=== PATIENT | female | born 1940 | race Caucasian/White ===

== ENCOUNTER 2020-03-01 08:58 | Outpatient (REF) | payer MEDICARE, OTHER, SELFPAY ==
[2020-03-02 21:46] LABS: Lyme Abs Screen <0.90 index
== END 2020-03-01 08:59 | disposition home or self-care (01) ==
LOC: HO.HMGCLDS 08:58
PROVIDERS: PCP Internal Medicine; Visit Provider Nurse Practitioner Family
DX: T14.8XXA Other injury of unspecified body region, initial encounter (principal)
CPT/HCPCS: 86618

== ENCOUNTER → 2020-03-06 15:58 | Outpatient (BNVA) | payer MEDICARE, OTHER, SELFPAY | PROVIDERS: PCP Internal Medicine; Referring Provider Internal Medicine; Visit Provider Internal Medicine Cardiovascular Disease | DX: I49.3 Ventricular premature depolarization (principal); R00.2 Palpitations | CPT/HCPCS: 99213 ==

== ENCOUNTER → 2021-03-01 13:38 | Outpatient (BNVA) | payer MEDICARE, OTHER, SELFPAY | PROVIDERS: PCP Internal Medicine; Visit Provider Internal Medicine Cardiovascular Disease | DX: I47.1 Supraventricular tachycardia (principal); R00.2 Palpitations; I49.1 Atrial premature depolarization; I44.7 Left bundle-branch block, unspecified; Z87.891 Personal history of nicotine dependence; Z79.899 Other long term (current) drug therapy | CPT/HCPCS: 93005; 99212 ==

== ENCOUNTER → 2021-05-31 12:47 | Outpatient (BNVA) | payer MEDICARE, OTHER, SELFPAY | PROVIDERS: PCP Internal Medicine; Visit Provider Internal Medicine Cardiovascular Disease | DX: I49.3 Ventricular premature depolarization (principal); R00.2 Palpitations | CPT/HCPCS: 99212 ==

== ENCOUNTER → 2022-02-28 15:16 | Outpatient (BNVA) | payer MEDICARE, OTHER, SELFPAY | PROVIDERS: PCP Internal Medicine; Visit Provider Internal Medicine Cardiovascular Disease | DX: I26.99 Other pulmonary embolism without acute cor pulmonale (principal); I44.7 Left bundle-branch block, unspecified; R00.2 Palpitations | CPT/HCPCS: 93005; 99212 ==

== ENCOUNTER 2022-06-26 10:49 | Outpatient (REF) | payer MEDICARE, OTHER, SELFPAY | END 2022-06-26 10:50 | disposition home or self-care (01) | LOC: HO.LAB 10:49 | PROVIDERS: Visit Provider Nurse Practitioner Family | DX: R39.9 Unspecified symptoms and signs involving the genitourinary system (principal) | CPT/HCPCS: 87086 ==

== ENCOUNTER 2022-06-28 12:03 | Outpatient (REF) | payer MEDICARE, OTHER, SELFPAY ==
[2022-06-28 13:13] LABS: Appearance Urine Clear; Color Urine Dark Yellow; Glucose Urine UA Negative (Negative); Leukocyte Esterase Urine Trace (Negative); Nitrite Urine Negative (Negative); UMIC TRIGGER UACC YES; Urine Blood Negative (Negative); Urine Ketones Negative (Negative); Urine Protein Negative (Neg-Trace)
[2022-06-28 13:16] LABS: Bacteria Urine None Seen (None Seen); Hyaline Casts Urine 0-2 /LPF (0-2); RBC Urine 0-2 /HPF (0-2); Squamous Epithelial Cell Urine 0-2 /HPF (0-2); WBC Urine 0-5 /HPF (0-5)
== END 2022-06-28 12:04 | disposition home or self-care (01) ==
LOC: HO.LAB 12:03
PROVIDERS: PCP Internal Medicine; Visit Provider Nurse Practitioner Family
DX: R39.9 Unspecified symptoms and signs involving the genitourinary system (principal)
CPT/HCPCS: 81001; 81003

== ENCOUNTER 2022-07-22 10:46 | Outpatient (REF) | payer MEDICARE, OTHER, SELFPAY ==
[2022-07-22 11:28] LABS: D Dimer High Sensitivity 162 NG/ML
== END 2022-07-22 10:47 | disposition home or self-care (01) ==
LOC: HO.LAB 10:46
PROVIDERS: PCP Internal Medicine; Visit Provider Internal Medicine Cardiovascular Disease
DX: I26.99 Other pulmonary embolism without acute cor pulmonale (principal)
CPT/HCPCS: 36415; 85379

== ENCOUNTER → 2022-07-30 15:20 | Outpatient (BNVA) | payer MEDICARE, OTHER, SELFPAY | PROVIDERS: PCP Internal Medicine; Referring Provider Internal Medicine; Visit Provider Internal Medicine Cardiovascular Disease | DX: I44.7 Left bundle-branch block, unspecified (principal); R06.09 Other forms of dyspnea; I26.99 Other pulmonary embolism without acute cor pulmonale | CPT/HCPCS: 99212 ==

== ENCOUNTER → 2022-08-06 14:47 | Outpatient (REF) | payer MEDICARE, OTHER, SELFPAY ==
--- NOTE | 2022-08-06 14:51 | CA_ITS ---
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 There is mildly increased left ventricular wall thickness. The visually estimated ejection fraction is between 55-60%. - Reduced global longitudinal strain at -16 %/ - Normal right ventricular cavity size and systolic function. Findings Left Ventricle Normal left ventricular size and systolic function. There is mildly increased left ventricular wall thickness. The visually estimated ejection fraction is between 55-60%. There is no evidence of regional wall motion abnormalities. Diastolic function is indeterminate on the basis of available data. Reduced global longitudinal strain at -16 %/ Right Ventricle Normal right ventricular cavity size and systolic function. Atria The left atrium is normal in size. The right atrium is normal in size. Aortic Valve Normal aortic valve structure and function. There is no aortic valve stenosis. There is no aortic valve regurgitation. Mitral Valve The mitral valve appears normal. There is mild mitral valve regurgitation. There is no mitral valve stenosis. Pulmonic Valve The pulmonic valve is likely normal. Tricuspid Valve Normal tricuspid valve structure and function. There is trace tricuspid valve regurgitation. Normal right atrial pressure. There is no evidence of pulmonary hypertension. Great Vessels All visible segments of the aorta are normal in size. The visualized portions of the pulmonary artery and branches are normal. Venous The inferior vena cava is normal in size and collapses greater than 50% with inspiration. Pericardium/Pleural There is no evidence of pericardial effusion. Prior Study Comparison No significant change compared to prior study dated: 10/29/2019. Measurements 2D Linear Measurements IVSd: 1.06 0.6-0.9/0.6-1.0 cm LVIDd: 4.17 3.9-5.3/4.2-5.9 cm LVIDd Index: 2.45 2.4-3.2/2.2-3.1 cm/m2 LVIDs: 3.06 2.0-3.6 cm LVPWd: 0.95 0.7-1.1 cm LA Diam: 3.00 2.7-3.8/3.0-4.0 cm LAIDs Index: 1.76 1.5-2.3 cm/m2 LV Mass: 169.82 67-162/88-224 g LV Mass Index: 99.89 43-95/49-115 g/m2 LVOT Diam: 1.80 3.0+(-)1.3 cm 2D Systolic Function EF 4C: 56.40 >55% EF 2C: 57.60 >55% EF BiP: 57.00 >55% Mitral Valve MV Pk E: 0.61 MV PK A: 0.86 MV Decel Time: 272.00 E/A: 0.70 E'Lateral: 9.14 E'Medial: 5.77 E/E' Med: 10.60 E/E' Lat: 6.70 PHT: 80.00 MVA PHT: 2.75 Decel Lares: 2.26 Aortic Valve AoV Pk Chase: 1.21 AoV Mn Chase: 0.94 AoV VTI: 0.29 AoV Pk Grad: 6.00 Aov Mn Grad: 4.00 WALDO Cont.VTI: 1.84 LVOT LVOT Pk Chase: 0.88 LVOT Mn Chase: 0.61 LVOT VTI: 0.21 LVOT Pk Grad: 3.00 LVOT Mn Grad: 2.00 LVOT Diam: 1.80 LVOT Area: 2.54 Diastolic Function MV Pk E: 0.61 MV Pk A: 0.86 E/A: 0.70 E'Medial: 5.77 E/E' Med: 10.60 E' Laterial: 9.14 E/E' Lat: 6.70 Right Ventricle TAPSE (mm): 24.00 TVS' Chase: 11.40 Tricuspid Valve TR Pk Chase: 2.67 TR Pk Grad: 29.00 RA Press: 3.00 RVSP: 32.00 Great Vessels Aorta Sinus of Valsalva: 3.04 2.0-3.5 cm Ao Asc: 3.20 2.1-3.4 cm Ao Arch: 2.50 Updated in Other Vendor System with Status of Final Jack Acosta MD electronically signed on 08/08/2022 12:20:17 PM with status of Final
== END ==
LOC: HO.CARD 14:47
PROVIDERS: PCP Internal Medicine; Visit Provider Internal Medicine Cardiovascular Disease
DX: R06.09 Other forms of dyspnea (principal)
CPT/HCPCS: 93306; 93356

== ENCOUNTER 2022-08-26 11:11 | Outpatient (REF) | payer MEDICARE, OTHER, SELFPAY ==
[2022-08-26 11:43] LABS: Fibrinogen 612 MG/DL (259-690); INTERNATIONAL NORM RATIO 0.9 (0.9-1.1); Prothrombin Time 10.5 SEC (10.0-13.1)
[2022-08-26 11:45] LABS: Partial Thromboplastin Time 28.7 SEC (26.0-36.4)
[2022-08-28 16:54] LABS: Homocysteine 10.3 umol/L (<10.4)
[2022-08-29 19:09] LABS: Anti-Thrombin III Antigen 105 % normal (80-120)
[2022-08-29 23:19] LABS: Protein C Activity 148 % normal (70-180); Protein S Activity rflx Tot&Fr 112 % normal (60-140)
[2022-08-30 13:33] LABS: PTT (LAC) Screen 28 sec (<=40)
[2022-08-31 02:44] LABS: Factor V Leiden NEGATIVE
[2022-08-31 03:18] LABS: Prothrombin 20210A NEGATIVE
== END 2022-08-26 11:12 | disposition home or self-care (01) ==
LOC: HO.LAB 11:11
PROVIDERS: PCP Internal Medicine; Visit Provider Internal Medicine Medical Oncology
DX: I82.409 Acute embolism and thrombosis of unspecified deep veins of unspecified lower extremity (principal); I26.99 Other pulmonary embolism without acute cor pulmonale; D68.59 Other primary thrombophilia; Z79.01 Long term (current) use of anticoagulants
CPT/HCPCS: 36415; 81240; 81241; 83090; 85301; 85302; 85303; 85305; 85306; 85384; 85597; 85610; 85613; 85730

== ENCOUNTER 2022-11-18 09:31 | Outpatient (AMB) | payer MEDICARE, OTHER, SELFPAY ==
--- NOTE | 2022-11-18 10:06 | MHC.OFFVIS ---
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 Allergies No Known Allergies [No Known Allergies*] Allergy (Verified 09/17/22 08:22) PFSH Medical History (Updated 09/17/22 @ 08:24 by Gerson Fontana MD) Palpitations PVC (premature ventricular contraction) Surgical History H/O section History of meniscectomy of left knee Hx of meniscectomy of right knee Family History Mother Pulmonary fibrosis Father Diabetes HTN (hypertension) Colon cancer Bladder cancer Sister Breast cancer Brother COPD (chronic obstructive pulmonary disease) Son Addisons disease Social History Alcohol intake: current Alcohol intake frequency: holidays/special occasions only Patient Tobacco Use Status: Former Tobacco user Quit Date: Years Smoked: 15 +/- Review of Systems Const Denies chills, Denies fatigue, Denies fever(s), Denies frequent falls, Denies weakness, Denies weight gain and Denies weight loss ENT Denies dizziness Card Denies chest pain, Denies leg edema, Denies lightheadedness, Denies palpitations, Denies dyspnea, Denies dyspnea on exertion, Denies orthopnea and Denies other (loss of consciousness) Resp Denies cough, Denies dyspnea and Denies dyspnea on exertion GI Denies hematochezia and Denies change in stool character Musc Denies abnormal gait, Denies muscle weakness, Denies numbness, Denies radiating pain into limb and Denies tingling Neuro Denies abnormal gait, Denies dizziness, Denies frequent falls, Denies numbness, Denies tingling and Denies weakness Endo Denies fatigue and Denies palpitations Coding Diagnoses
--- NOTE | 2022-11-18 10:11 | MHC.OFFVIS ---
Intake Intake Visit Reasons: 3 month f/u Allergies No Known Allergies [No Known Allergies*] Allergy (Verified 09/17/22 08:22) Medication List - Last Reconciled 11/18/22 by Jack Acosta MD cholecalciferol (vitamin D3) 50 mcg PO DAILY doxycycline hyclate 100 mg PO BID latanoprost 0.005% drps ophthalmic (eye) metoprolol succinate ER 12.5 mg (1/2 x 25 mg) PO DAILY olopatadine 0.1% drps ophthalmic (eye) HPI HPI Comments History of Present Illness Details Here for f/u 07/30/22: She had bilateral PE last year in the setting of COVID-19 infection. She also had air travel to [place]. Echocardiography at that time performed at [facility] showed mild RV dysfunction with EF of 50 55%. She has chronic left bundle-branch block. She has few questions including concern for fatigue and shortness of breath. She was able to walk 2 1/2 miles before but now able to walk 1-1-1/2 miles. She has no chest discomfort. She has been taking Eliquis without any issues. She had D-dimer performed recently which was normal. Her pulmonary embolism appears to be provoked due to COVID-19 and air travel. No dizziness or syncope. She was referred for echocardiography which showed normal biventricular function. She also saw Hematology and was subsequently taken off the Eliquis. 11/18/22: She returns for follow-up. EKG in the office is showing sinus rhythm 72 beats per minute, left bundle-branch block, QTC 462 milliseconds. [facility] Medical History (Updated 09/17/22 @ 08:24 by Gerson Fontana MD) Palpitations PVC (premature ventricular contraction) Surgical History H/O section History of meniscectomy of left knee Hx of meniscectomy of right knee Family History Mother Pulmonary fibrosis Father Diabetes HTN (hypertension) Colon cancer Bladder cancer Sister Breast cancer Brother COPD (chronic obstructive pulmonary disease) Son Addisons disease Social History Alcohol intake: current Alcohol intake frequency: holidays/special occasions only Patient Tobacco Use Status: Former Tobacco user Quit Date: Years Smoked: 15 +/- Physical Exam GENERAL APPEARANCE: in no acute distress, pleasant. NECK: no carotid bruit, no jugular venous distention. SKIN: no suspicious lesions, warm and dry. HEART: no murmurs, regular rate and rhythm. LUNGS: clear to auscultation bilaterally. ABDOMEN: soft, nontender. EXTREMITIES: no edema. PERIPHERAL PULSES: equal. NEUROLOGIC: No gross deficits, AAO X 3 Office Procedures EKG Details: sinus rhythm 72 beats per minute, left bundle-branch block, QTC 462 milliseconds. [id number], Complete Assessment & Plan Assessment & Plan (1) LBBB (left bundle branch block): Code(s): I44.7 - Left bundle-branch block, unspecified Plan Pleasant 82-year-old female who is here for follow-up. On previous visit she was on Eliquis for pulmonary embolism. She subsequently had follow-up with Hematology and has been taken off the Eliquis. She has chronic left bundle-branch block. She had echocardiography which showed normal biventricular function. She is denying any chest discomfort shortness of breath currently. Blood pressure control is good. No dizziness or syncope. She was in [place] and walked 18 miles there without any significant symptoms. Clinically stable right now. Follow-up with us in 6 months. Thank you for allowing me to participate in the care of your patient. Please feel free to contact me if you have any questions. Coding Level of Care Code Est Pt Level 3 (81181) Diagnoses LBBB (left bundle branch block) I44.7 CPT Codes EKG - CPT: 83438-[id number], Complete ([id number])
== END 2022-11-18 10:14 | disposition home or self-care (01) ==
LOC: HO.HCS 10:06
PROVIDERS: PCP Internal Medicine; Visit Provider Internal Medicine Cardiovascular Disease
DX: I44.7 Left bundle-branch block, unspecified (principal)
CPT/HCPCS: 93010; 99213

== ENCOUNTER → 2022-11-18 10:06 | Outpatient (BNVA) | payer MEDICARE, OTHER, SELFPAY | PROVIDERS: PCP Internal Medicine; Visit Provider Internal Medicine Cardiovascular Disease | DX: I44.7 Left bundle-branch block, unspecified (principal); I49.3 Ventricular premature depolarization; R00.2 Palpitations; Z87.891 Personal history of nicotine dependence | CPT/HCPCS: 93005; 99212 ==

== ENCOUNTER 2022-12-31 07:27 | Outpatient (REF) | payer MEDICARE, OTHER, SELFPAY ==
--- NOTE | ~2022-12-31 | US_ITS ---
EXAMINATION: US VENOUS ULTRASOUND WITH DOPPLER LOWER EXTREMITY, BILATERAL CLINICAL INFORMATION: Bilateral leg pain. Elevated D-dimer. COMPARISON: None available. TECHNIQUE: Ultrasound of the deep veins is performed from the hip to the calf with compression sonography and color and pulse Doppler assessment. Spectral analysis with color-flow imaging is performed. FINDINGS: RIGHT: There is normal venous compression and respiratory variation and augmented flow. The visualized common femoral vein, superficial femoral vein, profunda femoral vein, popliteal vein, and the trifurcation region shows no evidence of deep venous thrombosis. There is no significant popliteal fossa cyst. LEFT: There is normal venous compression and respiratory variation and augmented flow. The visualized common femoral vein, superficial femoral vein, profunda femoral vein, popliteal vein, and the trifurcation region shows no evidence of deep venous thrombosis. There is no significant popliteal fossa cyst. If the patient's symptoms persist, followup ultrasound in 5 days 7 days might be of value to exclude proximal propagation from a non-visualized calf vein. US/US venous duplex LE BI IMPRESSION: No DVT demonstrated in the lower extremities.
[2022-12-31 10:44] LABS: D Dimer High Sensitivity 282 NG/ML
== END 2022-12-31 07:28 | disposition home or self-care (01) ==
LOC: HO.LAB 07:27
PROVIDERS: PCP Internal Medicine; Visit Provider Internal Medicine Medical Oncology
DX: R60.0 Localized edema (principal); M79.604 Pain in right leg; M79.605 Pain in left leg
CPT/HCPCS: 36415; 85379; 93970

== ENCOUNTER 2023-01-09 14:28 | Outpatient (AMB) | payer MEDICARE, OTHER, SELFPAY ==
--- NOTE | 2023-01-09 14:30 | A.OFFVIS_ITS ---
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 Pt states about a week and a half ago she had burning in both of her feet after her walk and stated she felt pins and needles in her feet. She stated she tried different shoes and she still has the same symptoms without relief. She states about 3 days ago the burrning started to move up to her ankles and shins. Pt also states that when she wakes up in the morning she states she has no symptoms. Pt denies any pain,numbness, and swelling. 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 She notes that it is bilateral extremities right a little more so than left. She does have occasional swelling and discomfort. She also has tingling more so towards the feet. She does have some mild back discomfort issues. Of note she has had recurrent tick bites of the lower extremities. In addition she has a prior history of left lower extremity DVT with PE which she relates to COVID as well. She now presents to us for vascular evaluation. Of note she can walk distances without any sign ificant difficulty. PFSH Medical History Palpitations PVC (premature ventricular contraction) Surgical History H/O section History of meniscectomy of left knee Hx of meniscectomy of right knee Family History Mother Pulmonary fibrosis Father Diabetes HTN (hypertension) Colon cancer Bladder cancer Sister Breast cancer Brother COPD (chronic obstructive pulmonary disease) Son Addisons disease Social History Alcohol intake: current Alcohol intake frequency: holidays/special occasions only Patient Tobacco Use Status: Former Tobacco user Quit Date: Years Smoked: 15 +/- Review of Systems Const All systems reviewed & are unremarkable except as noted in HPI and below Reports no additional complaints ENT Reports Normal hearing present Card Denies chest pain, Denies chest pain at rest, Denies chest pain with activity and Denies pedal edema Resp Denies cough GI Denies abdominal pain Musc Denies abnormal gait, Denies muscle cramps and Denies radiating pain into limb Skin/Breast Denies skin ulcer and Denies wounds Neuro Reports Normal hearing present and Denies abnormal gait Psych Reports no additional complaints Physical Exam Vital Signs: Last Vital Signs Pulse 91 01/09/23 14:31 BP 132/70 01/09/23 14:31 Pulse Ox 98 01/09/23 14:31 Oxygen Delivery Method Room Air 01/09/23 14:31 BMI result Body Mass Index 26.0 Const General: cooperative, healthy appearing and comfortable Orientation/consciousness: oriented to person, oriented to place and oriented to time HEENT Head: Yes normal to inspection Neck Neck: Yes normal visual inspection Carotids: no bruits Chest Chest palpation & inspection: normal inspection of the chest Resp Effort & Inspection: normal respiratory effort and able to speak in complete sentences Auscultation: clear to auscultation bilaterally, no crackles, no rales, no rhonchi and no wheezes Cardio Rate: regular rate Rhythm: regular rhythm Heart sounds: S1 normal heart sound present and S2 normal heart sound present Bruits: no carotid bruits Peripheral pulses: Peripheral pulses 2+ throughout GI Inspection: Yes normal to inspection Skin Wounds: no wounds Hair: normal Neuro General: oriented to person, oriented to place and oriented to time Cranial nerves: Yes CN's II-XII intact bilaterally and Yes Normal hearing present Cognition (Neuro): normal cognition Motor exam (neuro): 5/5 motor strength present throughout Extrem Other: venous exam: Plus one edema General: No clubbing, No cyanosis and No edema Psych Appearance: grossly normal Mental Status: mental status grossly normal Speech and movement: Normal speech and movement present Assessment & Plan Assessment & Plan (1) Varicose veins of right lower extremity with inflammation: Code(s): I83.11 - Varicose veins of right lower extremity with inflammation Plan: in short patient has lower extremity discomfort. It does not appear to be arterial in nature as she does have palpable pulses. I have taken the liberty of ordering venous insufficiency testing to rule that out. Unsure if that will be the source of her issues. There is concern of her prior tick bites and underlying reflux as evidence by her prior DVT. In addition there may be a neurologic component of this as well. Once again she will follow up with us after venous insufficiency testing. Thank you for allowing us to assist in her care. If there are any questions or concerns please do not hesitate to contact us. Orders: Orders US venous duplex LE BI 1 Week I83.11 - Varicose veins of right lower extremity with inflammation Coding Level of Care Code New Pt Level 4 (28782) Diagnoses Varicose veins of right lower extremity with inflammation I83.11
[2023-01-09 14:31] VITALS: BP 132/70; PULSE 91; O2SAT 98; BMI 26.0
== END 2023-01-09 15:39 | disposition home or self-care (01) ==
PROVIDERS: PCP Internal Medicine; Visit Provider Surgery Vascular Surgery
DX: I83.11 Varicose veins of right lower extremity with inflammation (principal)
CPT/HCPCS: 99204

== ENCOUNTER → 2023-01-09 14:28 | Outpatient (BNVA) | payer MEDICARE, OTHER, SELFPAY | PROVIDERS: PCP Internal Medicine; Visit Provider Surgery Vascular Surgery | DX: I83.11 Varicose veins of right lower extremity with inflammation (principal) | CPT/HCPCS: 99202 ==

== ENCOUNTER 2023-01-29 12:43 | Outpatient (REF) | payer MEDICARE, OTHER, SELFPAY ==
--- NOTE | ~2023-01-29 | US_ITS ---
EXAMINATION: US LOWER EXTREMITY VENOUS (REFLUX EXAM), BILATERAL CLINICAL INDICATION: Chronic venous insufficiency with lower extremity varicose veins with inflammation COMPARISON: 12/31/2022 TECHNIQUE: Color flow triplex imaging and compression Doppler was performed to evaluate both the deep and the superficial systems bilaterally. To evaluate the superficial system, the examination was performed in the upright position. Color-flow Doppler ultrasound and compression ultrasound were utilized. In addition, maneuvers were utilized to demonstrate reflux. FINDINGS: 1. DEEP VENOUS ULTRASOUND OF THE RIGHT LOWER EXTREMITY: Common Femoral Vein: Compressible, normal respiratory variation and augmented flow. Femoral Vein: Compressible, normal color flow and augmentation. Popliteal Vein: Compressible, normal augmentation. Deep Reflux: There is no evidence of reflux in the deep system in either the common femoral vein or the popliteal vein. There is no evidence of a Metzger's cyst. 2. SUPERFICIAL ULTRASOUND WITH DOPPLER OF RIGHT LOWER EXTREMITY: GREAT SAPHENOUS VEIN: Saphenofemoral Junction: 0.7 cm; Reflux: 0 ms Proximal Thigh: 0.4 cm; Reflux: 0 ms Mid Thigh: 0.3 cm; Reflux: 848 ms Above Knee: 0.3 cm; Reflux: 0 ms At Knee: 0.3 cm; Reflux: 616 ms Below Knee: 0.3 cm; Reflux: 500 ms Mid Calf: 0.2 cm; Reflux: 0 ms Ankle: 0.2 cm; Reflux: 0 ms DUPLICATED MEDIAL GREAT SAPHENOUS VEIN: Diameter: None imaged Reflux: NA DUPLICATED LATERAL GREAT SAPHENOUS VEIN: Diameter: None imaged Reflux: NA SMALL SAPHENOUS VEIN: Proximal: 0.1 cm; Reflux: 0 ms Distal: 0.2 cm; Reflux: 0 ms VEIN OF GIACOMINI: Size: 0.2 cm Reflux: None PERFORATORS: Location: Mid calf Size: 0.3 cm Reflux: None VARICOSITIES: Location: Proximal thigh and proximal calf Size: 0.3 cm Reflux: None 3. DEEP VENOUS ULTRASOUND OF THE LEFT LOWER EXTREMITY: Common Femoral Vein: Compressible, normal respiratory variation and augmented flow. Femoral Vein: Compressible, normal color flow and augmentation. Popliteal Vein: Compressible, normal augmentation. Deep Reflux: There is no evidence of reflux in the deep system in either the common femoral vein or the popliteal vein. There is no evidence of a Metzger's cyst. 4. SUPERFICIAL ULTRASOUND WITH DOPPLER OF LEFT LOWER EXTREMITY: GREAT SAPHENOUS VEIN: Saphenofemoral Junction: 0.4 cm; Reflux: 0 ms Proximal Thigh: 0.4 cm; Reflux: 1912 ms Mid Thigh: 0.3 cm; Reflux: 2108 ms Above Knee: 0.3 cm; Reflux: 2268 ms At Knee: 0.3 cm; Reflux: 2020 ms Below Knee: 0.2 cm; Reflux: 0 ms Mid Calf: 0.3 cm; Reflux: 0 ms Ankle: 0.3 cm; Reflux: 0 ms DUPLICATED MEDIAL GREAT SAPHENOUS VEIN: Diameter: None imaged Reflux: NA DUPLICATED LATERAL GREAT SAPHENOUS VEIN: Diameter: None imaged Reflux: NA SMALL SAPHENOUS VEIN: Proximal: 0.2 cm; Reflux: 0 ms Distal: 0.2 cm; Reflux: 0 ms VEIN OF GIACOMINI: Size: NA Reflux: NA PERFORATORS: Location: None significant Size: NA Reflux: NA VARICOSITIES: Location: None Imaged Size: NA Reflux: NA US/US venous duplex LE BI IMPRESSION: Right: Mild to moderate reflux in the right great saphenous vein within the mid to thigh, knee and proximal calf. Varicose veins seen in the thigh and calf without significant reflux Left: Severe reflux within the great saphenous vein at the thigh and knee.
== END 2023-01-29 12:44 | disposition home or self-care (01) ==
LOC: HO.US 12:43
PROVIDERS: PCP Internal Medicine; Visit Provider Surgery Vascular Surgery
DX: I83.11 Varicose veins of right lower extremity with inflammation (principal)
CPT/HCPCS: 93970

== ENCOUNTER 2023-02-04 15:03 | Outpatient (AMB) | payer MEDICARE, OTHER, SELFPAY ==
--- NOTE | 2023-02-04 15:06 | MHC.OFFVIS ---
Intake Vital Signs 02/04/23 15:07 Height 5 ft 3 in Weight 147 lb BMI 26.0 Intake Visit Reasons: Follow Up 01/27 Intake Note: fu for venous us hx of DVT pt states shes doing well and the compression socks have been working Allergies No Known Allergies [No Known Allergies*] Allergy (Verified 02/04/23 15:08) HPI Follow Up 01/27 HPI Details 82-year-old female presents for follow-up regarding venous insufficiency. Of note she most recently he developed COVID and was restarted by her primary care team on Eliquis. Her prior episode of COVID she did develop a left lower extremity DVT at [facility] which she has an ultrasound of. [facility] Medical History Palpitations PVC (premature ventricular contraction) Surgical History H/O section History of meniscectomy of left knee Hx of meniscectomy of right knee Family History Mother Pulmonary fibrosis Father Diabetes HTN (hypertension) Colon cancer Bladder cancer Sister Breast cancer Brother COPD (chronic obstructive pulmonary disease) Son Addisons disease Social History Alcohol intake: current Alcohol intake frequency: holidays/special occasions only Patient Tobacco Use Status: Former Tobacco user Quit Date: Years Smoked: 15 +/- Review of Systems Const All systems reviewed & are unremarkable except as noted in HPI and below Reports no additional complaints ENT Reports Normal hearing present Card Denies chest pain, Denies chest pain at rest, Denies chest pain with activity and Denies pedal edema Resp Denies cough GI Denies abdominal pain Musc Denies abnormal gait, Denies muscle cramps and Denies radiating pain into limb Skin/Breast Denies skin ulcer and Denies wounds Neuro Reports Normal hearing present and Denies abnormal gait Psych Reports no additional complaints Physical Exam Vital Signs: BMI result Body Mass Index 26.0 Const General: cooperative, healthy appearing and comfortable Orientation/consciousness: oriented to person, oriented to place and oriented to time HEENT Head: Yes normal to inspection Neck Neck: Yes normal visual inspection Carotids: no bruits Chest Chest palpation & inspection: normal inspection of the chest Resp Effort & Inspection: normal respiratory effort and able to speak in complete sentences Auscultation: clear to auscultation bilaterally, no crackles, no rales, no rhonchi and no wheezes Cardio Rate: regular rate Rhythm: regular rhythm Heart sounds: S1 normal heart sound present and S2 normal heart sound present Bruits: no carotid bruits Peripheral pulses: Peripheral pulses 2+ throughout GI Inspection: Yes normal to inspection Skin Wounds: no wounds Hair: normal Neuro General: oriented to person, oriented to place and oriented to time Cranial nerves: Yes CN's II-XII intact bilaterally and Yes Normal hearing present Cognition (Neuro): normal cognition Motor exam (neuro): 5/5 motor strength present throughout Extrem Other: venous exam: +1 edema left greater than right General: No clubbing, No cyanosis and Yes edema Psych Appearance: grossly normal Mental Status: mental status grossly normal Speech and movement: Normal speech and movement present Results Reviewed Results Reviewed: Brief summary of venous insufficiency testing is as follows: right great saphenous vein: negative right small saphenous vein: negative right accessory vein: none present left great saphenous vein: Positive left small saphenous vein: negative left accessory vein: none present Please note there is no evidence of any venous aneurysms or significant tortuosity Assessment & Plan Assessment & Plan (1) Varicose veins of left lower extremity with inflammation: Code(s): I83.12 - Varicose veins of left lower extremity with inflammation Plan: This patient has varicose veins with inflammation. They continue to be a source of discomfort for the patient. The patient has tried conservative treatment with compression, leg elevation and exercise program for over 3 months time. They have been compliant with all treatment. This has provided minimal relief for the patient. I do not anticipate this course of treatment will alter the underlying etiology. The patient has been scheduled for lower extremity venous treatment inclusive of --- left great saphenous vein Cyanoacralate ablation. Risks, benefits, and complications of this procedure has been discussed in detail with the patient including but not limited to bleeding, infection, and the development of a DVT. The patient has demonstrated a clear understanding and has consented. We will schedule the patient as soon as possible. Thank you for allowing us to participate in this patient's care. If there are any questions or concerns please do not hesitate to contact us. Coding Level of Care Code Est Pt Level 4 (93188) Diagnoses Varicose veins of left lower extremity with inflammation I83.12
[2023-02-04 15:07] VITALS: BMI 26.0
== END 2023-02-04 15:42 | disposition home or self-care (01) ==
PROVIDERS: PCP Internal Medicine; Visit Provider Surgery Vascular Surgery
DX: I83.12 Varicose veins of left lower extremity with inflammation (principal)
CPT/HCPCS: 99214

== ENCOUNTER → 2023-02-04 15:03 | Outpatient (BNVA) | payer MEDICARE, OTHER, SELFPAY | PROVIDERS: PCP Internal Medicine; Visit Provider Surgery Vascular Surgery | DX: I83.12 Varicose veins of left lower extremity with inflammation (principal) | CPT/HCPCS: 99212 ==

== ENCOUNTER 2023-05-19 08:44 | Outpatient (AMB) | payer MEDICARE, OTHER, SELFPAY ==
[2023-05-19 09:21] VITALS: BP 124/62; PULSE 80; BMI 26.4
--- NOTE | 2023-05-19 09:21 | MHC.OFFVIS ---
Intake Vital Signs 05/19/23 09:21 Height 5 ft 3 in Weight 149 lb 0.52 oz BMI 26.4 BP 124/62 Blood Pressure Location Lt brachial Position Sitting Pulse 80 Pulse Source Pulse Oximeter Intake Visit Reasons: 6 month follow up Allergies No Known Allergies [No Known Allergies*] Allergy (Verified 05/19/23 09:22) Medication List - Last Reconciled 05/19/23 by Jack Acosta MD aspirin (Adult Aspirin Regimen) 81 mg PO DAILY cholecalciferol (vitamin D3) 50 mcg PO DAILY latanoprost 0.005% drps ophthalmic (eye) metoprolol succinate ER 12.5 mg (1/2 x 25 mg) PO DAILY olopatadine 0.1% drps ophthalmic (eye) HPI HPI Comments History of Present Illness Details Here for f/u 07/30/22: She had bilateral PE last year in the setting of COVID-19 infection. She also had air travel to [place]. Echocardiography at that time performed at [facility] showed mild RV dysfunction with EF of 50 55%. She has chronic left bundle-branch block. She has few questions including concern for fatigue and shortness of breath. She was able to walk 2 1/2 miles before but now able to walk 1-1-1/2 miles. She has no chest discomfort. She has been taking Eliquis without any issues. She had D-dimer performed recently which was normal. Her pulmonary embolism appears to be provoked due to COVID-19 and air travel. No dizziness or syncope. She was referred for echocardiography which showed normal biventricular function. She also saw Hematology and was subsequently taken off the Eliquis. 11/18/22: She returns for follow-up. EKG in the office is showing sinus rhythm 72 beats per minute, left bundle-branch block, QTC 462 milliseconds. 05/19/23: She is here for follow-up. She is getting some shortness of breath when she goes upstairs. No chest discomfort. She has been experiencing some dull ache in the legs when she walks and has been diagnosed with venous reflux involving the left leg. She also get burning sensation on her feet. She is seeing vascular surgery for venous ablation. [facility] Medical History Palpitations PVC (premature ventricular contraction) Surgical History History of meniscectomy of left knee Hx of meniscectomy of right knee H/O section Family History Mother Pulmonary fibrosis Father Diabetes HTN (hypertension) Colon cancer Bladder cancer Sister Breast cancer Brother COPD (chronic obstructive pulmonary disease) Son Addisons disease Social History Alcohol intake: current Alcohol intake frequency: holidays/special occasions only Patient Tobacco Use Status: Former Tobacco user Quit Date: Years Smoked: 15 +/- Review of Systems ENT Reports dizziness Card Denies chest pain, Denies chest pain at rest, Denies chest pain with activity, Denies rapid heart rate, Denies pedal edema, Denies edema, Denies leg edema, Denies lightheadedness, Denies palpitations, Denies dyspnea, Denies dyspnea on exertion and Denies orthopnea Resp Denies cough, Denies dyspnea and Denies dyspnea on exertion GI Denies hematochezia and Denies change in stool character Musc Denies abnormal gait, Reports limited range of motion, Reports muscle cramps, Denies muscle weakness, Denies numbness, Denies radiating pain into limb, Denies stiffness and Denies tingling Neuro Denies abnormal gait, Reports dizziness, Denies numbness and Denies tingling Endo Denies palpitations Physical Exam Vital Signs: Last Vital Signs Pulse 80 05/19/23 09:21 BP 124/62 05/19/23 09:21 BMI result Body Mass Index 26.4 GENERAL APPEARANCE: in no acute distress, pleasant. NECK: no carotid bruit, no jugular venous distention. SKIN: no suspicious lesions, warm and dry. HEART: no murmurs, regular rate and rhythm. LUNGS: clear to auscultation bilaterally. ABDOMEN: soft, nontender. EXTREMITIES: no edema. Compression stockings on. PERIPHERAL PULSES: equal. NEUROLOGIC: No gross deficits, AAO X 3 Assessment & Plan Assessment & Plan (1) LBBB (left bundle branch block): Code(s): I44.7 - Left bundle-branch block, unspecified (2) FISCHER (dyspnea on exertion): Code(s): R06.09 - Other forms of dyspnea Plan [age] female here for follow-up. She has chronic left bundle-branch block. She had pulmonary embolism in the setting of COVID-19 infection and since then has some dyspnea. She feels it more when she is going upstairs. Clinically not in heart failure. I think dyspnea is a combination of previous pulmonary embolism and deconditioning. She has chronic left bundle-branch block but LV function is normal. She will continue metoprolol for palpitations. Thank you for allowing me to participate in the care of your patient. Please feel free to contact me if you have any questions. Medications: Refilled metoprolol succinate ER Take 1/2 tablet daily. 12.5 mg (1/2 x 25 mg) PO DAILY 45 tabs 3RF Coding Level of Care Code Est Pt Level 4 (40530) Diagnoses LBBB (left bundle branch block) I44.7 FISCHER (dyspnea on exertion) R06.09
== END 2023-05-19 09:57 | disposition home or self-care (01) ==
PROVIDERS: PCP Internal Medicine; Visit Provider Internal Medicine Cardiovascular Disease
DX: I44.7 Left bundle-branch block, unspecified (principal); R06.09 Other forms of dyspnea
CPT/HCPCS: 99214

== ENCOUNTER → 2023-05-19 08:44 | Outpatient (BNVA) | payer MEDICARE, OTHER, SELFPAY | PROVIDERS: PCP Internal Medicine; Visit Provider Internal Medicine Cardiovascular Disease | DX: I44.7 Left bundle-branch block, unspecified (principal); R06.09 Other forms of dyspnea | CPT/HCPCS: 99212 ==

== ENCOUNTER 2023-10-23 11:29 | Inpatient (IN) | payer MEDICARE, OTHER, SELFPAY ==
--- NOTE | ~2023-10-23 | XR_ITS ---
EXAMINATION: XR CHEST CLINICAL INFORMATION: Shortness of breath. Palpitations. COMPARISON: None available. TECHNIQUE: 2 views of the chest were obtained. FINDINGS: The cardiac silhouette is normal in size. The lungs are clear. There is blunting of the right costophrenic angle, suggestive of a small right pleural effusion. There is no pneumothorax. No acute osseous abnormality. XR/XR chest 2V IMPRESSION: Small right pleural effusion. The lungs are clear.
--- NOTE | ~2023-10-23 | CT_ITS ---
EXAMINATION: CT ANGIOGRAM OF THE CHEST WITH AND WITHOUT CONTRAST (CT PULMONARY ANGIOGRAM FOR PE) CLINICAL INFORMATION: Reason for Exam dyspnea, elevated HR, prior PE COMPARISON: Chest radiograph dated 10/23/2023. TECHNIQUE: Prior to contrast administration, noncontrast localization images were obtained. Subsequently, multidetector volumetric imaging was performed from the thoracic inlet to below the diaphragms following the administration of 80 mL Omnipaque 350 intravenous contrast. No contrast reaction reported Sagittal, coronal, and MIP oblique sagittal reformatted images were obtained on the CT workstation, uploaded to PACS, and reviewed. This CT examination was performed using dose optimization techniques as appropriate, variously including the following: *Automated exposure control *Adjustment of mA and/or kV according to patient size (this includes techniques or standardized protocols for targeted exams where dose is matched to indication/reason for exam; i.e. extremities or head) *Use of iterative reconstruction technique Total exam dose-length product 238 mGy-cm FINDINGS: QUALITY OF STUDY/CONTRAST BOLUS: Satisfactory. PULMONARY ARTERIES: Extensive pulmonary emboli are identified. On the right side there is a large burden of clot within the mid to distal aspect of the main pulmonary artery. Clot extends into the upper, middle, and lower lobe pulmonary arteries. There is extension of clot into the segmental arteries of all lobes. On the left side there is a moderate burden of clot within the distal aspect of the main pulmonary artery. Clot extends into the left lower lobe pulmonary artery. There is extension of clot into the segmental arteries. THORACIC AORTA: No aneurysm. There is mild, scattered calcific atherosclerotic disease. LUNG: The trachea and central airways are patent. There are dependent changes at the left lung base. There are somewhat rounded opacities within the posterior and inferior aspects of the right lower lobe for which infection cannot be excluded. These should be followed to resolution radiologically. There is mild centrilobular emphysema. PLEURA: No pleural effusion or pneumothorax. MEDIASTINUM: Normal heart size. No pericardial effusion. No hilar or mediastinal lymphadenopathy. No evidence of septal bowing or right heart strain. CORONARY ARTERY CALCIFICATION: None visualized on this study. CHEST WALL/AXILLA: No axillary or internal mammary lymphadenopathy. OSSEOUS STRUCTURES: No acute or suspicious osseous abnormality. There are degenerative changes throughout the thoracic spine. UPPER ABDOMEN: The liver and gallbladder are normal in appearance. The spleen is normal in size. The pancreas is normal in appearance. There is no adrenal gland nodule. The left kidney and visualized portion of the right kidney are normal in appearance. No hydronephrosis. The visualized bowel is normal in caliber. No reflux of contrast into the hepatic veins to suggest elevated right heart pressures. CT/CT angio chest PE protocol IMPRESSION: Extensive bilateral pulmonary emboli as described above. There are somewhat rounded opacities within the posterior and inferior aspects of the right lower lobe for which infection cannot be excluded. These should be followed to resolution radiologically. VTE: positive This critical result was discussed with Iqra Sanford at 3:24 PM on 10/23/2023 and it was ascertained that the content and urgency of the report was understood at the time of direct communication.
--- NOTE | ~2023-10-23 | US_ITS ---
EXAMINATION: US VENOUS ULTRASOUND WITH DOPPLER LOWER EXTREMITY, BILATERAL CLINICAL INFORMATION: Pulmonary emboli COMPARISON: DVT study 01/29/2023 TECHNIQUE: Ultrasound of the deep veins is performed from the hip to the calf with compression sonography and color and pulse Doppler assessment. Spectral analysis with color-flow imaging is performed. FINDINGS: RIGHT: There is normal venous compression and respiratory variation and augmented flow. The visualized common femoral vein, superficial femoral vein, profunda femoral vein, popliteal vein, and the trifurcation region shows no evidence of deep venous thrombosis. There is no significant popliteal fossa cyst. LEFT: There is new nonocclusive deep venous thrombosis in the left common femoral vein with extension into the greater saphenous vein where it is occlusive. The visualized superficial femoral vein, profunda femoral vein, popliteal vein, and the trifurcation region shows no evidence of deep venous thrombosis. There is no significant popliteal fossa cyst. US/US venous duplex LE BI IMPRESSION: 1. There is new nonocclusive deep venous thrombosis in the left common femoral vein with extension into the greater saphenous vein where it is occlusive. 2. No DVT demonstrated in the right lower extremity. These critical results were discussed with Dr. Corbett by telephone at 10/23/2023 6:22 PM and it was ascertained that the content and urgency of the report was understood at the time of direct communication.
--- NOTE | 2023-10-23 11:32 | ECG_ITS ---
Test Reason : TACHYCARDIA Blood Pressure : / mmHG Vent. Rate : 095 BPM Atrial Rate : 095 BPM P-R Int : 162 ms QRS Dur : 122 ms QT Int : 384 ms P-R-T Axes : 078 -42 090 degrees QTc Int : 482 ms Normal sinus rhythm Left axis deviation Left bundle branch block Abnormal ECG When compared with ECG of 05-OCT-2019 07:47, Vent. rate has increased BY 41 BPM Left bundle branch block is now Present Referred By: Shelli Clinton Electronically Signed By:ALMAZ FRANCO
[2023-10-23 11:57] VITALS: BP 138/66; PULSE 99; RESP 19; TEMP 36.6; O2SAT 98; BMI 25.5
--- NOTE | 2023-10-23 11:57 | ED.GENADULT ---
HPI - General Adult General Chief complaint: Arrhythmia/Palpitations Stated complaint: rapid heart rate, sob Time Seen by Provider: 10/23/23 12:39 Source: patient and old records reviewed Mode of arrival: ambulatory Limitations: no limitations History of Present Illness ED Provider: LOUIE MACK narrative: 83 yo female with PMH of SVT, PE but no longer on eliquis, palpitations, chronic LBBB, follows with Dr. Madridood is no longer on metoprolol 12.5mg daily for the past 2 days after noting her BP was 90 she now presents with c/o dyspnea, cough for 1+ month, FISCHER but no chest pain. She has not had a fever. She feels her HR goes up to 100-115 with any exertion which is unusual for her. She denies n/v/d and black or bloody stools. complaint: palpitations, dyspnea Onset (ago): day(s) (2) Location: chest Radiation: non-radiation Severity: mild Relieving factors: none Exacerbating factors: other (exertion) Associated symptoms: shortness of breath and other (palpitations with exertion, fatigue) Treatments prior to arrival: none Related Data Home Medications ?Medication ?Instructions ?Recorded ?Confirmed latanoprost 0.005 % eye drops drp ophthalmic (eye) 03/01/20 05/19/23 olopatadine 0.1 % eye drops drp ophthalmic (eye) 03/01/20 05/19/23 cholecalciferol (vitamin D3) 50 50 mcg PO DAILY 05/31/21 05/19/23 mcg (2,000 unit) capsule aspirin 81 mg tablet,delayed 81 mg PO DAILY 01/09/23 05/19/23 release (Adult Aspirin Regimen) Previous Rx's ?Medication ?Instructions ?Recorded metoprolol succinate 25 mg 12.5 mg (1/2 x 25 mg) PO DAILY #45 05/19/23 tablet,extended release 24 hr tabs Allergies Allergy/AdvReac Type Severity Reaction Status Date / Time No Known Allergies Allergy Verified 10/23/23 12:02 [No Known Allergies*] Review of Systems Review of Systems: Constitutional : No Fever, No Chills ENT/Mouth : No sore throat, No Rhinorrhea, No Swallowing Difficulty Eyes: No Eye Pain, No Swelling, No Redness Cardiovascular : No Chest Pain, positive SOB, No Orthopnea, no Edema Respiratory : pos Cough, pos Sputum, No Wheezing, positive dyspnea Gastrointestinal : No Nausea, No Vomiting, No Diarrhea, No abdominal Pain, No Hematochezia, No Melena Genitourinary : No Dysuria, No Urinary Frequency, No Hematuria Musculoskeletal : No joint pain, No Myalgias Skin : No Skin Lesions, No rash Neuro : No Weakness, No Numbness, No Dizziness, No Headache Psych : No Anxiety/Panic, No Depression All other systems reviewed and are negative PMFSH Past Medical History Attestation statement: The following information was validated with the patient. Source: old records reviewed Medical History FISCHER (dyspnea on exertion) Pulmonary embolism LBBB (left bundle branch block) Palpitations PVC (premature ventricular contraction) Surgical History History of meniscectomy of left knee Hx of meniscectomy of right knee H/O section Family History Family History Mother Pulmonary fibrosis Father Diabetes HTN (hypertension) Colon cancer Bladder cancer Sister Breast cancer Brother COPD (chronic obstructive pulmonary disease) Son Addisons disease Social History Social History Alcohol intake: current Alcohol intake frequency: holidays/special occasions only Patient Tobacco Use Status: Former Tobacco user Years Smoked: 15 +/- Advance Directives: No Advance Directives Information Provided: Yes Do you have a plan to hurt others: No Plan Physical Exam ED Vital Signs: Vital Signs - 24 hr 10/23/23 11:57 10/23/23 16:00 Temperature 98 F Pulse Rate 99 78 Respiratory Rate 19 17 Blood Pressure 138/66 159/60 H Pulse Oximetry 98 98 Oxygen Delivery Method Room Air Room Air BMI result Body Mass Index 25.5 Appearance: Alert. Oriented X3. No acute distress. Eyes: Pupils equal, round and reactive to light. ENT: Pharynx normal. Neck: Normal inspection. Neck supple. CVS: Normal heart rate and rhythm. Pulses normal. Respiratory: No respiratory distress. Breath sounds normal. Abdomen: Soft and non-tender. Skin: Skin warm and dry. Normal skin color. Normal skin turgor. Extremities: No lower extremity edema. Neuro: Oriented X 3. No motor deficit. No sensory deficit. Course Course Course Narrative: This is an RME: Additional HPI, ROS, PE not included below will be deferred to primary provider. RME assessment and note performed by: Shelli Clinton PA-C This is a [id number]-female, with a hx of LBBB per cardiology notes, SVT, who presents to the ER with complaints of tachycardia with exertion and dyspnea on exertion, and weakness x 1 week. No chest pain. Reports persistent cough since July due to flu. Hx of PE due to COVID, previously on Eliquis - d/c in Feb. Plan: Labs, EKG, CXR, viral swabs Reevaluation(s) Reevaluation #1: troponin under delta Reevaluation #2: repeat message sent to Dr. Dave - Dr. Cliff tellos med recommendation given low platelets Medications Administered Discontinued Medications Generic Name Dose Route Start Last Admin Trade Name Freq PRN Reason Stop Dose Admin Iohexol 100 ml 10/23/23 14:39 10/23/23 14:39 Iohexol 350 Mg/Ml 100 Ml Infus..Btl IV 10/23/23 14:40 65 ml ONCE ONE Administration Medical Decision Making Medical Decision Making [facility] Narrative: 83 yo female with PMH of SVT, PE but no longer on eliquis, palpitations, chronic LBBB, follows with Dr. Acosta recently just off metoprolol here with c/o palpitations with exertion and feeling short of breath. At this time symptoms could be related to her stopping metoprolol will need troponin x 2, CTA for PE given her history, BNP, H/H. EKG is old LBBB. Differential Diagnosis Differential Diagnoses: The differential diagnosis associated with the presentation includes atypical ACS, VTE, mass Admission/Observation Consideration of admission/observation: Escalation of care including admission/observation considered given her symptoms and tachycardia along with FISCHER with extensive PE will admit for further management dose of lovenox ordered Consult Healthcare Provider Management of the patient was discussed with: Hospitalist (will admit) and Watch Repair Person message sent to Dr. Dave given preference of medication given low platelets Dr. Dave states okay to start on lovenox then will likely transition to eliquis Lab Data [facility] Lab Attestation statement: I reviewed the patient's lab results. 10/23/23 11:55 10/23/23 11:55 Labs: Lab Results 10/23/23 10/23/23 10/23/23 Range/Units 11:55 12:47 14:01 WBC 9.7 (4.8-10.8) X10*3/uL RBC 4.05 L (4.20-5.50) X10*6/uL Hgb 12.9 (12.0-16.0) g/dl Hct 39.1 (37.0-47.0) % MCV 96.5 (80.0-98.0) fL MCH 31.9 (27.0-33.0) pg MCHC 33.0 (31.0-35.0) g/dl RDW 12.9 (11.0-16.0) % Plt Count 60 L (160-400) X10*3/uL MPV 9.5 (9.4-12.3) fL Immature Gran % (Auto) 0.4 (0.0-0.4) % Neut % (Auto) 82.8 H (45-73) % Lymph % (Auto) 10.6 L (20-40) % [place] % (Auto) 5.5 (2-11) % Eos % (Auto) 0.3 (0-4) % Baso % (Auto) 0.4 (0-2) % Lymph # (Auto) 1.0 L (1.2-4.9) X10*3/uL [place] # (Auto) 0.5 (0.1-1.2) X10*3/uL Eos # (Auto) 0.0 (0.0-0.4) X10*3/uL Baso # (Auto) 0.0 (0.0-0.2) X10*3/uL Abs Immat Gran (auto) 0.04 H (0.00-0.03) X10*3/uL Absolute Neuts (auto) 8.1 (2.0-8.3) x10*3/uL Absolute Nucleated RBC 0.000 (0.0-0.012) X10*3/uL Nucleated RBC % (auto) 0.0 (0.0-0.2) /100WBC PT 11.2 (11.1-13.3) SEC INR 0.9 (0.9-1.1) APTT 27.7 (26.0-36.8) SEC Sodium 141 (135-145) mmol/L Potassium 4.2 (3.3-5.1) mmol/L Chloride 106 (96-108) mmol/L Carbon Dioxide 30 H (22-29) mmol/L Anion Gap 9 L (12-20) BUN 14 (9-16) mg/dL Creatinine 0.79 (0.5-1.4) mg/dL Estim Creat Clear Calc 48.8 Estimated GFR > 60 Random Glucose 111 (60-115) mg/dL Calcium 9.9 (8.4-10.2) mg/dL Magnesium 2.3 (1.6-2.6) mg/dL Total Bilirubin 0.5 (0.0-1.0) mg/dL Direct Bilirubin 0.2 (0.0-0.5) mg/dL AST 22 (5-31) U/L ALT 22 (0-31) U/L Alkaline Phosphatase 84 (39-117) U/L Troponin I High Sens 18.2 H 22.3 H (<3.5-17.0) ng/L B-Natriuretic Peptide 31 (<100) pg/mL Total Protein 8.0 (6.5-8.0) g/dL Albumin 3.9 (3.5-5.0) g/dL TSH 0.57 (0.32-4.0) uIU/mL Influenza Type A (PCR) NEGATIVE (Negative) Influenza Type B (PCR) NEGATIVE (Negative) RSV RNA Qual (PCR) NEGATIVE (Negative) SARS-CoV-2 RNA (RT-PCR) NEGATIVE (Negative) Independent Interpretation I performed an independent interpretation of an: EKG, Plain X-Ray (possible small effusion) and CT Scan (+ PE no saddle) Interpretation: Rate: 95 Rhythm: NSR [place] Plane: left Normal P waves. Normal RITA. LBBB ST T wave : no NEGAR, inverted t waves I and aVL qTC: 482 prior studies: unchanged from 2019 and 2022 The study has been interpreted contemporaneously by me. . Radiology Impression Discussion of test interpretation with radiology: I discussed test interpretation with the radiologist and I have reviewed the radiologist's reading. Radiologist Impression: call from radiology 323pm - extensive moderate to bilateral PE no signs of R heart strain Independent Historian Clinical information obtained from an independent historian. History obtained from or confirmed by: Spouse External Record Review External record reviewed: Inpatient record and Office record Critical Care Time Critical Care Time Critical Care Time: Yes Total Critical Care Time: 45 Attestation: review of records, repeat labs, medical consult, initiation of therapy for PE I attest to this time spent taking care of the patient Discharge Plan Discharge Clinical Impression: Thrombocytopenia Pulmonary emboli Qualifiers: Pulmonary embolism type: multiple subsegmental (without acute cor pulmonale) Qualified Code(s): I26.94 - Multiple subsegmental pulmonary emboli without acute cor pulmonale Patient Disposition: Admitted As Inpatient Print Language: Cameroonian
[2023-10-23 12:00] LABS: MANUAL DIFF FLAG NO
[2023-10-23 12:06] LABS: Basophils Percent Auto 0.4 % (0-2); Eosinophils Percent Auto 0.3 % (0-4); Hematocrit 39.1 % (37.0-47.0); Hemoglobin 12.9 g/dl (12.0-16.0); Imm Gran Abs Auto 0.04 X10*3/uL (0.00-0.03); Imm Gran Pct Auto 0.4 % (0.0-0.4); Lymphocytes Percent Auto 10.6 % (20-40); Mean Corpuscular Hemoglobin 31.9 pg (27.0-33.0); Mean Corpuscular Volume 96.5 fL (80.0-98.0); Monocytes Absolute Auto 0.5 X10*3/uL (0.1-1.2); Monocytes Percent Auto 5.5 % (2-11); Neutrophils Absolute Auto 8.1 x10*3/uL (2.0-8.3); Neutrophils Percent Auto 82.8 % (45-73); Red Blood Count 4.05 X10*6/uL (4.20-5.50); Red Cell Distribution Width 12.9 % (11.0-16.0); White Blood Count 9.7 X10*3/uL (4.8-10.8)
[2023-10-23 12:07] LABS: INTERNATIONAL NORM RATIO 0.9 (0.9-1.1); Prothrombin Time 11.2 SEC (11.1-13.3)
[2023-10-23 12:10] LABS: Partial Thromboplastin Time 27.7 SEC (26.0-36.8)
[2023-10-23 12:17] LABS: Alanine Aminotransferase 22 U/L (0-31); Albumin Level 3.9 g/dL (3.5-5.0); Alkaline Phosphatase 84 U/L (39-117); Anion Gap 9 (12-20); Aspartate Amino Transferase 22 U/L (5-31); Bilirubin Direct 0.2 mg/dL (0.0-0.5); Bilirubin Total 0.5 mg/dL (0.0-1.0); Blood Urea Nitrogen 14 mg/dL (9-16); Calcium 9.9 mg/dL (8.4-10.2); Carbon Dioxide 30 mmol/L (22-29); Chloride 106 mmol/L (96-108); Creatinine Clr Calc Pharmacy 48.8; Estimated Glomerular Filt Rate > 60; Glucose Random 111 mg/dL (60-115); Magnesium 2.3 mg/dL (1.6-2.6); Potassium 4.2 mmol/L (3.3-5.1); Sodium 141 mmol/L (135-145)
[2023-10-23 12:21] LABS: Troponin-I High Sensitivity 18.2 ng/L (<3.5-17.0)
[2023-10-23 12:38] LABS: Mean Platelet Volume 9.5 fL (9.4-12.3); Platelet Count 60 X10*3/uL (160-400)
[2023-10-23 13:00] LABS: B Type Natriuretic Peptide 31 pg/mL (<100)
--- OUTSIDE RECORDS SUMMARY | 2023-10-23 13:24 | XMS_ITS | Patient Health Record ---
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 Name Role Phone Will Bower MD Primary Care Provider UnavailNeal Powell Unavailable [phone] ALLERGIES Allergen (clinical drug ingredient) Drug/Non Drug Allergy documented on EMR Reaction Allergy Type Onset Date Status No Known Drug Allergy Unknown Drug Allergy Active RESULTS Component Value Reference Range Notes D Dimer High Sensitivity Reviewed date:01/06/2023 05:16:29 AM Interpretation: Performing Lab:[facility], [address] [place] [id number] Notes/Report: D Dimer High Sensitivity 282 Results of DDimer called to Digna Lindsay on 12/31/22 at 1043 by TATA. D-DIMER HS REFERENCE RANGE Note: Our assay reports D-Dimer Units (D-DU). The cut-off value for venous thromboembolic (VTE) disease is 230 ng/mL. This value has a very high negative predictive value when the patient has a low to moderate clinical probability of VTE. The upper limit of normal is 243 ng/mL. US venous duplex LE BI Reviewed date:01/06/2023 05:16:29 AM Interpretation: Performing Lab: Notes/Report: [address] [address] Ultrasound Report Signed Patient: Enriqueta Noel MR#: [id number] : 1940 Acct:[id number] Age/Sex: 82 / F ADM Date: 12/31/22 Loc: [facility] Attending Dr: Neal Dave MD Ordering Physician: Neal Dave MD Date of Service: 12/31/22 Procedure(s): US venous duplex LE BI Accession Number(s): [id number] cc: Neal Dave MD EXAMINATION: US VENOUS ULTRASOUND WITH DOPPLER LOWER EXTREMITY, BILATERAL CLINICAL INFORMATION: Bilateral leg pain. Elevated D-dimer. COMPARISON: None available. TECHNIQUE: Ultrasound of the deep veins is performed from the hip to the calf with compression sonography and color and pulse Doppler assessment. Spectral analysis with color-flow imaging is performed. FINDINGS: RIGHT: There is normal venous compression and respiratory variation and augmented flow. The visualized common femoral vein, superficial femoral vein, profunda femoral vein, popliteal vein, and the trifurcation region shows no evidence of deep venous thrombosis. There is no significant popliteal fossa cyst. LEFT: There is normal venous compression and respiratory variation and augmented flow. The visualized common femoral vein, superficial femoral vein, profunda femoral vein, popliteal vein, and the trifurcation region shows no evidence of deep venous thrombosis. There is no significant popliteal fossa cyst. If the patient's symptoms persist, followup ultrasound in 5 days 7 days might be of value to exclude proximal propagation from a non-visualized calf vein. US/US venous duplex LE BI IMPRESSION: No DVT demonstrated in the lower extremities. Dictated By: Neal Rizzo Signed By: <Electronically signed by Neal Rizzo in OV> 12/31/22 1644 DD/ 1552 TD/TT: Gas Flow Regulator: REASON FOR REFERRAL Reason Consult and Treat Second Opinion Diagnosis 1 Other specified inju ry of greater saphenous vein at lower leg level, left leg, initial encounter (S85.392A) Referral Organization Neal Dave III, MD Referring Provider First Name Neal Referring Provider Last Name Jolie Referring Provider Speciality Internal M edicine Referred Provider ENEDELIA LOCKHART Referred Provider Specialty Vascular Chayito oren General Notes Gissel Kulkarni 03/24 11:27:15 AM > Faxed referral, progress notes from Dr. Dave and jess Grimaldo and [facility] referral sheet Referral Priority Routine Referral Appointment Date 05/20/2023 MEDICATIONS Medication SIG (Take, Route, Frequency, Duration) Notes Start Date End Date Status Metoprolol Succinate ER 25 MG Oral Active Olopatadine HCl 0.1 % Ophthalmic Active Latanoprost 0.005 % Ophthalmic Active metroNIDAZOLE 0.75 % External Active IMMUNIZATIONS Vaccine Route Administration Date Status Comme nts SHINGRIX Unknown 07/19/2019 Administered RSV Adjuvant Unknown 06/07/2023 Administered PCV20 Unknown 04/01/2023 Administered COVID-19 Comirnaty Pfizer-BioNTech Unknown 08/23/2021 A dministered COVID PFIZER Unknown 01/27/2021 Administered COVID PFIZER Unknown 06/13/2020 Administered COVID Pfizer Bivalent Unknown 01/18/2022 Administered COVID PFIZER Unknown 07/04/2020 Administered COVID-19 Comirnaty Pfizer-BioNTech Unknown 04/22/2023 A dministered SOCIAL HISTORY Tobacco Use: Social History Observation Description Date Details (start date - stop date) Former Smoker NA - NA Sex Assigned At : Social History Observation Description Sex Assigned At Unknown Tobacco Use/Smoking Question Answer Notes Patient is a former smoker How long has it been since you last smoked? > 10 years Additional Findings: Tobacco Non-User Ex-cigaret te smoker Alcohol Screen Question Answer Notes Did you have a drink containing alcohol in the p ast year? No Points 0 Interpretation Negative PROBLEMS Problem Type ICD Code Onset Dates Problem Status W/U Status Risk SNOMED Code Notes Problem Former smoker (Z87.891) Active confirmed 0982533 She has a plan to prevent relapse in times of stress and illness. She was educated about the increased risk of thromboembolism in smokers. Problem Overweight (E66.3) Active confirmed 564860087 Her body mass index is 27. She weighs 154 pounds. We discussed weight reduction through diet restricted in fat calories and sodium. We discussed a risk reduction strategy for both atherosclerosis and further blood clots. Problem Anticoagulated (Z79.01) Active confirmed 622225604 She has had no bleeding on the Eliquis so far. Eliquis was stopped today. She will have an evaluation for thrombophilia, premature decision about continued anticoagulation. Problem Osteopenia (M85.80) Active confirmed Osteopenia (642248692) She was continued on current therapy. We discussed the use of calcium carbonate and vitamin D and exercise. Problem Glaucoma (H40.9) Active confirmed Glauc marguerite (36478768) She was continued on latanoprost. Problem Left bundle branch block (I44.7) Active confirmed 83818086 This was a new finding. In February 2011. 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 Her echocardiogram was essentially normal. Problem Pulmonary embolism (I26.99) Active confirmed Pulmonary embolism (83601803) She has completed 6 months of anticoagulation and has no respiratory symptoms. The thrombophilia evaluation is negative. Her anticoagulation may be discontinued. She will be followed at long intervals. Problem Venous insufficiency (I87.2) Active confirmed 51441234 I agree with t he recommendation to take 50% dose of Eliquis prior to prolonged sitting in an airplane or train. She is going to be seen in the spring just prior to going on her trips. This issue will be reevaluated at that time. Problem Deep vein thrombosis (I82.409) Active confirmed Deep vein thrombosis (392638478) There is no sign of bleeding or of venous thromboembolism at this time. She says that primary care. Resume anticoagulation after the Crohn versus infection. 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 Problem Coronavirus infection (B34.2) Active confirmed 001402602 She tested positive for cold. In February 2022 when hospitalized for pulmonary embolism. She has now recovered without long all symptoms. Problem QT prolongation (R94.31) Active confirmed 767662323 This was a new finding of February 2011. She will avoid drugs that prolong this interval. VITAL SIGNS Heart Rate 67 /min 06/19/2023 Temperature 97.9 degrees Fahrenheit 06/19/2023 Blood pressure diastolic 72 mm Hg 06/19/2023 Height 63 in 06/19/2023 Blood pressure systolic 134 mm Hg 06/19/2023 Weight 147 lbs 06/19/2023 BMI 26.04 kg/m2 06/19/2023 Encounters Encounter Location Date Provider Diagnosis Neal Dave III, MD [address] [place] [address] [place] [address] 03/19/2023 Neal Dave Deep vein thrombosis I82.409 ; Pulmonary embolism I26.99 ; Anticoagulated Z79.01 ; Overweight E66.3 ; Former smoker Z87.891 and Venous insufficiency I87.2 Neal Dave III, MD [address] [place] [address] [place] [address] 06/19/2023 Neal Dave Deep vein thrombosis I82.409 ; Pulmonary embolism I26.99 ; Glaucoma H40.9 ; Osteopenia M85.80 ; Anticoagulated Z79.01 ; Overweight E66.3 ; Former smoker Z87.891 and Venous insufficiency I87.2 Neal Dave III, MD [address] [place] [address] [place] [address] 12/31/2022 Neal Dave Deep vein thrombosis I82.409 ; Pain in right leg M79.604 ; Pain in left leg M79.605 and Elevated d-dimer R79.89 Neal Dave III, MD [address] [place] [address] [place] [address] 03/19/2023 Neal Dave III, MD [address] [place] [address] [place] [address] 12/30/2022 Neal Dave Pulmonary embolism I26.99 and Deep vein thrombosis I82.409 Neal Dave III, MD [address] [place] [address] [place] [address] 01/09/2023 Neal Dave III, MD [address] [place] [address] [place] [address] 01/31/2023 Neal Dave ASSESSMENTS Encounter Date Diagnosis Assessment Notes Treatment Notes Treatment Clinical Notes 03/19/2023 Pulmonary embolism (ICD-10 - I26.99) She has completed 6 months of anticoagulation and has no respiratory symptoms. The thrombophilia evaluation is negative. Her anticoagulation may be discontinued. She will be followed at long intervals. 03/19/2023 Deep vein thrombosis (ICD-10 - I82.409) There is no sign of bleeding or of venous thromboembolism at this time. She says that primary care. Resume anticoagulation after the Crohn versus infection. 06/19/2023 Pulmonary embolism (ICD-10 - I26.99) She has completed 6 months of anticoagulation and has no respiratory symptoms. The thrombophilia evaluation is negative. Her anticoagulation may be discontinued. She will be followed at long intervals. 06/19/2023 Deep vein thrombosis (ICD-10 - I82.409) There is no sign of bleeding or of venous thromboembolism at this time. She says that primary care. Resume anticoagulation after the Crohn versus infection. 03/19/2023 Anticoagulated (ICD-10 - Z79.01) She has had no bleeding on the Eliquis so far. Eliquis was stopped today. She will have an evaluation for thrombophilia, premature decision about continued anticoagulation. 06/19/2023 Glaucoma (ICD-10 - H40.9) She was continued on latanoprost. 12/31/2022 Deep vein thrombosis (ICD-10 - I82.409) 12/30/2022 Pulmonary embolism (ICD-10 - I26.99) 03/19/2023 Overweight (ICD-10 - E66.3) Her body mass index is 27. She weighs 154 pounds. We discussed weight reduction through diet restricted in fat calories and sodium. We discussed a risk reduction strategy for both atherosclerosis and further blood clots. 06/19/2023 Osteopenia (ICD-10 - M85.80) She was continued on current therapy. We discussed the use of calcium carbonate and vitamin D and exercise. 12/31/2022 Pain in right leg (ICD-10 - M79.604) 12/30/2022 Deep vein thrombosis (ICD-10 - I82.409) 03/19/2023 Former smoker (ICD-10 - Z87.891) She has a plan to prevent relapse in times of stress and illness. She was educated about the increased risk of thromboembolism in smokers. 06/19/2023 Anticoagulated (ICD-10 - Z79.01) She has had no bleeding on the Eliquis so far. Eliquis was stopped today. She will have an evaluation for thrombophilia, premature decision about continued anticoagulation. 12/31/2022 Pain in left leg (ICD-10 - M79.605) 03/19/2023 Venous insufficiency (ICD-10 - I87.2) This is a new and recent diagnosis resulting in her being re-anticoagulated. She has been offered ablation and is considering it. 06/19/2023 Overweight (ICD-10 - E66.3) Her body mass index is 27. She weighs 154 pounds. We discussed weight reduction through diet restricted in fat calories and sodium. We discussed a risk reduction strategy for both atherosclerosis and further blood clots. 12/31/2022 Elevated d-dimer (ICD-10 - R79.89) 06/19/2023 Former smoker (ICD-10 - Z87.891) She has a plan to prevent relapse in times of stress and illness. She was educated about the increased risk of thromboembolism in smokers. 06/19/2023 Venous insufficiency (ICD-10 - I87.2) I agree with the recommendation to take 50% dose of Eliquis prior to prolonged sitting in an airplane or train. She is going to be seen in the spring just prior to going on her trips. This issue will be reevaluated at that time. PLAN OF TREATMENT Pending Test Test Name Order Date PROTHROMBIN TIME (PT, INR) 08/19/2022 PARTIAL THROMBOPLASTIN TIME (PTT) 2022 FIBRINOGEN 08/19/2022 ANTITHROMBIN III & AG (REFLEX) 3 HOMOCYSTEINE 08/19/2022 PROTEIN C ACTIVITY REFLEX AG 08/19/2022 PROTEIN S ACTIVITY REFLEX AG 08/19/2022 PT [id number] 08/19/2022 LUPUS ANTICOAGULANT PANEL 08/19/2022 FACTOR V LEIDEN 08/19/2022 US LEG BILATERAL VENOUS DOPPLER 01/01/20 Next Appt Details Provider Name:Neal Dave, 12/18/2023 09:00:00 AM, [address] [place] [address] [address], [place], [address], Insurance Providers Payer Name Payer Address Payer Phone Subscriber Number Group Number Insured Name Patient Relationship to Insured Coverage Start Date Coverage End Date MEDICARE NGS [address] [place] [phone] [id number] ENRIQUETA NOEL Self - patient is the insured [employer] [address] [place] [phone] [id number] ENRIQUETA NOEL Self - patient is the insured MEDICAL (GENERAL) HISTORY Medical History History ICD Code DVT left femoral and popliteal veins Feb Multiple pulmonary emboli February 2022 Chronic anticoagulation Glaucoma H40.9 Osteopenia M85.80 Osteopenia Left bundle branch block, 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
[2023-10-23 13:31] LABS: Influenza A PCR NEGATIVE (Negative); Influenza B PCR NEGATIVE (Negative); Resp Syncy Virus RNA Qual PCR NEGATIVE (Negative); SARS COV2 PCR INHOUSE NEGATIVE (Negative)
[2023-10-23 13:43] LABS: TSH reflex Free T4 0.57 uIU/mL (0.32-4.0)
[2023-10-23 14:33] LABS: Troponin-I High Sensitivity 22.3 ng/L (<3.5-17.0)
[2023-10-23] MEDS: iohexoL 350 MG/ML 100 ML INFUS..BTL IV (14:39)
[2023-10-23 16:00] VITALS: BP 159/60; PULSE 78; RESP 17; O2SAT 98
--- NOTE | 2023-10-23 16:07 | MHC.EDTECH ---
THIS PCT ASSUMED CARE OF PATIENT AT 1500 ,VITALS TAKEN AND PATIENT BELONGING LIST DONE .
[2023-10-23] MEDS: Enoxaparin Sodium 60 MG/0.6 ML SYRINGE SUBCUT (16:45)
--- NOTE | 2023-10-23 17:09 | P.HPHOSP_ITS ---
History of Present Illness Date of Service: 10/23/23 <SERA Ferreira - Last Filed: 10/23/23 18:00> Attending physician on admission: Martin Coronado <SERA Ferreira - Last Filed: 10/23/23 18:00> Chief Complaint: SOB, FISCHER <SERA Ferreira - Last Filed: 10/23/23 18:00> Pt is an 83-year-old female with a PMH significant for hx of DVT with PE, HTN, chronic LBBB, and venous insufficiency who presents to the ED with?SOB, FISCHER, tachycardia, and tachypnea times 4-5 days. Pt states she has been experiencing shortness of breath and dyspnea upon exertion with short walks or going up one flight of stairs. Also noticed has been tachycardic in the 110s and tachypneic into the 30s with little exertion. Reports that this is different from her baseline and she just feels something is not right . No chest pain/pressure or palpitations. Denies pleuritic chest pain. Patient previously had a pulmonary embolism in the setting DVT in 02/2022 that was attributed to having COVID. Patient was put on Eliquis x6 months and has since worn compression stockings. Thrombophilia workup at that time was negative. Patient contracted COVID again in February of 2023 and prophylactically placed on Eliquis x3 months. States had bilateral lower extremity ultrasound approximately 1 month ago that was negative for DVT. Patient also notes current symptoms present differently from her previous PE, which was much more dramatic and sudden onset. Denies fever, chills, nausea, vomiting, abdominal pain. In the ED pt elevated heart rate of 99 and hypertensive up to 159/60. Labs were significant for thrombocytopenia of 60 initial troponin 18.2 with repeat flat at 22.3, otherwise grossly unremarkable. No leukocytosis. Stable H&H. No electrolyte abnormalities. Renal and hepatic function WNL. BNP WNL at 31. Tested negative for flu, RSV, COVID. CXR showed small right pleural effusion otherwise clear lungs. CTA of chest found extensive bilateral pulmonary emboli including a large burden of clot within the mid to distal aspect of main pulmonary artery of right lung. EKG demonstrated normal sinus rhythm with LBBB but no evidence of significant ischemic changes. Pt was treated with therapeutic Lovenox. Pt will be admitted to the hospital for treatment and further evaluation of bilateral pulmonary emboli. <SERA Ferreira - Last Filed: 10/23/23 18:00> Review of Systems 2 Review of Systems: SOB, FISCHER Tachycardia, tachypnea Denies pleuritic chest pain No chest pain/pressure, palpitations Denies fever, chills, nausea, vomiting, abdominal pain <SERA Ferreira - Last Filed: 10/23/23 18:00> [facility] Medical History: Medical History FISCHER (dyspnea on exertion) Pulmonary embolism LBBB (left bundle branch block) Palpitations PVC (premature ventricular contraction) <SERA Ferreira - Last Filed: 10/23/23 18:00> Family History: Family History Mother Pulmonary fibrosis Father Diabetes HTN (hypertension) Colon cancer Bladder cancer Sister Breast cancer Brother COPD (chronic obstructive pulmonary disease) Son Addisons disease <SERA Ferreira - Last Filed: 10/23/23 18:00> Surgical History: Surgical History History of meniscectomy of left knee Hx of meniscectomy of right knee H/O section <SERA Ferreira - Last Filed: 10/23/23 18:00> Social History: Social History Household Members: Spouse Housing: House Do you presently have visiting nurse or other home services: No Alcohol intake: current Alcohol intake frequency: holidays/special occasions only Patient Tobacco Use Status: Former Tobacco user Years Smoked: 15 +/- Smoked in Last 30 Days: No e-Cigarette/Vaping Use: Never Used Patient Interested in Nicotine Replacement: No Second Hand Smoke Exposure: No Use of substances other than those prescribed or required for medical reasons: No Last Used Substance Other:: never Currently Displaying Signs/Symptoms of Drug Intoxication Withdrawal: No Any prior treatment program specific to substance use: No Have you been hit, kicked, punched, or otherwise hurt by someone within the past year? If so, by whom?: No Do you feel safe in your current relationship?: No Is there a partner from a previous relationship who is making you feel unsafe now?: No Are you made to feel afraid or neglected: No Spiritual Healthcare Practices: mass on Sundays Cultural Healthcare Practices: none Advance Directives: No Advance Directives Information Provided: Yes Advance Directives on File: No Do you have a plan to hurt others: No Plan Recently lost weight without trying: Yes Eating poorly because of decreased appetite: No Nutrition Risks: No Nutritional Risk Patient : No Poor oral hygiene: No service: No <SEAR Ferreira - Last Filed: 10/23/23 18:00> Meds Allergies/Adverse reactions: Allergies Allergy/AdvReac Type Severity Reaction Status Date / Time No Known Allergies Allergy Verified 10/23/23 12:02 [No Known Allergies*] <SERA Ferreira - Last Filed: 10/23/23 18:00> Active Medications: Current Medications Acetaminophen (Acetaminophen 325 Mg Tablet) 650 mg PO Q6H PRN PRN Reason: Pain, Mild (Pain Scale 1-3) Benzonatate (Benzonatate 100 Mg Capsule) 100 mg PO TID PRN PRN Reason: Cough Docusate Sodium (Docusate Sodium 100 Mg Capsule) 100 mg PO DAILY PRN PRN Reason: Constipation Enoxaparin Sodium (Enoxaparin Sodium 60 Mg/0.6 Ml Syringe) 60 mg SUBCUT Q12H DANILO Melatonin (Melatonin 3 Mg Tablet) 6 mg PO BEDTIME PRN PRN Reason: Insomnia Ondansetron HCl (Ondansetron Hcl 4 Mg/2 Ml Vial) 4 mg IVPUSH Q8H PRN PRN Reason: Nausea and Vomiting Sodium Chloride (0.9 % Sodium Chloride Flush 3 Ml Syringe) 3 ml IVFLUSH QSHIFT DANILO <SERA Ferreira - Last Filed: 10/23/23 18:00> Home medications: Home Medications ?Medication ?Instructions ?Recorded ?Confirmed ?Last Taken ?Type latanoprost 0.005 % eye drops 1 drp ophthalmic-Left DAILY 03/01/20 10/23/23 10/22/23 History cholecalciferol (vitamin D3) 50 50 mcg PO DAILY 05/31/21 10/23/23 10/22/23 History mcg (2,000 unit) capsule aspirin 81 mg tablet,delayed 81 mg PO DAILY 01/09/23 10/23/23 10/22/23 History release (Adult Aspirin Regimen) multivitamin 1 tab PO DAILY 10/23/23 10/23/23 10/22/23 History <SERA Ferreira - Last Filed: 10/23/23 18:00> Physical Exam 2 Vital Signs and Narrative: Vital Signs: Last Vital Signs Temp 98 F 10/23/23 11:57 Pulse 78 10/23/23 16:00 Resp 17 10/23/23 16:00 BP 159/60 H 10/23/23 16:00 Pulse Ox 98 10/23/23 16:00 O2 Del Method Room Air 10/23/23 16:00 BMI result Body Mass Index 25.5 <SERA Ferreira - Last Filed: 10/23/23 18:00> Constitutional: Alert, in no acute distress. Mental Status: Oriented to person, place and time. Eyes: Pupils are equal, round, and reactive to light. Ear, Nose, and Throat: Oropharynx clear, mucous membranes moist. Ears and nose without deformities. Trachea midline. Respiratory: Clear to auscultation bilaterally. No wheezing, rales, or rhonchi. Cardiovascular: S1, S2 regular. No murmurs, rubs, or gallops. Gastrointestinal: Abdomen soft, non-tender, non-distended. Normal bowel sounds. Neurologic: Cranial nerves II-XII are grossly intact bilaterally. No focal neurological deficits. Moves all extremities spontaneously. Skin: Warm, dry. Extremities: No edema. Psychiatric: Normal mood and affect. <SERA Ferreira - Last Filed: 10/23/23 18:00> Results Labs CBC and Chem 7: 10/24/23 06:44 10/23/23 11:55 <SERA Ferreira - Last Filed: 10/23/23 18:00> Labs: Laboratory Results - last 24 hr 10/23/23 10/23/23 10/23/23 11:55 12:47 14:01 MCV 96.5 MCH 31.9 MCHC 33.0 RDW 12.9 Plt Count 60 L MPV 9.5 Immature Gran % (Auto) 0.4 Neut % (Auto) 82.8 H Lymph % (Auto) 10.6 L [place] % (Auto) 5.5 Eos % (Auto) 0.3 Baso % (Auto) 0.4 Lymph # (Auto) 1.0 L [place] # (Auto) 0.5 Eos # (Auto) 0.0 Baso # (Auto) 0.0 Abs Immat Gran (auto) 0.04 H Absolute Neuts (auto) 8.1 Absolute Nucleated RBC 0.000 Nucleated RBC % (auto) 0.0 PT 11.2 INR 0.9 APTT 27.7 Anion Gap 9 L Estim Creat Clear Calc 48.8 Estimated GFR > 60 Random Glucose 111 Calcium 9.9 Magnesium 2.3 Total Bilirubin 0.5 Direct Bilirubin 0.2 AST 22 ALT 22 Alkaline Phosphatase 84 Troponin I High Sens 18.2 H 22.3 H B-Natriuretic Peptide 31 Total Protein 8.0 Albumin 3.9 TSH 0.57 Influenza Type A (PCR) NEGATIVE Influenza Type B (PCR) NEGATIVE RSV RNA Qual (PCR) NEGATIVE SARS-CoV-2 RNA (RT-PCR) NEGATIVE <SERA Ferreira - Last Filed: 10/23/23 18:00> Imaging Radiologist's Impressions: Impressions Chest X-Ray 10/23/23 12:25 IMPRESSION: Small right pleural effusion. The lungs are clear. Chest CTA 10/23/23 14:35 IMPRESSION: Extensive bilateral pulmonary emboli as described above. There are somewhat rounded opacities within the posterior and inferior aspects of the right lower lobe for which infection cannot be excluded. These should be followed to resolution radiologically. VTE: positive This critical result was discussed with Iqra Sanford at 3:24 PM on 10/23/2023 and it was ascertained that the content and urgency of the report was understood at the time of direct communication. <SERA Ferreira - Last Filed: 10/23/23 18:00> Assessment and Plan (1) Thrombocytopenia: Status: Acute <SERA Ferreira - Last Filed: 10/23/23 18:00> (2) Pulmonary emboli: Qualifiers: Pulmonary embolism type: multiple subsegmental (without acute cor pulmonale) Qualified Code(s): I26.94 - Multiple subsegmental pulmonary emboli without acute cor pulmonale <SERA Ferreira - Last Filed: 10/23/23 18:00> Status: Acute <SERA Ferreira - Last Filed: 10/23/23 18:00> Pt is an 83-year-old female with a PMH significant for hx of DVT with PE, HTN, chronic LBBB, and venous insufficiency who presents to the ED with?SOB, FISCHER, tachycardia, and tachypnea times 4-5 days. Pt will be admitted to the hospital for treatment and further evaluation of bilateral pulmonary emboli. Bilateral pulmonary emboli CTA of chest found extensive bilateral pulmonary emboli including a large burden of clot within the mid to distal aspect of main pulmonary artery of right lung Patient with SOB, FISCHER, tachycardic, tachypnea x4-5 days Hx of bilateral PE in 02/2022, no longer on anticoagulation Will treat with therapeutic Lovenox [place] venous duplex of bilateral lower extremities Hematology/oncology consult, follows with Dr. Dave Follow CBC Monitor on telemetry Acute thrombophilia Platelets 80 at time of presentation Appears acute, review of [facility] records indicates baseline of 200 Previous thrombophilia workup in 2021 negative Unclear etiology: Possibly in the setting of DVT/PE Hematology/oncology consult, follows with Dr. Dave Will check fibrinogen Follow platelets closely HTN Metoprolol stopped the past 2 days as SBP was in the 90s Monitor BP, resume as warranted Full Code Attending:?Dr. Coronado DVT Prophylaxis: Therapeutic Lovenox Pt will require a hospitalization of at least two nights for treatment and further evaluation of?bilateral pulmonary emboli. Given the extent of pulmonary emboli including in the main pulmonary artery of right lung as well as being in the setting of thrombophilia, patient will require hospitalization for administration of therapeutic Lovenox while closely monitoring CBC and respiratory status. <SERA Ferreira - Last Filed: 10/23/23 18:00> Pt is an 83-year-old female with a PMH significant for hx of DVT with PE, HTN, chronic LBBB, and venous insufficiency who presents to the ED with?SOB, FISCHER, tachycardia, and tachypnea times 4-5 days. Pt will be admitted to the hospital for treatment and further evaluation of bilateral pulmonary emboli. Bilateral pulmonary emboli CTA of chest found extensive bilateral pulmonary emboli including a large burden of clot within the mid to distal aspect of main pulmonary artery of right lung Patient with SOB, FISCHER, tachycardic, tachypnea x4-5 days Hx of bilateral PE in 02/2022, no longer on anticoagulation Will treat with therapeutic Lovenox [place] venous duplex of bilateral lower extremities Follow CBC,Monitor on telemetry Hematology/oncology consult thrombocytopenia : Platelets 60 at time of presentation Appears acute, review of [facility] records indicates baseline of 200 as per [facility] :Previous thrombophilia workup in 2021 negative Unclear etiology: Possibly in the setting of DVT/PE Hematology/oncology consult, follows with Dr. Dave,check fibrinogen Follow platelets closely HTN Metoprolol stopped the past 2 days as SBP was in the 90s Monitor BP, resume as warranted Full Code DVT Prophylaxis: Therapeutic Lovenox Pt will require a hospitalization of at least two nights for treatment and further evaluation of?bilateral pulmonary emboli. Given the extent of pulmonary emboli including in the main pulmonary artery of right lung as well as being in the setting of thrombophilia, patient will require hospitalization for administration of therapeutic Lovenox while closely monitoring CBC and respiratory status. <Martin Coronado MD - Last Filed: 10/24/23 16:12> Quality Stroke Does the patient have a stroke diagnosis?: No <SERA Ferreira - Last Filed: 10/23/23 18:00> VTE Prior VTE?: No <SERA Ferreira - Last Filed: 10/23/23 18:00> VTE Risk Level:: Medical - moderate - high <SERA Ferreira - Last Filed: 10/23/23 18:00> VTE Device Contraindication: Treatment Not Indicated <SERA Ferreira - Last Filed: 10/23/23 18:00> VTE Drug Contraindication: N/A - Med Ordered <SERA Ferreira - Last Filed: 10/23/23 18:00>
--- NOTE | 2023-10-23 17:39 | P.CNHO_ITS ---
Subjective - Subjective Chief complaint: recurrent pulmonary emboli Patient: known to practice within the last 3 years Consult date: 10/23/23 Primary Care Provider: Will Bower MD HPI - Consult Narrative Reason for consult: pulmonary emboli Narrative: Cheryl Noel is a 83 year old female who had an episode of pulmonary emboli after covid in 2021. She was anticoagulated An evaluation for thrombophilia was negative. Then and since then until today her platelet count has been unremarkable.It is now 60,000. She has multiple emboli on chest CTA and pain in her left thigh. Earlier this month she was on a one hour airplane trip Review of Systems - Constitutional Reports weakness - Eyes Reports other - Cardiovascular Reports chest pain with activity, Reports fast heart rate - Respiratory Reports dyspnea on exertion - Gastrointestinal Reports other - Genitourinary Reports other (pain left leg) [facility] Medical History: Medical History (Last Reviewed 10/23/23 @ 13:16 by Iqra Bain DO) FISCHER (dyspnea on exertion) LBBB (left bundle branch block) Palpitations Pulmonary embolism PVC (premature ventricular contraction) Family History: Family History (Last Reviewed 05/19/23 @ 09:23 by Liliana Montana CMA) Mother Pulmonary fibrosis Father Diabetes HTN (hypertension) Colon cancer Bladder cancer Sister Breast cancer Brother COPD (chronic obstructive pulmonary disease) Son Addisons disease Surgical History: Surgical History (Last Reviewed 10/23/23 @ 13:16 by Iqra Bain DO) H/O section History of meniscectomy of left knee Hx of meniscectomy of right knee Social History: Social History (Last Reviewed 10/23/23 @ 13:16 by Iqra Bain DO) Tobacco History: Patient Tobacco Use Status: Former Tobacco user Years Smoked: 15 +/- Advance Directives: Advance Directives: No Advance Directives Information Provided: Yes Homicidal Assessment: Do you have a plan to hurt others: No Plan Home Medications and Allergies Current Medications: Current Medications Acetaminophen (Acetaminophen 325 Mg Tablet) 650 mg PO Q6H PRN PRN Reason: Pain, Mild (Pain Scale 1-3) Benzonatate (Benzonatate 100 Mg Capsule) 100 mg PO TID PRN PRN Reason: Cough Docusate Sodium (Docusate Sodium 100 Mg Capsule) 100 mg PO DAILY PRN PRN Reason: Constipation Enoxaparin Sodium (Enoxaparin Sodium 60 Mg/0.6 Ml Syringe) 60 mg SUBCUT Q12H DANILO Melatonin (Melatonin 3 Mg Tablet) 6 mg PO BEDTIME PRN PRN Reason: Insomnia Ondansetron HCl (Ondansetron Hcl 4 Mg/2 Ml Vial) 4 mg IVPUSH Q8H PRN PRN Reason: Nausea and Vomiting Sodium Chloride (0.9 % Sodium Chloride Flush 3 Ml Syringe) 3 ml IVFLUSH QSHIFT [facility] Home Medications ?Medication ?Instructions ?Recorded ?Confirmed ?Type latanoprost 0.005 % eye drops drp ophthalmic (eye) 03/01/20 05/19/23 History olopatadine 0.1 % eye drops drp ophthalmic (eye) 03/01/20 05/19/23 History cholecalciferol (vitamin D3) 50 50 mcg PO DAILY 05/31/21 05/19/23 History mcg (2,000 unit) capsule aspirin 81 mg tablet,delayed 81 mg PO DAILY 01/09/23 05/19/23 History release (Adult Aspirin Regimen) Allergies Allergy/AdvReac Type Severity Reaction Status Date / Time No Known Allergies Allergy Verified 10/23/23 12:02 [No Known Allergies*] Physical Exam Vital signs: Vital Signs Temp 98 F 10/23/23 11:57 Pulse 78 10/23/23 16:00 Resp 17 10/23/23 16:00 BP 159/60 H 10/23/23 16:00 Pulse Ox 98 10/23/23 16:00 O2 Del Method Room Air 10/23/23 16:00 Intake & Output 10/22/23 10/23/23 10/23/23 18:59 06:59 18:59 Other: Weight 63.3 kg Weight 63.3 kg - Constitutional Present: no acute distress - Routine HEENT Exam Head: Present: atraumatic - Routine Neck Exam Present: supple - Routine Respiratory Exam Present: decreased breath sounds - Routine Cardiovascular Exam Cardiovascular: Present: tachycardia - Routine Abdominal Exam Present: nontender - Routine Extremities Exam Present: calf tenderness Hem/Onc Consult Result - Labs CBC & Chem 7: 10/23/23 11:55 10/23/23 11:55 Labs: Short CBC 10/23/23 Range/Units 11:55 WBC 9.7 (4.8-10.8) X10*3/uL Hgb 12.9 (12.0-16.0) g/dl Hct 39.1 (37.0-47.0) % Plt Count 60 L (160-400) X10*3/uL BMP 10/23/23 11:55 Sodium 141 Potassium 4.2 Chloride 106 Carbon Dioxide 30 H BUN 14 Creatinine 0.79 Calcium 9.9 Liver Function 10/23/23 Range/Units 11:55 Total Bilirubin 0.5 (0.0-1.0) mg/dL Direct Bilirubin 0.2 (0.0-0.5) mg/dL AST 22 (5-31) U/L ALT 22 (0-31) U/L Alkaline Phosphatase 84 (39-117) U/L Albumin 3.9 (3.5-5.0) g/dL Assessment and Plan Patient Active problem list reviewed?: Yes (1) Pulmonary emboli Status: Acute Assessment and plan: She should be anticoagulated with a heparin for one or two days and converted to apixaban for life. The platelets should be repeated frequently and trended. I will follow. - Time Spent With Patient Time Spent with Patient (in minutes): 30
[2023-10-23 18:06] VITALS: BP 136/61; PULSE 78; RESP 16; TEMP 36.8; O2SAT 98
--- NOTE | 2023-10-23 19:01 | PHA.MEDREC ---
Pharmacy Consult ? Medication Reconciliation Pharmacy has completed the medication reconciliation. Spoke to patient to confirm med list. Ender la she is no longer on Metoprolol Succ ER 25 mg daily because it made her blood pressure go down to low.
[2023-10-23 20:09] VITALS: BP 129/57; PULSE 88; RESP 16; TEMP 36.7; O2SAT 97
[2023-10-23 22:02] VITALS: BP 125/53; PULSE 86; RESP 16; TEMP 36.8; O2SAT 95
[2023-10-23 23:50] VITALS: BMI 24.9
[2023-10-24] VITALS (7 sets, daily range): BP systolic 122–140; BP diastolic 56–65; PULSE 72–90; RESP 15–18; TEMP 36.2–36.6; O2SAT 92–97
[2023-10-24] MEDS: 0.9 % Sodium Chloride Flush 3 ML SYRINGE IVFLUSH ×4 (00:27→20:51)
[2023-10-24] MEDS: Enoxaparin Sodium 60 MG/0.6 ML SYRINGE SUBCUT ×2 (04:10→17:04)
--- NOTE | 2023-10-24 07:00 | CA_ITS ---
Transthoracic Echocardiogram Patient (Last, First, Middle): Chreyl Noel L Gender: Female Date of : 1940 Age: 83 Procedure Date: 10/24/2023 Procedure Type: Transthoracic Echocardiogram Location: [facility] – [place] Height: 157.48 cm Weight: 61.69 kg BSA: 1.62 m2 Heart Rate: 76 bpm BP: 131 / 60 mmHg Supervising Floorperson: BROCK Referring MD: Martin Coronado MD Symptoms: elevated trop,pulm embolism Study Quality: Adequate w/Contrast ECG Rhythm: Sinus Conclusions: - The left ventricular systolic function is normal. The calculated ejection fraction is 57% by biplane method. - There is moderate septal asymmetric hypertrophy. - No obvious valvular pathology seen on this study. Findings Procedure Information Contrast agent, definity, is being given per protocol without apparent complications. Left Ventricle Normal left ventricular cavity size. The left ventricular systolic function is normal. The calculated ejection fraction is 57% by biplane method. There is no evidence of regional wall motion abnormalities. Diastolic function is normal for age. There is moderate septal asymmetric hypertrophy. Right Ventricle Normal right ventricular cavity size and systolic function. Atria Both atria are normal in size. Aortic Valve There is a normal trileaflet aortic valve. There is no aortic valve stenosis. There is no aortic valve regurgitation. Mitral Valve The mitral valve appears normal. There is trace mitral valve regurgitation. There is no mitral valve stenosis. Pulmonic Valve The pulmonic valve is likely normal. Tricuspid Valve Normal tricuspid valve structure. There is mild tricuspid valve regurgitation. There is no evidence of pulmonary hypertension. Great Vessels The asc aorta is normal in size. Small plaque is seen in the sino tubular ridge. Venous The inferior vena cava is normal in size and collapses greater than 50% with inspiration. Pericardium/Pleural There is no evidence of pericardial effusion. Prior Study Comparison No significant change compared to prior study dated: 08/06/2022. Recommendations, Care & Conclusions No obvious valvular pathology seen on this study. Measurements 2D Linear Measurements IVSd: 1.28 0.6-0.9/0.6-1.0 cm LVIDd: 2.45 3.9-5.3/4.2-5.9 cm LVIDd Index: 1.51 2.4-3.2/2.2-3.1 cm/m2 LVIDs: 1.83 2.0-3.6 cm LVPWd: 0.85 0.7-1.1 cm LA Diam: 3.20 2.7-3.8/3.0-4.0 cm LAIDs Index: 1.98 1.5-2.3 cm/m2 LV Mass: 84.82 67-162/88-224 g LV Mass Index: 52.36 43-95/49-115 g/m2 LVOT Diam: 1.90 3.0+(-)1.3 cm 2D Systolic Function EF 4C: 58.80 >55% EF 2C: 53.60 >55% EF BiP: 56.50 >55% Mitral Valve MV Pk E: 0.44 MV PK A: 0.78 MV Decel Time: 329.00 E/A: 0.60 E'Lateral: 7.40 E'Medial: 6.74 E/E' Med: 6.50 E/E' Lat: 6.00 PHT: 96.00 MVA PHT: 2.29 Decel Briscoe: 1.34 Aortic Valve AoV Pk Chase: 1.28 AoV Mn Chase: 0.96 AoV VTI: 0.25 AoV Pk Grad: 7.00 Aov Mn Grad: 4.00 WALDO Cont.VTI: 1.91 LVOT LVOT Pk Chase: 0.92 LVOT Mn Chase: 0.63 LVOT VTI: 0.17 LVOT Pk Grad: 3.00 LVOT Mn Grad: 2.00 LVOT Diam: 1.90 LVOT Area: 2.84 Diastolic Function MV Pk E: 0.44 MV Pk A: 0.78 E/A: 0.60 E'Medial: 6.74 E/E' Med: 6.50 E' Laterial: 7.40 E/E' Lat: 6.00 Right Ventricle TAPSE (mm): 17.90 TVS' Chase: 12.20 Tricuspid Valve TR Pk Chase: 2.73 TR Pk Grad: 30.00 RA Press: 3.00 RVSP: 33.00 Great Vessels Aorta Sinus of Valsalva: 3.00 2.0-3.5 cm Ao Asc: 3.10 2.1-3.4 cm Pulmonary Valve PV Pk Chase: 0.86 Peak PV Grad: 3.00 Updated in Other Vendor System with Status of Final Keenan Hammer MD electronically signed on 10/24/2023 1:02:47 PM with status of Final
[2023-10-24 07:09] LABS: Hematocrit 36.5 % (37.0-47.0); Hemoglobin 12.3 g/dl (12.0-16.0); Mean Corpuscular HGB Conc 33.7 g/dl (31.0-35.0); Mean Corpuscular Hemoglobin 32.3 pg (27.0-33.0); Mean Corpuscular Volume 95.8 fL (80.0-98.0); Mean Platelet Volume 9.7 fL (9.4-12.3); Platelet Count 69 X10*3/uL (160-400); Red Blood Count 3.81 X10*6/uL (4.20-5.50); White Blood Count 6.2 X10*3/uL (4.8-10.8)
[2023-10-24 07:15] LABS: Fibrinogen > 700 MG/DL (259-690); Prothrombin Time 12.4 SEC (11.1-13.3)
[2023-10-24] MEDS: Cholecalciferol (Vitamin D3) 25 MCG TABLET 50 MCG PO (09:01)
[2023-10-24] MEDS: Multivitamin TABLET 1 TAB PO (09:01)
[2023-10-24] MEDS: Latanoprost 0.005 % Ophth Sol 2.5 ML DROPS 1 DROP EYE-LEFT (09:36)
[2023-10-24 10:17] LABS: Rheumatoid Factor < 13.0 IU/mL (<15.0)
[2023-10-24 10:30] LABS: HIV AB/AG Nonreactive (Nonreactive); HIV Num 1 0.06 S/CO (0.00-0.99)
[2023-10-24 10:39] LABS: Erythrocyte Sedimentation Rate 59 MM/HR (0-20)
--- NOTE | 2023-10-24 10:49 | P.CNHO_ITS ---
Subjective - Subjective Chief complaint: Consult for: 1. Bilateral PE. 2. Thrombocytopenia. Patient: new to practice Consult date: 10/24/23 Requesting Physician: Cliff. Primary Care Provider: Will Bower MD Family Provider: Jolie. Medical Summary: DIAGNOSIS 1. BILATERAL PE. 2. THROMBOCYTOPENIA. CURRENT THERAPY: LOVENOX B.I.D. HPI - Consult Narrative Reason for consult: CONSULT FOR: 1. PE. 2. THROMBOCYTOPENIA Narrative: Chreyl Noel is a 83 year old lady, admitted yesterday with bilateral PE. Earlier this month she was on a one hour airplane trip. PMH significant for hx of DVT with PE, who presented to the ED with?SOB, FISCHER, tachycardia, and tachypnea times 4-5 days. She has been experiencing shortness of breath and dyspnea upon exertion with short walks or going up one flight of stairs. She has been tachycardic in the 110s and tachypneic into the 30s with little exertion. This is different from her baseline and she just feels something is not right . No chest pain/pressure or palpitations. Denies pleuritic chest pain. Patient previously had a pulmonary embolism in the setting DVT in 02/2022 that was attributed to having COVID. Patient was put on Eliquis x 6 months and has since worn compression stockings. Thrombophilia workup at that time was negative. She contracted COVID again in February of 2023 and prophylactically placed on Eliquis x3 months. States had bilateral lower extremity ultrasound approximately 1 month ago that was negative for DVT. Patient also notes current symptoms present differently from her previous PE, which was much more dramatic and sudden onset. Denies fever, chills, nausea, vomiting, abdominal pain. In the ED pt elevated heart rate of 99 and hypertensive up to 159/60. Labs were significant for thrombocytopenia of 60 initial troponin 18.2 with repeat flat at 22.3, otherwise grossly unremarkable. No leukocytosis. Stable H&H. No electrolyte abnormalities. Renal and hepatic function WNL. BNP WNL at 31. Tested negative for flu, RSV, COVID. CXR showed small right pleural effusion otherwise clear lungs. . EKG demonstrated normal sinus rhythm with LBBB but no evidence of significant ischemic changes. CTA OF THE CHEST REVEALED: Extensive bilateral pulmonary emboli as described above. There are somewhat rounded opacities within the posterior and inferior aspects of the right lower lobe for which infection cannot be excluded. These should be followed to resolution radiologically. BILATERAL LOWER EXTREMITY ULTRASOUND: 1. There is new nonocclusive deep venous thrombosis in the left common femoral vein with extension into the greater saphenous vein where it is occlusive. 2. No DVT demonstrated in the right lower extremity. Pt was treated with therapeutic Lovenox. PAST MEDICAL HISTORY: 1. She had an episode of pulmonary emboli after covid in 2021. She was anticoagulated An evaluation for thrombophilia was negative. Then and since then until today her platelet count has been unremarkable. 2. HTN, 3. Chronic LBBB, and 4. Venous insufficiency. She was seen by vascular surgery. They recommended cement , for her blood vessels however she saw Dr. Tyrone Recinos who did not recommend it. FAMILY HISTORY: Mom of pulmonary fibrosis. Dad had diabetes, colon cancer and bladder cancer. He of a stroke at 88. Brother has COPD. 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 Most recently she worked at the [employer] in [facility]. She is . She has children. She smoked between the ages of 17 and 32. Less than 1 pack per day. She quit 50 years ago. She drinks socially. ROS: She actually had good energy level. Denies fatigue. No fever chills or night sweats. Appetite is fine. She had high cholesterol so if it is trying to control her diet and lost about 7 lb. No headache no dizziness. No chest pain but has trouble breathing on exertion. He denies abdominal pain nausea vomiting heartburn indigestion. Bowels are working without any gross blood in it. She had a colonoscopy by Dr. Wooten 7 years ago. No dysuria no hematuria. 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 She had cortisone shots there a month ago. She has still been walking. She goes to the gym and lifts weights. She denies depression. No skin rashes no pruritus. Review of Systems - Constitutional Reports system reviewed and no additional complaints, except as documented, Reports lack of energy, Reports weight loss, Denies fatigue, Denies night sweats, Denies poor appetite - Eyes Reports system reviewed and no additional complaints, except as documented - ENT Reports system reviewed and no additional complaints, except as documented - Cardiovascular Reports system reviewed and no additional complaints, except as documented - Respiratory Reports no additional respiratory complaints - Gastrointestinal Reports system reviewed and no additional complaints, except as documented - Genitourinary Reports no additional female genitourinary complaints - Musculoskeletal Reports system reviewed and no additional complaints, except as documented - Integumentary/Breasts Skin/Breast: Reports no additional skin complaints - Neurologic Reports weakness - Psychiatric Reports system reviewed and no additional complaints, except as documented - Endocrine Reports no additional endocrine complaints - Hematologic/Lymphatic Reports system reviewed and no additional complaints, except as documented - Allergic/Immunologic Reports system reviewed and no additional complaints, except as documented Oncology Screenings - ECOG Performance Status ECOG Performance Status: 2 [facility] Medical History: Medical History (Last Reviewed 10/23/23 @ 17:45 by SERA Ferreira) FISCHER (dyspnea on exertion) LBBB (left bundle branch block) Palpitations Pulmonary embolism PVC (premature ventricular contraction) Functional capacity: uses cane/walker Patient : No Family History: Family History (Last Reviewed 10/23/23 @ 17:45 by SERA Ferreira) Mother Pulmonary fibrosis Father Diabetes HTN (hypertension) Colon cancer Bladder cancer Sister Breast cancer Brother COPD (chronic obstructive pulmonary disease) Son Addisons disease Surgical History: Surgical History (Last Reviewed 10/23/23 @ 17:45 by SERA Ferreira) H/O section History of meniscectomy of left knee Hx of meniscectomy of right knee Social History: Social History (Last Reviewed 10/23/23 @ 17:45 by SERA Ferreira) Living Situation History: Household Members: Spouse Housing: House Do you presently have visiting nurse or other home services: No Tobacco History: Patient Tobacco Use Status: Former Tobacco user Years Smoked: 15 +/- e-Cigarette/Vaping Use: Never Used Second Hand Smoke Exposure: No Occupation Assessmet: service: No Home Medications and Allergies Current Medications: Current Medications Acetaminophen (Acetaminophen 325 Mg Tablet) 650 mg PO Q6H PRN PRN Reason: Pain, Mild (Pain Scale 1-3) Benzonatate (Benzonatate 100 Mg Capsule) 100 mg PO TID PRN PRN Reason: Cough Docusate Sodium (Docusate Sodium 100 Mg Capsule) 100 mg PO DAILY PRN PRN Reason: Constipation Enoxaparin Sodium (Enoxaparin Sodium 60 Mg/0.6 Ml Syringe) 60 mg SUBCUT Q12H [facility] Last Admin: 10/24/23 04:10 Dose: 60 mg Latanoprost (Latanoprost 0.005 % Ophth Malka 2.5 Ml Drops) 1 drop EYE-LEFT DAILY [facility] Last Admin: 10/24/23 09:36 Dose: 1 drop Melatonin (Melatonin 3 Mg Tablet) 6 mg PO BEDTIME PRN PRN Reason: Insomnia Multivitamins/Vitamin C (Multivitamin Tablet) 1 tab PO DAILY [facility] Last Admin: 10/24/23 09:01 Dose: 1 tab Ondansetron HCl (Ondansetron Hcl 4 Mg/2 Ml Vial) 4 mg IVPUSH Q8H PRN PRN Reason: Nausea and Vomiting Sodium Chloride (0.9 % Sodium Chloride Flush 3 Ml Syringe) 3 ml IVFLUSH QSHIFT [facility] Last Admin: 10/24/23 09:01 Dose: 3 ml Vitamin D (Cholecalciferol (Vitamin D3) 25 Mcg Tablet) 50 mcg PO DAILY [facility] Last Admin: 10/24/23 09:01 Dose: 50 mcg Home Medications ?Medication ?Instructions ?Recorded ?Confirmed ?Type latanoprost 0.005 % eye drops 1 drp ophthalmic-Left DAILY 03/01/20 10/23/23 History cholecalciferol (vitamin D3) 50 50 mcg PO DAILY 05/31/21 10/23/23 History mcg (2,000 unit) capsule multivitamin 1 tab PO DAILY 10/23/23 10/23/23 History Allergies Allergy/AdvReac Type Severity Reaction Status Date / Time No Known Allergies Allergy Verified 10/23/23 12:02 [No Known Allergies*] Physical Exam Vital signs: Vital Signs Temp 97.3 F 10/24/23 08:00 Pulse 77 10/24/23 08:00 Resp 16 10/24/23 08:00 BP 140/65 H 10/24/23 08:00 Pulse Ox 97 10/24/23 08:00 O2 Del Method Room Air 10/24/23 08:00 Intake & Output 10/23/23 10/24/23 10/24/23 18:59 06:59 18:59 Intake Total 640 / 640 Balance 640 / 640 Intake: Intake, Oral Amount 640 / 640 Other: Dinner % Eaten 75% Eating (Feeding) Ability Independent Number of Unmeasured Voids 2 Urine Bathroom Urine Color Yellow Last Bowel Movement 10/23/23 Weight 63.3 kg 61.8 kg Weight in Grams [id number] Weight 61.8 kg - Constitutional Present: no acute distress - Routine HEENT Exam Head: Present: normal inspection, normocephalic Eye: Present: EOMI, normal appearance ENT: Present: mucous membranes moist - Routine Neck Exam Present: supple - Routine Respiratory Exam Present: decreased breath sounds - Routine Cardiovascular Exam Cardiovascular: Present: RRR, S1, S2 - Routine Abdominal Exam Present: soft, nontender - Routine Extremities Exam Present: nontender Hem/Onc Consult Result - Labs CBC & Chem 7: 10/26/23 06:40 10/23/23 11:55 Labs: Short CBC 10/23/23 10/24/23 Range/Units 11:55 06:44 WBC 9.7 6.2 (4.8-10.8) X10*3/uL Hgb 12.9 12.3 (12.0-16.0) g/dl Hct 39.1 36.5 L (37.0-47.0) % Plt Count 60 L 69 L (160-400) X10*3/uL BMP 10/23/23 11:55 Sodium 141 Potassium 4.2 Chloride 106 Carbon Dioxide 30 H BUN 14 Creatinine 0.79 Calcium 9.9 Liver Function 10/23/23 Range/Units 11:55 Total Bilirubin 0.5 (0.0-1.0) mg/dL Direct Bilirubin 0.2 (0.0-0.5) mg/dL AST 22 (5-31) U/L ALT 22 (0-31) U/L Alkaline Phosphatase 84 (39-117) U/L Albumin 3.9 (3.5-5.0) g/dL Assessment and Plan Patient Active problem list reviewed?: Yes (1) Thrombocytopenia Status: Acute Assessment and plan: 83-year-old lady, admitted with bilateral PE. Has been started on Lovenox. She was noted to be thrombocytopenic. Platelets yesterday were 60. Today's platelets are 69. 03/02 platelets were 141, and 150. Today were normal at 224 before that. DIFFERENTIAL DIAGNOSIS: 1. RELATED TO THE PE: On occasion thrombocytopenia can developed in the acute clot setting, from platelet consumption. DIC screen is negative. Fibrinogen: 700. 2. MEDICATION RELATED: Not on any obvious medication that could be implicated. 3. VIRAL INFECTION: Patient recently had had a few viral infections including the flu and norovirus infections. Other infections like HIV or hepatitis B and C are in the differential. 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 5. COLLAGEN VASCULAR DISORDER: SLE and rheumatoid arthritis. 6. MYELO INFILTRATIVE DISORDER: MDS, lymphoma or multiple myeloma. Less likely. PLAN: I will proceed with further evaluation. Check HIV, hepatitis-B and C profiles: negative. Check ESR 59, RA<13, RAY. Check LDH 201, and SIEP. At this point will continue to monitor the platelets carefully, they do appear to be on the upswing. 83 on 10/24. Thank you for this consult, I will follow along with you, CC: Dr. aDve. (2) Pulmonary emboli Status: Acute Assessment and plan: 83-year-old lady with previous history of PE, in the setting of COVID. She was treated with 6 months of Eliquis. Subsequently last year when she developed COVID again she was treated with 3 months of prophylactic Eliquis. She recently went on a trip to [place]. She now presents with bilateral PE and left leg DVT. She has been started on anticoagulation with Lovenox for two days. To be converted to apixaban for life. T - Time Spent With Patient Time Spent with Patient (in minutes): 30
--- NOTE | 2023-10-24 10:56 | PM.CNGS ---
History of Present Illness Consult details Consult date: 10/24/23 Reason for consult: other (DVT with PE) Narrative: 82-year-old female with a prior history of venous disease. She would actually seen us in the office nearly a year ago for venous insufficiency testing. She was positive for that. At that time she refused any intervention as she does have a prior history of DVT. Upon discussion with her her initial event of a DVT was from an extended trip and subsequent COVID. This was back in March of 2022. She had a repeat bout of COVID and at that time was placed on Eliquis. Most recently she came in with the shortness of breath and was discovered to have DVT with PE. At the current time she is relatively comfortable denies any discomfort in that left lower extremity and no shortness of breath. She now presents to us for vascular evaluation Review of Systems Review of Systems: Yes all other systems are reviewed and are negative Constitutional: Constitutional: Reports no additional constitutional complaints ENT: Reports Normal hearing present Cardiovascular: Cardiovascular: Denies chest pain, Denies chest pain at rest, Denies chest pain with activity and Denies pedal edema Respiratory: Respiratory: Denies cough Gastrointestinal: Gastrointestinal: Denies abdominal pain Musculoskeletal: Musculoskeletal: Denies abnormal gait, Denies muscle cramps and Denies radiating pain into limb Integumentary/Breasts: Skin/Breast: Denies skin ulcer and Denies wounds Neurologic: Reports Normal hearing present and Denies abnormal gait Psychiatric: Psychiatric: Reports no additional psychiatric complaints [facility] Past Medical History Medical History FISCHER (dyspnea on exertion) Pulmonary embolism LBBB (left bundle branch block) Palpitations PVC (premature ventricular contraction) Family History Family History Mother Pulmonary fibrosis Father Diabetes HTN (hypertension) Colon cancer Bladder cancer Sister Breast cancer Brother COPD (chronic obstructive pulmonary disease) Son Addisons disease Surgical History Surgical History History of meniscectomy of left knee Hx of meniscectomy of right knee H/O section Social History Social History Household Members: Spouse Housing: House Do you presently have visiting nurse or other home services: No Alcohol intake: current Alcohol intake frequency: holidays/special occasions only Patient Tobacco Use Status: Former Tobacco user Years Smoked: 15 +/- Smoked in Last 30 Days: No e-Cigarette/Vaping Use: Never Used Patient Interested in Nicotine Replacement: No Second Hand Smoke Exposure: No Use of substances other than those prescribed or required for medical reasons: No Last Used Substance Other:: never Currently Displaying Signs/Symptoms of Drug Intoxication Withdrawal: No Any prior treatment program specific to substance use: No Have you been hit, kicked, punched, or otherwise hurt by someone within the past year? If so, by whom?: No Do you feel safe in your current relationship?: No Is there a partner from a previous relationship who is making you feel unsafe now?: No Are you made to feel afraid or neglected: No Spiritual Healthcare Practices: mass on Sundays Cultural Healthcare Practices: none Advance Directives: No Advance Directives Information Provided: Yes Advance Directives on File: No Do you have a plan to hurt others: No Plan Recently lost weight without trying: Yes Eating poorly because of decreased appetite: No Nutrition Risks: No Nutritional Risk Patient : No Poor oral hygiene: No Meds Allergies Allergy/AdvReac Type Severity Reaction Status Date / Time No Known Allergies Allergy Verified 10/23/23 12:02 [No Known Allergies*] Active Medications: Current Medications Acetaminophen (Acetaminophen 325 Mg Tablet) 650 mg PO Q6H PRN PRN Reason: Pain, Mild (Pain Scale 1-3) Benzonatate (Benzonatate 100 Mg Capsule) 100 mg PO TID PRN PRN Reason: Cough Docusate Sodium (Docusate Sodium 100 Mg Capsule) 100 mg PO DAILY PRN PRN Reason: Constipation Enoxaparin Sodium (Enoxaparin Sodium 60 Mg/0.6 Ml Syringe) 60 mg SUBCUT Q12H [facility] Last Admin: 10/24/23 04:10 Dose: 60 mg Latanoprost (Latanoprost 0.005 % Ophth Malka 2.5 Ml Drops) 1 drop EYE-LEFT DAILY [facility] Last Admin: 10/24/23 09:36 Dose: 1 drop Melatonin (Melatonin 3 Mg Tablet) 6 mg PO BEDTIME PRN PRN Reason: Insomnia Multivitamins/Vitamin C (Multivitamin Tablet) 1 tab PO DAILY [facility] Last Admin: 10/24/23 09:01 Dose: 1 tab Ondansetron HCl (Ondansetron Hcl 4 Mg/2 Ml Vial) 4 mg IVPUSH Q8H PRN PRN Reason: Nausea and Vomiting Sodium Chloride (0.9 % Sodium Chloride Flush 3 Ml Syringe) 3 ml IVFLUSH QSHIFT [facility] Last Admin: 10/24/23 09:01 Dose: 3 ml Vitamin D (Cholecalciferol (Vitamin D3) 25 Mcg Tablet) 50 mcg PO DAILY [facility] Last Admin: 10/24/23 09:01 Dose: 50 mcg Home Medications ?Medication ?Instructions ?Recorded ?Confirmed ?Last Taken ?Type latanoprost 0.005 % eye drops 1 drp ophthalmic-Left DAILY 03/01/20 10/23/23 10/22/23 History cholecalciferol (vitamin D3) 50 50 mcg PO DAILY 05/31/21 10/23/23 10/22/23 History mcg (2,000 unit) capsule aspirin 81 mg tablet,delayed 81 mg PO DAILY 01/09/23 10/23/23 10/22/23 History release (Adult Aspirin Regimen) multivitamin 1 tab PO DAILY 10/23/23 10/23/23 10/22/23 History Physical Exam Vital Signs: Vital Signs: Last Vital Signs Temp 97.3 F 10/24/23 08:00 Pulse 77 10/24/23 08:00 Resp 16 10/24/23 08:00 BP 140/65 H 10/24/23 08:00 Pulse Ox 97 10/24/23 08:00 O2 Del Method Room Air 10/24/23 08:00 BMI result Body Mass Index 24.9 Const: General: cooperative, healthy appearing and comfortable Orientation/consciousness: oriented to person, oriented to place and oriented to time HEENT: Head: Yes normal to inspection Neck: Neck: Yes normal visual inspection Carotids: no bruits Chest: Chest palpation & inspection: normal inspection of the chest Resp: Effort & Inspection: normal respiratory effort and able to speak in complete sentences Auscultation: clear to auscultation bilaterally, no crackles, no rales, no rhonchi and no wheezes Cardio: Rate: regular rate Rhythm: regular rhythm Heart sounds: S1 normal heart sound present and S2 normal heart sound present Bruits: no carotid bruits Peripheral pulses: Peripheral pulses 2+ throughout GI: Inspection: Yes normal to inspection Skin: Wounds: no wounds Hair: normal Neuro: General: oriented to person, oriented to place and oriented to time Cranial nerves: Yes CN's II-XII intact bilaterally and Yes Normal hearing present Cognition (Neuro): normal cognition Motor exam (neuro): 5/5 motor strength present throughout Extrem: Other: venous exam: No significant superficial varicosities or spider telangiectasias, minimal edema General: No clubbing, No cyanosis and No edema Psych: Appearance: grossly normal Mental Status: mental status grossly normal Speech and movement: Normal speech and movement present Results Labs 10/24/23 06:44 10/23/23 11:55 Labs: Abnormal lab results 10/23/23 10/23/23 10/24/23 Range/Units 11:55 14:01 06:44 RBC 4.05 L 3.81 L (4.20-5.50) X10*6/uL Hct 36.5 L (37.0-47.0) % Plt Count 60 L 69 L (160-400) X10*3/uL Neut % (Auto) 82.8 H (45-73) % Lymph % (Auto) 10.6 L (20-40) % Lymph # (Auto) 1.0 L (1.2-4.9) X10*3/uL Abs Immat Gran (auto) 0.04 H (0.00-0.03) X10*3/uL ESR (0-20) MM/HR Fibrinogen > 700 H (259-690) MG/DL Carbon Dioxide 30 H (22-29) mmol/L Anion Gap 9 L (12-20) Troponin I High Sens 18.2 H 22.3 H (<3.5-17.0) ng/L 10/24/23 Range/Units 09:12 RBC (4.20-5.50) X10*6/uL Hct (37.0-47.0) % Plt Count (160-400) X10*3/uL Neut % (Auto) (45-73) % Lymph % (Auto) (20-40) % Lymph # (Auto) (1.2-4.9) X10*3/uL Abs Immat Gran (auto) (0.00-0.03) X10*3/uL ESR 59 H (0-20) MM/HR Fibrinogen (259-690) MG/DL Carbon Dioxide (22-29) mmol/L Anion Gap (12-20) Troponin I High Sens (<3.5-17.0) ng/L Short CBC 10/23/23 10/24/23 Range/Units 11:55 06:44 WBC 9.7 6.2 (4.8-10.8) X10*3/uL Hgb 12.9 12.3 (12.0-16.0) g/dl Hct 39.1 36.5 L (37.0-47.0) % Plt Count 60 L 69 L (160-400) X10*3/uL BMP 10/23/23 11:55 Sodium 141 Potassium 4.2 Chloride 106 Carbon Dioxide 30 H BUN 14 Creatinine 0.79 Calcium 9.9 Liver Function 10/23/23 Range/Units 11:55 Total Bilirubin 0.5 (0.0-1.0) mg/dL Direct Bilirubin 0.2 (0.0-0.5) mg/dL AST 22 (5-31) U/L ALT 22 (0-31) U/L Alkaline Phosphatase 84 (39-117) U/L Albumin 3.9 (3.5-5.0) g/dL All other labs normal. Assessment and Plan (1) Pulmonary emboli: Qualifiers: Pulmonary embolism type: multiple subsegmental (without acute cor pulmonale) Qualified Code(s): I26.94 - Multiple subsegmental pulmonary emboli without acute cor pulmonale Status: Acute Plan In short patient has DVT with PE. The concern here is that she does have thrombocytopenia as well. Due to her thrombocytopenia this does exclude her from mechanical venous thrombectomy or pulmonary embolectomy. That being said she is clinically asymptomatic and currently comfortable denies any shortness of breath and her left leg does feel comfortable. I did review the CT scan and ultrasound as well. At the current time I do appreciate Hematology-Oncology is notes and do agree that she most likely will benefit from lifetime anticoagulation. We will follow on an as-needed basis. Thank you for allowing us to assist in her care Procedures Date of Service Date of Service: 10/24/23
--- NOTE | 2023-10-24 11:48 | MHC.CM.PN ---
IMM 10/24/23, Pt is independent, she lives with her , does not use home health services or DME. to transport [place], HCP form completed and added to chart. PCP confirmed: Fr. Bower. DCP: home, self care.
--- NOTE | 2023-10-24 16:12 | HO.PM.IMPN ---
Subjective Subjective Date of Service: 10/24/23 Interval History: Bilateral pulmonary embolism, left leg DVT. Review of Systems Patient said that shortness of breath with exertion Denies any shortness of breath at rest, denies any chest pain or nausea vomiting. Physical Exam Vital Signs: Vital Signs: Last Vital Signs Temp 97.8 F 10/24/23 12:00 Pulse 86 10/24/23 12:00 Resp 17 10/24/23 12:00 BP 122/56 L 10/24/23 12:00 Pulse Ox 97 10/24/23 12:00 O2 Del Method Room Air 10/24/23 12:00 BMI result Body Mass Index 24.9 Appearance: Alert.? Oriented X3.? cvs: rrr, [id number] . res: air entry fair ,no rales or wheezing abd: no rebound or guarding ,nt, bs present. ext pulses present , no cyanosis . neuro: axo3 , nonfocal. Objective Data Active Medications Acetaminophen (Acetaminophen 325 Mg Tablet) 650 mg PO Q6H PRN PRN Reason: Pain, Mild (Pain Scale 1-3) Benzonatate (Benzonatate 100 Mg Capsule) 100 mg PO TID PRN PRN Reason: Cough Docusate Sodium (Docusate Sodium 100 Mg Capsule) 100 mg PO DAILY PRN PRN Reason: Constipation Enoxaparin Sodium (Enoxaparin Sodium 60 Mg/0.6 Ml Syringe) 60 mg SUBCUT Q12H [facility] Last Admin: 10/24/23 04:10 Dose: 60 mg Documented By: STEFFEN Latanoprost (Latanoprost 0.005 % Ophth Malka 2.5 Ml Drops) 1 drop EYE-LEFT DAILY [facility] Last Admin: 10/24/23 09:36 Dose: 1 drop Documented By: JAVON Melatonin (Melatonin 3 Mg Tablet) 6 mg PO BEDTIME PRN PRN Reason: Insomnia Multivitamins/Vitamin C (Multivitamin Tablet) 1 tab PO DAILY [facility] Last Admin: 10/24/23 09:01 Dose: 1 tab Documented By: JAVON Ondansetron HCl (Ondansetron Hcl 4 Mg/2 Ml Vial) 4 mg IVPUSH Q8H PRN PRN Reason: Nausea and Vomiting Sodium Chloride (0.9 % Sodium Chloride Flush 3 Ml Syringe) 3 ml IVFLUSH QSHIFT [facility] Last Admin: 10/24/23 09:01 Dose: 3 ml Documented By: JAVON Vitamin D (Cholecalciferol (Vitamin D3) 25 Mcg Tablet) 50 mcg PO DAILY [facility] Last Admin: 10/24/23 09:01 Dose: 50 mcg Documented By: JAVON Labs 10/24/23 06:44 10/23/23 11:55 Labs: Laboratory Results - last 24 hr 10/24/23 10/24/23 06:44 09:12 MCV 95.8 MCH 32.3 MCHC 33.7 RDW 13.0 Plt Count 69 L MPV 9.7 Absolute Nucleated RBC 0.000 Nucleated RBC % (auto) 0.0 ESR 59 H PT 12.4 INR 1.0 Fibrinogen > 700 H Rheumatoid Factor < 13.0 HIV 1&2 Ab/P24 Ag 4thGn Nonreactive Assessment and Plan (1) Thrombocytopenia: Status: Acute (2) Pulmonary emboli: Status: Acute Plan 83-year-old female with a PMH significant for hx of DVT with PE, HTN, chronic LBBB, and venous insufficiency who presents to the ED with?SOB, FISCHER, tachycardia, and tachypnea times 4-5 days. Pt will be admitted to the hospital for treatment and further evaluation of bilateral pulmonary emboli. Bilateral pulmonary emboli CTA of chest found extensive bilateral pulmonary emboli including a large burden of clot within the mid to distal aspect of main pulmonary artery of right lung Patient with SOB, FISCHER, tachycardic, tachypnea x4-5 days Hx of bilateral PE in 02/2022, no longer on anticoagulation [place] venous duplex of bilateral lower extremities-left LE dvt. echo pending Follow CBC,Monitor on telemetry Hematology/oncology consult-continue lovenox seen by vascular : currently no acute intervention, also has thrombocytopenia, continue ac. thrombocytopenia : Platelets 60 -improving 69. Appears acute, review of [facility] records indicates baseline of 200 as per [facility] :Previous thrombophilia workup in 2021 negative Unclear etiology: Possibly in the setting of DVT/PE Hematology/oncology consult, follows with Dr. Dave,check fibrinogen. Follow platelets closely HTN Metoprolol stopped the past 2 days as SBP was in the 90s Monitor BP, resume as warranted Full Code DVT Prophylaxis: Therapeutic Lovenox ongoing hospitalization for treatment and further evaluation of?bilateral pulmonary emboli. Given the extent of pulmonary emboli including in the main pulmonary artery of right lung as well as being in the setting of thrombocytopenia , patient will require hospitalization for administration of therapeutic Lovenox while closely monitoring CBC and respiratory status. Quality Stroke Does the patient have a stroke diagnosis?: No VTE Prior VTE?: No VTE Risk Level:: Medical - moderate - high VTE Device Contraindication: Treatment Not Indicated VTE Drug Contraindication: N/A - Med Ordered
[2023-10-25] VITALS: BP 128/61; PULSE 73; RESP 18; TEMP 36.1; O2SAT 96
[2023-10-25 04:00] VITALS: BP 126/60; PULSE 71; RESP 18; TEMP 36.1; O2SAT 96
[2023-10-25] MEDS: Enoxaparin Sodium 60 MG/0.6 ML SYRINGE SUBCUT (04:40)
[2023-10-25] MEDS: Multivitamin TABLET 1 TAB PO (07:53)
[2023-10-25] MEDS: Latanoprost 0.005 % Ophth Sol 2.5 ML DROPS 1 DROP EYE-LEFT (07:54)
[2023-10-25] MEDS: 0.9 % Sodium Chloride Flush 3 ML SYRINGE IVFLUSH ×2 (07:54→17:20)
[2023-10-25] MEDS: Cholecalciferol (Vitamin D3) 25 MCG TABLET 50 MCG PO (07:54)
[2023-10-25 08:00] VITALS: BP 131/60; PULSE 74; RESP 18; TEMP 36.5; O2SAT 97
[2023-10-25 08:04] LABS: Hematocrit 36.7 % (37.0-47.0); Hemoglobin 12.4 g/dl (12.0-16.0); Mean Corpuscular HGB Conc 33.8 g/dl (31.0-35.0); Mean Corpuscular Hemoglobin 32.7 pg (27.0-33.0); Mean Corpuscular Volume 96.8 fL (80.0-98.0); Mean Platelet Volume 9.6 fL (9.4-12.3); Platelet Count 83 X10*3/uL (160-400); Red Blood Count 3.79 X10*6/uL (4.20-5.50); White Blood Count 5.3 X10*3/uL (4.8-10.8)
[2023-10-25 08:19] LABS: Lactate Dehydrogenase 201 U/L (122-220)
[2023-10-25 11:37] VITALS: BP 120/64; PULSE 77; RESP 18; TEMP 36.4; O2SAT 96
--- NOTE | 2023-10-25 12:46 | P.PNIM_ITS ---
Subjective Subjective Date of Service: 10/25/23 Interval History: Bilateral pulmonary embolism, left leg DVT. Review of Systems Patient said that shortness of breath with exertion Denies any shortness of breath at rest, denies any chest pain or nausea vomiting. Physical Exam 2 Vital Signs: Vital Signs: Last Vital Signs Temp 97.6 F 10/25/23 11:37 Pulse 77 10/25/23 11:37 Resp 18 10/25/23 11:37 BP 120/64 10/25/23 11:37 Pulse Ox 96 10/25/23 11:37 O2 Del Method Room Air 10/25/23 11:37 BMI result Body Mass Index 24.9 Appearance: Alert.? Oriented X3.? cvs: rrr, [id number] . res: air entry fair ,no rales or wheezing abd: no rebound or guarding ,nt, bs present. ext pulses present , no cyanosis . neuro: axo3 , nonfocal. Objective Data Active Medications Acetaminophen (Acetaminophen 325 Mg Tablet) 650 mg PO Q6H PRN PRN Reason: Pain, Mild (Pain Scale 1-3) Benzonatate (Benzonatate 100 Mg Capsule) 100 mg PO TID PRN PRN Reason: Cough Docusate Sodium (Docusate Sodium 100 Mg Capsule) 100 mg PO DAILY PRN PRN Reason: Constipation Enoxaparin Sodium (Enoxaparin Sodium 60 Mg/0.6 Ml Syringe) 60 mg SUBCUT Q12H [facility] Last Admin: 10/25/23 04:40 Dose: 60 mg Documented By: ELSA Latanoprost (Latanoprost 0.005 % Ophth Malka 2.5 Ml Drops) 1 drop EYE-LEFT DAILY [facility] Last Admin: 10/25/23 07:54 Dose: 1 drop Documented By: KALEIGH Melatonin (Melatonin 3 Mg Tablet) 6 mg PO BEDTIME PRN PRN Reason: Insomnia Multivitamins/Vitamin C (Multivitamin Tablet) 1 tab PO DAILY [facility] Last Admin: 10/25/23 07:53 Dose: 1 tab Documented By: KALEIGH Ondansetron HCl (Ondansetron Hcl 4 Mg/2 Ml Vial) 4 mg IVPUSH Q8H PRN PRN Reason: Nausea and Vomiting Sodium Chloride (0.9 % Sodium Chloride Flush 3 Ml Syringe) 3 ml IVFLUSH QSHIFT [facility] Last Admin: 10/25/23 07:54 Dose: 3 ml Documented By: KALEIGH Vitamin D (Cholecalciferol (Vitamin D3) 25 Mcg Tablet) 50 mcg PO DAILY [facility] Last Admin: 10/25/23 07:54 Dose: 50 mcg Documented By: KALEIGH Labs 10/25/23 07:26 10/23/23 11:55 Labs: Laboratory Results - last 24 hr 10/25/23 07:26 MCV 96.8 MCH 32.7 MCHC 33.8 RDW 13.0 Plt Count 83 L MPV 9.6 Absolute Nucleated RBC 0.000 Nucleated RBC % (auto) 0.0 Lactate Dehydrogenase 201 Assessment and Plan (1) Pulmonary emboli: Status: Acute (2) Thrombocytopenia: Status: Acute Plan 83-year-old female with a PMH significant for hx of DVT with PE, HTN, chronic LBBB, and venous insufficiency who presents to the ED with?SOB, FISCHER, tachycardia, and tachypnea times 4-5 days. Pt will be admitted to the hospital for treatment and further evaluation of bilateral pulmonary emboli. Bilateral pulmonary emboli CTA of chest found extensive bilateral pulmonary emboli including a large burden of clot within the mid to distal aspect of main pulmonary artery of right lung [place] venous duplex of bilateral lower extremities-left LE dvt. sob with excersion Hx of bilateral PE in 02/2022, no longer on anticoagulation echo ef seems fine Hematology/oncology consult-switch to eliquis from lovenox ,moniter cbc 24 hous if stable will plan dispo. seen by vascular : currently no acute intervention, also has thrombocytopenia, continue ac. thrombocytopenia : Platelets 60 -69-83. [id number] workup for Check HIV, hepatitis-B and C profiles, RA, RAY, LDH and SIEPadded . Follow platelets closely hematlogy following HTN Metoprolol stopped the past 2 days as SBP was in the 90s Monitor BP, resume as warranted Full Code DVT Prophylaxis: Therapeutic Lovenox ongoing hospitalization for treatment and further evaluation of?bilateral pulmonary emboli. Given the extent of pulmonary emboli including in the main pulmonary artery of right lung as well as being in the setting of thrombocytopenia , patient will require hospitalization for administration of therapeutic Lovenox while closely monitoring CBC and respiratory status. Quality Stroke Does the patient have a stroke diagnosis?: No VTE Prior VTE?: No VTE Risk Level:: Medical - moderate - high VTE Device Contraindication: Treatment Not Indicated VTE Drug Contraindication: N/A - Med Ordered
[2023-10-25 15:38] VITALS: BP 132/82; PULSE 82; TEMP 36.2; O2SAT 96
[2023-10-25] MEDS: Apixaban 5 MG TABLET 10 MG PO (17:20)
[2023-10-25 19:24] VITALS: BP 120/58; PULSE 76; RESP 18; TEMP 36.6; O2SAT 94
[2023-10-26] VITALS: BP 134/64; PULSE 77; RESP 18; TEMP 36.3; O2SAT 98
[2023-10-26 03:29] VITALS: BP 142/64; PULSE 72; RESP 18; TEMP 36.3; O2SAT 96
[2023-10-26] MEDS: Apixaban 5 MG TABLET 10 MG PO (06:00)
[2023-10-26 07:18] LABS: Hematocrit 38.5 % (37.0-47.0); Hemoglobin 12.8 g/dl (12.0-16.0); Mean Corpuscular HGB Conc 33.2 g/dl (31.0-35.0); Mean Corpuscular Hemoglobin 32.1 pg (27.0-33.0); Mean Corpuscular Volume 96.5 fL (80.0-98.0); Mean Platelet Volume 9.7 fL (9.4-12.3); Red Blood Count 3.99 X10*6/uL (4.20-5.50); Red Cell Distribution Width 12.8 % (11.0-16.0); White Blood Count 4.7 X10*3/uL (4.8-10.8)
[2023-10-26 07:21] VITALS: BP 131/61; PULSE 70; RESP 18; TEMP 36.5; O2SAT 97
[2023-10-26 07:31] LABS: Platelet Count 79 X10*3/uL (160-400)
[2023-10-26] MEDS: Latanoprost 0.005 % Ophth Sol 2.5 ML DROPS 1 DROP EYE-LEFT (07:56)
[2023-10-26] MEDS: Multivitamin TABLET 1 TAB PO (07:56)
[2023-10-26] MEDS: Cholecalciferol (Vitamin D3) 25 MCG TABLET 50 MCG PO (07:56)
[2023-10-26 10:35] VITALS: BP 131/66; PULSE 71; RESP 18; TEMP 36.8; O2SAT 97
--- NOTE | 2023-10-26 10:38 | P.DS_ITS ---
DS: Providers Provider Date of Service: 10/26/23 Date of admission: 10/23/23 17:05 Date of discharge: 10/26/23 Primary care physician: Will Bower MD Consults: 10/23/23 16:50 Consult to Hematology / Oncology Routine Consulting Provider: Neal Dave Reason for consultation: Bilateral PE 10/24/23 08:44 Consult to Vascular Surgery Routine Consulting Provider: [facility] [facility] Reason for consultation: plum embolism Has provider been notified: No 10/24/23 08:45 Consult to Hematology / Oncology Routine Consulting Provider: Twan Arnold Reason for consultation: Pulm embolism Has provider been notified: No Attending physician on discharge: Martin Coronado Discharging clinician: Martin Coronado DS: Diagnosis Discharge Diagnosis (1) Thrombocytopenia: Status: Acute (2) Pulmonary emboli: Status: Acute DS: Summary Hospital Course Hospital Course: 83-year-old female with a PMH significant for hx of DVT with PE, HTN, chronic LBBB, and venous insufficiency who presents to the ED with?SOB, FISCHER, tachycardia, and tachypnea times 4-5 days. Pt states she has been experiencing shortness of breath and dyspnea upon exertion with short walks or going up one flight of stairs. Also noticed has been tachycardic in the 110s and tachypneic into the 30s with little exertion. Reports that this is different from her baseline and she just feels something is not right . No chest pain/pressure or palpitations. Denies pleuritic chest pain. Patient previously had a pulmonary embolism in the setting DVT in 02/2022 that was attributed to having COVID. Patient was put on Eliquis x6 months and has since worn compression stockings. Thrombophilia workup at that time was negative. Patient contracted COVID again in February of 2023 and prophylactically placed on Eliquis x3 months. States had bilateral lower extremity ultrasound approximately 1 month ago that was negative for DVT. Patient also notes current symptoms present differently from her previous PE, which was much more dramatic and sudden onset. Denies fever, chills, nausea, vomiting, abdominal pain. In the ED pt elevated heart rate of 99 and hypertensive up to 159/60. Labs were significant for thrombocytopenia of 60 initial troponin 18.2 with repeat flat at 22.3, otherwise grossly unremarkable. No leukocytosis. Stable H&H. No electrolyte abnormalities. Renal and hepatic function WNL. BNP WNL at 31. Tested negative for flu, RSV, COVID. CXR showed small right pleural effusion otherwise clear lungs. CTA of chest found extensive bilateral pulmonary emboli including a large burden of clot within the mid to distal aspect of main pulmonary artery of right lung. EKG demonstrated normal sinus rhythm with LBBB but no evidence of significant ischemic changes. Pt was treated with therapeutic Lovenox. Pt will be admitted to the hospital for treatment and further evaluation of bilateral pulmonary emboli. Hospital course: Patient admitted for sob- further wokrup with cta showed extensive bilateral pulmonary emboli including a large burden of clot within the mid to distal aspect of main pulmonary artery of right lung,U.S. venous duplex of bilateral lower extremities-left LE dvt-started on lovenox ,also has thrombocytopenia( unclear etiology) ,patient seen by hematology-workup for Check HIV, hepatitis-B and C profiles, RA, RAY,Ig subclasses, LDH and SIEP sent ( which needs to followed outpatient ) . patient seems improved significantly clinically -sob seems much better ,also plaelets seems improving( trend 60-69-83-79), no bruising or any gross bleeding. moniter cbc outpatient. patient also seen by vascular: currently no acute intervention, also has thrombocytopenia, continue ac, follow up outpatient. plan: moniter cbc eliquis 10 mg po bid until 11/01/23 ,then switch to eliquis 5 mg po bid. follow up with pcp,hemtaology and vascular outpatient. Assessment plan coordination time spent 40 minute. Discussed with the patient detail length she understand and in agreement with the plan. Time Attestation Total time managing care of this patient today: 40 mintues. Discharge Coordination Time (in mins): 40 min Quality: Safe Use of Opioids Does Pt have an Active Cancer Diagnosis on the Problem List?: No Quality: Stroke Does the patient have a stroke diagnosis?: No Physical Exam Vital Signs: Vital Signs: Last Vital Signs Temp 97.7 F 10/26/23 07:21 Pulse 70 10/26/23 07:21 Resp 18 10/26/23 07:21 BP 131/61 10/26/23 07:21 Pulse Ox 97 10/26/23 07:21 O2 Del Method Room Air 10/26/23 07:21 BMI result Body Mass Index 24.9 Appearance: Alert.? Oriented X3.? cvs: rrr, [id number] . res: air entry fair ,no rales or wheezing abd: no rebound or guarding ,nt, bs present. ext pulses present , no cyanosis . neuro: axo3 , nonfocal. DS: Data Data Completed and Pending Labs on day of discharge: Laboratory Results - last 24 hr 10/26/23 06:40 WBC 4.7 L RBC 3.99 L Hgb 12.8 Hct 38.5 MCV 96.5 MCH 32.1 MCHC 33.2 RDW 12.8 Plt Count 79 L MPV 9.7 Absolute Nucleated RBC 0.000 Nucleated RBC % (auto) 0.0 Imaging Chest x-ray: Radiologist's impression: ITS Impressions Chest X-Ray 10/23/23 12:25 IMPRESSION: Small right pleural effusion. The lungs are clear. Chest CTA 10/23/23 14:35 IMPRESSION: Extensive bilateral pulmonary emboli as described above. There are somewhat rounded opacities within the posterior and inferior aspects of the right lower lobe for which infection cannot be excluded. These should be followed to resolution radiologically. VTE: positive This critical result was discussed with Iqra Sanford at 3:24 PM on 10/23/2023 and it was ascertained that the content and urgency of the report was understood at the time of direct communication. Venous Duplex 10/23/23 17:35 IMPRESSION: 1. There is new nonocclusive deep venous thrombosis in the left common femoral vein with extension into the greater saphenous vein where it is occlusive. 2. No DVT demonstrated in the right lower extremity. These critical results were discussed with Dr. Corbett by telephone at 10/23/2023 6:22 PM and it was ascertained that the content and urgency of the report was understood at the time of direct communication. Discharge Plan Discharge Anticipated Discharge Date/Time: 10/26/23 10:24 Patient Disposition: Home, Self-Care Discharge Diagnosis: pulmonary embolism Referrals: Will Bower MD [Primary Care Provider] - 1 Week Wilmer Tang MD [Physician] - 1 Week Twan Arnold MD [Physician] - 1 Week Discharge Medications: New Eliquis 5 mg Tablet 10 mg PO Q12H Qty: 90 0RF Rx Instructions: take eliquis 10 mg (2 tab) po bid until 11/01/23 ,then switch to eliquis 5 mg(1 tab) po bid afterwards Continued multivitamin Tablet 1 tab PO DAILY latanoprost 0.005 % drops 1 drp ophthalmic-Left DAILY cholecalciferol (vitamin D3) 50 mcg (2,000 unit) capsule 50 mcg PO DAILY Discontinued aspirin [Adult Aspirin Regimen] 81 mg tablet,delayed release (DR/EC) 81 mg PO DAILY Discharge Orders: Discharge Order (Routine); Ordered 10/26/23 Ordered By: Martin Coronado Diet: Advance to usual diet Activity on Discharge: As tolerated Stand Alone Forms: Patient Portal Discharge page Print Language: Croatian Other Ambulatory Orders: Complete Blood Count no Diff (Routine) Timeframe: 1 Week Facility: [facility] - Location: Laboratory Ordered By: Martin Coronado Care Plan Goals: Patient admitted for sob- further wokrup with cta showed extensive bilateral pulmonary emboli including a large burden of clot within the mid to distal aspect of main pulmonary artery of right lung,U.S. venous duplex of bilateral lower extremities-left LE dvt-started on lovenox ,also has thrombocytopenia( unclear etiology) ,patient seen by hematology-workup for Check HIV, hepatitis-B and C profiles, RA, RAY,Ig subclasses, LDH and SIEP sent ( which needs to followed outpatient ) . patient seems improved significantly clinically -sob seems much better ,also plaelets seems improving( trend 60-69-83-79), no bruising or any gross bleeding. moniter cbc outpatient. patient also seen by vascular: currently no acute intervention, also has thrombocytopenia, continue ac, follow up outpatient. Health Concerns: moniter cbc eliquis 10 mg po bid until 11/01/23 ,then switch to eliquis 5 mg po bid. follow up with pcp,hemtaology and vascular outpatient. as above . Plan of Treatment: as above. Assessment: as above.
--- NOTE | 2023-10-26 10:47 | MHC.CM.PN ---
PT WILL DC HOME TODAY WITH NO SERVICES VIA FAMILY TRANSPORT
[2023-10-27 03:41] LABS: HBS Num1 11.03 mIU/mL (0-7.99); HBc Num1 0.18 S/CO (0.00-0.79); HBsAGNum1 2.59 S/CO (0.00-0.99); Hepatitis A Antibody IgM 0.12 Index (0-0.79); Hepatitis B Core Antibody Nonreactive (Nonreactive); ~HepC Num1 0.09 S/CO (0.00-0.79); ~Hepatitis A Antibody IgM Nonreactive (Nonreactive); ~Hepatitis C Antibody Nonreactive (Nonreactive)
[2023-10-27 04:45] LABS: HBS Num2 10.63 mIU/mL (0-7.99); HBS Num3 9.94 mIU/mL (0-7.99); HBsAGNum2 Nonreactive; HBsAGNum3 Nonreactive; Hepatitis B Surface Antigen NEGATIVE (Negative); ~Hepatitis B Surface Antibody GRAYZONE (Nonreactive)
[2023-10-27 14:44] LABS: Anti Nuclear Antibody Screen NEGATIVE (NEGATIVE)
[2023-10-29 14:52] LABS: IgA 217 mg/dL (70-320); IgG 1340 mg/dL (600-1540); IgM 88 mg/dL (50-300)
== END 2023-10-26 11:19 | disposition home or self-care (01) | DRG 299 ==
LOC: HO.ED 15:24 → HO.EDOVER 17:08 → HO.IMC 22:54
PROVIDERS: Physician Assistant Medical; Admitting Provider Student in an Organized Health Care Education/Training Program; Emergency Provider Emergency Medicine; PCP Internal Medicine; Visit Provider Internal Medicine
DX: I82.412 Acute embolism and thrombosis of left femoral vein (principal); I26.99 Other pulmonary embolism without acute cor pulmonale; D68.59 Other primary thrombophilia; I10 Essential (primary) hypertension; D69.6 Thrombocytopenia, unspecified; I87.2 Venous insufficiency (chronic) (peripheral); I44.7 Left bundle-branch block, unspecified; Z79.899 Other long term (current) drug therapy
CPT/HCPCS: 0241U; 36415; 71046; 71275; 80048; 80076; 82784; 83615; 83735; 83880; 84443; 84484; 85014; 85018; 85025; 85027; 85384; 85610; 85652; 85730; 86038; 86334; 86431; 86704; 86706; 86709; 86803; 87340; 87389; 93005; 93306; 93970; 99285; J1650; Q9957; Q9967

== ENCOUNTER → 2023-10-23 11:32 | Outpatient (BNV) | payer MEDICARE, OTHER, SELFPAY | PROVIDERS: Admitting Provider Student in an Organized Health Care Education/Training Program; Emergency Provider Emergency Medicine; PCP Internal Medicine; Visit Provider Internal Medicine | DX: R94.31 Abnormal electrocardiogram [ECG] [EKG] (principal) | CPT/HCPCS: 93010 ==

== ENCOUNTER 2023-10-23 17:05 | Outpatient (BNV) | payer MEDICARE, OTHER, SELFPAY | END 2023-10-24 07:00 | PROVIDERS: Admitting Provider Student in an Organized Health Care Education/Training Program; Emergency Provider Emergency Medicine; PCP Internal Medicine; Visit Provider Internal Medicine | DX: I36.1 Nonrheumatic tricuspid (valve) insufficiency (principal); I42.2 Other hypertrophic cardiomyopathy | CPT/HCPCS: 93306 ==

== ENCOUNTER → 2023-10-23 17:05 | Outpatient (BNV) | payer MEDICARE, OTHER, SELFPAY | PROVIDERS: Admitting Provider Student in an Organized Health Care Education/Training Program; Emergency Provider Emergency Medicine; PCP Internal Medicine; Visit Provider Student in an Organized Health Care Education/Training Program | DX: D69.6 Thrombocytopenia, unspecified (principal); I26.94 Multiple subsegmental thrombotic pulmonary emboli without acute cor pulmonale | CPT/HCPCS: 99223; 99232; 99239 ==

== ENCOUNTER → 2023-10-23 17:05 | Outpatient (BNV) | payer MEDICARE, OTHER, SELFPAY | PROVIDERS: Admitting Provider Student in an Organized Health Care Education/Training Program; Emergency Provider Emergency Medicine; PCP Internal Medicine; Visit Provider Internal Medicine Medical Oncology | DX: I26.94 Multiple subsegmental thrombotic pulmonary emboli without acute cor pulmonale (principal); D69.9 Hemorrhagic condition, unspecified | CPT/HCPCS: 99222 ==

== ENCOUNTER → 2023-10-23 17:05 | Outpatient (BNV) | payer MEDICARE, OTHER, SELFPAY | PROVIDERS: Admitting Provider Student in an Organized Health Care Education/Training Program; Emergency Provider Emergency Medicine; PCP Internal Medicine; Visit Provider Surgery Vascular Surgery | DX: I26.94 Multiple subsegmental thrombotic pulmonary emboli without acute cor pulmonale (principal); D69.6 Thrombocytopenia, unspecified | CPT/HCPCS: 99222 ==

== ENCOUNTER 2023-10-28 06:03 | Outpatient (REF) | payer MEDICARE, OTHER, SELFPAY ==
[2023-10-28 10:19] LABS: MANUAL DIFF FLAG NO
[2023-10-28 10:23] LABS: Basophils Percent Auto 0.8 % (0-2); Eosinophils Absolute Auto 0.2 X10*3/uL (0.0-0.4); Eosinophils Percent Auto 4.7 % (0-4); Hematocrit 37.4 % (37.0-47.0); Hemoglobin 12.3 g/dl (12.0-16.0); Imm Gran Abs Auto 0.02 X10*3/uL (0.00-0.03); Imm Gran Pct Auto 0.4 % (0.0-0.4); Lymphocytes Absolute Auto 1.5 X10*3/uL (1.2-4.9); Lymphocytes Percent Auto 31.4 % (20-40); Mean Corpuscular HGB Conc 32.9 g/dl (31.0-35.0); Mean Corpuscular Hemoglobin 31.7 pg (27.0-33.0); Mean Corpuscular Volume 96.4 fL (80.0-98.0); Mean Platelet Volume 9.7 fL (9.4-12.3); Monocytes Absolute Auto 0.3 X10*3/uL (0.1-1.2); Monocytes Percent Auto 6.7 % (2-11); Neutrophils Absolute Auto 2.7 x10*3/uL (2.0-8.3); Red Blood Count 3.88 X10*6/uL (4.20-5.50); Red Cell Distribution Width 13.1 % (11.0-16.0); White Blood Count 4.9 X10*3/uL (4.8-10.8)
[2023-10-28 10:25] LABS: Platelet Count 96 X10*3/uL (160-400)
[2023-10-28 10:29] LABS: Fibrinogen 634 MG/DL (259-690)
== END 2023-10-28 06:04 | disposition home or self-care (01) ==
LOC: HO.HMGCLDS 06:03
PROVIDERS: PCP Internal Medicine; Visit Provider Internal Medicine Medical Oncology
DX: I82.409 Acute embolism and thrombosis of unspecified deep veins of unspecified lower extremity (principal)
CPT/HCPCS: 36415; 85025; 85384

== ENCOUNTER 2023-11-03 06:02 | Outpatient (REF) | payer MEDICARE, OTHER, SELFPAY ==
[2023-11-03 12:05] LABS: MANUAL DIFF FLAG NO
[2023-11-03 12:08] LABS: Basophils Absolute Auto 0.1 X10*3/uL (0.0-0.2); Basophils Percent Auto 0.8 % (0-2); Eosinophils Absolute Auto 0.1 X10*3/uL (0.0-0.4); Eosinophils Percent Auto 1.7 % (0-4); Hematocrit 39.9 % (37.0-47.0); Hemoglobin 12.9 g/dl (12.0-16.0); Imm Gran Abs Auto 0.03 X10*3/uL (0.00-0.03); Imm Gran Pct Auto 0.5 % (0.0-0.4); Lymphocytes Absolute Auto 2.1 X10*3/uL (1.2-4.9); Lymphocytes Percent Auto 34.5 % (20-40); Mean Corpuscular HGB Conc 32.3 g/dl (31.0-35.0); Mean Corpuscular Hemoglobin 31.3 pg (27.0-33.0); Mean Corpuscular Volume 96.8 fL (80.0-98.0); Mean Platelet Volume 9.4 fL (9.4-12.3); Monocytes Absolute Auto 0.4 X10*3/uL (0.1-1.2); Monocytes Percent Auto 6.5 % (2-11); Neutrophils Absolute Auto 3.3 x10*3/uL (2.0-8.3); Platelet Count 158 X10*3/uL (160-400); Red Blood Count 4.12 X10*6/uL (4.20-5.50); Red Cell Distribution Width 13.2 % (11.0-16.0)
[2023-11-03 12:12] LABS: Fibrinogen 561 MG/DL (259-690)
== END 2023-11-03 06:03 | disposition home or self-care (01) ==
LOC: HO.HMGCLDS 06:02
PROVIDERS: PCP Internal Medicine; Visit Provider Internal Medicine Medical Oncology
DX: I82.409 Acute embolism and thrombosis of unspecified deep veins of unspecified lower extremity (principal)
CPT/HCPCS: 36415; 85025; 85384

== ENCOUNTER 2023-11-04 13:51 | Outpatient (AMB) | payer MEDICARE, OTHER, SELFPAY ==
[2023-11-04 13:57] VITALS: BP 130/72; PULSE 82; BMI 25.3
--- NOTE | 2023-11-04 13:57 | MHC.OFFVIS ---
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 Allergies No Known Allergies [No Known Allergies*] Allergy (Verified 11/04/23 14:01) Medication List - Last Reconciled 11/04/23 by Viola Astorga NP-C apixaban (Eliquis) 10 mg PO Q12H cephalexin 500 mg PO TID cholecalciferol (vitamin D3) 50 mcg PO DAILY latanoprost 0.005% 1 drp ophthalmic-Left DAILY multivitamin 1 tab PO DAILY HPI HPI increasing sob KM pt: Details: Cheryl is an 83-year-old female with past medical history of left bundle branch block, SVT, pulmonary embolism who was recently admitted to [facility] with increased shortness of breath and sinus tachycardia with findings of extensive bilateral pulmonary embolism. She was initially put on Lovenox and transition to Eliquis for anticoagulation. An echocardiogram showed normal Bi V function. Today she reports that she does have some mild shortness of breath with exertion. Breathing is comfortable at rest. No chest discomfort at rest or with activity. No palpitations, lightheadedness, presyncope, syncope, falls. No PND, orthopnea or edema. No bleeding issues reported. Taking meds as directed. FORMERLY [facility] Medical History (Updated 11/04/23 @ 16:23 by ARIANNA GuallpaC) FISCHER (dyspnea on exertion) LBBB (left bundle branch block) Pulmonary embolism Palpitations PVC (premature ventricular contraction) Surgical History History of meniscectomy of left knee Hx of meniscectomy of right knee H/O section Family History Mother Pulmonary fibrosis Father Diabetes HTN (hypertension) Colon cancer Bladder cancer Sister Breast cancer Brother COPD (chronic obstructive pulmonary disease) Son Addisons disease Social History Household Members: Spouse Housing: House Do you presently have visiting nurse or other home services: No Alcohol intake: current Alcohol intake frequency: holidays/special occasions only Patient Tobacco Use Status: Former Tobacco user Years Smoked: 15 +/- e-Cigarette/Vaping Use: Never Used Second Hand Smoke Exposure: No service: No Review of Systems Const All systems reviewed & are unremarkable except as noted in HPI and below ENT Denies dizziness Card Denies chest pain, Denies chest pain at rest, Denies chest pain with activity, Denies rapid heart rate, Denies pedal edema, Denies edema, Denies leg edema, Denies lightheadedness, Denies palpitations, Reports dyspnea, Denies dyspnea on exertion and Denies orthopnea Resp Denies cough, Reports dyspnea and Denies dyspnea on exertion GI Denies hematochezia and Denies change in stool character Musc Denies abnormal gait, Denies limited range of motion, Denies muscle cramps, Denies muscle weakness, Denies numbness, Denies radiating pain into limb, Denies stiffness and Denies tingling Neuro Denies abnormal gait, Denies dizziness, Denies numbness and Denies tingling Endo Denies palpitations Physical Exam Vital Signs: Last Vital Signs Pulse 82 11/04/23 13:57 BP 130/72 11/04/23 13:57 BMI result Body Mass Index 25.3 Const General: cooperative, healthy appearing, comfortable and no acute distress Orientation/consciousness: patient oriented x3 Neck Neck: Yes normal visual inspection and Yes no JVD Resp Effort & Inspection: normal respiratory effort Auscultation: clear to auscultation bilaterally, no rales, no rhonchi and no wheezes Cardio Jugular venous distension: no JVD Rate: regular rate Rhythm: regular rhythm Heart sounds: S1 normal heart sound present, S2 normal heart sound present, no murmurs and no rubs Neuro General: patient oriented x3 Extrem General: Yes normal to inspection, No no pedal edema and No calf tenderness Psych Appearance: grossly normal Mental Status: mental status grossly normal Speech and movement: Normal speech and movement present Assessment & Plan Assessment & Plan (1) Pulmonary emboli: Code(s): I26.99 - Other pulmonary embolism without acute cor pulmonale Category: Medical Qualifiers: Pulmonary embolism type: multiple subsegmental (without acute cor pulmonale) Qualified Code(s): I26.94 - Multiple subsegmental pulmonary emboli without acute cor pulmonale Plan: History of pulmonary embolism following COVID infection and air travel. She had been on Eliquis which was then stopped at the appropriate time. She describes having COVID again last fall and again as a preventative took Eliquis for 3 months. She did well up until recently when she noticed some shortness of breath and tachycardia. She came to the ER for evaluation and was found to have an elevated D-dimer and CTA of the chest showing extensive bilateral pulmonary embolism. She was anticoagulated with Lovenox then put on Eliquis. She has seen Dr. Dave for Hematology and no cause for her recurrent PE has been identified. Echocardiogram done 10/24/2023 showed EF 57%, moderate septal asymmetric hypertrophy, no valve abnormalities and normal RV. On exam she is breathing comfortably and has no signs of fluid retention. She is asking about travel to [place] in January. I will arrange for a cardiology follow-up prior to that time to assess for any signs of right heart failure. (2) FISCHER (dyspnea on exertion): Code(s): R06.09 - Other forms of dyspnea Category: Medical Plan: As above (3) LBBB (left bundle branch block): Code(s): I44.7 - Left bundle-branch block, unspecified Category: Medical Plan: Chronic finding on EKGs. (4) Hospital discharge follow-up: Code(s): Z09 - Encounter for follow-up examination after completed treatment for conditions other than malignant neoplasm Category: Medical Plan: As above. Admission 10/23/2023 for shortness of breath, tachycardia. Treated for extensive bilateral PE Plan Time spent on chart review, documentation, interview and assessment Coding Level of Care Code Est Pt Level 4 (79124) Diagnoses Pulmonary emboli I26.94 Pulmonary embolism type: multiple subsegmental (without acute cor pulmonale) FISCHER (dyspnea on exertion) R06.09 LBBB (left bundle branch block) I44.7 Hospital discharge follow-up Z09 Time Spent (min) 30
== END 2023-11-04 14:59 | disposition home or self-care (01) ==
PROVIDERS: PCP Internal Medicine; Visit Provider Nurse Practitioner Family
DX: I26.94 Multiple subsegmental thrombotic pulmonary emboli without acute cor pulmonale (principal); R06.09 Other forms of dyspnea; I44.7 Left bundle-branch block, unspecified; Z09 Encounter for follow-up examination after completed treatment for conditions other than malignant neoplasm
CPT/HCPCS: 99214

== ENCOUNTER → 2023-11-04 13:51 | Outpatient (BNVA) | payer MEDICARE, OTHER, SELFPAY | PROVIDERS: PCP Internal Medicine; Visit Provider Nurse Practitioner Family | DX: Z09 Encounter for follow-up examination after completed treatment for conditions other than malignant neoplasm (principal); R06.09 Other forms of dyspnea; I44.7 Left bundle-branch block, unspecified; I47.10 Supraventricular tachycardia, unspecified; I26.94 Multiple subsegmental thrombotic pulmonary emboli without acute cor pulmonale | CPT/HCPCS: 99212 ==

== ENCOUNTER 2023-11-10 06:01 | Outpatient (REF) | payer MEDICARE, OTHER, SELFPAY ==
[2023-11-10 11:41] LABS: MANUAL DIFF FLAG NO
[2023-11-10 11:55] LABS: Basophils Absolute Auto 0.1 X10*3/uL (0.0-0.2); Basophils Percent Auto 1.1 % (0-2); Eosinophils Absolute Auto 0.1 X10*3/uL (0.0-0.4); Eosinophils Percent Auto 1.1 % (0-4); Hematocrit 39.1 % (37.0-47.0); Hemoglobin 12.7 g/dl (12.0-16.0); Imm Gran Abs Auto 0.02 X10*3/uL (0.00-0.03); Imm Gran Pct Auto 0.4 % (0.0-0.4); Lymphocytes Absolute Auto 1.9 X10*3/uL (1.2-4.9); Lymphocytes Percent Auto 34.8 % (20-40); Mean Corpuscular HGB Conc 32.5 g/dl (31.0-35.0); Mean Corpuscular Hemoglobin 31.6 pg (27.0-33.0); Mean Corpuscular Volume 97.3 fL (80.0-98.0); Mean Platelet Volume 9.6 fL (9.4-12.3); Monocytes Absolute Auto 0.4 X10*3/uL (0.1-1.2); Neutrophils Absolute Auto 2.9 x10*3/uL (2.0-8.3); Neutrophils Percent Auto 54.6 % (45-73); Platelet Count 165 X10*3/uL (160-400); Red Blood Count 4.02 X10*6/uL (4.20-5.50); Red Cell Distribution Width 13.4 % (11.0-16.0); White Blood Count 5.4 X10*3/uL (4.8-10.8)
[2023-11-10 11:58] LABS: Fibrinogen 530 MG/DL (259-690)
== END 2023-11-10 06:02 | disposition home or self-care (01) ==
LOC: HO.HMGCLDS 06:01
PROVIDERS: PCP Internal Medicine; Visit Provider Internal Medicine Medical Oncology
DX: I82.409 Acute embolism and thrombosis of unspecified deep veins of unspecified lower extremity (principal)
CPT/HCPCS: 36415; 85025; 85384

== ENCOUNTER 2023-12-10 11:07 | Outpatient (REF) | payer MEDICARE, OTHER, SELFPAY ==
[2023-12-10 11:33] LABS: MANUAL DIFF FLAG NO
[2023-12-10 11:56] LABS: Basophils Absolute Auto 0.1 X10*3/uL (0.0-0.2); Basophils Percent Auto 1.1 % (0-2); Eosinophils Absolute Auto 0.1 X10*3/uL (0.0-0.4); Eosinophils Percent Auto 1.1 % (0-4); Hematocrit 39.4 % (37.0-47.0); Imm Gran Abs Auto 0.02 X10*3/uL (0.00-0.03); Imm Gran Pct Auto 0.3 % (0.0-0.4); Lymphocytes Absolute Auto 1.9 X10*3/uL (1.2-4.9); Lymphocytes Percent Auto 26.9 % (20-40); Mean Corpuscular Hemoglobin 32.3 pg (27.0-33.0); Mean Corpuscular Volume 97.8 fL (80.0-98.0); Mean Platelet Volume 9.3 fL (9.4-12.3); Monocytes Absolute Auto 0.4 X10*3/uL (0.1-1.2); Monocytes Percent Auto 5.7 % (2-11); Neutrophils Absolute Auto 4.6 x10*3/uL (2.0-8.3); Neutrophils Percent Auto 64.9 % (45-73); Platelet Count 192 X10*3/uL (160-400); Red Blood Count 4.03 X10*6/uL (4.20-5.50); Red Cell Distribution Width 13.2 % (11.0-16.0); White Blood Count 7.1 X10*3/uL (4.8-10.8)
[2023-12-11 22:28] LABS: Prot Elec - Albumin 4.1 g/dL (3.8-4.8); Prot Elec - Alpha1 0.3 g/dL (0.2-0.3); Prot Elec - Alpha2 0.8 g/dL (0.5-0.9); Prot Elec - Beta 1 0.4 g/dL (0.4-0.6); Prot Elec - Beta 2 0.4 g/dL (0.2-0.5); Prot Elec - Gamma 1.2 g/dL (0.8-1.7); Prot Elec - Total Protein 7.2 g/dL (6.1-8.1)
== END 2023-12-10 11:08 | disposition home or self-care (01) ==
LOC: HO.LAB 11:07
PROVIDERS: Absent Provider Internal Medicine Medical Oncology; PCP Internal Medicine; Visit Provider Internal Medicine
DX: I87.2 Venous insufficiency (chronic) (peripheral) (principal); I82.409 Acute embolism and thrombosis of unspecified deep veins of unspecified lower extremity; I44.7 Left bundle-branch block, unspecified
CPT/HCPCS: 36415; 84165; 85025

== ENCOUNTER 2024-01-15 14:34 | Outpatient (AMB) | payer MEDICARE, OTHER, SELFPAY ==
[2024-01-15 14:45] VITALS: BP 120/72; PULSE 78; BMI 24.8
--- NOTE | 2024-01-15 14:45 | MHC.OFFVIS ---
Vital Signs 01/15/24 14:45 Height 5 ft 2 in Weight 135 lb 5.821 oz BMI 24.8 BP 120/72 Blood Pressure Location Lt brachial Position Sitting Pulse 78 Pulse Source Pulse Oximeter Intake Visit Reasons: f/up Solution Coordinator Required: No Allergies No Known Allergies [No Known Allergies*] Allergy (Verified 01/15/24 14:47) Medication List - Last Reconciled 01/15/24 by Viola Astorga, CHING-C amoxicillin 875 mg PO BID apixaban (Eliquis) 10 mg PO Q12H cholecalciferol (vitamin D3) 50 mcg PO DAILY latanoprost 0.005% 1 drp ophthalmic-Left DAILY multivitamin 1 tab PO DAILY HPI HPI f/up: Details: Cheryl is an 83-year-old female with past medical history of left bundle branch block, SVT, pulmonary embolism who was admitted to [facility] October 2023 with increased shortness of breath and sinus tachycardia with findings of extensive bilateral pulmonary embolism. She was initially put on Lovenox and transition to Eliquis for anticoagulation. An echocardiogram showed normal Bi V function. Today she reports that she does have some residual fatigue. She feels her breathing is back to normal. No PND, orthopnea or edema.. No chest discomfort at rest or with activity. No palpitations, lightheadedness, presyncope, syncope, falls. No bleeding issues reported. Taking meds as directed. Planning a trip to [place] in October. [facility] Medical History FISCHER (dyspnea on exertion) LBBB (left bundle branch block) Pulmonary embolism Palpitations PVC (premature ventricular contraction) Surgical History History of meniscectomy of left knee Hx of meniscectomy of right knee H/O section Family History Mother Pulmonary fibrosis Father Diabetes HTN (hypertension) Colon cancer Bladder cancer Sister Breast cancer Pulmonary fibrosis Brother COPD (chronic obstructive pulmonary disease) Son Addisons disease Social History Household Members: Spouse Housing: House Do you presently have visiting nurse or other home services: No Alcohol intake: current Alcohol intake frequency: holidays/special occasions only Patient Tobacco Use Status: Former Tobacco user Years Smoked: 15 +/- e-Cigarette/Vaping Use: Never Used Second Hand Smoke Exposure: No service: No Review of Systems Const All systems reviewed & are unremarkable except as noted in HPI and below ENT Denies dizziness Card Denies chest pain, Denies chest pain at rest, Denies chest pain with activity, Denies rapid heart rate, Denies pedal edema, Denies edema, Denies leg edema, Denies lightheadedness, Denies palpitations, Denies dyspnea, Denies dyspnea on exertion and Denies orthopnea Resp Denies cough, Denies dyspnea and Denies dyspnea on exertion GI Denies hematochezia and Denies change in stool character Musc Denies abnormal gait, Denies limited range of motion, Denies muscle cramps, Denies muscle weakness, Denies numbness, Denies radiating pain into limb, Denies stiffness and Denies tingling Neuro Denies abnormal gait, Denies dizziness, Denies numbness and Denies tingling Endo Denies palpitations Physical Exam Vital Signs: Last Vital Signs Pulse 78 01/15/24 14:45 BP 120/72 01/15/24 14:45 BMI result Body Mass Index 24.8 Const General: cooperative, healthy appearing, comfortable and no acute distress Orientation/consciousness: patient oriented x3 Neck Neck: Yes normal visual inspection Resp Effort & Inspection: normal respiratory effort Auscultation: clear to auscultation bilaterally, no crackles, no rales, no rhonchi and no wheezes Cardio Jugular venous distension: no JVD Rate: regular rate Rhythm: regular rhythm Heart sounds: S1 normal heart sound present, S2 normal heart sound present, no murmurs and no rubs Neuro General: patient oriented x3 Extrem General: Yes normal to inspection and No no pedal edema Psych Appearance: grossly normal Mental Status: mental status grossly normal Speech and movement: Normal speech and movement present Assessment & Plan Assessment & Plan (1) Pulmonary emboli: Code(s): I26.99 - Other pulmonary embolism without acute cor pulmonale Category: Medical Qualifiers: Pulmonary embolism type: multiple subsegmental (without acute cor pulmonale) Qualified Code(s): I26.94 - Multiple subsegmental pulmonary emboli without acute cor pulmonale Plan: History of pulmonary embolism following COVID infection and air travel. She had been on Eliquis which was then stopped at the appropriate time. She describes having COVID again last fall and again as a preventative took Eliquis for 3 months. She did well up until recently when she noticed some shortness of breath and tachycardia. She came to the ER 10/23/2023 for evaluation and was found to have an elevated D-dimer and CTA of the chest showing extensive bilateral pulmonary embolism. She was anticoagulated with Lovenox then put on Eliquis. She has seen Dr. Dave for Hematology and no cause for her recurrent PE has been identified as of yet. She will remain on Eliquis indefinitely, according to her. She did not have signs of cardiac decompensation. Echocardiogram done 10/24/2023 showed EF 57%, moderate septal asymmetric hypertrophy, no valve abnormalities and normal RV. Today she reports she is doing well and only has mild residual fatigue. She has no signs of fluid overload on examination. Cardiology follow-up prior to her trip to [place], office visit planned September 2023. (2) LBBB (left bundle branch block): Code(s): I44.7 - Left bundle-branch block, unspecified Category: Medical Plan: Chronic finding on EKGs. First noted on EKG 03/01/2021. No reports of anginal sounding symptoms. Plan Time spent on chart review, documentation, interview and assessment Coding Level of Care Code Est Pt Level 3 (16252) Diagnoses Pulmonary emboli I26.94 Pulmonary embolism type: multiple subsegmental (without acute cor pulmonale) LBBB (left bundle branch block) I44.7 Time Spent (min) 24
== END 2024-01-15 15:23 | disposition home or self-care (01) ==
PROVIDERS: PCP Internal Medicine; Visit Provider Nurse Practitioner Family
DX: I26.94 Multiple subsegmental thrombotic pulmonary emboli without acute cor pulmonale (principal); I44.7 Left bundle-branch block, unspecified
CPT/HCPCS: 99213

== ENCOUNTER → 2024-01-15 14:34 | Outpatient (BNVA) | payer MEDICARE, OTHER, SELFPAY | PROVIDERS: PCP Internal Medicine; Visit Provider Nurse Practitioner Family | DX: I44.7 Left bundle-branch block, unspecified (principal); U09.9 Post COVID-19 condition, unspecified; I26.94 Multiple subsegmental thrombotic pulmonary emboli without acute cor pulmonale | CPT/HCPCS: 99212 ==

== ENCOUNTER 2024-02-16 10:55 | Outpatient (REF) | payer MEDICARE, OTHER, SELFPAY ==
[2024-02-16 13:14] LABS: MANUAL DIFF FLAG NO
[2024-02-16 13:36] LABS: Basophils Absolute Auto 0.1 X10*3/uL (0.0-0.2); Basophils Percent Auto 0.9 % (0-2); Eosinophils Absolute Auto 0.1 X10*3/uL (0.0-0.4); Eosinophils Percent Auto 0.9 % (0-4); Hematocrit 37.8 % (37.0-47.0); Hemoglobin 12.2 g/dl (12.0-16.0); Imm Gran Abs Auto 0.03 X10*3/uL (0.00-0.03); Imm Gran Pct Auto 0.4 % (0.0-0.4); Lymphocytes Absolute Auto 1.5 X10*3/uL (1.2-4.9); Mean Corpuscular HGB Conc 32.3 g/dl (31.0-35.0); Mean Corpuscular Hemoglobin 31.9 pg (27.0-33.0); Mean Corpuscular Volume 98.7 fL (80.0-98.0); Mean Platelet Volume 10.3 fL (9.4-12.3); Monocytes Absolute Auto 0.4 X10*3/uL (0.1-1.2); Neutrophils Absolute Auto 5.5 x10*3/uL (2.0-8.3); Neutrophils Percent Auto 72.8 % (45-73); Platelet Count 193 X10*3/uL (160-400); Red Blood Count 3.83 X10*6/uL (4.20-5.50); Red Cell Distribution Width 12.3 % (11.0-16.0); White Blood Count 7.6 X10*3/uL (4.8-10.8)
== END 2024-02-16 10:56 | disposition home or self-care (01) ==
LOC: HO.HMGCLDS 10:55
PROVIDERS: PCP Internal Medicine; Visit Provider Internal Medicine Medical Oncology
DX: Z01.818 Encounter for other preprocedural examination (principal)
CPT/HCPCS: 36415; 85025

== ENCOUNTER 2024-04-27 10:41 | Outpatient (REF) | payer MEDICARE, OTHER, SELFPAY ==
[2024-04-27 10:56] LABS: MANUAL DIFF FLAG NO
--- OUTSIDE RECORDS SUMMARY | 2024-04-27 11:11 | XMS_ITS ---
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 Referral Priority Routine REASON FOR VISIT Referral Encounters Encounter Location Date Provider Diagnosis Neal Dave III, MD [address] [place] [address] [place] [address] 04/02/2024 Neal Dave Plan Of Treatment Referrals Referral Date Details 04/02/2024 04/02/2024, Evaluate and Treat, Pulmonary [facility] Next Appt Details Provider Name:Neal Dave, 05/03/2024 10:00:00 AM, [address] [place] [address] [place], [address], Progress Notes * ENRIQUETA NOELDOB:1939 (83 yo F)Acc No.[id number]:04/02/2024 Patient:?NOELENRIQUETA DIXON :1940???Age:83 Y???Sex:Female Address:[address], [place], [address] Subjective: * Chief Complaints: * ???Referral * Medical History:? * Surgical History:? * Hospitalization/Major Diagno stic Procedure:? * Medications:? Objective: * Vitals:? * Physical Examination:? Assessment: Plan: * Treatment: * Procedure Codes:? * true * Date:? Generated for Monisha cyr/Edel/Kathyransmitting on:?04/27/2024 11:11 AM EST Consultation Request Notes Referral Date Referring Provider Referred Provider Not es 04/02/2024 Neal Dave [facility], Pulmonary Evaluat e and Treat
--- OUTSIDE RECORDS SUMMARY | 2024-04-27 11:12 | XMS_ITS ---
Author Organization Neal Dave III, MD Address [address] [place] [address] Care Team Providers Care Copy Manager Name Role Phone Will Bower MD Primary Care Provider Neal Morales [phone] Allergies Allergen (clinical drug ingredient) Drug/Non Drug Allergy documented on EMR Reaction Allergy Type Onset Date Status No Known Drug Allergy Unknown Drug Allergy Active REASON FOR VISIT Clearance for dental extractions Dr. Remy David on 03/08/2024, Anticoagulated, Resolved autoimmune thrombocytopenia, History of pulmonary embolism, History of DVT, History of venous insufficiency Medications Medication SIG (Take, Route, Fr equency, Duration) Notes Start Date End Date Status Multivitamin Active Vitamin D Active Eliquis 5 MG Oral Active Olopatadine HCl 0.1 % Ophthalmic Active Latanoprost 0.005 % Ophthalmic Active Lovenox 100 MG/ML as directed Injectio n daily for 3 days prior to surgery for 3 days 02/24/2024 Active metroNIDAZOLE 0.75 % External Active Social History Tobacco Use: Social History Observation Description Date Details (start date - stop date) Former Smoker NA - NA Tobacco Use/Smoking Question Answer Notes Patient is a former smoker How long has it been since you last smoked? > 10 years Additional Findings: Tobacco Non-User Ex-cigaret te smoker Vital Signs Temperature 97.7 degrees Fahrenheit 02/24/20 24 Blood pressure systolic 130 mm Hg 02/24/20 24 Blood pressure diastolic 65 mm Hg 024 Heart Rate 83 /min 02/24/2024 Height 63 in 02/24/2024 Weight 135, 135.0 lbs 02/24/2024 BMI 23.91 kg/m2 02/24/2024 Encounters Encounter Location Date Provider Diagnosis Neal Dave III, MD [address] [place] [address] DR [place]AN, DAVID [id number] 02/24/2024 Neal Dave Pulmonary embolism I26.99 ; Deep vein thrombosis I82.409 ; Anticoagulated Z79.01 ; Glaucoma H40.9 ; Osteopenia M85.80 ; Former smoker Z87.891 and Venous insufficiency I87.2 Assessments Encounter Date Diagnosis (ICD Code) Assessment Notes Treat ment Notes Treatment Clinical Notes 02/24/2024 Pulmonary embolism (ICD-10 - I26.99) She says she is free of dyspnea with exertion. She denies any pleuritic chest pain. She has been compliant with the apixaban. 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 She'll be anticoagulated with apixaban for life. She will be followed carefully to ensure that the platelet count returns to normal. The thrombocytopenia is likely related to the clotting episode. 02/24/2024 Anticoagulated (ICD-10 - Z79.01) She has had no bleeding on the Eliquis. It will be stopped 4 days prior to the dental extractions and she will be bridged with enoxaparin. 02/24/2024 Glaucoma (ICD-10 - H40.9) She was continued on latanoprost. 02/24/2024 Osteopenia (ICD-10 - M85.80) She was continued on current therapy. We discussed the use of calcium carbonate and vitamin D and exercise. 02/24/2024 Former smoker (ICD-10 - Z87.891) She has a plan to prevent relapse in times of stress and illness. She was educated about the increased risk of thromboembolism in smokers. 02/24/2024 Venous insufficiency (ICD-10 - I87.2) She has been referred back to vascular surgery to see if the risk of recurrent DVT can be reduced. Plan Of Treatment Medication Medication Name Sig Start Date Stop Date Notes Multivitamin Vitamin D Eliquis 5 MG Oral Olopatadine HCl 0.1 % Ophthalmic Latanoprost 0.005 % Ophthalmic Lovenox 100 MG/ML as directed Injectio n daily for 3 days prior to surgery for 3 days 02/24/2024 metroNIDAZOLE 0.75 % External Next Appt Details Follow Up: 2 Weeks, A couple of days after dental surgery, Reason: Telehealth, To discuss how the patient did post-surgery Provider Name:Neal Dave, 05/03/2024 10:00:00 AM, [address] [place] [address] [place], [address], Progress Notes * NOELENRIQUETA DIXONDOB:1939 (83 yo F)Acc No.[id number]:02/24/2024 Patient:?ENRIQUETA NOEL Provider:?Neal Dave MD :1940???Age:83 Y???Sex:Female D ate:02/24/2024 [facility] [id number] Pcp:Will Bower MD Subjective: * Chief Complaints: * ???Clearance for dental extr actions Dr. Remy David on 4AnticoagulatedResolved autoimmune thrombocytopeniaHistory of pulmonary embolismHistory of DVTHistory of venous insufficiency * HPI: ???COVID-19 Screening:?Questions?Have you experienced fever, chills, cough, sore throat, shortness of breath, difficulty breathing, muscle aches, loss of taste or smell??No ?Have you been exposed to the virus within the last 10 days??No ?Have you travelled internationally in the last 10 days??No ?Have you been exposed to COVID-19 in the past??Yes ???:?The patient, an 83-year-old female, presented with a history of pulmonary emboli, which occurred twice, most recently in October of the current year. On February 19, 2022?She was found to have a DVT and multiple pulmonary emboli.? She was given a course of anticoagulation which was subsequently stopped.? On October 23, 2023 at [facility] she was found to have recurrent pulmonary emboli and treated with anticoagulation.? Prior to the administration of any heparin drug, she was found to have a platelet count of 60,000.? 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 The prednisone has been tapered and subsequently discontinued and her platelet count has returned to normal and now remains normal without treatment. She has no history of bleeding.? Current hemostasis is considered to be within normal limits.? Her platelet count February 16, 2024 was 193,000.She has been on Eliquis for her lung condition.? The patient reported having received cortisone injections into her joints about six to seven months ago. She is scheduled for dental surgery on March 08 of the current year. The patient expressed concern about stopping Eliquis due to her history of blood clots in her lungs. The doctor reassured her and explained the process of stopping Eliquis a few days before the surgery and starting it up again as soon as the bleeding stops, usually the next day. The doctor also prescribed Lovenox to be taken once a day in the morning for every day that she wasn't on Eliquis. The patient also mentioned wanting to get another cortisone injection in her knee and getting her flu shot. I have examined this patient carefully.? I taken her recent history.? There is currently no contraindication to dental surgery involving extractions.? The risk is small and the benefit is great.? 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 Her last dose will be the day before surgery.? On the morning of surgery she will take no medication and proceed to the procedure.? When any bleeding has resolved, presumably the day after the dental extractions, she will resume her Eliquis.? She is medically cleared for the procedure. * ROS:?General/Constitutional:?pain?only normal aches and pains.?Chills?denies.?Fatigue?admits.?Fever?denies.?ENT:?Decreased hearing?mild.?Respiratory:?Cough?denies.?Cardiovascular:?Chest pain with exertion?denies.?Dyspnea on exertion?denies.?Shortness of breath?denies.?Gastrointestinal:?Constipation?occasional.?Decreased appetite?denies.?Diarrhea?denies.?Heartburn?denies.?Nausea?denies.?Rectal bleeding?denies.?Vomiting?denies.?Hematology:?bruising?denies.?petechiae?denies.?Swollen glands?none have been noted.?Genitourinary:?Frequent urination?denies.?Musculoskeletal:?Muscle aches?denies.?Painful joints?denies.?Sciatica?denies.?Weakness?denies.?Skin:?Itching?denies.?Rash?denies.?Skin lesion(s)?denies.?Neurologic:?Difficulty speaking?denies.?Dizziness?denies.?Headache?denies.?Low back pain?denies.?Psychiatric:?Depressed mood?denies.? * Medical History:? * Surgical History:?Colonoscop y Right Cataract section Arthroscopy of knee No history * Hospitalization/Major Diagno stic Procedure:?No history * Family History:?Father: dece ased 88 yrs, Diabetes mellitus, colon cancer, bladder cancer, hypertension, diagnosed with CVD, Cancer, DM.?Mother: 84 yrs, Pulmonary fibrosis.?Siblings: , diagnosed with DM, Cancer.?1 brother(s) , 2 sister(s) . .? Her mother has a history of pulmonary [...] addiction. One of her 4 children, has [place]'s disease. * Social History:?Tobacco Use:?Tobacco Use/Smoking?Patient is a?former smoker ?How long has it been since you last smoked??> 10 years ?Additional Findings: Tobacco Non-User?Ex-cigarette smoker ???She has been to her , Jordan for 54 years. They have 4 children and 9 grandchildren. She was born in [place], [place]. Her maiden name was Daron. She has no mandaen objection to blood transfusion. * Medications:?TakingmetroNIDA ZOLE 0.75 % Cream External Latanoprost 0.005 % Solution Ophthalmic Olopatadine HCl 0.1 % Solution Ophthalmic Eliquis 5 MG Tablet Oral Vitamin D Multivitamin Medication List reviewed and reconciled with the patientTaking metroNIDAZOLE 0.75 % Cream External Taking Latanoprost 0.005 % Solution Ophthalmic Taking Olopatadine HCl 0.1 % Solution Ophthalmic Taking Eliquis 5 MG Tablet Oral Taking Vitamin D Taking Multivitamin Medication List reviewed and reconciled with the patient * Allergies:?No Known Drug All ergyno[Allergies Verified] Objective: * Vitals:?Ht: 63, Wt: 135,135. 0, BMI:23.91, BP:130/65, HR:83, Temp:97.7, Ht-cm: 160.02, Wt-k.23. * ???Past Orders: Lab:Complete Blood Count Aut o Diff * Collection Date 02/16/2024 12/10/2023 11/10/2023 Collection Time 11:00 AM 11:31 AM 06:45 AM Order Date 02/16/2024 12/10/2023 11/10/2023 White Blood Count 7.6 (Ref Range: 4.8-10.8 X10*3/uL) 7.1 (Ref Range: 4.8-10.8 X10*3/uL) 5.4 (Ref Range: 4.8-10.8 X10*3/uL) Red Blood Count 3.83?L (Ref Range: 4.20-5.50 X10*6/uL) 4.03?L (Ref Range: 4.20-5.50 X10*6/uL) 4.02?L (Ref Range: 4.20-5.50 X10*6/uL) Hemoglobin 12.2 (Ref Range: 12.0-16.0 g/dl) 13.0 (Ref Range: 12.0-16.0 g/dl) 12.7 (Ref Range: 12.0-16.0 g/dl) Hematocrit 37.8 (Ref Range: 37.0-47.0 %) 39.4 (Ref Range: 37.0-47.0 %) 39.1 (Ref Range: 37.0-47.0 %) Mean Corpuscular Volume 98.7?H (Ref Range: 80.0-98.0 fL) 97.8 (Ref Range: 80.0-98.0 fL) 97.3 (Ref Range: 80.0-98.0 fL) Mean Corpuscular Hemoglobin 31.9 (Ref Range: 27.0-33.0 pg) 32.3 (Ref Range: 27.0-33.0 pg) 31.6 (Ref Range: 27.0-33.0 pg) Mean Corpuscular HGB Conc 32.3 (Ref Range: 31.0-35.0 g/dl) 33.0 (Ref Range: 31.0-35.0 g/dl) 32.5 (Ref Range: 31.0-35.0 g/dl) Red Cell Distribution Width 12.3 (Ref Range: 11.0-16.0 %) 13.2 (Ref Range: 11.0-16.0 %) 13.4 (Ref Range: 11.0-16.0 %) Platelet Count 193 (Ref Range: 160-400 X10*3/uL) 192 (Ref Range: 160-400 X10*3/uL) 165 (Ref Range: 160-400 X10*3/uL) Mean Platelet Volume 10.3 (Ref Range: 9.4-12.3 fL) 9.3?L (Ref Range: 9.4-12.3 fL) 9.6 (Ref Range: 9.4-12.3 fL) Neutrophils Percent Auto 72.8 (Ref Range: 45-73 %) 64.9 (Ref Range: 45-73 %) 54.6 (Ref Range: 45-73 %) Imm Gran Pct Auto 0.4 (Ref Range: 0.0-0.4 %) 0.3 (Ref Range: 0.0-0.4 %) 0.4 (Ref Range: 0.0-0.4 %) Lymphocytes Percent Auto 20.0 (Ref Range: 20-40 %) 26.9 (Ref Range: 20-40 %) 34.8 (Ref Range: 20-40 %) Monocytes Percent Auto 5.0 (Ref Range: 2-11 %) 5.7 (Ref Range: 2-11 %) 8.0 (Ref Range: 2-11 %) Eosinophils Percent Auto 0.9 (Ref Range: 0-4 %) 1.1 (Ref Range: 0-4 %) 1.1 (Ref Range: 0-4 %) Basophils Percent Auto 0.9 (Ref Range: 0-2 %) 1.1 (Ref Range: 0-2 %) 1.1 (Ref Range: 0-2 %) NRBC Pct Auto 0.0 (Ref Range: 0.0-0.2 /100WBC) 0.0 (Ref Range: 0.0-0.2 /100WBC) 0.0 (Ref Range: 0.0-0.2 /100WBC) Neutrophils Absolute Auto 5.5 (Ref Range: 2.0-8.3 x10*3/uL) 4.6 (Ref Range: 2.0-8.3 x10*3/uL) 2.9 (Ref Range: 2.0-8.3 x10*3/uL) Imm Gran Abs Auto 0.03 (Ref Range: 0.00-0.03 X10*3/uL) 0.02 (Ref Range: 0.00-0.03 X10*3/uL) 0.02 (Ref Range: 0.00-0.03 X10*3/uL) Lymphocytes Absolute Auto 1.5 (Ref Range: 1.2-4.9 X10*3/uL) 1.9 (Ref Range: 1.2-4.9 X10*3/uL) 1.9 (Ref Range: 1.2-4.9 X10*3/uL) Monocytes Absolute Auto 0.4 (Ref Range: 0.1-1.2 X10*3/uL) 0.4 (Ref Range: 0.1-1.2 X10*3/uL) 0.4 (Ref Range: 0.1-1.2 X10*3/uL) Eosinophils Absolute Auto 0.1 (Ref Range: 0.0-0.4 X10*3/uL) 0.1 (Ref Range: 0.0-0.4 X10*3/uL) 0.1 (Ref Range: 0.0-0.4 X10*3/uL) Basophils Absolute Auto 0.1 (Ref Range: 0.0-0.2 X10*3/uL) 0.1 (Ref Range: 0.0-0.2 X10*3/uL) 0.1 (Ref Range: 0.0-0.2 X10*3/uL) NRBC Abs Auto 0.000 (Ref Range: 0.0-0.012 X10*3/uL) 0.000 (Ref Range: 0.0-0.012 X10*3/uL) 0.000 (Ref Range: 0.0-0.012 X10*3/uL) * Examination: ???General Examination: ?GENERAL APPEARANCE:?pleasant, well nourished, well developed, in no acute distress, calm and relaxed, elderly woman.?HEAD:?atraumatic, normocephalic.?EYES:?eomi, perrla, anicteric, conjugate.?EARS:?normal.?NOSE:?septum intact.?ORAL CAVITY:?normal, unremarkable.?NECK/THYROID:?no jugular venous distention, no carotid bruit, thyroid normal.?LYMPH NODES:?no enlarged lymph nodes,spleen normal.?SKIN:?no suspicious lesions, anicteric.?HEART:?no clicks, gallops, murmurs, or rubs, regular rhythm, S1, S2 normal, no s3, or vascular bruits.?LUNGS:?clear to auscultation .?BREASTS:?Not examined.?ABDOMEN:?bowel sounds normal, no ascites, no organomegaly, no mass.?RECTAL EXAM:?not examined.?MUSCULOSKELETAL:?extremities unremarkable, no clubbing, cyanosis or edema.?PERIPHERAL PULSES:?normal.?NEUROLOGIC:?alert and oriented, cranial nerves 2-12 grossly intact, deep tendon reflexes 2+ symmetrical, motor strength normal upper and lower extremities, sensory exam intact.?PSYCH:?alert, oriented.? Assessment: * Assessment: 1.?Pulmonary embolism - I26. 99 (Primary)???Notes :She says she is free of dyspnea with exertion. She denies any pleuritic chest pain. 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 She'll be anticoagulated with apixaban for life. She will be followed carefully to ensure that the platelet count returns to normal. The thrombocytopenia is likely related to the clotting episode.???3.?Anticoagulated - Z79.01???Notes :She has had no bleeding on the Eliquis.? It will be stopped 4 days prior to the dental extractions and she will be bridged with enoxaparin.???4.?Glaucoma - H40.9???Notes :She was continued on latanoprost.???5.?Osteopenia - M85.80???Notes :She was continued on current therapy. We discussed the use of calcium carbonate and vitamin D and exercise.???6.?Former smoker - Z87.891???Notes :She has a plan to prevent relapse in times of stress and illness. She was educated about the increased risk of thromboembolism in smokers.???7.?Venous insufficiency - I87.2???Notes :She has been referred back to vascular surgery to see if the risk of recurrent DVT can be reduced.??? This patient is medically cl eared for upcoming dental extractions with acceptable risk.? Her anticoagulation will be managed per surgery.? There is no other significant contraindication. Plan: * Treatment: * Procedure Codes:? * Preventive Medicine:? ??Counseling:?Smoking/Tobacco Use?Patient counseled on the dangers of tobacco use and urged to quit.?02/24/2024 * Follow Up:?2 Weeks, A couple of days after dental surgery (Reason: Telehealth, To discuss how the patient did post-surgery) * Images: * Sign off status: Completed true * Provider:?Neal Dave MD Date:?02/09 Generated for Monisha cyr/Edel/eTransmitting on:?04/27/2024 11:11 AM EST History and Physical Notes * HPI (History of Present Illness) Category Sub-Category Detail Notes COVID-19 Screening Questions Have you had any new onset fever, chills, cough, congestion, sore throat, shortness of breath, muscle aches?: No Have you been exposed to the virus withi n the last 10 days?: No Have you travelled internationally in e last 10 days?: No Have you been exposed to COVID-19 in the past?: Yes Examination Category Sub-Category Detail Notes General Examination GENERAL APPEARANCE: pleasant , well nourished, well developed, in no acute distress, calm and relaxed, elderly woman HEAD: atraumatic, normocep halic EYES: eomi, perrla, anicte salma, conjugate EARS: normal NOSE: septum intact NECK/THYROID: no jugular venous di stention, no carotid bruit, thyroid normal HEART: no clicks, gallops, murmurs, or rubs, regular rhythm, S1, S2 normal, no s3, or vascular bruits LUNGS: clear to auscultatio n ABDOMEN: bowel sounds normal, no ascites, no organomegaly, no mass NEUROLOGIC: alert and oriented, cranial nerves 2-12 grossly intact, deep tendon reflexes 2+ symmetrical, motor strength normal upper and lower extremities, sensory exam intact SKIN: no suspicious lesion s, anicteric PERIPHERAL PULSES: normal BREASTS: Not examined MUSCULOSKELETAL: extremities unremark able, no clubbing, cyanosis or edema LYMPH NODES: no enlarged lymph no adalgisa,spleen normal RECTAL EXAM: not examined PSYCH: alert, oriented ORAL CAVITY: normal, unremarkable
--- OUTSIDE RECORDS SUMMARY | 2024-04-27 11:12 | XMS_ITS | Patient Health Record ---
Author Organization Neal Dave III, MD Address [address] [place] [address] Care Team Providers Care Manager Sign Name Role Phone Will Bower MD Primary Care Provider Neal Morales [phone] Allergies Allergen (clinical drug ingredient) Drug/Non Drug Allergy documented on EMR Reaction Allergy Type Onset Date Status No Known Drug Allergy Unknown Drug Allergy Active Results Component Value Reference Range Notes Fibrinogen Reviewed date:11/01/2023 05:55:02 PM Interpretation: Performing Lab:[facility], [address] [place] [phone] Notes/Report: Fibrinogen 634 259-690 MG/DL Complete Blood Count Auto Di ff Reviewed date:11/01/2023 05:55:02 PM Interpretation: Performing Lab:[facility], [address] [place] [phone] Notes/Report: White Blood Count 4.9 4.8-10.8 X10*3/uL Red Blood Count 3.88 4.20-5.50 X10*6/uL Hemoglobin 12.3 12.0-16.0 g/dl Hematocrit 37.4 37.0-47.0 % Mean Corpuscular Volume 96.4 80.0-98.0 fL Mean Corpuscular Hemoglobin 31.7 27.0-33.0 pg Mean Corpuscular HGB Conc 32.9 31.0-35.0 g/dl Red Cell Distribution Width 13.1 11.0-16.0 % Platelet Count 96 160-400 X10*3/uL results < 100,000: Mean Platelet Volume 9.7 9.4-12.3 fL Neutrophils Percent Auto 56.0 45-73 % Imm Gran Pct Auto 0.4 0.0-0.4 % Lymphocytes Percent Auto 31.4 20-40 % Monocytes Percent Auto 6.7 2-11 % Eosinophils Percent Auto 4.7 0-4 % Basophils Percent Auto 0.8 0-2 % NRBC Pct Auto 0.0 0.0-0.2 /100WBC Neutrophils Absolute Auto 2.7 2.0-8.3 x10*3/u L Imm Gran Abs Auto 0.02 0.00-0.03 X10*3/uL Lymphocytes Absolute Auto 1.5 1.2-4.9 X10*3/u L Monocytes Absolute Auto 0.3 0.1-1.2 X10*3/uL Eosinophils Absolute Auto 0.2 0.0-0.4 X10*3/u L Basophils Absolute Auto 0.0 0.0-0.2 X10*3/uL NRBC Abs Auto 0.000 0.0-0.012 X10*3/uL Complete Blood Count Auto Di ff Reviewed date:11/10/2023 04:24:55 PM Interpretation: Performing Lab:[facility], [address] [place] [phone] Notes/Report: White Blood Count 6.0 4.8-10.8 X10*3/uL Red Blood Count 4.12 4.20-5.50 X10*6/uL Hemoglobin 12.9 12.0-16.0 g/dl Hematocrit 39.9 37.0-47.0 % Mean Corpuscular Volume 96.8 80.0-98.0 fL Mean Corpuscular Hemoglobin 31.3 27.0-33.0 pg Mean Corpuscular HGB Conc 32.3 31.0-35.0 g/dl Red Cell Distribution Width 13.2 11.0-16.0 % Platelet Count 158 160-400 X10*3/uL Mean Platelet Volume 9.4 9.4-12.3 fL Neutrophils Percent Auto 56.0 45-73 % Imm Gran Pct Auto 0.5 0.0-0.4 % Lymphocytes Percent Auto 34.5 20-40 % Monocytes Percent Auto 6.5 2-11 % Eosinophils Percent Auto 1.7 0-4 % Basophils Percent Auto 0.8 0-2 % NRBC Pct Auto 0.0 0.0-0.2 /100WBC Neutrophils Absolute Auto 3.3 2.0-8.3 x10*3/u L Imm Gran Abs Auto 0.03 0.00-0.03 X10*3/uL Lymphocytes Absolute Auto 2.1 1.2-4.9 X10*3/u L Monocytes Absolute Auto 0.4 0.1-1.2 X10*3/uL Eosinophils Absolute Auto 0.1 0.0-0.4 X10*3/u L Basophils Absolute Auto 0.1 0.0-0.2 X10*3/uL NRBC Abs Auto 0.000 0.0-0.012 X10*3/uL Fibrinogen Reviewed date:11/10/2023 04:24:55 PM Interpretation: Performing Lab:[address] [phone] Notes/Report: Fibrinogen 561 259-690 MG/DL Complete Blood Count Auto Di ff Reviewed date:11/10/2023 04:24:55 PM Interpretation: Performing Lab:[facility], [address] [place] [phone] Notes/Report: White Blood Count 5.4 4.8-10.8 X10*3/uL Red Blood Count 4.02 4.20-5.50 X10*6/uL Hemoglobin 12.7 12.0-16.0 g/dl Hematocrit 39.1 37.0-47.0 % Mean Corpuscular Volume 97.3 80.0-98.0 fL Mean Corpuscular Hemoglobin 31.6 27.0-33.0 pg Mean Corpuscular HGB Conc 32.5 31.0-35.0 g/dl Red Cell Distribution Width 13.4 11.0-16.0 % Platelet Count 165 160-400 X10*3/uL Mean Platelet Volume 9.6 9.4-12.3 fL Neutrophils Percent Auto 54.6 45-73 % Imm Gran Pct Auto 0.4 0.0-0.4 % Lymphocytes Percent Auto 34.8 20-40 % Monocytes Percent Auto 8.0 2-11 % Eosinophils Percent Auto 1.1 0-4 % Basophils Percent Auto 1.1 0-2 % NRBC Pct Auto 0.0 0.0-0.2 /100WBC Neutrophils Absolute Auto 2.9 2.0-8.3 x10*3/u L Imm Gran Abs Auto 0.02 0.00-0.03 X10*3/uL Lymphocytes Absolute Auto 1.9 1.2-4.9 X10*3/u L Monocytes Absolute Auto 0.4 0.1-1.2 X10*3/uL Eosinophils Absolute Auto 0.1 0.0-0.4 X10*3/u L Basophils Absolute Auto 0.1 0.0-0.2 X10*3/uL NRBC Abs Auto 0.000 0.0-0.012 X10*3/uL Fibrinogen Reviewed date:11/10/2023 04:24:55 PM Interpretation: Performing Lab:[facility], [address] [place] [phone] Notes/Report: Fibrinogen 530 259-690 MG/DL Complete Blood Count Auto Di ff Reviewed date:12/10/2023 01:05:01 PM Interpretation: Performing Lab:[facility], [address] [place] [phone] Notes/Report: White Blood Count 7.1 4.8-10.8 X10*3/uL Red Blood Count 4.03 4.20-5.50 X10*6/uL Hemoglobin 13.0 12.0-16.0 g/dl Hematocrit 39.4 37.0-47.0 % Mean Corpuscular Volume 97.8 80.0-98.0 fL Mean Corpuscular Hemoglobin 32.3 27.0-33.0 pg Mean Corpuscular HGB Conc 33.0 31.0-35.0 g/dl Red Cell Distribution Width 13.2 11.0-16.0 % Platelet Count 192 160-400 X10*3/uL Mean Platelet Volume 9.3 9.4-12.3 fL Neutrophils Percent Auto 64.9 45-73 % Imm Gran Pct Auto 0.3 0.0-0.4 % Lymphocytes Percent Auto 26.9 20-40 % Monocytes Percent Auto 5.7 2-11 % Eosinophils Percent Auto 1.1 0-4 % Basophils Percent Auto 1.1 0-2 % NRBC Pct Auto 0.0 0.0-0.2 /100WBC Neutrophils Absolute Auto 4.6 2.0-8.3 x10*3/u L Imm Gran Abs Auto 0.02 0.00-0.03 X10*3/uL Lymphocytes Absolute Auto 1.9 1.2-4.9 X10*3/u L Monocytes Absolute Auto 0.4 0.1-1.2 X10*3/uL Eosinophils Absolute Auto 0.1 0.0-0.4 X10*3/u L Basophils Absolute Auto 0.1 0.0-0.2 X10*3/uL NRBC Abs Auto 0.000 0.0-0.012 X10*3/uL Protein Electrophoresis, Ser um Reviewed date:12/14/2023 06:05:14 AM Interpretation: Performing Lab:[facility], [address] [place] [phone] Notes/Report: Prot Elec - Total Protein 7.2 6.1-8.1 g/dL Prot Elec - Albumin 4.1 3.8-4.8 g/dL Prot Elec - Alpha1 0.3 0.2-0.3 g/dL Prot Elec - Alpha2 0.8 0.5-0.9 g/dL Prot Elec - Beta 1 0.4 0.4-0.6 g/dL Prot Elec - Beta 2 0.4 0.2-0.5 g/dL Prot Elec - Gamma 1.2 0.8-1.7 g/dL PES - Abn Protein Band 1 TNP PES-Abn Protein Band 2 TNP PES-Abn Protein Band 3 TNP Prot Elec - Interpretation SEE NOTE Normal Serum Protein Electrophoresis Pattern. No abnormal protein bands (M-protein) detected. THIS TEST WAS PERFORMED AT: [facility] [address] [phone] PARISH RILEY MD Complete Blood Count Auto Di ff Reviewed date:02/23/2024 07:22:15 AM Interpretation: Performing Lab:[facility], [address] [place] [phone] Notes/Report: White Blood Count 7.6 4.8-10.8 X10*3/uL Red Blood Count 3.83 4.20-5.50 X10*6/uL Hemoglobin 12.2 12.0-16.0 g/dl Hematocrit 37.8 37.0-47.0 % Mean Corpuscular Volume 98.7 80.0-98.0 fL Mean Corpuscular Hemoglobin 31.9 27.0-33.0 pg Mean Corpuscular HGB Conc 32.3 31.0-35.0 g/dl Red Cell Distribution Width 12.3 11.0-16.0 % Platelet Count 193 160-400 X10*3/uL Mean Platelet Volume 10.3 9.4-12.3 fL Neutrophils Percent Auto 72.8 45-73 % Imm Gran Pct Auto 0.4 0.0-0.4 % Lymphocytes Percent Auto 20.0 20-40 % Monocytes Percent Auto 5.0 2-11 % Eosinophils Percent Auto 0.9 0-4 % Basophils Percent Auto 0.9 0-2 % NRBC Pct Auto 0.0 0.0-0.2 /100WBC Neutrophils Absolute Auto 5.5 2.0-8.3 x10*3/u L Imm Gran Abs Auto 0.03 0.00-0.03 X10*3/uL Lymphocytes Absolute Auto 1.5 1.2-4.9 X10*3/u L Monocytes Absolute Auto 0.4 0.1-1.2 X10*3/uL Eosinophils Absolute Auto 0.1 0.0-0.4 X10*3/u L Basophils Absolute Auto 0.1 0.0-0.2 X10*3/uL NRBC Abs Auto 0.000 0.0-0.012 X10*3/uL Reason For Referral Reason Discuss vein occlusi on Diagnosis 1 Deep vein thrombosis (I82.409) Diagnosis 2 Pulmonary embolism ( I26.99) Diagnosis 3 Venous insufficiency (I87.2) Referral Organization Neal Dave III, MD Referring Provider First Name Neal Referring Provider Last Name Jolie Referring Provider Speciality Internal M edicine Referred Organization [facility] nter Referred Provider Wilmer Tang Referred Address [address] [place] [address],[place], [id number], Referred Provider Specialty Vascular Chayito oren General Notes Digna Nur CMA 10/11 11:16:51 AM EDT > ref/progress note/labs faxed to Dr Tang office today , Digna Lewis CMA 11/20/2023 03:10:15 PM EDT > pt ended up inpt at was seen by Dr Tang and now is going to be seen by [facility] vascular Dr June Underwood Referral Priority Routine Reason recurrent DVT Diagnosis 1 Deep vein thrombosis (I82.409) Referral Organization Neal Dave III, MD Referring Provider First Name Neal Referring Provider Last Name Dave Referring Provider Speciality Internal edicine Referred Provider Specialty Vascular Chayito lott General Notes Digna Lewis CM 11/20/2023 01:43:59 PM EDT > Called Saurabh Underwood office at [phone] asked them to see patient within the next few weeks. They put a message into the nurse coordinator and they will be calling the patient for an appt . I contacted patient to let her know of this and asked her to call our office with when she is going to be seen, Digna Lewis CMA 11/20/2023 03:01:32 PM EDT > pt called back stated she has appt with Dr Underwood for 12/11/2023 at 11:00am Referral Priority Routine Referral Appointment Date 12/11/2023 Reason Evaluate and Treat Diagnosis 1 Pulmonary embolism ( I26.99) Referral Organization Neal Dave III, MD Referring Provider First Name Neal Referring Provider Last Name Jolie Referring Provider Speciality Internal edicine Referred Provider [facility], Pulmonary Referred Provider Specialty Pulmonary Idania urban General Notes Gissel Real 04/02/2024 09:12:23 AM > Referral and progress note faxed. Referral Priority Routine Medications Medication SIG (Take, Route, Fr equency, Duration) Notes Start Date End Date Status Latanoprost 0.005 % Ophthalmic Active metroNIDAZOLE 0.75 % External Active Multivitamin Active Vitamin D Active Eliquis 5 MG Oral Active Olopatadine HCl 0.1 % Ophthalmic Active Lovenox 100 MG/ML as directed Injectio n daily for 3 days prior to surgery 02/24/2024 Acti ve Immunizations Vaccine Route Administration Date Status Comme nts SHINGRIX Unknown 07/19/2019 Administered RSV Adjuvant Unknown 06/07/2023 Administered PCV20 Unknown 04/01/2023 Administered COVID-19 Comirnaty Pfizer-BioNTech Unknown 08/23/2021 A dministered COVID PFIZER Unknown 01/27/2021 Administered COVID PFIZER Unknown 06/13/2020 Administered COVID Pfizer Bivalent Unknown 01/18/2022 Administered COVID PFIZER Unknown 07/04/2020 Administered COVID-19 Comirnaty Pfizer-BioNTech Unknown 04/22/2023 A dministered Social History Tobacco Use: Social History Observation [...] ast year? No Points 0 Interpretation Negative Problems Problem Type SNOMED Code ICD Code Onset Dates Problem Status W/U Status Risk Notes Problem 8932928 Former smoker (Z87.891) Active confirmed She has a plan to prevent relapse in times of stress and illness. She was educated about the increased risk of thromboembolism in smokers. Problem 160197363 Anticoagulated (Z79.01) Active confirmed She has had no bleeding on the Eliquis. It will be stopped 4 days prior to the dental extractions and she will be bridged with enoxaparin. Problem Osteopenia (025953035) Osteopenia (M85.80) Active confirmed She was continu ed on current therapy. We discussed the use of calcium carbonate and vitamin D and exercise. Problem Glaucoma (61685661) Glaucoma (H40.9) Active confirmed She was continued on latanoprost. Problem 08004606 Left bundle branch block (I44.7) Active confirmed No change in he r therapy is indicated. Problem Pulmonary embolism (71685724) Pulmonary embolism (I26.99) Active confirmed She says she is free of dyspnea with exertion. She denies any pleuritic chest pain. She has been compliant with the apixaban. Problem 73275207 Venous insufficiency (I87.2) Active confirmed She has mild venous insufficiency but no pain. She reports no edema in the legs at this time. Problem Deep vein thrombosis (115247662) Deep vein thrombosis (I82.409) Active confirmed She has a histo ry of DVT and pulmonary embolism in the past was treated with a course of anticoagulation. She is now on long-term anticoagulation.. 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 Problem 693463256 Thrombopenia (D69.6) Active confirmed Thrombocytopeni a resolved long before this surgery. She has had no bleeding. Her CBC will be followed carefully. Problem 665672100 Coronavirus infection (B34.2) Active confirmed She tested positive for cold. In February 2022 when hospitalized for pulmonary embolism. She has now recovered without long all symptoms. 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 She will avoid drugs that prolong this interval. Vital Signs Heart Rate 83 /min 02/24/2024 Temperature 97.7 degrees Fahrenheit 02/24/2024 Blood pressure diastolic 65 mm Hg 02/24/2024 Height 63 in 03/10/2024 Blood pressure systolic 130 mm Hg 02/24/2024 Weight 135, 135.0 lbs 02/24/2024 BMI 23.91 kg/m2 02/24/2024 Encounters Encounter Location Date Provider Diagnosis Neal Dave III, MD [address] [place] [address] [place] [address] 06/19/2023 Neal Dave Deep vein thrombosis I82.409 ; Pulmonary embolism I26.99 ; Glaucoma H40.9 ; Osteopenia M85.80 ; Anticoagulated Z79.01 ; Overweight E66.3 ; Former smoker Z87.891 and Venous insufficiency I87.2 Neal Dave III, MD [address] [place] [address] [place] [address] 10/27/2023 Neal Dave Deep vein thrombosis I82.409 ; Glaucoma H40.9 ; Osteopenia M85.80 ; Anticoagulated Z79.01 and Age-related incipient cataract of both eyes H25.093 Neal Dave III, MD [address] [place] [address] [place] [address] 11/20/2023 Neal Dave Deep vein thrombosis I82.409 ; Venous insufficiency I87.2 ; Left bundle branch block I44.7 ; Pulmonary embolism I26.99 ; Osteopenia M85.80 ; Glaucoma H40.9 ; Anticoagulated Z79.01 ; Overweight E66.3 and Former smoker Z87.891 Neal Dave III, MD [address] [place] [address] [place] [address] 12/18/2023 Neal Dave Pulmonary embolism I26.99 ; Anticoagulated Z79.01 ; Osteopenia M85.80 and Former smoker Z87.891 Neal Dave III, MD [address] [place] [place] [address] 01/01/2024 Neal Dave Pulmonary embolism I26.99 ; Anticoagulated Z79.01 ; Deep vein thrombosis I82.409 ; Osteopenia M85.80 ; Former smoker Z87.891 and Venous insufficiency I87.2 Neal Dave III, MD [address] [place] [address] [place] [address] 02/24/2024 Neal Dave Pulmonary embolism I26.99 ; Deep vein thrombosis I82.409 ; Anticoagulated Z79.01 ; Glaucoma H40.9 ; Osteopenia M85.80 ; Former smoker Z87.891 and Venous insufficiency I87.2 Neal Dave III, MD [address] [place] [address] [place] [address] 03/10/2024 Neal Dave Deep vein thrombosis I82.409 ; Thrombopenia D69.6 ; Venous insufficiency I87.2 ; Anticoagulated Z79.01 and Former smoker Z87.891 Neal Dave III, MD [address] [place] [address] [place] [address] 10/23/2023 Neal Dave III, MD [address] [place] [address] [place] [address] 11/24/2023 Neal Dave III, MD [address] [place] [address] [place] [address] 01/13/2024 Neal Dave III, MD [address] [place] [address] [place] [address] 01/16/2024 Neal Dave Preop testing Z01.81 8 Neal Dave III, MD [address] [place] [address] [place] [address] 04/02/2024 Neal Dave III, MD [address] [place] [address] [place] [address] 10/28/2023 Neal Dave Assessments Encounter Date Diagnosis (ICD Code) Assessment Notes T reatment Notes Treatment Clinical Notes 06/19/2023 Pulmonary embolism (ICD-10 - I26.99) She [...] Resume anticoagulation after the Crohn versus infection. 10/27/2023 Glaucoma (ICD-10 - H40.9) She was continued on latanoprost. 10/27/2023 Deep vein thrombosis (ICD-10 - I82.409) This is her second episode of DVT with pulmonary embolism. She'll be anticoagulated with apixaban for life. She will be followed carefully to ensure that the platelet count returns to normal. The thrombocytopenia is likely related to the clotting episode. 11/20/2023 Venous insufficiency (ICD-10 - I87.2) She has been referred back to vascular surgery to see if the risk of recurrent DVT can be reduced. 11/20/2023 Deep vein thrombosis (ICD-10 - I82.409) This is her second episode of DVT with pulmonary embolism. She'll be anticoagulated with apixaban for life. She will be followed carefully to ensure that the platelet count returns to normal. The thrombocytopenia is likely related to the clotting episode. 12/18/2023 Anticoagulated (ICD-10 - Z79.01) She has had no bleeding on the Eliquis so far. Eliquis was stopped today. She will have an evaluation for thrombophilia, premature decision about continued anticoagulation. 12/18/2023 Pulmonary embolism (ICD-10 - I26.99) She says she is free of dyspnea with exertion. She denies any pleuritic chest pain. She has been compliant with the apixaban. 01/01/2024 Anticoagulated (ICD-10 - Z79.01) She has had no bleeding on the Eliquis so far. Eliquis was stopped today. She will have an evaluation for thrombophilia, premature decision about continued anticoagulation. 01/01/2024 Pulmonary embolism (ICD-10 - I26.99) She says she is free of dyspnea with exertion. She denies any pleuritic chest pain. She has been compliant with the apixaban. 02/24/2024 Pulmonary embolism (ICD-10 - I26.99) She [...] is likely related to the clotting episode. 03/10/2024 Deep vein thrombosis (ICD-10 - I82.409) She has a history of DVT and pulmonary embolism in the past was treated with a course of anticoagulation. She is now on long-term anticoagulation.. 03/10/2024 Thrombopenia (ICD-10 - D69.6) Thrombocytopenia resolved long before this surgery. She has had no bleeding. Her CBC will be followed carefully. 06/19/2023 Glaucoma (ICD-10 - H40.9) She was continued on latanoprost. 10/27/2023 Osteopenia (ICD-10 - M85.80) She was continued on current therapy. We discussed the use of calcium carbonate and vitamin D and exercise. 11/20/2023 Left bundle branch block (ICD-10 - I44.7) No change in her therapy is indicated. 12/18/2023 Osteopenia (ICD-10 - M85.80) She was continued on current therapy. We discussed the use of calcium carbonate and vitamin D and exercise. 01/01/2024 Deep vein thrombosis (ICD-10 - I82.409) This [...] she will be bridged with enoxaparin. 03/10/2024 Venous insufficiency (ICD-10 - I87.2) She has mild venous insufficiency but no pain. She reports no edema in the legs at this time. 01/16/2024 Preop testing (ICD-10 - Z01.818) 06/19/2023 Osteopenia (ICD-10 - M85.80) She was continued on current therapy. We discussed the use of calcium carbonate and vitamin D and exercise. 10/27/2023 Anticoagulated (ICD-10 - Z79.01) She has had no bleeding on the Eliquis so far. Eliquis was stopped today. She will have an evaluation for thrombophilia, premature decision about continued anticoagulation. 11/20/2023 Pulmonary embolism (ICD-10 - I26.99) She says she is free of dyspnea with exertion. She denies any pleuritic chest pain. She has been compliant with the apixaban. 12/18/2023 Former smoker (ICD-10 - Z87.891) She has a plan to prevent relapse in times of stress and illness. She was educated about the increased risk of thromboembolism in smokers. 01/01/2024 Osteopenia (ICD-10 - M85.80) She was continued on current therapy. We discussed the use of calcium carbonate and vitamin D and exercise. 02/24/2024 Glaucoma (ICD-10 - H40.9) She was continued on latanoprost. 03/10/2024 Anticoagulated (ICD-10 - Z79.01) She has had no bleeding on the Eliquis. It will be stopped 4 days prior to the dental extractions and she will be bridged with enoxaparin. 06/19/2023 Anticoagulated (ICD-10 - Z79.01) She has had no bleeding on the Eliquis so far. Eliquis was stopped today. She will have an evaluation for thrombophilia, premature decision about continued anticoagulation. 10/27/2023 Age-related incipient cataract of both eyes (ICD-10 - H25.093) She has had surgery and is under the care of an horse doctor. 11/20/2023 Osteopenia (ICD-10 - M85.80) She was continued on current therapy. We discussed the use of calcium carbonate and vitamin D and exercise. 01/01/2024 Former smoker (ICD-10 - Z87.891) She has a plan to prevent relapse in times of stress and illness. She was educated about the increased risk of thromboembolism in smokers. 02/24/2024 Osteopenia (ICD-10 - M85.80) She was continued on current therapy. We discussed the use of calcium carbonate and vitamin D and exercise. 03/10/2024 Former smoker (ICD-10 - Z87.891) She has a plan to prevent relapse in times of stress and illness. She was educated about the increased risk of thromboembolism in smokers. 06/19/2023 Overweight (ICD-10 - E66.3) Her body mass index is 27. She weighs 154 pounds. We discussed weight reduction through diet restricted in fat calories and sodium. We discussed a risk reduction strategy for both atherosclerosis and further blood clots. 11/20/2023 Glaucoma (ICD-10 - H40.9) She was continued on latanoprost. 01/01/2024 Venous insufficiency (ICD-10 - I87.2) She has been referred back to vascular surgery to see if the risk of recurrent DVT can be reduced. 02/24/2024 Former smoker (ICD-10 - Z87.891) She has a plan to prevent relapse in times of stress and illness. She was educated about the increased risk of thromboembolism in smokers. 06/19/2023 Former smoker (ICD-10 - Z87.891) She has a plan to prevent relapse in times of stress and illness. She was educated about the increased risk of thromboembolism in smokers. 11/20/2023 Anticoagulated (ICD-10 - Z79.01) She has had no bleeding on the Eliquis so far. Eliquis was stopped today. She will have an evaluation for thrombophilia, premature decision about continued anticoagulation. 02/24/2024 Venous insufficiency (ICD-10 - I87.2) She has been referred back to vascular surgery to see if the risk of recurrent DVT can be reduced. 06/19/2023 Venous insufficiency (ICD-10 - I87.2) I agree with the recommendation to take 50% dose of Eliquis prior to prolonged sitting in an airplane or train. She is going to be seen in the spring just prior to going on her trips. This issue will be reevaluated at that time. 11/20/2023 Overweight (ICD-10 - E66.3) Her body mass index is 27. She weighs 154 pounds. We discussed weight reduction through diet restricted in fat calories and sodium. We discussed a risk reduction strategy for both atherosclerosis and further blood clots. 11/20/2023 Former smoker (ICD-10 - Z87.891) She has a plan to prevent relapse in times of stress and illness. She was educated about the increased risk of thromboembolism in smokers. Plan Of Treatment Pending Test Test Name Order Date CBC w DIFF 11/20/2023 PROTHROMBIN TIME (PT, INR) 08/19/2022 PARTIAL THROMBOPLASTIN TIME (PTT) 2022 FIBRINOGEN 08/19/2022 ANTITHROMBIN III & AG (REFLEX) HOMOCYSTEINE 08/19/2022 PROTEIN ELECTROPHORESIS, SERUM PROTEIN C ACTIVITY REFLEX AG 08/19/2022 PROTEIN S ACTIVITY REFLEX AG 08/19/2022 PT [id number] 08/19/2022 LUPUS ANTICOAGULANT PANEL 08/19/2022 FACTOR V LEIDEN 08/19/2022 US LEG BILATERAL VENOUS DOPPLER 01/01/20 CBC WITH AUTO DIFF 03/10/2024 CBC WITH AUTO DIFF 01/16/2024 Next Appt Details Provider Name:Neal Sweeneyrne, 05/03/2024 10:00:00 AM, [address] [place] [address] [address] [place], [place], [address], Insurance Providers Payer Name Payer Address Payer Phone Subscriber Number Group Number Insured Name Patient Relationship to Insured Coverage Start Date Coverage End Date MEDICARE NGS [address] [place] [phone] [id number] ENRIQUETA NOEL Self - patient is the insured [facility] [address] [place] [phone] [id number] ENRIQUETA NOEL Self - patient is the insured Medical (General) History Medical History History ICD Code DVT left femoral and popliteal veins Feb Multiple pulmonary emboli February 2022 Chronic anticoagulation Glaucoma H40.9 Osteopenia M85.80 Osteopenia 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
--- OUTSIDE RECORDS SUMMARY | 2024-04-27 11:12 | XMS_ITS ---
Author Organization Neal Dave III, MD Address [address] [place] [address] [place] [address] Care Team Providers Care Water Commissioner Name Role Phone Will Bower MD Primary Care Provider Neal Morales [phone] Allergies Allergen (clinical drug ingredient) Drug/Non Drug [...] Additional Findings: Tobacco Non-User Ex-cigaret te smoker Problems Problem Type SNOMED Code ICD Code Onset Dates Problem Status W/U Status Risk Notes Problem 115869226 Thrombopenia (D69.6) Active confirmed Thrombocytopeni a resolved long before this surgery. She has had no bleeding. Her CBC will be followed carefully. Vital Signs Height 63 in 03/10/2024 Encounters Encounter Location Date Provider Diagnosis Neal Dave III, MD [address] [place] [address] [place] [address] 03/10/2024 Neal Dave Deep vein thrombosis I82.409 [...] Apr, Reason: OV, Routine follow-up Provider Name:Neal Dave, 05/03/2024 10:00:00 AM, [address] [place] [address] [place], [place], [address], Progress Notes * ENRIQUETA SHELDONDOB:1939 (83 yo F)Acc No.[id number]:03/10/2024 Patient:?ENRIQUETA SHELDON Provider:?Neal Dave MD :1940???Age:83 Y???Sex:Female D ate:03/10/2024 Address:[address], [id number] Pcp:Will Bower MD Subjective: * Chief Complaints: * ???Recent anticoagulation br idgingRecent dental extractionChronic anticoagulationHistory of DVT and pulmonary embolismHistory off thrombocytopenia. * HPI: ???:?Telehealth?Location of provider rendering services:?{...} [address] [facility] [address] ?Location of patient:?address listed in demographics for today's visit ?Patient identification confirmed using:?Name, ?Telehealth method:?Telephone only. Patient not visible to care provider. ?Consent:?Patient verbally consented to treatment, Patient verbally consented to billing insurance company, Patient informed of any privacy concerns related to method of visit ?Total time spent with patient (mins)?15 ?The patient, an 83-year-old female, had a dental [...] He has resumed Eliquis in her normal diet.? In the officepreviously scheduled.? She will call me if she has a new complaints. * ROS:?General/Constitutional:?pain?only normal aches and pains.?Chills?denies.?Fatigue?admits.?Fever?denies.?ENT:?Decreased hearing?denies.?Respiratory:?Cough?denies.?Cardiovascular:?Chest pain with exertion?denies.?Dyspnea on exertion?denies.?Shortness of breath?denies.?Gastrointestinal:?Constipation?occasional.?Decreased [...] addiction. One of her 4 children, has Genesee's disease. * Social History:?Tobacco Use:?Tobacco Use/Smoking?Patient is a?former smoker ?How long has it been since you last smoked??> 10 years ?Additional Findings: Tobacco Non-User?Ex-cigarette smoker ???She has been to her , Jordan for 54 years. They have 4 children and 9 grandchildren. She was born in [place], [place]. Her maiden name was Daron. She has no sabianist objection to blood transfusion. * Medications:?TakingmetroNIDA ZOLE [...] All ergyno[Allergies Verified] Objective: * Vitals:?Ht: 63, Ht-cm: 160.0 2. Assessment: * Assessment: 1.?Thrombopenia - D69.6 (Pia manuel)???Notes :Thrombocytopenia resolved long before this surgery.? She has had no bleeding.? Her CBC will be followed carefully.???2.?Deep vein thrombosis - I82.409???Notes :She has a history of DVT and pulmonary embolism in the past was treated with a course of anticoagulation.? She is now on long-term anticoagulation..???3.?Venous insufficiency - I87.2???Notes :She has mild venous insufficiency but no pain.? She reports no edema in the legs at this time.???4.?Anticoagulated - Z79.01???Notes :She has had no bleeding on the Eliquis. It will be stopped 4 days prior to the dental extractions and she will be bridged with enoxaparin.???5.?Former smoker - Z87.891???Notes :She has a plan to prevent relapse in times of stress and illness. She was educated about the increased risk of thromboembolism in smokers.??? Plan: * Treatment: 2.?Venous insufficiency?LAB: CBC WITH AUTO DIFF 3.?Others? Continue metroNIDAZOLE Cream, 0.75 %, External;?Continue Latanoprost Solution, 0.005 %, Ophthalmic;?Continue Olopatadine HCl Solution, 0.1 %, Ophthalmic;?Continue Eliquis Tablet, 5 MG, Oral;?Continue Vitamin D;?Continue Multivitamin;?Continue Lovenox Solution Prefilled Syringe, 100 MG/ML, as directed, Injection, daily for 3 days prior to surgery.?? * Procedure Codes:?88799 PHONE E/M BY PHYS 11-20 MIN * Preventive Medicine:? ??Counseling:?Smoking/Tobacco Use?Patient counseled on the dangers of tobacco use and urged to quit.?03/10/2024 * Follow Up:?As Scheduled, Apr (Reason: OV, Routine follow-up) * Images: * Sign off status: Completed true * Provider:?Neal Dave MD Date:?02/11 Generated for Monisha cyr/Edel/Aditi on:?04/27/2024 11:11 AM EST History and Physical Notes * HPI (History of Present Illness) Category Sub-Category Detail Notes Telehealth Location of [facility] rendering services:: {...} [address] [facility] [address] Location of patient:: address listed in demographics [...]
--- OUTSIDE RECORDS SUMMARY | 2024-04-27 11:12 | XMS_ITS | Data Portability ---
Author Organization [facility], [facility] Address [address] [place] [address] Care Team Providers Care Relationship Specialist Name Role Phone OMKAR MORRIS Primary Care Provider Assessment No assessment recorded. Plan of Treatment Reminders Order Date Submit Date Provider Last Modified By Organization Details Last Modified Time Details Appointments RECHECK 15 2024 03:00P M Danny Weathers PA-C Not available Not available Not available Lab None recorded . Referral None recorded . Procedures None recorded . Surgeries None recorded . Imaging XR, hip + pelvis, unilater al, 2 or 3 view - RM 113-- 2V HIP 2023 024 [facility], [address], [address] [facility], [place], [address], 10/22/2023 09:57:15 XR, knee, 4 or more view - RM 113- 4V KNEE 2023 024 [facility], [address], [address], [place], [address], 10/22/2023 09:57:15 Medication Orders None recorded . Patient TargetsNo targets recorded. Patient InstructionsNo instructions recorded. Reason for Referral None Reported. Procedures Surgical History Date Name Laterality Status Provider Name and Address Organization Details Recorded Time 4 Sports Knee 4&1 completed Danny Weathers PA-C [address] [facility], [place], [address], [place] [facility] 09/23/2023 08:21:24 4 Hip Kenalog 1cc Injection, L/R completed Danny Weathers PA-C [address], [place], [address], [facility] 10/01/2023 16:59:12 Imaging Results None recorded. Procedure Notes None recorded. Medical Equipment None Reported. Allergies Allergen ID Allergen Name Allergen Category Reaction Reaction Severity Criticality Documentation Date Start Date Code Code System Note Provider Name and Address Organization Details Recorded Time 54664 Substance with sulfonami de structure and antibacte rial mechanism of action (substanc e) medicatio n Not available Not available Not available 07/14/20232022 42591 8003 SNOMED Not Available [facility] 11:09[facility]37 Medications Name Sig Start Date Stop Date Status Note LastModified by Organization Details LastModified Time latanoprost 0.005 % eye drops active Not Available Not Available Not Available ciclopirox 8 % topical solution active Not Available Not Available Not Available benzonatate 100 mg capsule active Not Available Not Available Not Available pseudoephed rine-guaife nesin ER 80-700 mg tablet,exte nded release Percocet 5-325MG Tablet 1-2 Q 4-6 Hours Prn 04/04 completed Statu s: 'Disc ontin ued'; Not Available Not Available Not Available olopatadine 0.1 % eye drops active Not Available Not Available Not Available metoprolol succinate ER 25 mg tablet,exte nded release 24 hr active Not Available Not Available Not Available methylpredn isolone 4 mg tablets in a dose pack active Not Available Not Available Not Available amoxicillin 875 mg-potassiu m clavulanate 125 mg tablet active Not Available Not Available Not Available Eliquis 5 mg tablet active Not Available Not Available No t Available Vitals Date Recorded Body height Body mass index (BMI) Body weight Provider Name and Address Organization Details Last Updated DateTime 10/01/2023 160.02 cm 25 kg/m2 69697.52 g RANJITH De La Garza [facility] 10/01/2023 17:08:22 Social History None recorded. Functional Status None recorded. Mental Status None recorded. Family History Nothing Reported. Medical History No medical history recorded. Gynecological HistoryNo gynecological history recorded. Obstetrics History GPAL:G 0 P 0 0 0 0 Past Encounters Encounter ID Performer Location Encounter Start Date Encounter Closed Date Diagnosis/Indication Diagnosis SNOMED-CT Code Diagnosis ICD10 Code [id number] KENDALL [facility] [address] [place] [address] 10/01/2023 16:17:03 10/22/2023 09:57:15 Bilateral osteoarthritis of knees 4794856283 97132 M17.0 Pain of bi lateral knee joints 0442725072 44100 M25.561 M25.562 Pain in ri ght hip joint 5009854543 43918 M25.551 Trochanter ic bursitis of right hip 8090300835 74933 M70.61 Health Concerns Section Related Observation LastModified by Organization Detai ls LastModified Time None Recorded Concern Status LastModified by Organization Details LastModified Time None Recorded Advance Directives Directive None Recorded Payers Encounter Date Sequence Insurance Name Policy Number Policy Daniel Covered Member ID Daniel Member ID Guarantor Name 10/01/2023 2 [employer] [facility] [id number] Jordan Noel [id number] Cheryl Noel 10/01/2023 1 [place]ICARE [place] [employer] Cheryl Noel [id number] Cheryl Noel Notes Date Note Type Note Provider Name and Address Organization Details Recorded Time 10/01/2023 text/html I am seeing the patient today under the supervision of Dr. Baron who was available but who did not see the patient. HPI: Patient comes in for recheck of {{right left bilater al*}} knee pain. Has known osteoarthritis in the medial compartment of the knee(s). Been treated conservatively with cortisone injection to this point with 4 months relief of symptoms. No new injury or modalities.The patient has also been having difficulty about her right hip. It has been ongoing over the past 3 months or so without injury or antecedent event. She has pain predominantly over the lateral hip. She thinks it may be because of her increased gym activity. She has been utilizing some stretches provided by her daughter who is a physical therapist. She states that they have been focused around her piriformis and this has been helping. Past family, medical, social history and review of systems has been reviewed, updated and is located in the patient? s chart. Examination:The patient is well appearing and in no apparent distress. Alert and oriented x3. Vital signs per intake sheet. Examination of the {{right left bilater al*}} knee reveals no effusion erythema or warmth. Decreased range of motion. {{No visible Slight varus* Varus}} deformity. Point tender over the medial joint line. Calf soft and nontender. 4+/5 strength of knee flexion extension.left hip : Visual inspection reveals no erythema, ecchymoses, swelling or visible deformity. Moderate greater trochanter tenderness to palpation. Hip range of motion full without irritability. Strength 5/5. Negative BRITT. Negative FADDIR. Negative scouring test. Negative Stinchfield. Neurovascular intact. X-rays were ordered, obtained and reviewed today including 4 views of the bilateral knees which reveal moderate to severe medial compartment joint space narrowing. Narrowing is noted of the patellofemoral joint as well. Slight osteophyte formation noted. No evidence of fracture or dislocation. AP and lateral of the right hip reveal severe [id number] articulation of the right hip with significant osteophyte formation and subchondral sclerosis. No evidence of AVN, fracture or dislocation. Impression: Osteoarthritis, {{left right bilater al*}} knee, symptomatic trochanteric bursitis with underlying osteoarthritis of the right hip Plan: Nature of the diagnosis discussed with the patient today. Both surgical and nonsurgical options were reviewed. This point recommend a repeat cortisone injection. Patient agreed.After aseptic technique and consent the {{right left bilater al*}} knee(s) was injected with 1 cc of Kenalog-40 and 5 cc of 0.25% Marcaine. Patient tolerated the procedure well postinjection precautions were reviewed. With fWith regard to right hip we discussed her underlying osteoarthritis and how her bursitis is more symptomatic. We discussed conservative treatment modalities including physical therapy, home exercise program, anti-inflammatories and injection therapies. Patient would like to trial a trochanteric bursal injection. To the patient's with regard follow-up with us {{as needed* in 3 months}} for discussion of continued conservative management versus surgical management. Danny Weathers PA-C [address] [facility] [address], [place], [address], [place] [facility] 10/01/2023 17:12:07 OBGyn Episode No OBEpisode recorded.
[2024-04-27 12:03] LABS: Basophils Absolute Auto 0.1 X10*3/uL (0.0-0.2); Eosinophils Absolute Auto 0.1 X10*3/uL (0.0-0.4); Hematocrit 37.2 % (37.0-47.0); Hemoglobin 12.3 g/dl (12.0-16.0); Imm Gran Abs Auto 0.02 X10*3/uL (0.00-0.03); Imm Gran Pct Auto 0.3 % (0.0-0.4); Lymphocytes Absolute Auto 2.1 X10*3/uL (1.2-4.9); Lymphocytes Percent Auto 30.5 % (20-40); Mean Corpuscular HGB Conc 33.1 g/dl (31.0-35.0); Mean Corpuscular Volume 96.9 fL (80.0-98.0); Monocytes Absolute Auto 0.4 X10*3/uL (0.1-1.2); Monocytes Percent Auto 6.4 % (2-11); Neutrophils Absolute Auto 4.1 x10*3/uL (2.0-8.3); Neutrophils Percent Auto 60.8 % (45-73); Platelet Count 194 X10*3/uL (160-400); Red Blood Count 3.84 X10*6/uL (4.20-5.50); Red Cell Distribution Width 12.6 % (11.0-16.0); White Blood Count 6.8 X10*3/uL (4.8-10.8)
== END 2024-04-27 10:42 | disposition home or self-care (01) ==
LOC: HO.LAB 10:41
PROVIDERS: PCP Internal Medicine Medical Oncology; Visit Provider Internal Medicine Medical Oncology
DX: I87.2 Venous insufficiency (chronic) (peripheral) (principal); I82.409 Acute embolism and thrombosis of unspecified deep veins of unspecified lower extremity; I44.7 Left bundle-branch block, unspecified
CPT/HCPCS: 36415; 85025

== ENCOUNTER 2024-07-13 09:48 | Emergency (ER) | payer MEDICARE, OTHER, SELFPAY ==
--- NOTE | ~2024-07-13 | XR_ITS ---
EXAMINATION: XR CHEST CLINICAL INFORMATION: palpitations COMPARISON: October 23, 2023. TECHNIQUE: Frontal view of the chest was obtained. FINDINGS: Bilateral apical lung scarring. No consolidation, pleural effusion or pneumothorax. Cardiomediastinal silhouette size is normal. Multilevel thoracic spondylosis. Osteopenia versus osteoporosis. XR/XR chest 1V IMPRESSION: No acute airspace disease. Consider ankylosing spondylitis, thoracic spine. Electronically signed by: Joaquín Bowen MD 07/13/2024 12:04 PM [facility]
[2024-07-13 10:18] VITALS: BP 142/66; PULSE 91; RESP 18; TEMP 36.6; O2SAT 98
--- NOTE | 2024-07-13 11:30 | ED_ITS ---
HPI - Arrhythmia/Palpitations General Chief Complaint: Arrhythmia/Palpitations Stated Complaint: Tachycardia, sent by Time Seen by Provider: 07/13/24 17:08 Source: patient Mode of arrival: ambulatory Limitations: no limitations History of Present Illness ED Provider: Dr. Gallagher HPI narrative: 84 year old female PMH: PMH of PE on eliquis, SVT, PVCS, LBBB who presents emergency department after having palpitations respiratory was seen in triage by Dr. Bain and labs were sent patient is requesting a D-dimer patient is not tachycardic or hypoxic patient is on Eliquis patient denies fevers chills nausea vomiting diarrhea. she states she only had the palpitations in her watch told her that her heart rate was 120 when she was I believe but it would not stay elevated she was never hypoxic. Patient really wanted D-dimer but was not ordered she decided she did not need 1 I again reiterated that there was any need for a D-dimer when I spoke to the patient she stated while then 1 of the tests were he had been doing well with the medications and we are going to go on. She states she has been on metoprolol but has not. She states she have some pain to her right calf and wants an ultrasound as well. She ultimately decided she wanted to get a D-dimer which was added onto lab work Related Data Home Medications ?Medication ?Instructions ?Recorded ?Confirmed latanoprost 0.005 % eye drops 1 drp ophthalmic-Left DAILY 03/01/20 01/15/24 cholecalciferol (vitamin D3) 50 50 mcg PO DAILY 05/31/21 01/15/24 mcg (2,000 unit) capsule multivitamin 1 tab PO DAILY 10/23/23 01/15/24 apixaban 5 mg tablet (Eliquis) 10 mg PO Q12H 11/04/23 01/15/24 amoxicillin 875 mg tablet 875 mg PO BID 01/15/24 01/15/24 Allergies Allergy/AdvReac Type Severity Reaction Status Date / Time No Known Allergies Allergy Verified 07/13/24 11:33 [No Known Allergies*] Review of Systems 2 Review of Systems: Constitutional : No Weight loss, No Fever, No Chills ENT/Mouth : No sore throat, No Rhinorrhea Eyes: No Eye Pain, No Swelling Cardiovascular : no Chest Pain, no SOB, no Dyspnea on Exertion, No Orthopnea, No Edema, pos Palpitations Respiratory : No Cough, No Sputum Gastrointestinal : pos Nausea, No Vomiting, No Diarrhea, No abdominal Pain, No Hematochezia, No Melena Genitourinary : No Dysuria, No Urinary Frequency Musculoskeletal : No joint pain, No Myalgias, No Joint Swelling Skin : No Skin Lesions, No rash Neuro : No Weakness, No Numbness, No Dizziness, No Headache Psych : No Anxiety/Panic, No Depression All other systems reviewed and are negative [facility] Past Medical History Attestation statement: The following information was validated with the patient. Source: old records reviewed Medical History FISCHER (dyspnea on exertion) LBBB (left bundle branch block) Pulmonary embolism Palpitations PVC (premature ventricular contraction) Surgical History History of meniscectomy of left knee Hx of meniscectomy of right knee H/O section Family History Family History Mother Pulmonary fibrosis Father Diabetes HTN (hypertension) Colon cancer Bladder cancer Sister Breast cancer Pulmonary fibrosis Brother COPD (chronic obstructive pulmonary disease) Son Addisons disease Social History Social History Household Members: Spouse Housing: House Do you presently have visiting nurse or other home services: No Alcohol intake: current Alcohol intake frequency: holidays/special occasions only Patient Tobacco Use Status: Former Tobacco user Years Smoked: 15 +/- Smoked in Last 30 Days: No e-Cigarette/Vaping Use: Never Used Second Hand Smoke Exposure: No Use of substances other than those prescribed or required for medical reasons: No Advance Directives: Yes Advance Directives on File: Yes Advance Directives Date on File: 10/27/23 Do you have a plan to hurt others: No Plan service: No Physical Exam 2 Vital Signs: Vital Signs: Last Vital Signs Temp 97.6 F 07/13/24 16:58 Pulse 88 07/13/24 16:58 Resp 12 07/13/24 16:58 BP 163/72 H 07/13/24 16:58 Pulse Ox 99 07/13/24 16:58 O2 Del Method Room Air 07/13/24 16:58 BMI result Body Mass Index 22.4 General: Well-appearing well-nourished in no signs of distress HEENT: Normocephalic atraumatic Neck: No signs of JVD, no masses no tenderness or lymphadenopathy Cardiovascular: Regular rate and rhythm Respiratory: Clear to auscultation bilaterally Abdomen: Soft nontender no masses Extremities: Normal pedal pulses no signs of edema Skin: Dry warm no rashes Back: No tenderness full ROM Course Course Course Narrative: 84 yo female with PMH of PE on eliquis, SVT, PVCS, LBBB she comes in today with c/o elevated HR yesterday afternoon up to 120s she notes any time she moves around she notes it goes up. She denies CP/SOB, no URI, NO GIB symptoms, no dizzines. She was on metoprolol due to feeling better she stopped it a year ago - 12.5 long acting metoprolol. No recent travel or procedures, she has no CP/SOB. She is requesting a ddimer though she has never had a clot through the eliquis and has not missed a dose. HR sitting 93 standing 103 BP was 159 then 147 when standing this is a RAPID medical screening exam the rest of the history and physical exam is to be done by the main provider. Reevaluation(s) Reevaluation #1: patient fell she had to have a D-dimer which was done in his negative I explained the results to the patient I will discharge her home at this time Medical Decision Making Medical Decision Making [facility] Narrative: I will check labs including x-ray and labs patient is not tachycardic or hypoxic and is on Eliquis very unlikely to have PE patient to get x-ray and labs were drawn on Differential Diagnosis Differential Diagnoses: The differential diagnosis associated with the presentation includes palpitations hyperthyroidism dehydration electrolyte abnormality weakness Admission/Observation Consideration of admission/observation: Escalation of care including admission/observation considered Lab Data [facility] Lab Attestation statement: I reviewed the patient's lab results. 07/13/24 12:17 07/13/24 12:17 Labs: Lab Results 07/13/24 07/13/24 Range/Units 12:17 17:44 WBC 7.3 (4.8-10.8) X10*3/uL RBC 4.20 (4.20-5.50) X10*6/uL Hgb 13.7 (12.0-16.0) g/dl Hct 40.4 (37.0-47.0) % MCV 96.2 (80.0-98.0) fL MCH 32.6 (27.0-33.0) pg MCHC 33.9 (31.0-35.0) g/dl RDW 13.0 (11.0-16.0) % Plt Count 210 (160-400) X10*3/uL MPV 8.9 L (9.4-12.3) fL Immature Gran % (Auto) 0.3 (0.0-0.4) % Neut % (Auto) 73.6 H (45-73) % Lymph % (Auto) 18.3 L (20-40) % Clay % (Auto) 6.0 (2-11) % Eos % (Auto) 1.0 (0-4) % Baso % (Auto) 0.8 (0-2) % Lymph # (Auto) 1.3 (1.2-4.9) X10*3/uL Clay # (Auto) 0.4 (0.1-1.2) X10*3/uL Eos # (Auto) 0.1 (0.0-0.4) X10*3/uL Baso # (Auto) 0.1 (0.0-0.2) X10*3/uL Abs Immat Gran (auto) 0.02 (0.00-0.03) X10*3/uL Absolute Neuts (auto) 5.4 (2.0-8.3) x10*3/uL Absolute Nucleated RBC 0.000 (0.0-0.012) X10*3/uL Nucleated RBC % (auto) 0.0 (0.0-0.2) /100WBC D-Dimer High Sensitivty < 150 NG/ML Sodium 143 (135-145) mmol/L Potassium 4.1 (3.3-5.1) mmol/L Chloride 108 (96-108) mmol/L Carbon Dioxide 28 (22-29) mmol/L Anion Gap 11 L (12-20) BUN 14 (9-16) mg/dL Creatinine 0.76 (0.5-1.4) mg/dL Estim Creat Clear Calc 45.1 Estimated GFR > 60 Random Glucose 161 H (60-115) mg/dL Calcium 9.7 (8.4-10.2) mg/dL Magnesium 2.5 (1.6-2.6) mg/dL Total Bilirubin 0.5 (0.0-1.0) mg/dL Direct Bilirubin 0.1 (0.0-0.5) mg/dL AST 32 H (5-31) U/L ALT 22 (0-31) U/L Alkaline Phosphatase 97 (39-117) U/L Troponin I High Sens 15.2 (<3.5-17.0) ng/L B-Natriuretic Peptide 84 (<100) pg/mL Total Protein 7.8 (6.5-8.0) g/dL Albumin 4.2 (3.5-5.0) g/dL TSH 1.10 (0.32-4.0) uIU/mL Independent Interpretation I performed an independent interpretation of an: EKG Interpretation: Rate: 82 Rhythm: NSR [place]: left Normal P waves. Normal RITA. LBBB ST T wave : no NEGAR, inverted t waves I and aVL qTC: 486 prior studies: no change from prior The study has been interpreted contemporaneously by me. . Discharge Plan Discharge Clinical Impression: Palpitations Patient Disposition: Home, Self-Care Instructions: Heart Palpitations (DC) Additional Instructions: you were seen today in the emergency department for an elevated heart rate. You had labs including a D-dimer and an x-ray done which were all negative. Please call follow up with her doctor if you have any other concerns please return to the ER. Prescriptions: No Action multivitamin Tablet 1 tab PO DAILY latanoprost 0.005 % drops 1 drp ophthalmic-Left DAILY cholecalciferol (vitamin D3) 50 mcg (2,000 unit) capsule 50 mcg PO DAILY amoxicillin 875 mg tablet 875 mg PO BID Eliquis 5 mg tablet 10 mg PO Q12H Rx Instructions: take eliquis 10 mg (2 tab) po bid until 11/01/23 ,then switch to eliquis 5 mg(1 tab) po bid afterwards Print Language: Guatemalan
[2024-07-13 11:31] VITALS: BP 157/69; PULSE 98; RESP 16; TEMP 36.4; O2SAT 100; BMI 22.4
--- NOTE | 2024-07-13 11:35 | ECG_ITS ---
Test Reason : palpitations Blood Pressure : */* mmHG Vent. Rate : 82 BPM Atrial Rate : 82 BPM P-R Int : 188 ms QRS Dur : 120 ms QT Int : 416 ms P-R-T Axes : 54 -40 76 degrees QTcB Int : 486 ms Normal sinus rhythm Left axis deviation Left bundle branch block Abnormal ECG When compared with ECG of 23-Oct-2023 11:41, No significant changes seen Referred By: Iqra Bain Electronically Signed By: JEROME RODRIGUEZ MD
--- NOTE | 2024-07-13 11:36 | PC.NURSE ---
Vital while standing in triage: 105 HR 142/77 BP
[2024-07-13 12:22] LABS: MANUAL DIFF FLAG NO
[2024-07-13 12:27] LABS: Basophils Absolute Auto 0.1 X10*3/uL (0.0-0.2); Basophils Percent Auto 0.8 % (0-2); Eosinophils Absolute Auto 0.1 X10*3/uL (0.0-0.4); Hematocrit 40.4 % (37.0-47.0); Hemoglobin 13.7 g/dl (12.0-16.0); Imm Gran Abs Auto 0.02 X10*3/uL (0.00-0.03); Imm Gran Pct Auto 0.3 % (0.0-0.4); Lymphocytes Absolute Auto 1.3 X10*3/uL (1.2-4.9); Lymphocytes Percent Auto 18.3 % (20-40); Mean Corpuscular HGB Conc 33.9 g/dl (31.0-35.0); Mean Corpuscular Hemoglobin 32.6 pg (27.0-33.0); Mean Corpuscular Volume 96.2 fL (80.0-98.0); Mean Platelet Volume 8.9 fL (9.4-12.3); Monocytes Absolute Auto 0.4 X10*3/uL (0.1-1.2); Neutrophils Absolute Auto 5.4 x10*3/uL (2.0-8.3); Neutrophils Percent Auto 73.6 % (45-73); Platelet Count 210 X10*3/uL (160-400); White Blood Count 7.3 X10*3/uL (4.8-10.8)
[2024-07-13 12:43] LABS: B Type Natriuretic Peptide 84 pg/mL (<100)
[2024-07-13 12:44] LABS: Troponin-I High Sensitivity 15.2 ng/L (<3.5-17.0)
[2024-07-13 12:45] LABS: Alanine Aminotransferase 22 U/L (0-31); Albumin Level 4.2 g/dL (3.5-5.0); Alkaline Phosphatase 97 U/L (39-117); Anion Gap 11 (12-20); Aspartate Amino Transferase 32 U/L (5-31); Bilirubin Direct 0.1 mg/dL (0.0-0.5); Bilirubin Total 0.5 mg/dL (0.0-1.0); Blood Urea Nitrogen 14 mg/dL (9-16); Calcium 9.7 mg/dL (8.4-10.2); Carbon Dioxide 28 mmol/L (22-29); Chloride 108 mmol/L (96-108); Creatinine Clr Calc Pharmacy 45.1; Estimated Glomerular Filt Rate > 60; Glucose Random 161 mg/dL (60-115); Magnesium 2.5 mg/dL (1.6-2.6); Potassium 4.1 mmol/L (3.3-5.1); Sodium 143 mmol/L (135-145); Total Protein 7.8 g/dL (6.5-8.0)
[2024-07-13 16:58] VITALS: BP 163/72; PULSE 88; RESP 12; TEMP 36.4; O2SAT 99
[2024-07-13 18:14] LABS: D Dimer High Sensitivity < 150 NG/ML
[2024-07-13 18:39] VITALS: BP 163/72; PULSE 88; RESP 12; TEMP 36.4; O2SAT 99
--- OUTSIDE RECORDS SUMMARY | 2024-07-13 20:27 | XMS_ITS | Patient Health Record ---
Author Organization Neal Dave III, MD Address [address] [place] [address] Care Team Providers Care Wood Furniture Assembler Name Role Phone Will Bower MD Primary Care Provider Neal Morales [phone] Allergies Allergen (clinical drug ingredient) Drug/Non Drug Allergy documented on EMR Reaction Allergy Type Onset Date Status No Known Drug Allergy Unknown Drug Allergy Active Results Component Value Reference Range Notes Fibrinogen Reviewed date:11/01/2023 05:55:02 PM Interpretation: Performing Lab:[facility], [address] [place] [address] Notes/Report: Fibrinogen 634 259-690 MG/DL Complete Blood Count Auto Di ff Reviewed date:11/01/2023 05:55:02 PM Interpretation: Performing Lab:[facility], [address] [place] [address] Notes/Report: White Blood Count 4.9 4.8-10.8 X10*3/uL [...] ff Reviewed date:11/10/2023 04:24:55 PM Interpretation: Performing Lab:[facility], [address] [place] [address] Notes/Report: White Blood Count 6.0 4.8-10.8 X10*3/uL [...] Fibrinogen Reviewed date:11/10/2023 04:24:55 PM Interpretation: Performing Lab:[address] [address] Notes/Report: Fibrinogen 561 259-690 MG/DL Complete Blood Count Auto Di ff Reviewed date:11/10/2023 04:24:55 PM Interpretation: Performing Lab:[facility], [address] [place] [address] Notes/Report: White Blood Count 5.4 4.8-10.8 X10*3/uL [...] Fibrinogen Reviewed date:11/10/2023 04:24:55 PM Interpretation: Performing Lab:[facility], [address] [place] [address] Notes/Report: Fibrinogen 530 259-690 MG/DL Complete Blood Count Auto Di ff Reviewed date:12/10/2023 01:05:01 PM Interpretation: Performing Lab:[facility], [address] [place] [address] Notes/Report: White Blood Count 7.1 4.8-10.8 X10*3/uL [...] um Reviewed date:12/14/2023 06:05:14 AM Interpretation: Performing Lab:[facility], [address] [place] [address] Notes/Report: Prot Elec - Total Protein 7.2 [...] (M-protein) detected. THIS TEST WAS PERFORMED AT: [email or web address] [address] [address] PARISH RILEY MD Complete Blood Count Auto Di ff Reviewed date:02/23/2024 07:22:15 AM Interpretation: Performing Lab:[facility], [address] [place] [address] Notes/Report: White Blood Count 7.6 4.8-10.8 X10*3/uL [...] Complete Blood Count Auto Di ff Reviewed date:04/27/2024 08:40:32 PM Interpretation: Performing Lab:[facility], [address] [place] [address] Notes/Report: White Blood Count 6.8 4.8-10.8 X10*3/uL Red Blood Count 3.84 4.20-5.50 X10*6/uL Hemoglobin 12.3 12.0-16.0 g/dl Hematocrit 37.2 37.0-47.0 % Mean Corpuscular Volume 96.9 80.0-98.0 fL Mean Corpuscular Hemoglobin 32.0 27.0-33.0 pg Mean Corpuscular HGB Conc 33.1 31.0-35.0 g/dl Red Cell Distribution Width 12.6 11.0-16.0 % Platelet Count 194 160-400 X10*3/uL Mean Platelet Volume 10.0 9.4-12.3 fL Neutrophils Percent Auto 60.8 45-73 % Imm Gran Pct Auto 0.3 0.0-0.4 % Lymphocytes Percent Auto 30.5 20-40 % Monocytes Percent Auto 6.4 2-11 % Eosinophils Percent Auto 1.0 0-4 % Basophils Percent Auto 1.0 0-2 % NRBC Pct Auto 0.0 0.0-0.2 /100WBC Neutrophils Absolute Auto 4.1 2.0-8.3 x10*3/u L Imm Gran Abs Auto 0.02 0.00-0.03 X10*3/uL Lymphocytes Absolute Auto 2.1 1.2-4.9 [...] Last Name Dave Referring Provider Speciality Internal M edicine Referred Organization [facility] Referred Provider Wilmer Tang Referred Address [address] [place] [address],[place], [id number], Referred Provider Specialty Vascular Chayito oren General Notes Digna Nur [facility] [address] [address] 10/11 11:16:51 AM EDT > ref/progress note/labs faxed to Dr Tang office today , Digna Lewis [facility] 11/20/2023 03:10:15 PM EDT > pt ended up inpt at was seen by Dr Tang and now is going to be seen by [facility] vascular Dr June Underwood Referral Priority Routine Reason recurrent DVT Diagnosis 1 Deep vein thrombosis (I82.409) Referral Organization Neal Dave III, MD Referring Provider First Name Neal Referring Provider Last Name Dave Referring Provider Speciality Internal M edicine Referred Provider Specialty Vascular Chayito oren General Notes Digna Lewis CM 11/20/2023 01:43:59 PM EDT > Called Saurabh Underwood office at [phone] asked them to see patient within the [...] Referring Provider Speciality Internal edicine Referred Provider [facility], Pulmonary Referred Provider Specialty Pulmonary Di wilmar General Notes Gissel Real 04/02/2024 09:12:23 AM > Referral and progress note faxed. Referral Priority Routine Referral Appointment Date 07/15/2024 Medications Medication SIG (Take, Route, Fr equency, Duration) Notes Start Date End Date Status metroNIDAZOLE 0.75 % External Active Latanoprost 0.005 % Ophthalmic Active Vitamin D Active Multivitamin Active Olopatadine HCl 0.1 % Ophthalmic Active Eliquis 5 MG Oral Active Lovenox 100 MG/ML as directed Injectio [...] Problem Status W/U Status Risk Notes Problem 3606894 Former smoker (Z87.891) Active confirmed She has a plan to prevent relapse in times of stress and illness. She was educated about the increased risk of thromboembolism in smokers. Problem 231970802 Anticoagulated (Z79.01) Active confirmed She has had no bleeding on the Eliquis. It will be stopped 4 days prior to the dental extractions and she will be bridged with enoxaparin. Problem Osteopenia (895052450) Osteopenia (M85.80) Active confirmed She was continued on current therapy. We discussed the use of calcium carbonate and vitamin D and exercise. Problem Glaucoma (18635610) Glaucoma (H40.9) Active confirmed She was continued on latanoprost. Problem 12592699 Left bundle branch block (I44.7) Active confirmed No change in he r therapy is indicated. Problem Pulmonary embolism (88375265) Pulmonary embolism (I26.99) Active confirmed He is currently chronically anticoagulated with Eliquis. She has had no sign since her last visit. She has had no bleeding. Problem 97200610 Venous insufficiency (I87.2) Active confirmed This is mild an d did not require any attention today. Problem Deep vein thrombosis (430155496) Deep vein thrombosis (I82.409) Active confirmed She has a history of DVT and pulmonary embolism in the past was treated with a course of anticoagulation. She is now on long-term anticoagulation. . 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 She has had no bleeding. Problem 965271229 Coronavirus infection (B34.2) Active confirmed She tested positive for cold. In February 2022 when hospitalized for pulmonary embolism. She has now recovered without long all symptoms. 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 She will avoid drugs that prolong this interval. Vital Signs Heart Rate 83 /min 05/03/2024 Temperature 98.2 degrees Fahrenheit 05/03/2024 Blood pressure diastolic 66 mm Hg 05/03/2024 Height 63 in 05/03/2024 Blood pressure systolic 138 mm Hg 05/03/2024 Weight 133 lbs 05/03/2024 BMI 23.56 kg/m2 05/03/2024 Encounters Encounter Location Date Provider Diagnosis Neal Dave III, MD [address] [place] [address] [place] [address] 10/27/2023 Neal Dave Deep vein thrombosis I82.409 ; Glaucoma H40.9 ; Osteopenia M85.80 ; Anticoagulated Z79.01 and Age-related incipient cataract of both eyes H25.093 Neal Dave III, MD [address] [place] [address] [place] [address] 11/20/2023 Neal Dave Deep vein thrombosis I82.409 ; Venous insufficiency I87.2 ; Left bundle branch block I44.7 ; Pulmonary embolism I26.99 ; Osteopenia M85.80 ; Glaucoma H40.9 ; Anticoagulated Z79.01 ; Overweight E66.3 and Former smoker Z87.891 Neal Dave III, MD [address] [place] [address] [place] [address] 12/18/2023 Neal Dave Pulmonary embolism I26.99 ; Anticoagulated Z79.01 ; Osteopenia M85.80 and Former smoker Z87.891 Neal Dave III, MD [address] [place] [address] [place] [address] 01/01/2024 Neal Dave Pulmonary embolism I26.99 ; Anticoagulated Z79.01 ; Deep vein thrombosis I82.409 ; Osteopenia M85.80 ; Former smoker Z87.891 and Venous insufficiency I87.2 Neal Dave III, MD [address] [place] [address] [place] [address] 02/24/2024 Neal Dave Pulmonary embolism I26.99 ; Deep vein thrombosis I82.409 ; Anticoagulated Z79.01 ; Glaucoma H40.9 ; Osteopenia M85.80 ; Former smoker Z87.891 and Venous insufficiency I87.2 Neal Dave III, MD [address] [place] [address] 03/10/2024 Neal Dave Deep vein thrombosis I82.409 ; Thrombopenia D69.6 ; Venous insufficiency I87.2 ; Anticoagulated Z79.01 and Former smoker Z87.891 Neal Dave III, MD [address] [place] [address] 05/03/2024 Neal Dave Pulmonary embolism I26.99 ; Venous insufficiency I87.2 ; Thrombopenia D69.6 and Osteopenia M85.80 Neal Dave III, MD [address] [place] [address] 07/13/2024 Neal Dave III, MD [address] [place] [address] [place] [address] 10/23/2023 Neal Dave III, MD [address] [place] [address] [place] [address] 11/24/2023 Neal Dave III, MD [address] [place] [address] [place] [address] 01/13/2024 Neal Dave III, MD [address] [place] [address] [place] [address] 01/16/2024 Neal Dave Preop testing Z01.81 8 Neal Dave III, MD [address] [place] [address] [place] [address] 04/02/2024 Neal Dave III, MD [address] [place] [address] [place] [address] 07/13/2024 Neal Dave III, MD [address] [place] [address] [place] [address] 10/28/2023 Neal Dave Assessments Encounter Date Diagnosis (ICD Code) Assessment Notes T reatment Notes Treatment Clinical Notes 10/27/2023 Glaucoma (ICD-10 - H40.9) She was [...] bleeding. Her CBC will be followed carefully. 05/03/2024 Pulmonary embolism (ICD-10 - I26.99) He is currently chronically anticoagulated with Eliquis. She has had no sign since her last visit. She has had no bleeding. 05/03/2024 Venous insufficiency (ICD-10 - I87.2) This is mild and did not require any attention today. 10/27/2023 Osteopenia (ICD-10 - M85.80) She was [...] edema in the legs at this time. 05/03/2024 Thrombopenia (ICD-10 - D69.6) Her platelet count has returned to normal and continues to be so. She has had no bleeding. 01/16/2024 Preop testing (ICD-10 - Z01.818) 10/27/2023 Anticoagulated (ICD-10 - Z79.01) She has [...] and she will be bridged with enoxaparin. 05/03/2024 Osteopenia (ICD-10 - M85.80) She was continued on current therapy. We discussed the use of calcium carbonate and vitamin D and exercise. 10/27/2023 Age-related incipient cataract of both eyes (ICD-10 - H25.093) She has had surgery and is under the care of an incubator operator. 11/20/2023 Osteopenia (ICD-10 - M85.80) She was [...] increased risk of thromboembolism in smokers. 11/20/2023 Glaucoma (ICD-10 - H40.9) She was [...] of recurrent DVT can be reduced. 11/20/2023 Overweight (ICD-10 - E66.3) Her body [...] Treatment Pending Test Test Name Order Date PROFILE, RANDOM (COMPREHENSIVE METABOLIC ) 05/03/2024 CBC w DIFF 05/03/2024 CBC w DIFF 11/20/2023 PROTHROMBIN TIME (PT, INR) 08/19/2022 PARTIAL THROMBOPLASTIN TIME (PTT) 2022 FIBRINOGEN 08/19/2022 ANTITHROMBIN III & AG (REFLEX) 3 HOMOCYSTEINE 08/19/2022 PROTEIN ELECTROPHORESIS, SERUM PROTEIN C ACTIVITY REFLEX AG 08/19/2022 PROTEIN S ACTIVITY REFLEX AG 08/19/2022 PT 80631H 08/19/2022 LUPUS ANTICOAGULANT PANEL 08/19/2022 FACTOR V LEIDEN 08/19/2022 US LEG BILATERAL VENOUS DOPPLER 01/01/20 CBC WITH AUTO DIFF 01/16/2024 CBC WITH AUTO DIFF 03/10/2024 Next Appt Details Provider Name:Neal Sweeneyrne, 11/01/2024 11:00:00 AM, [address] [place] [address] [address], [place], [address], Insurance Providers Payer Name Payer Address Payer Phone Subscriber Number Group Number Insured Name Patient Relationship to Insured Coverage Start Date Coverage End Date MEDICARE NGS [address] [place] [phone] [id number] ENRIQUETA NOEL Self - patient is the insured 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
--- OUTSIDE RECORDS SUMMARY | 2024-07-13 20:27 | XMS_ITS ---
Author Organization Neal Dave III, MD Address [address] [place] [address] Care Team Providers Care Utility Locate Technician Name Role Phone Will Bower MD Primary Care Provider UnavailNeal Powell [phone] Allergies Allergen (clinical drug ingredient) Drug/Non Drug [...] Provider Diagnosis Neal Dave III, MD [address] [place] [address] [address] [place] [address] 05/03/2024 Neal Dave Pulmonary embolism I26.99 ; [...] ov review labs, Routine check-up Provider Name:Neal Dave, 11/01/2024 11:00:00 AM, [address] [place] [address] [address], [place], [address], Progress Notes * NOEL LALAAlinaDOB:1939 (84 yo F)Acc No.[id number]:05/03/2024 Progress Notes Patient:?ENRIQUETA NOEL Provider:?Neal Dave MD :1940???Age:84 Y???Sex:Female D ate:05/03/2024 Address:[address], [phone] Pcp:Will Bower MD Subjective: * Chief Complaints: * ???ThrombophiliaHistory of D VTHistory of pulmonary emboliHistory of thrombocytopenia now resolved * HPI: ???COVID-19 Screening:?Questions?Have you had any new onset fever, chills, cough, congestion, sore throat, shortness of breath, muscle aches??No ???:? The patient, an 84-year-old female, reported having [...] health so she can fly again. * ROS:?General/Constitutional:?pain?only normal aches and pains.?Chills?denies.?Fatigue?admits.?Fever?denies.?ENT:?Decreased hearing?mild.?Respiratory:?Cough?denies.?Cardiovascular:?Chest pain with exertion?denies.?Dyspnea on exertion?denies.?Shortness of breath?denies.?Gastrointestinal:?Constipation?occasional.?Decreased appetite?denies.?Diarrhea?denies.?Heartburn?denies.?Nausea?denies.?Rectal bleeding?denies.?Vomiting?denies.?Hematology:?bruising?, recent easy bruising.?petechiae?denies.?Swollen glands?none have been noted.?Genitourinary:?Frequent urination?at night.?Musculoskeletal:?Muscle aches?denies.?Painful joints?denies.?Sciatica?denies.?Weakness?denies.?Skin:?Itching?denies.?Rash?denies.?Skin lesion(s)?denies.?Neurologic:?Difficulty speaking?denies.?Dizziness?denies.?Headache?denies.?Low back pain?denies.?Psychiatric:?Depressed mood?denies.? * Medical History:? * Surgical History:?Colonoscop y Right Cataract section Arthroscopy of knee No history * Hospitalization/Major Diagno stic Procedure:?No history * Family History:?Father: dece ased 88 yrs, Diabetes mellitus, colon cancer, bladder cancer, hypertension, diagnosed with CVD, Cancer, DM.?Mother: alive 84 yrs.?Siblings: alive, diagnosed with Cancer, DM.?1 brother(s) , 2 sister(s) . .? Her [...] addiction. One of her 4 children, has [place]'s disease. * Social History:?Tobacco Use:?Tobacco Use/Smoking?Patient is a?former smoker ?How long has it been since you last smoked??> 10 years ?Additional Findings: Tobacco Non-User?Ex-cigarette smoker ???She has been to her , Jordan for 54 years. They have 4 children and 9 grandchildren. She was born in [place], [place]. Her maiden name was Daron. She has no quaker objection to blood transfusion. * Medications:?TakingmetroNIDA ZOLE [...] All ergyno[Allergies Verified] Objective: * Vitals:?Ht: 63, Wt:133, BMI: 23.56, BP:138/66, HR:83, Temp:98.2, Ht-cm: 160.02, Wt-k.33. * ???Past Orders: Lab:Complete Blood Count Aut o Diff * Collection Date 04/27/2024 02/16/2024 12/10/2023 Collection Time 10:54 AM 11:00 AM 11:31 AM Order Date 04/27/2024 02/16/2024 12/10/2023 White Blood Count 6.8 (Ref Range: 4.8-10.8 X10*3/uL) 7.6 (Ref Range: 4.8-10.8 X10*3/uL) 7.1 (Ref Range: 4.8-10.8 X10*3/uL) Red Blood Count 3.84?L (Ref Range: 4.20-5.50 X10*6/uL) 3.83?L (Ref Range: 4.20-5.50 X10*6/uL) 4.03?L (Ref Range: 4.20-5.50 X10*6/uL) Hemoglobin 12.3 (Ref Range: 12.0-16.0 g/dl) 12.2 (Ref Range: 12.0-16.0 g/dl) 13.0 (Ref Range: 12.0-16.0 g/dl) Hematocrit 37.2 (Ref Range: 37.0-47.0 %) 37.8 (Ref Range: 37.0-47.0 %) 39.4 (Ref Range: 37.0-47.0 %) Mean Corpuscular Volume 96.9 (Ref Range: 80.0-98.0 fL) 98.7?H (Ref Range: 80.0-98.0 fL) 97.8 (Ref [...] 9.4-12.3 fL) 10.3 (Ref Range: 9.4-12.3 fL) 9.3?L (Ref Range: 9.4-12.3 fL) Neutrophils Percent Auto [...] developed, in no acute distress, calm and relaxed.?HEAD:?atraumatic, normocephalic.?EYES:?eomi, perrla, anicteric, conjugate.?EARS:?normal.?NOSE:?septum intact.?ORAL CAVITY:?normal, unremarkable.?NECK/THYROID:?no jugular venous distention, no carotid bruit, thyroid normal.?LYMPH NODES:?no enlarged lymph nodes,spleen normal.?SKIN:?no suspicious lesions, anicteric.?HEART:?no clicks, gallops, murmurs, or rubs, regular rhythm, S1, S2 normal, no s3, or vascular bruits.?LUNGS:?clear to auscultation .?BREASTS:??no masses palpable bilaterally.?ABDOMEN:?bowel sounds normal, no ascites, no organomegaly, no mass.?RECTAL EXAM:?not examined.?MUSCULOSKELETAL:?extremities unremarkable, no clubbing, cyanosis or edema.?PERIPHERAL PULSES:?normal.?NEUROLOGIC:?alert and oriented, cranial nerves 2-12 grossly intact, deep tendon reflexes 2+ symmetrical, motor strength normal upper and lower extremities, sensory exam intact.?PSYCH:?alert, oriented.? Assessment: * Assessment: 1.?Pulmonary embolism - I26. 99 (Primary)???Notes :He is currently chronically anticoagulated with Eliquis.? She has had no sign since her last visit.? She has had no bleeding.???2.?Venous insufficiency - I87.2???Notes :This is mild and did not require any attention today.???3.?Thrombopenia - D69.6???Notes :Her platelet count has returned to normal and continues to be so.? She has had no bleeding.???4.?Osteopenia - M85.80???Notes :She was continued on current therapy. We discussed the use of calcium carbonate and vitamin D and exercise.??? Plan: * Treatment: 2.?Venous insufficiency?LAB: PROFILE, RANDOM (COMPREHENSIVE METABOLIC) ?LAB: CBC w DIFF 3.?Thrombopenia?LAB: PROFILE, RANDOM (COMPREHENSIVE METABOLIC) ?LAB: CBC w DIFF 4.?Others? Continue metroNIDAZOLE Cream, 0.75 %, External;?Continue Latanoprost Solution, 0.005 %, Ophthalmic;?Continue Olopatadine HCl Solution, 0.1 %, Ophthalmic;?Continue Eliquis Tablet, 5 MG, Oral;?Continue Vitamin D;?Continue Multivitamin;?Continue Lovenox Solution Prefilled Syringe, 100 MG/ML, as directed, Injection, daily for 3 days prior to surgery.?? * Procedure Codes:? * Preventive Medicine:? ??Counseling:?Smoking/Tobacco Use?Patient counseled on the dangers of tobacco use and urged to quit.?05/03/2024 * Follow Up:?6 Months, In abou t 6 months (Reason: ov review labs, Routine check-up) * Images: * Sign off status: Completed true * Provider:?Neal Dave MD Date:?04/12 Generated for Monisha cyr/Edel/Aditi on:?07/13/2024 08:27 PM EST History and Physical Notes * HPI [...]
--- OUTSIDE RECORDS SUMMARY | 2024-07-13 20:28 | XMS_ITS ---
Author Organization Neal Dave III, MD Address [address] [place] [address] Care Team Providers Care Surveillance Observer Name Role Phone Will Bower MD Primary Care Provider Neal Morales [phone] Encounters Encounter Location Date Provider Diagnosis Neal Dave III, MD [address] [place] [address] [place] [address] 07/13/2024 Neal Dave Plan Of Treatment Next Appt Details Provider Name:Neal Dave, 11/01/2024 11:00:00 AM, [address] [place] [address] [address], [place], [address], Progress Notes * ENRIQUETA NOELDOB:1939 (84 yo F)Acc No.[id number]:07/13/2024 Patient:?ENRIQUETA NOEL :1940???Age:84 Y???Sex:Female Address:[address], [place], [address] * true * Date:? Generated for Mansoori ger/Edel/eTransmitting on:?07/13/2024 08:27 PM EST
--- OUTSIDE RECORDS SUMMARY | 2024-07-13 20:28 | XMS_ITS ---
Author Organization Neal Dave III, MD Address [address] [place] [address] Care Team Providers Care Police Records Clerk Name Role Phone Will Bower MD Primary Care Provider Neal Morales [phone] REASON FOR VISIT Message Encounters Encounter Location Date Provider Diagnosis Neal Dave III, MD [address] [place] [address] [place] [address] 07/13/2024 Neal Dave Plan Of Treatment Next Appt Details Provider Name:Neal Dave, 11/01/2024 11:00:00 AM, [address] [place] [address] [address], [place], [address], Progress Notes * ENRIQUETA NOELDOB:1939 (84 yo F)Acc No.[id number]:07/13/2024 Patient:?ENRIQUETA NOEL :1940???Age:84 Y???Sex:Female Address:[address], [place], [address] * * Date:?
== END 2024-07-13 18:40 | disposition home or self-care (01) ==
PROVIDERS: Emergency Medicine; Emergency Provider Student in an Organized Health Care Education/Training Program; PCP Internal Medicine
DX: I49.9 Cardiac arrhythmia, unspecified (principal); R00.2 Palpitations; R00.0 Tachycardia, unspecified; Z86.711 Personal history of pulmonary embolism; Z79.01 Long term (current) use of anticoagulants; Z87.891 Personal history of nicotine dependence; Z79.899 Other long term (current) drug therapy
CPT/HCPCS: 36415; 71045; 80048; 80076; 83735; 83880; 84443; 84484; 85025; 85379; 93005; 99283; 99285

== ENCOUNTER → 2024-07-13 11:35 | Outpatient (BNV) | payer MEDICARE, OTHER, SELFPAY | PROVIDERS: PCP Internal Medicine; Visit Provider Radiology Diagnostic Radiology | DX: R00.2 Palpitations (principal) | CPT/HCPCS: 71045 ==

== ENCOUNTER → 2024-07-13 11:35 | Outpatient (BNV) | payer MEDICARE, OTHER, SELFPAY | PROVIDERS: PCP Internal Medicine; Visit Provider Internal Medicine Cardiovascular Disease | DX: I44.7 Left bundle-branch block, unspecified (principal) | CPT/HCPCS: 93010 ==

== ENCOUNTER 2024-07-14 13:47 | Outpatient (AMB) | payer OTHER, SELFPAY ==
--- NOTE | 2024-07-14 13:55 | A.OFFVIS_ITS ---
Vital Signs 07/14/24 13:56 Height 5 ft 2 in Weight 129 lb 3.054 oz BMI 23.6 BP 110/60 Blood Pressure Location Lt brachial Position Sitting Pulse 67 Pulse Source Pulse Oximeter Intake Visit Reasons: f/up- palpitations Intake Note: f/up palpitations [facility], per Nurse Allyssa Internist Medical Doctor Md Required: No Accompanied by: Self / Same As Patient Allergies No Known Allergies [No Known Allergies*] Allergy (Verified 07/13/24 11:33) Medication List - Last Reconciled 07/14/24 by Jack Acosta MD apixaban (Eliquis) 10 mg PO Q12H cholecalciferol (vitamin D3) 50 mcg PO DAILY latanoprost 0.005% 1 drp ophthalmic-Left DAILY multivitamin 1 tab PO DAILY HPI Comments Details: Here for f/u 07/30/22: She had bilateral PE last year in the setting of COVID-19 infection. She also had air travel to [place]. Echocardiography at that time performed at [facility] showed mild RV dysfunction with EF of 50 55%. She has chronic left bundle-branch block. She has few questions including concern for fatigue and shortness of breath. She was able to walk 2 1/2 miles before but now able to walk 1-1-1/2 miles. She has no chest discomfort. She has been taking Eliquis without any issues. She had D-dimer performed recently which was normal. Her pulmonary embolism appears to be provoked due to COVID-19 and air travel. No dizziness or syncope. She was referred for echocardiography which showed normal biventricular function. She also saw Hematology and was subsequently taken off the Eliquis. 11/18/22: She returns for follow-up. EKG in the office is showing sinus rhythm 72 beats per minute, left bundle-branch block, QTC 462 milliseconds. 05/19/23: She is here for follow-up. She is getting some shortness of breath when she goes upstairs. No chest discomfort. She has been experiencing some dull ache in the legs when she walks and has been diagnosed with venous reflux involving the left leg. She also get burning sensation on her feet. She is seeing vascular surgery for venous ablation. 07/14/2024: She recently went to emergency department because she was getting tachycardia when she is stood up. Her heart rate was going up to 120s. This has happened to her twice in the last week. In the ER she had extensive workup including D-dimer levels which were negative. She was eventually discharged home. She is saying she is feeling somewhat better but concerned that why her heart rate went up couple of times. Previously she had pulmonary embolism and was tachycardic and she is correlating tachycardia with pulmonary embolism. I have reassured her that her D-dimer level is negative and she is on apixaban. She was previously on metoprolol but she has stopped taking that a year ago. [facility] Medical History FISCHER (dyspnea on exertion) LBBB (left bundle branch block) Pulmonary embolism Palpitations PVC (premature ventricular contraction) Surgical History (Reviewed 07/14/24 @ 13:57 by Gloria Prieto [facility]) History of meniscectomy of left knee Hx of meniscectomy of right knee H/O section Family History Mother Pulmonary fibrosis Father Diabetes HTN (hypertension) Colon cancer Bladder cancer Sister Breast cancer Pulmonary fibrosis Brother COPD (chronic obstructive pulmonary disease) Son Addisons disease Social History Household Members: Spouse Housing: House Do you presently have visiting nurse or other home services: No Alcohol intake: current Alcohol intake frequency: holidays/special occasions only Patient Tobacco Use Status: Former Tobacco user Years Smoked: 15 +/- e-Cigarette/Vaping Use: Never Used Second Hand Smoke Exposure: No Advance Directives Date on File: 10/27/23 service: No Review of Systems Const Denies chills, Denies fatigue, Denies fever(s), Denies frequent falls, Denies weakness, Denies weight gain and Denies weight loss ENT Denies dizziness Card Denies chest pain, Denies leg edema, Denies lightheadedness, Denies palpitations, Denies dyspnea and Denies dyspnea on exertion Resp Denies cough, Denies dyspnea and Denies dyspnea on exertion GI Denies hematochezia Musc Denies abnormal gait, Denies muscle weakness, Denies numbness, Denies radiating pain into limb and Denies tingling Neuro Denies abnormal gait, Denies dizziness, Denies frequent falls, Denies numbness, Denies tingling and Denies weakness Endo Denies fatigue and Denies palpitations Physical Exam Vital Signs: Last Vital Signs Pulse 67 07/14/24 13:56 BP 110/60 07/14/24 13:56 BMI result Body Mass Index 23.6 GENERAL APPEARANCE: in no acute distress, pleasant. NECK: no carotid bruit, no jugular venous distention. SKIN: no suspicious lesions, warm and dry. HEART: no murmurs, irregular rate and rhythm. LUNGS: clear to auscultation bilaterally. ABDOMEN: soft, nontender. EXTREMITIES: no edema. PERIPHERAL PULSES: equal. NEUROLOGIC: No gross deficits, AAO X 3 Office Procedures EKG Details: Sinus rhythm with premature atrial complexes 81 beats per minute, left axis deviation, left bundle-branch block, QTC 490 milliseconds. 30440-Arxebysfgmooyzdsx, Complete Assessment & Plan Assessment & Plan (1) Palpitations: Code(s): R00.2 - Palpitations Category: Medical (2) LBBB (left bundle branch block): Code(s): I44.7 - Left bundle-branch block, unspecified Category: Medical Plan Pleasant 84 year female who is here for follow-up. She has known history of left bundle-branch block. Previous pulmonary embolism and she is on 5 mg twice a day of Eliquis and has been taking it regularly. Recent presentation to ER with tachycardia and palpitations at home on standing up. She hydrates herself and drinks water every day. No obvious cause was found in the emergency department. She has premature atrial complexes on the EKG. I will arrange 2 weeks Holter monitor to rule out any atrial fibrillation. She is already on anticoagulation for DVT which will cover for any anticoagulation required in case we diagnosed atrial fibrillation. Follow-up in few months. Thank you for allowing me to participate in the care of your patient. Please feel free to contact me if you have any questions. Orders: Orders ECG 14 day holter monitor Today R00.2 - Palpitations Medications: New apixaban 5 mg PO BID 120 tabs 3RF Coding Level of Care Code Est Pt Level 4 (41646) Diagnoses Palpitations R00.2 LBBB (left bundle branch block) I44.7 CPT Codes EKG - CPT: 19995-Arhjaeykfenmbrfjd, Complete ([id number])
[2024-07-14 13:56] VITALS: BP 110/60; PULSE 67; BMI 23.6
--- OUTSIDE RECORDS SUMMARY | 2024-07-14 16:28 | XMS_ITS ---
Author Organization Neal Dave III, MD Address [address] [place] [address] Care Team Providers Care Physical Medicine Teacher Name Role Phone Will Bower MD Primary Care Provider UnavailNeal Powell [phone] Allergies Allergen (clinical drug ingredient) Drug/Non Drug [...] Date Provider Diagnosis Neal Dave III, MD [address] [place] [address] [address] [place] [address] 05/03/2024 Neal Dave Pulmonary embolism I26.99 ; [...] check-up Provider Name:Neal Dave, 11/01/2024 11:00:00 AM, [address] [place] [address] [address], [place], [address], Progress Notes * NOEL LALAAlinaDOB:1939 (84 yo F)Acc No.[id number]:05/03/2024 Progress Notes Patient:?ENRIQUETA NOEL Provider:?Neal Dave MD :1940???Age:84 Y???Sex:Female D ate:05/03/2024 Address:[address], [place] Pcp:Will Bower MD Subjective: * Chief Complaints: [...] addiction. One of her 4 children, has Dearborn's disease. * Social History:?Tobacco Use:?Tobacco Use/Smoking?Patient is a?former smoker ?How long has it been since you last smoked??> 10 years ?Additional Findings: Tobacco Non-User?Ex-cigarette smoker ???She has been to her , Jordan for 54 years. They have 4 children and 9 grandchildren. She was born in [place], [place]. Her maiden name was Daron. She has no tenriism objection to blood transfusion. * Medications:?TakingmetroNIDA ZOLE [...] Dave MD Date:?04/12 Generated for Monisha cyr/Edel/Aditi on:?07/14/2024 04:28 PM EST History and Physical Notes * [...]
--- OUTSIDE RECORDS SUMMARY | 2024-07-14 16:28 | XMS_ITS ---
Author Organization Neal Dave III, MD Address [address] [facility] [place] [address] Care Team Providers Care Horse Trader Name Role Phone Will Bower MD Primary Care Provider Neal Morales [phone] Encounters Encounter Location Date Provider Diagnosis Neal Dave III, MD [address] [place] [address] [place] [address] 07/13/2024 Neal Dave Plan Of Treatment Next Appt Details Provider Name:Neal Dave, 11/01/2024 11:00:00 AM, [address] [place] [address] [address] [place], [place], [address], Progress Notes * ENRIQUETA NOELDOB:1939 (84 yo F)Acc No.[id number]:07/13/2024 Patient:?ENRIQUETA NOEL :1940???Age:84 Y???Sex:Female Address:[address], [place], [address] * true * Date:? Generated for Mansoori ger/Edel/eTransmitting on:?07/14/2024 04:28 PM EST
--- OUTSIDE RECORDS SUMMARY | 2024-07-14 16:28 | XMS_ITS | Patient Health Record ---
Author Organization Neal Dave III, MD Address [address] [address] Care Team Providers Care Painting Machine Operator Name Role Phone Will Bower MD Primary Care Provider Neal Morales [phone] Allergies Allergen (clinical drug ingredient) Drug/Non Drug Allergy documented on EMR Reaction Allergy Type Onset Date Status No Known Drug Allergy Unknown Drug Allergy Active Results Component Value Reference Range Notes Fibrinogen Reviewed date:11/01/2023 05:55:02 PM Interpretation: Performing Lab:[facility], [address] [place] [address] Notes/Report: Fibrinogen 634 259-690 MG/DL Complete Blood Count Auto Di ff Reviewed date:11/01/2023 05:55:02 PM Interpretation: Performing Lab:[facility], [address] [place] [address] Notes/Report: White Blood Count 4.9 4.8-10.8 X10*3/uL [...] ff Reviewed date:11/10/2023 04:24:55 PM Interpretation: Performing Lab:[facility], [address] [place] [address] Notes/Report: White Blood Count 6.0 4.8-10.8 X10*3/uL [...] Fibrinogen Reviewed date:11/10/2023 04:24:55 PM Interpretation: Performing Lab:[address] [address] Notes/Report: Fibrinogen 561 259-690 MG/DL Complete Blood Count Auto Di ff Reviewed date:11/10/2023 04:24:55 PM Interpretation: Performing Lab:[facility], [address] [place] [address] Notes/Report: White Blood Count 5.4 4.8-10.8 X10*3/uL [...] Fibrinogen Reviewed date:11/10/2023 04:24:55 PM Interpretation: Performing Lab:[facility], [address] [place] [address] Notes/Report: Fibrinogen 530 259-690 MG/DL Complete Blood Count Auto Di ff Reviewed date:12/10/2023 01:05:01 PM Interpretation: Performing Lab:[facility], [address] [place] [address] Notes/Report: White Blood Count 7.1 4.8-10.8 X10*3/uL [...] um Reviewed date:12/14/2023 06:05:14 AM Interpretation: Performing Lab:[facility], [address] [place] [address] Notes/Report: Prot Elec - Total Protein 7.2 [...] (M-protein) detected. THIS TEST WAS PERFORMED AT: [facility] [address] [address] PARISH RILEY MD Complete Blood Count Auto Di ff Reviewed date:02/23/2024 07:22:15 AM Interpretation: Performing Lab:[facility], [address] [place] [address] Notes/Report: White Blood Count 7.6 4.8-10.8 X10*3/uL [...] ff Reviewed date:04/27/2024 08:40:32 PM Interpretation: Performing Lab:[facility], [address] [place] [address] Notes/Report: White Blood Count 6.8 4.8-10.8 X10*3/uL [...] Provider Speciality Internal M edicine Referred Organization [facility] Referred Provider Wilmer Tang Referred Address [address] [place] [address],[place], [id number], Referred Provider Specialty Vascular Chayito oren General Notes Digna Nur [facility] 10/11 11:16:51 AM EDT > ref/progress note/labs faxed to Dr Tang office today , Digna Lewis [facility] 11/20/2023 03:10:15 PM EDT > pt ended up inpt at was seen by Dr Tang and now is going to be seen by [facility] vascular Dr June Underwood Referral Priority Routine Reason recurrent DVT Diagnosis 1 Deep vein thrombosis (I82.409) Referral Organization Neal Dave III, MD Referring Provider First Name Neal Referring Provider Last Name Dave Referring Provider Speciality Internal M edicine Referred Provider Specialty Vascular Chayito oren General Notes Digna Lewis CM 11/20/2023 01:43:59 PM EDT > Called Saurabh Underwood office at [phone] asked them to see patient within the [...] Referring Provider Speciality Internal edicine Referred Provider [facility], Pulmonary Referred Provider Specialty Pulmonary Di [...] Problem Status W/U Status Risk Notes Problem 3159138 Former smoker (Z87.891) Active confirmed She has a plan to prevent relapse in times of stress and illness. She was educated about the increased risk of thromboembolism in smokers. Problem 763491658 Anticoagulated (Z79.01) Active confirmed She has had no bleeding on the Eliquis. It will be stopped 4 days prior to the dental extractions and she will be bridged with enoxaparin. Problem Osteopenia (994391784) Osteopenia (M85.80) Active confirmed She was continued on current therapy. We discussed the use of calcium carbonate and vitamin D and exercise. Problem Glaucoma (70310584) Glaucoma (H40.9) Active confirmed She was continued on latanoprost. Problem 87934649 Left bundle branch block (I44.7) Active confirmed No change in he r therapy is indicated. Problem Pulmonary embolism (27991177) Pulmonary embolism (I26.99) Active confirmed He is currently chronically anticoagulated with Eliquis. She has had no sign since her last visit. She has had no bleeding. Problem 65773018 Venous insufficiency (I87.2) Active confirmed This is mild an d did not require any attention today. Problem Deep vein thrombosis (672474393) Deep vein thrombosis (I82.409) Active confirmed She has a history of DVT and pulmonary embolism in the past was treated with a course of anticoagulation. She is now on long-term anticoagulation. . 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 She has had no bleeding. Problem 255945925 Coronavirus infection (B34.2) Active confirmed She tested positive for cold. In February 2022 when hospitalized for pulmonary embolism. She has now recovered without long all symptoms. 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) Active confirmed This was [...] Date Provider Diagnosis Neal Dave III, MD [address] [place] [address] [place] [address] 10/27/2023 Neal Dave Deep vein thrombosis I82.409 ; Glaucoma H40.9 ; Osteopenia M85.80 ; Anticoagulated Z79.01 and Age-related incipient cataract of both eyes H25.093 Neal Dave III, MD [address] [place] [address] [place] [address] 11/20/2023 Neal Daev Deep vein thrombosis I82.409 ; Venous insufficiency I87.2 ; Left bundle branch block I44.7 ; Pulmonary embolism I26.99 ; Osteopenia M85.80 ; Glaucoma H40.9 ; Anticoagulated Z79.01 ; Overweight E66.3 and Former smoker Z87.891 Neal Dave III, MD [address] [place] [address] [place] [address] 12/18/2023 Neal Dave Pulmonary embolism I26.99 ; Anticoagulated Z79.01 ; Osteopenia M85.80 and Former smoker Z87.891 Neal Dave III, MD [address] [place] [address] [place] [address] 01/01/2024 Neal Dave Pulmonary embolism I26.99 ; Anticoagulated Z79.01 ; Deep vein thrombosis I82.409 ; Osteopenia M85.80 ; Former smoker Z87.891 and Venous insufficiency I87.2 Neal Dave III, MD [address] [place] [address] [place] [address] 02/24/2024 Neal Dave Pulmonary embolism I26.99 ; Deep vein thrombosis I82.409 ; Anticoagulated Z79.01 ; Glaucoma H40.9 ; Osteopenia M85.80 ; Former smoker Z87.891 and Venous insufficiency I87.2 Neal Dave III, MD [address] [place] [address] 03/10/2024 Neal Dave Deep vein thrombosis I82.409 ; Thrombopenia D69.6 ; Venous insufficiency I87.2 ; Anticoagulated Z79.01 and Former smoker Z87.891 Neal Dave III, MD [address] [place] [address] [place] [address] 05/03/2024 Neal Dave Pulmonary embolism I26.99 ; Venous insufficiency I87.2 ; Thrombopenia D69.6 and Osteopenia M85.80 Neal Dave III, MD [address] [address] 10/23/2023 Neal Dave III, MD [address] [place] [address] [place] [address] 11/24/2023 Neal Dave III, MD [address] [place] [address] [place] [address] 01/13/2024 Neal Dave III, MD [address] [place] [address] [place] [address] 01/16/2024 Neal Dave Preop testing Z01.81 8 Neal Dave III, MD [address] [place] [address] [place] [address] 04/02/2024 Neal Dave III, MD [address] [place] [address] [place] [address] 07/13/2024 Neal Dave III, MD [address] [place] [address] [place] [address] 07/13/2024 Neal Dave III, MD [address] [place] [address] [place] [address] 10/28/2023 Neal Dave Assessments Encounter Date Diagnosis [...] and is under the care of an executive team leader. 11/20/2023 Osteopenia (ICD-10 - M85.80) She was [...] PROTEIN S ACTIVITY REFLEX AG 08/19/2022 PT 24378H 08/19/2022 LUPUS ANTICOAGULANT PANEL 08/19/2022 FACTOR V LEIDEN 08/19/2022 US LEG BILATERAL VENOUS DOPPLER 01/01/20 CBC WITH AUTO DIFF 01/16/2024 CBC WITH AUTO DIFF 03/10/2024 Next Appt Details Provider Name:Neal Sweeneyrne, 11/01/2024 11:00:00 AM, [address] [place] [address] [address], [place], [address], Insurance Providers Payer Name Payer Address Payer Phone Subscriber Number Group Number Insured Name Patient Relationship to Insured Coverage Start Date Coverage End Date MEDICARE NGS [address] [place] [phone] [id number] ENRIQUETA NOEL Self - patient is the insured [facility] [address] [place] [phone] [id number] ENRIQUETA NOEL Self - patient is the insured Medical (General) History Medical History History ICD Code DVT left femoral and popliteal veins Feb Multiple pulmonary emboli February 2022 Chronic anticoagulation Glaucoma H40.9 Osteopenia M85.80 Osteopenia Left bundle branch block, scrap 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
--- OUTSIDE RECORDS SUMMARY | 2024-07-14 16:28 | XMS_ITS ---
Author Organization Neal Dave III, MD Address [address] [place] [address] Care Team Providers Care Superior Court Judge Name Role Phone Will Bower MD Primary Care Provider Neal Morales [phone] REASON FOR VISIT Message Encounters Encounter Location Date Provider Diagnosis Neal Dave III, MD [address] [place] [address] [place] [address] 07/13/2024 Neal Dave Plan Of Treatment Next Appt Details Provider Name:Neal Dave, 11/01/2024 11:00:00 AM, [address] [place] [address] [place], [address], Progress Notes * ENRIQUETA NOELDOB:1939 (84 yo F)Acc No.[id number]:07/13/2024 Patient:?ENRIQUETA NOEL :1940???Age:84 Y???Sex:Female Address:[address], [place], [address] * true * Date:? Generated for Mansoori ger/Edel/eTransmitting on:?07/14/2024 04:28 PM EST
== END 2024-07-14 14:19 | disposition home or self-care (01) ==
PROVIDERS: PCP Internal Medicine; Visit Provider Internal Medicine Cardiovascular Disease
DX: R00.2 Palpitations (principal); I44.7 Left bundle-branch block, unspecified
CPT/HCPCS: 93010; 99214

== ENCOUNTER → 2024-07-14 13:47 | Outpatient (BNVA) | payer OTHER, SELFPAY | PROVIDERS: PCP Internal Medicine; Visit Provider Internal Medicine Cardiovascular Disease | DX: R00.2 Palpitations (principal); I44.7 Left bundle-branch block, unspecified; Z86.711 Personal history of pulmonary embolism; Z79.01 Long term (current) use of anticoagulants | CPT/HCPCS: 93005 ==

== ENCOUNTER → 2024-07-20 14:44 | Outpatient (REF) | payer MEDICARE, OTHER, SELFPAY ==
--- OUTSIDE RECORDS SUMMARY | 2024-07-20 18:06 | XMS_ITS ---
Author Organization Neal Dave III, MD Address [address] [facility] [place] [address] Care Team Providers Care Casing Soaker Name Role Phone Will Bower MD Primary Care Provider Neal Morales [phone] Encounters Encounter Location Date Provider Diagnosis Neal Dave III, MD [address] [place] [address] [place] [address] 07/13/2024 Neal Dave Plan Of Treatment Next Appt Details Provider Name:Neal Dave, 11/01/2024 11:00:00 AM, [address] [place] [address] [address], [place], [address], Progress Notes * ENRIQUETA NOELDOB:1939 (84 yo F)Acc No.[id number]:07/13/2024 Patient:?MONALISA ENRIQUETA :1940???Age:84 Y???Sex:Female Address:[address], [place], [address] * true * Date:? Generated for Printi ger/Edel/eTransmitting on:?07/20/2024 06:06 PM EDT
--- OUTSIDE RECORDS SUMMARY | 2024-07-20 18:06 | XMS_ITS ---
Author Organization Neal Dave III, MD Address [address] [facility] [address] Care Team Providers Care Plumbing And Heating Mechanic Name Role Phone Will Bower MD Primary Care Provider Neal Morales [phone] REASON FOR VISIT Thank you, Encounters Encounter Location Date Provider Diagnosis Neal Dave III, MD [address] [place] [address] [place] [address] 07/15/2024 Neal Dave Plan Of Treatment Next Appt Details Provider Name:Neal Dave, 11/01/2024 11:00:00 AM, [address] [place] [address] [place], [place], [address], Progress Notes * ENRIQUETA NOELDOB:1939 (84 yo F)Acc No.[id number]:07/15/2024 Patient:?NOELMIKE DIXONARET :1940???Age:84 Y???Sex:Female Address:[address], [place], [address] * true * Date:? Generated for Mansoori ger/Edel/eTransmitting on:?07/20/2024 06:06 PM EDT
--- OUTSIDE RECORDS SUMMARY | 2024-07-20 18:06 | XMS_ITS ---
Author Organization Neal Dave III, MD Address [address] [place] [address] Care Team Providers Care Human Resource Statistician Name Role Phone Will Bower MD Primary Care Provider Neal Morales [phone] REASON FOR VISIT Message Encounters Encounter Location Date Provider Diagnosis Neal Dave III, MD [address] [place] [address] [place] [address] 07/13/2024 Neal Dave Plan Of Treatment Next Appt Details Provider Name:Neal Dave, 11/01/2024 11:00:00 AM, [address] [place] [address] [place], [place], [address], Progress Notes * ENRIQUETA NOELDOB:1939 (84 yo F)Acc No.[id number]:07/13/2024 Patient:?NOELMIKE DIXONARET :1940???Age:84 Y???Sex:Female Address:[address], [place], [address] * true * Date:? Generated for Printi ger/Edel/eTransmitting on:?07/20/2024 06:06 PM EDT
--- OUTSIDE RECORDS SUMMARY | 2024-07-20 18:06 | XMS_ITS | Patient Health Record ---
Author Organization Neal Dave III, MD Address [address] [place] [address] Care Team Providers Care Guest Associate Name Role Phone Will Bower MD Primary Care Provider Neal Morales [phone] Allergies Allergen (clinical drug ingredient) Drug/Non Drug Allergy documented on EMR Reaction Allergy Type Onset Date Status No Known Drug Allergy Unknown Drug Allergy Active Results Component Value Reference Range Notes Fibrinogen Reviewed date:11/01/2023 05:55:02 PM Interpretation: Performing Lab:[facility], [address] [place] [phone] Notes/Report: Fibrinogen 634 259-690 MG/DL Complete Blood Count Auto Di ff Reviewed date:11/01/2023 05:55:02 PM Interpretation: Performing Lab:[facility], [address] [place] [phone] Notes/Report: White Blood Count 4.9 4.8-10.8 X10*3/uL [...] ff Reviewed date:11/10/2023 04:24:55 PM Interpretation: Performing Lab:[facility], [address] [place] [phone] Notes/Report: White Blood Count 6.0 4.8-10.8 X10*3/uL [...] Fibrinogen Reviewed date:11/10/2023 04:24:55 PM Interpretation: Performing Lab:[address] [address] Notes/Report: Fibrinogen 561 259-690 MG/DL Complete Blood Count Auto Di ff Reviewed date:11/10/2023 04:24:55 PM Interpretation: Performing Lab:[facility], [address] [place] [phone] Notes/Report: White Blood Count 5.4 4.8-10.8 X10*3/uL [...] Fibrinogen Reviewed date:11/10/2023 04:24:55 PM Interpretation: Performing Lab:[facility], [address] [place] [phone] Notes/Report: Fibrinogen 530 259-690 MG/DL Complete Blood Count Auto Di ff Reviewed date:12/10/2023 01:05:01 PM Interpretation: Performing Lab:[facility], [address] [place] [phone] Notes/Report: White Blood Count 7.1 4.8-10.8 X10*3/uL [...] um Reviewed date:12/14/2023 06:05:14 AM Interpretation: Performing Lab:[facility], [address] [place] [phone] Notes/Report: Prot Elec - Total Protein 7.2 [...] (M-protein) detected. THIS TEST WAS PERFORMED AT: [facility] [address] [address] PARISH RILEY MD Complete Blood Count Auto Di ff Reviewed date:02/23/2024 07:22:15 AM Interpretation: Performing Lab:[facility], [address] [place] [phone] Notes/Report: White Blood Count 7.6 4.8-10.8 X10*3/uL [...] ff Reviewed date:04/27/2024 08:40:32 PM Interpretation: Performing Lab:[facility], [address] [place] [phone] Notes/Report: White Blood Count 6.8 4.8-10.8 X10*3/uL [...] Provider Speciality Internal M edicine Referred Organization [facility] Referred Provider Wilmer Tang Referred Address [address] [place] [address],[place], [place],[id number], Referred Provider Specialty Vascular Chayito oren General Notes Digna Nur [facility] 10/11 11:16:51 AM EDT > ref/progress note/labs faxed to Dr Tang office today , Digna Lewis [facility] 11/20/2023 03:10:15 PM EDT > pt ended up inpt at was seen by Dr Tang and now is going to be seen by [facility] vascular Dr June Underwood Referral Priority Routine Reason recurrent DVT Diagnosis 1 Deep vein thrombosis (I82.409) Referral Organization Neal Dave III, MD Referring Provider First Name Neal Referring Provider Last Name Dave Referring Provider Speciality Internal M edicine Referred Provider Specialty Vascular Chayito oren General Notes Digna Lewis CM A 11/20/2023 01:43:59 PM EDT > Called Saurabh Underwood office at [phone] asked them to see patient within the [...] Referring Provider Speciality Internal edicine Referred Provider [facility], Pulmonary Referred Provider Specialty Pulmonary Di seases General Notes Gissel Real 04/02/2024 09:12:23 AM > Referral and progress note faxed. Referral Priority Routine Referral Appointment Date 07/15/2024 Medications Medication SIG (Take, Route, Fr equency, Duration) Notes Start Date End Date Status metroNIDAZOLE 0.75 % External Active Latanoprost 0.005 % Ophthalmic Active Eliquis 5 MG TAKE 1 TABLET BY SANAZ TH TWICE DAILY for 30 Active Vitamin D Active Multivitamin Active Olopatadine [...] Problem Status W/U Status Risk Notes Problem 3188759 Former smoker (Z87.891) Active confirmed She has a plan to prevent relapse in times of stress and illness. She was educated about the increased risk of thromboembolism in smokers. Problem 274026246 Anticoagulated (Z79.01) Active confirmed She has had no bleeding on the Eliquis. It will be stopped 4 days prior to the dental extractions and she will be bridged with enoxaparin. Problem Osteopenia (320027373) Osteopenia (M85.80) Active confirmed She was continued on current therapy. We discussed the use of calcium carbonate and vitamin D and exercise. Problem Glaucoma (77673554) Glaucoma (H40.9) Active confirmed She was continued on latanoprost. Problem 06348676 Left bundle branch block (I44.7) Active confirmed No change in he r therapy is indicated. Problem Pulmonary embolism (71830493) Pulmonary embolism (I26.99) Active confirmed He is currently chronically anticoagulated with Eliquis. She has had no sign since her last visit. She has had no bleeding. Problem 95312010 Venous insufficiency (I87.2) Active confirmed This is mild an d did not require any attention today. Problem Deep vein thrombosis (785758068) Deep vein thrombosis (I82.409) Active confirmed She has a history of DVT and pulmonary embolism in the past was treated with a course of anticoagulation. She is now on long-term anticoagulation. . 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 She has had no bleeding. Problem 997770640 Coronavirus infection (B34.2) Active confirmed She tested positive for cold. In February 2022 when hospitalized for pulmonary embolism. She has now recovered without long all symptoms. 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) Active confirmed This was [...] Date Provider Diagnosis Neal Dave III, MD [address] [place] [address] [place] [address] 10/27/2023 Neal Dave Deep vein thrombosis I82.409 ; Glaucoma H40.9 ; Osteopenia M85.80 ; Anticoagulated Z79.01 and Age-related incipient cataract of both eyes H25.093 Neal Dave III, MD [address] [place] [address] [place] [address] 11/20/2023 Neal Dave Deep vein thrombosis I82.409 ; Venous insufficiency I87.2 ; Left bundle branch block I44.7 ; Pulmonary embolism I26.99 ; Osteopenia M85.80 ; Glaucoma H40.9 ; Anticoagulated Z79.01 ; Overweight E66.3 and Former smoker Z87.891 Neal Dave III, MD [address] [place] [address] [place] [address] 12/18/2023 Neal Dave Pulmonary embolism I26.99 ; Anticoagulated Z79.01 ; Osteopenia M85.80 and Former smoker Z87.891 Neal Dave III, MD [address] [place] [address] [place] [address] 01/01/2024 Neal Dave Pulmonary embolism I26.99 ; Anticoagulated Z79.01 ; Deep vein thrombosis I82.409 ; Osteopenia M85.80 ; Former smoker Z87.891 and Venous insufficiency I87.2 Neal Dave III, MD [address] [place] [address] [place] [address] 02/24/2024 Neal Dave Pulmonary embolism I26.99 ; Deep vein thrombosis I82.409 ; Anticoagulated Z79.01 ; Glaucoma H40.9 ; Osteopenia M85.80 ; Former smoker Z87.891 and Venous insufficiency I87.2 Neal Dave III, MD [address] [place] [address] 03/10/2024 Neal Dave Deep vein thrombosis I82.409 ; Thrombopenia D69.6 ; Venous insufficiency I87.2 ; Anticoagulated Z79.01 and Former smoker Z87.891 Neal Dave III, MD [address] [place] [address] [place] [address] 05/03/2024 Neal Dave Pulmonary embolism I26.99 ; Venous insufficiency I87.2 ; Thrombopenia D69.6 and Osteopenia M85.80 Neal Dave III, MD [address] [place] [place] [address] 10/23/2023 Neal Dave III, MD [address] [place] [address] [place] [address] 11/24/2023 Neal Dave III, MD [address] [place] [address] [place] [address] 01/13/2024 Neal Dave III, MD [address] [place] [address] [place] [address] 01/16/2024 Neal Dave Preop testing Z01.81 8 Neal Dave III, MD [address] [place] [address] [place] [address] 04/02/2024 Neal Dave III, MD [address] [place] [address] [place] [address] 07/13/2024 Neal Dave III, MD [address] [place] [address] [place] [address] 07/13/2024 Neal Dave III, MD [address] [place] [address] [place] [address] 10/28/2023 Neal Dave III, MD [address] [place] [address] [place] [address] 07/15/2024 Neal Dave Assessments Encounter Date Diagnosis (ICD [...] and is under the care of an printing roller handler. 11/20/2023 Osteopenia (ICD-10 - M85.80) She was [...] (COMPREHENSIVE METABOLIC ) 05/03/2024 CBC w DIFF 11/20/2023 CBC w DIFF 05/03/2024 PROTHROMBIN TIME (PT, INR) 08/19/2022 PARTIAL THROMBOPLASTIN TIME (PTT) 2022 FIBRINOGEN 08/19/2022 ANTITHROMBIN III & AG (REFLEX) 3 HOMOCYSTEINE 08/19/2022 PROTEIN ELECTROPHORESIS, SERUM PROTEIN C ACTIVITY REFLEX AG 08/19/2022 PROTEIN S ACTIVITY REFLEX AG 08/19/2022 PT [id number] 08/19/2022 LUPUS ANTICOAGULANT PANEL 08/19/2022 FACTOR V LEIDEN 08/19/2022 US LEG BILATERAL VENOUS DOPPLER 01/01/20 CBC WITH AUTO DIFF 01/16/2024 CBC WITH AUTO DIFF 03/10/2024 Next Appt Details Provider Name:Neal Dave, 11/01/2024 11:00:00 AM, [address] [place] [address] , [address], [place], [address], Insurance Providers Payer Name Payer Address Payer Phone Subscriber Number Group Number Insured Name Patient Relationship to Insured Coverage Start Date Coverage End Date MEDICARE NGS [address] [place] [phone] [id number] ENRIQUETA NOEL Self - patient is the insured [facility] [address] [place] [address] [id number] ENRIQUETA NOEL Self - patient is the insured Medical (General) History Medical History History ICD Code DVT left femoral and popliteal veins Feb Multiple pulmonary emboli February 2022 Chronic anticoagulation Glaucoma H40.9 Osteopenia M85.80 Osteopenia 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
== END ==
LOC: HO.CARD 14:44
PROVIDERS: PCP Internal Medicine; Visit Provider Internal Medicine Cardiovascular Disease
DX: R00.2 Palpitations (principal)
CPT/HCPCS: 93246

== ENCOUNTER → 2024-07-20 14:47 | Outpatient (BNV) | payer MEDICARE, OTHER, SELFPAY | PROVIDERS: PCP Internal Medicine; Visit Provider Internal Medicine | DX: I47.10 Supraventricular tachycardia, unspecified (principal); I49.3 Ventricular premature depolarization | CPT/HCPCS: 93248 ==

== ENCOUNTER 2024-09-15 13:47 | Outpatient (AMB) | payer MEDICARE, OTHER, SELFPAY ==
--- NOTE | 2024-09-15 14:10 | A.OFFVIS_ITS ---
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 She also had air travel to [place]. Echocardiography at that time performed at [facility] showed mild RV dysfunction with EF of 50 55%. She has chronic left bundle-branch block. She has few questions including concern for fatigue and shortness of breath. She was able to walk 2 1/2 miles before but now able to walk 1-1-1/2 miles. She has no chest discomfort. She has been taking Eliquis without any issues. She had D-dimer performed recently which was normal. Her pulmonary embolism appears to be provoked due to COVID-19 and air travel. No dizziness or syncope. She was referred for echocardiography which showed normal biventricular function. She also saw Hematology and was subsequently taken off the Eliquis. 11/18/22: She returns for follow-up. EKG in the office is showing sinus rhythm 72 beats per minute, left bundle-branch block, QTC 462 milliseconds. 05/19/23: She is here for follow-up. She is getting some shortness of breath when she goes upstairs. No chest discomfort. She has been experiencing some dull ache in the legs when she walks and has been diagnosed with venous reflux involving the left leg. She also get burning sensation on her feet. She is seeing vascular surgery for venous ablation. 07/14/2024: She recently went to emergency department because she was getting tachycardia when she is stood up. Her heart rate was going up to 120s. This has happened to her twice in the last week. In the ER she had extensive workup including D-dimer levels which were negative. She was eventually discharged home. She is saying she is feeling somewhat better but concerned that why her heart rate went up couple of times. Previously she had pulmonary embolism and was tachycardic and she is correlating tachycardia with pulmonary embolism. I have reassured her that her D-dimer level is negative and she is on apixaban. She was previously on metoprolol but she has stopped taking that a year ago. 09/15/2024: She is here for follow-up. She was seen recently for palpitations underwent 2 week Holter monitor. She had some runs of supraventricular tachycardia. couple of strips can not be differentiated from atrial fibrillation but overall not heavy burden of arrhythmia. She was started on metoprolol 25 but she has been using it at half dose 12.5 mg daily. She is denying any palpitations. She has known thromboembolism in the past and is on apixaban 5 mg twice a day and has been told that she will be taking it lifelong. [facility], [facility] Medical History FISCHER (dyspnea on exertion) LBBB (left bundle branch block) Pulmonary embolism Palpitations PVC (premature ventricular contraction) Surgical History History of meniscectomy of left knee Hx of meniscectomy of right knee H/O section Family History Mother Pulmonary fibrosis Father Diabetes HTN (hypertension) Colon cancer Bladder cancer Sister Breast cancer Pulmonary fibrosis Brother COPD (chronic obstructive pulmonary disease) Son Addisons disease Social History Household Members: Spouse Housing: House Do you presently have visiting nurse or other home services: No Alcohol intake: current Alcohol intake frequency: holidays/special occasions only Patient Tobacco Use Status: Former Tobacco user Years Smoked: 15 +/- e-Cigarette/Vaping Use: Never Used Second Hand Smoke Exposure: No Advance Directives Date on File: 10/27/23 service: No Review of Systems Const Denies chills, Denies fatigue, Denies fever(s), Denies frequent falls, Denies weakness, Denies weight gain and Denies weight loss ENT Denies dizziness Card Denies chest pain, Denies leg edema, Denies lightheadedness, Denies palpitations, Denies dyspnea and Denies dyspnea on exertion Resp Denies cough, Denies dyspnea and Denies dyspnea on exertion GI Denies hematochezia Musc Denies abnormal gait, Denies muscle weakness, Denies numbness, Denies radiating pain into limb and Denies tingling Neuro Denies abnormal gait, Denies dizziness, Denies frequent falls, Denies numbness, Denies tingling and Denies weakness Endo Denies fatigue and Denies palpitations Physical Exam Vital Signs: Last Vital Signs Pulse 73 09/15/24 14:13 BP 120/60 09/15/24 14:13 BMI result Body Mass Index 23.9 GENERAL APPEARANCE: in no acute distress, pleasant. NECK: no carotid bruit, no jugular venous distention. SKIN: no suspicious lesions, warm and dry. HEART: no murmurs, regular rate and rhythm. LUNGS: clear to auscultation bilaterally. ABDOMEN: soft, nontender. EXTREMITIES: no edema. PERIPHERAL PULSES: equal. NEUROLOGIC: No gross deficits, AAO X 3 Assessment & Plan Assessment & Plan (1) LBBB (left bundle branch block): Code(s): I44.7 - Left bundle-branch block, unspecified Category: Medical (2) Pulmonary emboli: Code(s): I26.99 - Other pulmonary embolism without acute cor pulmonale Category: Medical Qualifiers: Pulmonary embolism type: multiple subsegmental (without acute cor pulmonale) Qualified Code(s): I26.94 - Multiple subsegmental pulmonary emboli without acute cor pulmonale (3) Palpitations: Code(s): R00.2 - Palpitations Category: Medical Plan [age] female with background history of left bundle-branch block, thromboembolism in the setting of COVID-19 infection and palpitations. She is denying any further palpitations. Holter monitoring has shown supraventricular tachycardia mostly. The episodes were short and self-limiting. She is on Toprol-XL 12.5 mg daily and has been doing well. She is on anticoagulation for thromboembolism and has been advised that she will be on long-term anticoagulation. Based on her weight and age she should be on 2.5 mg twice a day apixaban. We had a discussion about it and currently she wishes to stay on the 5 mg twice a day dosing. 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 Overall clinically stable. She can follow up with us in 6 months. Thank you for allowing me to participate in the care of your patient. Please feel free to contact me if you have any questions. Medications: Changed From metoprolol succinate ER (Toprol XL) 25 mg PO DAILY 60 tabs 3RF I47.1 - Supraventricular tachycardia To metoprolol succinate ER (Toprol XL) 12.5 mg PO DAILY I47.1 - Supraventricular tachycardia Coding Level of Care Code Est Pt Level 4 (84251) Diagnoses LBBB (left bundle branch block) I44.7 Pulmonary emboli I26.94 Pulmonary embolism type: multiple subsegmental (without acute cor pulmonale) Palpitations R00.2
[2024-09-15 14:13] VITALS: BP 120/60; PULSE 73; BMI 23.9
--- OUTSIDE RECORDS SUMMARY | 2024-09-15 15:06 | XMS_ITS ---
Author Organization Neal Dave III, MD Address [address] [place] [place] [address] Care Team Providers Care Applications Manager Name Role Phone Will Bower MD Primary Care Provider Neal Morales [phone] REASON FOR VISIT Message Encounters Encounter Location Date Provider Diagnosis Neal Dave III, MD [address] [place] [address] [place] [address] 07/13/2024 Neal Dave Plan Of Treatment Next Appt Details Provider Name:Neal Dave, 11/01/2024 11:00:00 AM, [address] [place] [address] [place], [address], Progress Notes * ENRIQUETA NOELDOB:1939 (84 yo F)Acc No.[id number]:07/13/2024 Patient:?NOELMIKE DIXONARET :1940???Age:84 Y???Sex:Female Address:[address], [place], [address] * true * Date:? Generated for Mansoori ger/Edel/eTransmitting on:?09/15/2024 03:06 PM EDT
--- OUTSIDE RECORDS SUMMARY | 2024-09-15 15:06 | XMS_ITS ---
Author Organization Neal Dave III, MD Address [address] [place] [address] Care Team Providers Care Manager Division Name Role Phone Will Bower MD Primary Care Provider Neal Morales [phone] REASON FOR VISIT Thank you, Encounters Encounter Location Date Provider Diagnosis Neal Dave III, MD [address] [place] [address] [place] [address] 07/15/2024 Neal Dave Plan Of Treatment Next Appt Details Provider Name:Neal Dave, 11/01/2024 11:00:00 AM, [address] [place] [address] [place], [address], Progress Notes * ENRIQUETA NOELDOB:1939 (84 yo F)Acc No.[id number]:07/15/2024 Patient:?NOELMIKE DIXONARET :1940???Age:84 Y???Sex:Female Address:[address], [place], [address] * true * Date:? Generated for Mansoori ger/Edel/eTransmitting on:?09/15/2024 03:06 PM EDT
--- OUTSIDE RECORDS SUMMARY | 2024-09-15 15:06 | XMS_ITS | Patient Health Record ---
Author Organization Neal Dave III, MD Address [address] [address] Care Team Providers Care Buttermaker Helper Name Role Phone Will Bower MD Primary Care Provider Neal Morales [phone] Allergies Allergen (clinical drug ingredient) Drug/Non Drug Allergy documented on EMR Reaction Allergy Type Onset Date Status No Known Drug Allergy Unknown Drug Allergy Active Results Component Value Reference Range Notes Fibrinogen Reviewed date:11/01/2023 05:55:02 PM Interpretation: Performing Lab:[facility], [address] [place] [phone] Notes/Report: Fibrinogen 634 259-690 MG/DL Complete Blood Count Auto Di ff Reviewed date:11/01/2023 05:55:02 PM Interpretation: Performing Lab:[facility], [address] [place] [phone] Notes/Report: White Blood Count 4.9 4.8-10.8 X10*3/uL [...] ff Reviewed date:11/10/2023 04:24:55 PM Interpretation: Performing Lab:[facility], [address] [place] [phone] Notes/Report: White Blood Count 6.0 4.8-10.8 X10*3/uL [...] Fibrinogen Reviewed date:11/10/2023 04:24:55 PM Interpretation: Performing Lab:[address] [address] Notes/Report: Fibrinogen 561 259-690 MG/DL Complete Blood Count Auto Di ff Reviewed date:11/10/2023 04:24:55 PM Interpretation: Performing Lab:[facility], [address] [place] [address] Notes/Report: White Blood Count 5.4 4.8-10.8 X10*3/uL [...] Fibrinogen Reviewed date:11/10/2023 04:24:55 PM Interpretation: Performing Lab:[facility], [address] [place] [address] Notes/Report: Fibrinogen 530 259-690 MG/DL Complete Blood Count Auto Di ff Reviewed date:12/10/2023 01:05:01 PM Interpretation: Performing Lab:[facility], [address] [place] [address] Notes/Report: White Blood Count 7.1 4.8-10.8 X10*3/uL [...] um Reviewed date:12/14/2023 06:05:14 AM Interpretation: Performing Lab:[facility], [address] [place] [address] Notes/Report: Prot Elec - Total Protein 7.2 [...] (M-protein) detected. THIS TEST WAS PERFORMED AT: [facility] [address] [address] PARISH RILEY MD Complete Blood Count Auto Di ff Reviewed date:02/23/2024 07:22:15 AM Interpretation: Performing Lab:[facility], [address] [place] [address] Notes/Report: White Blood Count 7.6 4.8-10.8 X10*3/uL [...] ff Reviewed date:04/27/2024 08:40:32 PM Interpretation: Performing Lab:[facility], [address] [place] [address] Notes/Report: White Blood Count 6.8 4.8-10.8 X10*3/uL [...] Provider Speciality Internal M edicine Referred Organization [facility] Referred Provider Wilmer Tang Referred Address [address] [place] [address],[place], [id number], Referred Provider Specialty Vascular Chayito oren General Notes Digna Nur [facility] 10/11 11:16:51 AM EDT > ref/progress note/labs faxed to Dr Tang office today , Digna Lewis [facility] 11/20/2023 03:10:15 PM EDT > pt ended up inpt at was seen by Dr Tang and now is going to be seen by [facility] vascular Dr June Underwood Referral Priority Routine Reason recurrent DVT Diagnosis 1 Deep vein thrombosis (I82.409) Referral Organization Neal Dave III, MD Referring Provider First Name Neal Referring Provider Last Name Dave Referring Provider Speciality Internal M edicine Referred Provider Specialty Vascular Chayito oren General Notes Digna Lewis CM A 11/20/2023 01:43:59 PM EDT > Called Saurabh Underwood office at [phone] asked them to see patient within the [...] Referring Provider Speciality Internal edicine Referred Provider [facility], Pulmonary Referred Provider Specialty Pulmonary Di [...] Problem Status W/U Status Risk Notes Problem 0769828 Former smoker (Z87.891) Active confirmed She has a plan to prevent relapse in times of stress and illness. She was educated about the increased risk of thromboembolism in smokers. Problem 460133230 Anticoagulated (Z79.01) Active confirmed She has had no bleeding on the Eliquis. It will be stopped 4 days prior to the dental extractions and she will be bridged with enoxaparin. Problem Osteopenia (721700336) Osteopenia (M85.80) Active confirmed She was continued on current therapy. We discussed the use of calcium carbonate and vitamin D and exercise. Problem Glaucoma (28645094) Glaucoma (H40.9) Active confirmed She was continued on latanoprost. Problem 39389448 Left bundle branch block (I44.7) Active confirmed No change in he r therapy is indicated. Problem Pulmonary embolism (81599523) Pulmonary embolism (I26.99) Active confirmed He is currently chronically anticoagulated with Eliquis. She has had no sign since her last visit. She has had no bleeding. Problem 17092226 Venous insufficiency (I87.2) Active confirmed This is mild an d did not require any attention today. Problem Deep vein thrombosis (013175113) Deep vein thrombosis (I82.409) Active confirmed She has a history of DVT and pulmonary embolism in the past was treated with a course of anticoagulation. She is now on long-term anticoagulation. . 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 Problem 054326800 Thrombopenia (D69.6) Active confirmed Her platelet count has returned to normal and continues to be so. She has had no bleeding. Problem 503967056 Coronavirus infection (B34.2) Active confirmed She tested positive for cold. In February 2022 when hospitalized for pulmonary embolism. She has now recovered without long all symptoms. 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) Active confirmed This was [...] Date Provider Diagnosis Neal Dave III, MD [address] [place] [address] [place] [address] 10/27/2023 Neal Dave Deep vein thrombosis I82.409 ; Glaucoma H40.9 ; Osteopenia M85.80 ; Anticoagulated Z79.01 and Age-related incipient cataract of both eyes H25.093 Neal Dave III, MD [address] [place] [address] [place] [address] 11/20/2023 Neal Dave Deep vein thrombosis I82.409 ; Venous insufficiency I87.2 ; Left bundle branch block I44.7 ; Pulmonary embolism I26.99 ; Osteopenia M85.80 ; Glaucoma H40.9 ; Anticoagulated Z79.01 ; Overweight E66.3 and Former smoker Z87.891 Neal Dave III, MD [address] [place] [address] [place] [address] 12/18/2023 Neal Dave Pulmonary embolism I26.99 ; Anticoagulated Z79.01 ; Osteopenia M85.80 and Former smoker Z87.891 Neal Dave III, MD [address] [place] [address] [place] [address] 01/01/2024 Neal Dave Pulmonary embolism I26.99 ; Anticoagulated Z79.01 ; Deep vein thrombosis I82.409 ; Osteopenia M85.80 ; Former smoker Z87.891 and Venous insufficiency I87.2 Neal Dave III, MD [address] [place] [address] [place] [address] 02/24/2024 Neal Dave Pulmonary embolism I26.99 ; Deep vein thrombosis I82.409 ; Anticoagulated Z79.01 ; Glaucoma H40.9 ; Osteopenia M85.80 ; Former smoker Z87.891 and Venous insufficiency I87.2 Neal Dave III, MD [address] [address] 03/10/2024 Neal Dave Deep vein thrombosis I82.409 ; Thrombopenia D69.6 ; Venous insufficiency I87.2 ; Anticoagulated Z79.01 and Former smoker Z87.891 Neal Dave III, MD [address] [place] [address] [place] [address] 05/03/2024 Neal Dave Pulmonary embolism I26.99 ; Venous insufficiency I87.2 ; Thrombopenia D69.6 and Osteopenia M85.80 Neal Dave III, MD [address] [address] 10/23/2023 Neal Dave III, MD [address] [place] [address] [place] [address] 11/24/2023 Neal Dave III, MD [address] [place] [address] [place] [address] 01/13/2024 Neal Dave III, MD [address] [place] [address] [place] [address] 01/16/2024 Neal Dave Preop testing Z01.81 8 Neal Dave III, MD [address] [place] [address] [place] [address] 04/02/2024 Neal Dave III, MD [address] [place] [address] [place] [address] 07/13/2024 Neal Dave III, MD [address] [place] [address] [place] [address] 07/13/2024 Neal Dave III, MD [address] [place] [address] [place] [address] 10/28/2023 Neal Dave III, MD [address] [place] [address] [place] [address] 07/15/2024 Neal Dave Assessments Encounter Date Diagnosis [...] and is under the care of an purification operator. 11/20/2023 Osteopenia (ICD-10 - M85.80) She [...] PROTEIN S ACTIVITY REFLEX AG 08/19/2022 PT 51341P 08/19/2022 LUPUS ANTICOAGULANT PANEL 08/19/2022 FACTOR V LEIDEN 08/19/2022 US LEG BILATERAL VENOUS DOPPLER 01/01/20 CBC WITH AUTO DIFF 01/16/2024 CBC WITH AUTO DIFF 03/10/2024 Next Appt Details Provider Name:Neal Dave, 11/01/2024 11:00:00 AM, [address] [place] [address] , NEGAR Suarez, [place], [address], Insurance Providers Payer Name Payer Address Payer Phone Subscriber Number Group Number Insured Name Patient Relationship to Insured Coverage Start Date Coverage End Date MEDICARE NGS [address] [place] [phone] [id number] ENRIQUETA NOEL Self - patient is the insured [employer] [address] [place] [address] [id number] ENRIQUETA NOEL Self - patient is the insured Medical (General) History Medical History History ICD Code DVT left femoral and popliteal veins Feb Multiple pulmonary emboli February 2022 Chronic anticoagulation Glaucoma H40.9 Osteopenia M85.80 Osteopenia 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
--- OUTSIDE RECORDS SUMMARY | 2024-09-15 15:06 | XMS_ITS ---
Author Organization Neal Dave III, MD Address [address] [place] [address] Care Team Providers Care Admeasurer Name Role Phone Will Bower MD Primary Care Provider Neal Morales [phone] Encounters Encounter Location Date Provider Diagnosis Neal Dave III, MD [address] [place] [address] [place] [address] 07/13/2024 Neal Dave Plan Of Treatment Next Appt Details Provider Name:Neal Dave, 11/01/2024 11:00:00 AM, [address] [place] [address] [place], [address], Progress Notes * ENRIQUETA NOELDOB:1939 (84 yo F)Acc No.[id number]:07/13/2024 Patient:?MONALISA ENRIQUETA :1940???Age:84 Y???Sex:Female Address:[address], [place], [address] * true * Date:? Generated for Printi ger/Edel/eTransmitting on:?09/15/2024 03:05 PM EDT
== END 2024-09-15 14:42 | disposition home or self-care (01) ==
LOC: HO.HCS 13:47
PROVIDERS: PCP Internal Medicine; Visit Provider Internal Medicine Cardiovascular Disease
DX: I44.7 Left bundle-branch block, unspecified (principal); I26.94 Multiple subsegmental thrombotic pulmonary emboli without acute cor pulmonale; R00.2 Palpitations
CPT/HCPCS: 99214

== ENCOUNTER → 2024-09-15 13:47 | Outpatient (BNVA) | payer MEDICARE, OTHER, SELFPAY | PROVIDERS: PCP Internal Medicine; Visit Provider Internal Medicine Cardiovascular Disease | DX: I44.7 Left bundle-branch block, unspecified (principal); I26.94 Multiple subsegmental thrombotic pulmonary emboli without acute cor pulmonale; R00.2 Palpitations; Z87.891 Personal history of nicotine dependence | CPT/HCPCS: 99212 ==

== ENCOUNTER 2024-10-29 14:56 | Outpatient (REF) | payer MEDICARE, OTHER, SELFPAY ==
--- OUTSIDE RECORDS SUMMARY | 2024-10-29 14:59 | XMS_ITS | Patient Health Record ---
Author Organization Neal Dave III, MD Address [address] [place] [address] Care Team Providers Care Financial Controller Name Role Phone Will Bower MD Primary Care Provider Neal Morales Unavailable [phone] Allergies Allergen (clinical drug ingredient) Drug/Non Drug Allergy documented on EMR Reaction Allergy Type Onset Date Status No Known Drug Allergy Unknown Drug Allergy Active Results Component Value Reference Range Notes Complete Blood Count Auto Di ff Reviewed date:11/10/2023 04:24:55 PM Interpretation: Performing Lab:[facility], [address] [place] [address] Notes/Report: White Blood Count 6.0 4.8-10.8 X10*3/uL [...] Fibrinogen Reviewed date:11/10/2023 04:24:55 PM Interpretation: Performing Lab:[facility], [address] [place] [address] Notes/Report: Fibrinogen 561 259-690 MG/DL Complete Blood Count Auto Di ff Reviewed date:11/10/2023 04:24:55 PM Interpretation: Performing Lab:[facility], [address] [place] [address] Notes/Report: White Blood Count 5.4 4.8-10.8 X10*3/uL [...] Fibrinogen Reviewed date:11/10/2023 04:24:55 PM Interpretation: Performing Lab:[facility], [address] [place] [phone] Notes/Report: Fibrinogen 530 259-690 MG/DL Complete Blood Count Auto Di ff Reviewed date:12/10/2023 01:05:01 PM Interpretation: Performing Lab:[facility], [address] [place] [phone] Notes/Report: White Blood Count 7.1 4.8-10.8 X10*3/uL [...] um Reviewed date:12/14/2023 06:05:14 AM Interpretation: Performing Lab:[address] [address] Notes/Report: Prot Elec - Total Protein 7.2 [...] (M-protein) detected. THIS TEST WAS PERFORMED AT: [facility] [address] [place] [phone] PARISH RILEY MD Complete Blood Count Auto Di ff Reviewed date:02/23/2024 07:22:15 AM Interpretation: Performing Lab:[address] [address] Notes/Report: White Blood Count 7.6 4.8-10.8 X10*3/uL [...] ff Reviewed date:04/27/2024 08:40:32 PM Interpretation: Performing Lab:[facility], [address] [place] [phone] Notes/Report: White Blood Count 6.8 4.8-10.8 X10*3/uL [...] 0.000 0.0-0.012 X10*3/uL Reason For Referral Reason recurrent DVT Diagnosis 1 Deep vein thrombosis (I82.409) Referral Organization Neal Dave III, MD Referring Provider First Name Neal Referring Provider Last Name Jolie Referring Provider Speciality Internal M edicine Referred Provider Specialty Vascular Chayito oren General Notes Digna Lewis CM 11/20/2023 01:43:59 PM EDT > Called Saurabh Underwood office at [phone] asked them to see patient within the [...] Provider Speciality Internal M edicine Referred Provider [facility] Referred Provider Specialty Pulmonary Idania urban General Notes D Gissel 04/02/2024 09:12:23 AM > Referral and progress note faxed. Referral Priority Routine Referral Appointment Date 07/15/2024 Medications Medication SIG (Take, Route, Fr equency, Duration) Notes Start Date End Date Status metroNIDAZOLE 0.75 % External Active Latanoprost 0.005 % Ophthalmic Active Eliquis 5 MG TAKE 1 TABLET BY TWICE DAILY for 30 Active Vitamin D [...] Problem Status W/U Status Risk Notes Problem 0956934 Former smoker (Z87.891) Active confirmed She has a plan to prevent relapse in times of stress and illness. She was educated about the increased risk of thromboembolism in smokers. Problem 207354921 Anticoagulated (Z79.01) Active confirmed She has had no bleeding on the Eliquis. It will be stopped 4 days prior to the dental extractions and she will be bridged with enoxaparin. Problem Osteopenia (479693798) Osteopenia (M85.80) Active confirmed She was continued on current therapy. We discussed the use of calcium carbonate and vitamin D and exercise. Problem Glaucoma (81807214) Glaucoma (H40.9) Active confirmed She was continued on latanoprost. Problem 48138791 Left bundle branch block (I44.7) Active confirmed No change in he r therapy is indicated. Problem Pulmonary embolism (27916429) Pulmonary embolism (I26.99) Active confirmed He is currently chronically anticoagulated with Eliquis. She has had no sign since her last visit. She has had no bleeding. Problem 99680160 Venous insufficiency (I87.2) Active confirmed This is mild an d did not require any attention today. Problem Deep vein thrombosis (452094473) Deep vein thrombosis (I82.409) Active confirmed She has a history of DVT and pulmonary embolism in the past was treated with a course of anticoagulation. She is now on long-term anticoagulation. . 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 Problem 356666655 Thrombopenia (D69.6) Active confirmed Her platelet count has returned to normal and continues to be so. She has had no bleeding. Problem 675449300 Coronavirus infection (B34.2) Active confirmed She tested positive for cold. In February 2022 when hospitalized for pulmonary embolism. She has now recovered without long all symptoms. 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) Active confirmed This was [...] Date Provider Diagnosis Neal Dave III, MD [address] [place] [address] [place], [place] [address] 11/20/2023 Neal Dave Deep vein thrombosis I82.409 ; Venous insufficiency I87.2 ; Left bundle branch block I44.7 ; Pulmonary embolism I26.99 ; Osteopenia M85.80 ; Glaucoma H40.9 ; Anticoagulated Z79.01 ; Overweight E66.3 and Former smoker Z87.891 Neal Dave III, MD [address] [place] [address] 12/18/2023 Neal Dave Pulmonary embolism I26.99 ; Anticoagulated Z79.01 ; Osteopenia M85.80 and Former smoker Z87.891 Neal Dave III, MD [address] [place] [address] [place] [address] 01/01/2024 Neal Dave Pulmonary embolism I26.99 ; Anticoagulated Z79.01 ; Deep vein thrombosis I82.409 ; Osteopenia M85.80 ; Former smoker Z87.891 and Venous insufficiency I87.2 Neal Dave III, MD [address] [place] [address] [place] [address] 02/24/2024 Neal Dave Pulmonary embolism I26.99 ; Deep vein thrombosis I82.409 ; Anticoagulated Z79.01 ; Glaucoma H40.9 ; Osteopenia M85.80 ; Former smoker Z87.891 and Venous insufficiency I87.2 Neal Dave III, MD [address] [place] [address] [place] [address] 03/10/2024 Neal Dave Deep vein thrombosis I82.409 ; Thrombopenia D69.6 ; Venous insufficiency I87.2 ; Anticoagulated Z79.01 and Former smoker Z87.891 Neal Dave III, MD [address] [place] [address] [place] [address] 05/03/2024 Neal Dave Pulmonary embolism I26.99 ; Venous insufficiency I87.2 ; Thrombopenia D69.6 and Osteopenia M85.80 Neal Dave III, MD [address] [place] [address] [place] [address] 11/24/2023 Neal Dave III, MD [address] [place] [address] [place] [address] 01/13/2024 Neal Dave III, MD [address] [place] [address] [place] [address] 01/16/2024 Neal Dave Preop testing Z01.81 8 Neal Dave III, MD [address] [place] [address] [place] [address] 04/02/2024 Neal Dave III, MD [address] [place] [address] [address] [place] [address] 07/13/2024 Neal Dave III, MD [address] [place] [address] [address] [place] [address] 07/13/2024 Neal Dave III, MD [address] [place] [address] [address] [place] [address] 07/15/2024 Neal Dave Assessments Encounter Date Diagnosis (ICD Code) Assessment Notes T reatment Notes Treatment Clinical Notes 11/20/2023 Venous insufficiency (ICD-10 - I87.2) She [...] and did not require any attention today. 11/20/2023 Left bundle branch block (ICD-10 - [...] bleeding. 01/16/2024 Preop testing (ICD-10 - Z01.818) 11/20/2023 Pulmonary embolism (ICD-10 - I26.99) She [...] carbonate and vitamin D and exercise. 11/20/2023 Osteopenia (ICD-10 - M85.80) She was [...] PROTEIN S ACTIVITY REFLEX AG 08/19/2022 PT 51281O 08/19/2022 LUPUS ANTICOAGULANT PANEL 08/19/2022 FACTOR V LEIDEN 08/19/2022 US LEG BILATERAL VENOUS DOPPLER 01/01/20 CBC WITH AUTO DIFF 01/16/2024 CBC WITH AUTO DIFF 03/10/2024 Next Appt Details Provider Name:Neal Donohuene, 11/01/2024 11:00:00 AM, [address] [place] [address] [address], [place], [address], Insurance Providers Payer Name Payer Address Payer Phone Subscriber Number Group Number Insured Name Patient Relationship to Insured Coverage Start Date Coverage End Date MEDICARE [place] [address] [place] [phone] [id number] NOELENRIQUETA DIXON Self - patient is the insured [facility] [address] [place] [address] [phone] [id number] ENRIQUETA NOEL Self - patient is the insured Medical (General) History Medical History History ICD Code DVT left femoral and popliteal veins Feb Multiple pulmonary emboli February 2022 Chronic anticoagulation Glaucoma H40.9 Osteopenia M85.80 Osteopenia 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
[2024-10-29 16:08] LABS: MANUAL DIFF FLAG NO
[2024-10-29 16:15] LABS: Basophils Absolute Auto 0.1 X10*3/uL (0.0-0.2); Eosinophils Absolute Auto 0.1 X10*3/uL (0.0-0.4); Eosinophils Percent Auto 1.7 % (0-4); Hematocrit 36.1 % (37.0-47.0); Hemoglobin 12.3 g/dl (12.0-16.0); Imm Gran Abs Auto 0.02 X10*3/uL (0.00-0.03); Imm Gran Pct Auto 0.4 % (0.0-0.4); Lymphocytes Absolute Auto 1.5 X10*3/uL (1.2-4.9); Lymphocytes Percent Auto 28.9 % (20-40); Mean Corpuscular HGB Conc 34.1 g/dl (31.0-35.0); Mean Corpuscular Hemoglobin 32.5 pg (27.0-33.0); Mean Corpuscular Volume 95.5 fL (80.0-98.0); Monocytes Absolute Auto 0.3 X10*3/uL (0.1-1.2); Monocytes Percent Auto 6.5 % (2-11); Neutrophils Absolute Auto 3.2 x10*3/uL (2.0-8.3); Neutrophils Percent Auto 61.5 % (45-73); Platelet Count 167 X10*3/uL (160-400); Red Blood Count 3.78 X10*6/uL (4.20-5.50); Red Cell Distribution Width 12.7 % (11.0-16.0); White Blood Count 5.2 X10*3/uL (4.8-10.8)
[2024-10-29 16:32] LABS: Alanine Aminotransferase 18 U/L (0-31); Albumin Level 3.9 g/dL (3.5-5.0); Alkaline Phosphatase 83 U/L (39-117); Anion Gap 10 (12-20); Aspartate Amino Transferase 23 U/L (5-31); Bilirubin Total 0.3 mg/dL (0.0-1.0); Blood Urea Nitrogen 19 mg/dL (9-16); Calcium 9.2 mg/dL (8.4-10.2); Carbon Dioxide 25 mmol/L (22-29); Chloride 109 mmol/L (96-108); Estimated Glomerular Filt Rate > 60; Glucose Random 88 mg/dL (60-115); Potassium 4.1 mmol/L (3.3-5.1); Sodium 140 mmol/L (135-145); Total Protein 6.4 g/dL (6.5-8.0)
== END 2024-10-29 14:57 | disposition home or self-care (01) ==
LOC: HO.HMGCLDS 14:56
PROVIDERS: PCP Internal Medicine Medical Oncology; Visit Provider Internal Medicine Medical Oncology
DX: I26.99 Other pulmonary embolism without acute cor pulmonale (principal); I87.2 Venous insufficiency (chronic) (peripheral); D69.6 Thrombocytopenia, unspecified
CPT/HCPCS: 36415; 80053; 85025

== ENCOUNTER 2024-11-11 13:18 | Outpatient (AMB) | payer MEDICARE, OTHER, SELFPAY ==
--- NOTE | 2024-11-11 13:24 | A.OFFVIS_ITS ---
Vital Signs 11/11/24 13:25 Height 5 ft 2 in Weight 124 lb 12.506 oz BMI 22.8 BP 100/56 L Blood Pressure Location Lt brachial Position Sitting Pulse 82 Pulse Source Monitor Intake Visit Reasons: PVS w-ekg Division Order Technician Required: No Accompanied by: Self / Same As Patient Allergies No Known Allergies (No Known Allergies*) Allergy (Verified 07/13/24 11:33) Medication List - Last Reconciled 11/11/24 by Bernabe Morris NP apixaban 2.5 mg PO BID cholecalciferol (vitamin D3) 50 mcg PO DAILY latanoprost 0.005% 1 drp ophthalmic-Left DAILY metoprolol succinate ER (Toprol XL) 25 mg PO DAILY multivitamin 1 tab PO DAILY HPI Comments Details: This is an 84-year-old female patient coming in for complaints of feeling PVCs on the current dose of metoprolol. Patient with a history of left bundle branch block, SVT, PVCs, and pulmonary embolism in 2023 currently on Eliquis therapy. Patient had called in stating that she was only taking 12.5 metoprolol daily for her PVCs and it was not helping anymore and therefore we recommended increasing it to 25 mg daily. Today, patient comes in because she states that she has increased her metoprolol to 25 mg daily however, patient continues to have some palpitations. Patient states that she usually takes her metoprolol around 10:00 and her symptoms are coming back around bedtime. Patient is otherwise denying any exertional chest pain, shortness of breath, dizziness, orthopnea, PND, leg edema, presyncope, syncope associated with the his palpitations. Patient is otherwise reporting compliance with her medications. Patient mentions that she is planning to travel to [place] in the next 2 weeks. [facility] Medical History FISCHER (dyspnea on exertion) LBBB (left bundle branch block) Pulmonary embolism Palpitations PVC (premature ventricular contraction) Surgical History History of meniscectomy of left knee Hx of meniscectomy of right knee H/O section Family History Mother Pulmonary fibrosis Father Diabetes HTN (hypertension) Colon cancer Bladder cancer Sister Breast cancer Pulmonary fibrosis Brother COPD (chronic obstructive pulmonary disease) Son Addisons disease Social History Household Members: Spouse Housing: House Do you presently have visiting nurse or other home services: No Alcohol intake: current Alcohol intake frequency: holidays/special occasions only Patient Tobacco Use Status: Former Tobacco user Years Smoked: 15 +/- e-Cigarette/Vaping Use: Never Used Second Hand Smoke Exposure: No Advance Directives Date on File: 10/27/23 service: No Review of Systems Const Denies chills, Denies fatigue, Denies fever(s), Denies frequent falls, Denies weakness, Denies weight gain and Denies weight loss ENT Denies dizziness Card Denies chest pain, Denies leg edema, Denies lightheadedness, Denies palpitations, Denies dyspnea and Denies dyspnea on exertion Resp Denies cough, Denies dyspnea and Denies dyspnea on exertion GI Denies hematochezia Musc Denies abnormal gait, Denies muscle weakness, Denies numbness, Denies radiating pain into limb and Denies tingling Neuro Denies abnormal gait, Denies dizziness, Denies frequent falls, Denies numbness, Denies tingling and Denies weakness Endo Denies fatigue and Denies palpitations Physical Exam Vital Signs: Last Vital Signs Pulse 82 11/11/24 13:25 BP 100/56 L 11/11/24 13:25 BMI result Body Mass Index 22.8 Const General: cooperative, healthy appearing, comfortable and no acute distress Orientation/consciousness: patient oriented x3 HEENT Head: Yes normal to inspection Neck Neck: Yes normal visual inspection, Yes trachea midline and Yes supple Chest Chest palpation & inspection: normal inspection of the chest Resp Effort & Inspection: normal respiratory effort Auscultation: clear to auscultation bilaterally, no crackles, no rales, no rhonchi and no wheezes Cardio Jugular venous distension: no JVD Palpation: normal PMI Rate: regular rate Rhythm: regular rhythm Heart sounds: S1 normal heart sound present, S2 normal heart sound present, no click, no gallops, no murmurs and no rubs Peripheral pulses: Peripheral pulses 2+ throughout GI Inspection: Yes normal to inspection Palpation (GI): Soft to palpation Auscultation: normal bowel sounds Skin General skin exam: no rashes or lesions noted Neuro General: patient oriented x3 Extrem General: Yes normal to inspection, No no pedal edema and No calf tenderness Psych Appearance: grossly normal Mental Status: mental status grossly normal Speech and movement: Normal speech and movement present Office Procedures EKG Details: EKG today shows normal sinus rhythm with frequent PVCs, rate 82 beats per minute, nonspecific ST-T waves, [place], [place] [address]-[id number], Complete Assessment & Plan Assessment & Plan (1) Palpitations: Code(s): R00.2 - Palpitations Category: Medical Plan: 07/20/2024-patient had underwent a Holter study which showed underlying sinus rhythm with an average heart rate of 75 beats per minute, supraventricular ectopy with a burden of 0.4%- longest episode of 45 beats, and ventricular ectopy with a burden of 0.6%- multiple runs noted. 08/20/2024-echo study at [facility] showed normal LV systolic function with an ejection fraction between 55-60%, no regional wall motion abnormalities. Trileaflet aortic valve, aortic valve appears mildly thickened. For history of PVCs, patient was on metoprolol therapy. Patient increased it to 25 mg daily about a week ago and still reports symptoms of palpitations. Patient is requesting increasing metoprolol to twice a day. Patient's blood pressure is soft today, however, at home blood pressures has been stable per patient. Advised taking 25 mg in the morning and 12.5 mg at bedtime to assess improvement of symptoms. Patient understanding of this plan. Patient also curious about ablation therapy for PVCs. Discussed in detail about the procedure, potential benefits, and indications. At this time, patient would like to pursue medical therapy and in case of it continuing to be ineffective, patient would like to be referred out to EP. (2) PVC (premature ventricular contraction): Code(s): I49.3 - Ventricular premature depolarization Category: Medical Plan: As above. (3) LBBB (left bundle branch block): Code(s): I44.7 - Left bundle-branch block, unspecified Category: Medical Plan: History of left bundle branch block. Clinically stable. (4) Pulmonary emboli: Code(s): I26.99 - Other pulmonary embolism without acute cor pulmonale Category: Medical Qualifiers: Pulmonary embolism type: multiple subsegmental (without acute cor pulmonale) Qualified Code(s): I26.94 - Multiple subsegmental pulmonary emboli without acute cor pulmonale Plan: On low-dose Eliquis therapy. Followed by pulmonology. Advised heart healthy diet, regular exercise, adequate hydration, med compliance, and management of vascular risk factors. Follow-up with Dr. Acosta in 3 months. In the interim, patient will call the office with any concerns or change in symptoms. This note was generated using voice recognition software. While every effort has been made to ensure accuracy and proper sales officer, there may be occasional errors that could affect the content or meaning of the described symptoms. Orders: Orders AMB EKG-In Office Today Bernabe Morris NP R00.2 - Palpitations Medications: Changed From apixaban 5 mg PO BID 120 tabs 3RF To apixaban 2.5 mg PO BID Jack Acosta MD From metoprolol succinate ER (Toprol XL) 25 mg PO DAILY I47.1 - Supraventricular tachycardia To metoprolol succinate ER (Toprol XL) 25 mg PO BID I47.1 - Supraventricular tachycardia Bernabe Morris NP Coding Level of Care Code Est Pt Level 4 (83193) Complex EM visit Add On G2211 Diagnoses Palpitations R00.2 PVC (premature ventricular contraction) I49.3 LBBB (left bundle branch block) I44.7 Pulmonary emboli I26.94 Pulmonary embolism type: multiple subsegmental (without acute cor pulmonale) CPT Codes EKG - CPT: 96190-Utychnnlpgprqyqjr, Complete ([id number]) Time Spent (min) 31 Comment Time spent in reviewing the chart, test results, assessment, counseling and documentation.
[2024-11-11 13:25] VITALS: BP 100/56; PULSE 82; BMI 22.8
--- OUTSIDE RECORDS SUMMARY | 2024-11-11 13:28 | XMS_ITS | Patient Health Record ---
Author Organization Neal Dave III, MD Address [address] [place] [address] Care Team Providers Care Director Distribution Name Role Phone Will Bower MD Primary Care Provider Neal Morales Unavailable [phone] Allergies Allergen (clinical drug ingredient) Drug/Non Drug Allergy documented on EMR Reaction Allergy Type Onset Date Status No Known Drug Allergy Unknown Drug Allergy Active Results Component Value Reference Range Notes Complete Blood Count Auto Di ff Reviewed date:12/10/2023 01:05:01 PM Interpretation: Performing Lab:[facility], [address] [place] [phone] Notes/Report: White Blood Count 7.1 4.8-10.8 X10*3/uL [...] um Reviewed date:12/14/2023 06:05:14 AM Interpretation: Performing Lab:[address] [address] Notes/Report: Prot Elec - Total Protein 7.2 [...] (M-protein) detected. THIS TEST WAS PERFORMED AT: [facility] [address] [address] PARISH RILEY MD Complete Blood Count Auto Di ff Reviewed date:02/23/2024 07:22:15 AM Interpretation: Performing Lab:[address] [address] Notes/Report: White Blood Count 7.6 4.8-10.8 X10*3/uL [...] ff Reviewed date:04/27/2024 08:40:32 PM Interpretation: Performing Lab:[facility], [address] [place] [phone] Notes/Report: White Blood Count 6.8 4.8-10.8 X10*3/uL [...] Complete Blood Count Auto Di ff Reviewed date:10/31/2024 01:46:33 PM Interpretation: Performing Lab:[facility], [address] [place] [phone] Notes/Report: White Blood Count 5.2 4.8-10.8 X10*3/uL Red Blood Count 3.78 4.20-5.50 X10*6/uL Hemoglobin 12.3 12.0-16.0 g/dl Hematocrit 36.1 37.0-47.0 % Mean Corpuscular Volume 95.5 80.0-98.0 fL Mean Corpuscular Hemoglobin 32.5 27.0-33.0 pg Mean Corpuscular HGB Conc 34.1 31.0-35.0 g/dl Red Cell Distribution Width 12.7 11.0-16.0 % Platelet Count 167 160-400 X10*3/uL Mean Platelet Volume 9.0 9.4-12.3 fL Neutrophils Percent Auto 61.5 45-73 % Imm Gran Pct Auto 0.4 0.0-0.4 % Lymphocytes Percent Auto 28.9 20-40 % Monocytes Percent Auto 6.5 2-11 % Eosinophils Percent Auto 1.7 0-4 % Basophils Percent Auto 1.0 0-2 % NRBC Pct Auto 0.0 0.0-0.2 /100WBC Neutrophils Absolute Auto 3.2 2.0-8.3 x10*3/u L Imm Gran Abs Auto 0.02 0.00-0.03 X10*3/uL Lymphocytes Absolute Auto 1.5 1.2-4.9 X10*3/u L Monocytes Absolute Auto 0.3 0.1-1.2 X10*3/uL Eosinophils Absolute Auto 0.1 0.0-0.4 X10*3/u L Basophils Absolute Auto 0.1 0.0-0.2 X10*3/uL NRBC Abs Auto 0.000 0.0-0.012 X10*3/uL Comprehensive Met. Panel Reviewed date:10/31/2024 01:46:33 PM Interpretation: Performing Lab:[facility], [address] [place] [phone] Notes/Report: Sodium 140 135-145 mmol/L Potassium 4.1 3.3-5.1 mmol/L Chloride 109 96-108 mmol/L Carbon Dioxide 25 22-29 mmol/L Anion Gap 10 12-20 Blood Urea Nitrogen 19 9-16 mg/dL Creatinine 0.88 0.5-1.4 mg/dL Estimated Glomerular Filt Rate > 60 Chronic Kidney Disease: Estimated GFR < 60 mL/min/1.73m2 Severe Kidney Disease: Estimated GFR < 15 mL/min/1.73m2 Glucose Random 88 60-115 mg/dL Calcium 9.2 8.4-10.2 mg/dL Bilirubin Total 0.3 0.0-1.0 mg/dL Aspartate Amino Transferase 23 5-31 U/L Alanine Aminotransferase 18 0-31 U/L Total Protein 6.4 6.5-8.0 g/dL Albumin Level 3.9 3.5-5.0 g/dL Alkaline Phosphatase 83 39-117 U/L Reason For Referral Reason recurrent DVT Diagnosis 1 Deep vein thrombosis (I82.409) Referral Organization Neal Dave III, MD Referring Provider First Name Neal Referring Provider Last Name Jolie Referring Provider Speciality Internal edicine Referred Provider Specialty Vascular Chayito oren General Notes Digna Lewis CM 11/20/2023 01:43:59 PM EDT > Called [facility]wood office at [phone] asked them to see patient within the [...] Referring Provider Speciality Internal edicine Referred Provider [facility], Pulmonary Referred Provider Specialty Pulmonary Idania urban [...] 5 MG TAKE 1 TABLET BY SANAZ TWICE DAILY Active Lovenox 100 MG/ML as directed Injectio n daily for 3 days prior to surgery 02/24/2024 Acti ve Olopatadine HCl 0.1 % Ophthalmic Active Vitamin D Active Multivitamin Active Immunizations Vaccine Route Administration Date Status Comme nts SHINGRIX Unknown 07/19/2019 Administered RSV Adjuvant Unknown 06/07/2023 Administered PCV20 Unknown 04/01/2023 Administered COVID-19 Comirnaty Pfizer-BioNTech Unknown 08/23/2021 A dministered COVID PFIZER Unknown 01/27/2021 Administered COVID PFIZER Unknown 06/13/2020 Administered COVID Pfizer Bivalent Unknown 01/18/2022 Administered COVID PFIZER Unknown 07/04/2020 Administered COVID-19 Vilma Pfizer-BioNTech Unknown 04/22/2023 A dministered Social History [...] Problem Status W/U Status Risk Notes Problem 9323826 Former smoker (Z87.891) Active confirmed She has a plan to prevent relapse in times of stress and illness. She was educated about the increased risk of thromboembolism in smokers. Problem 039019339 Anticoagulated (Z79.01) Active confirmed She has had no bleeding on the Eliquis. She is now over 82 years old and her weight is less than 60 kg. She is a candidate reduce her Eliquis 22.5 mg twice a day which I have done after a long discussion. Problem Osteopenia (768941055) Osteopenia (M85.80) Active confirmed She was continued on current therapy. We discussed the use of calcium carbonate and vitamin D and exercise. Problem Glaucoma (21315060) Glaucoma (H40.9) Active confirmed She was continued on latanoprost. Problem 58937452 Left bundle branch block (I44.7) Active confirmed No change in he r therapy is indicated. Problem Pulmonary embolism (I26.99) Active confirmed He is currently chronically anticoagulated with Eliquis. She has had no sign since her last visit. She has had no bleeding. Problem 83689203 Venous insufficiency (I87.2) Active confirmed This is mild an d did not require any attention today. Problem Deep vein thrombosis (691774313) Deep vein thrombosis (I82.409) Active confirmed She has a history of DVT and pulmonary embolism in the past was treated with a course of anticoagulation. She is now on long-term anticoagulation. . 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 Problem 656556942 Coronavirus infection (B34.2) Active confirmed She tested positive for cold. In February 2022 when hospitalized for pulmonary embolism. She has now recovered without long all symptoms. 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 She will avoid drugs that prolong this interval. 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 It is a risk factor for clotting. He remains anticoagulated. Vital Signs Heart Rate 90 /min 11/01/2024 Temperature 98.1 degrees Fahrenheit 11/01/2024 Blood pressure diastolic 71 mm Hg 11/01/2024 Height 63 in 11/01/2024 Blood pressure systolic 140 mm Hg 11/01/2024 Weight 125 lbs 11/01/2024 BMI 22.14 kg/m2 11/01/2024 Encounters Encounter Location Date Provider Diagnosis Neal Dave III, MD [address] [place] [address] [place] [address] 11/20/2023 Neal Dave Deep vein thrombosis I82.409 ; Venous insufficiency I87.2 ; Left bundle branch block I44.7 ; Pulmonary embolism I26.99 ; Osteopenia M85.80 ; Glaucoma H40.9 ; Anticoagulated Z79.01 ; Overweight E66.3 and Former smoker Z87.891 Neal Dave III, MD [address] [place] [address] [place] [address] 12/18/2023 Neal Dave Pulmonary embolism I26.99 ; Anticoagulated Z79.01 ; Osteopenia M85.80 and Former smoker Z87.891 Neal Dave III, MD [address] [place] [address] [place] [address] 01/01/2024 Neal Dave Pulmonary embolism I26.99 ; Anticoagulated Z79.01 ; Deep vein thrombosis I82.409 ; Osteopenia M85.80 ; Former smoker Z87.891 and Venous insufficiency I87.2 Neal Dave III, MD [address] [place] [address] [place] [address] 02/24/2024 Neal Dave Pulmonary embolism I26.99 ; Deep vein thrombosis I82.409 ; Anticoagulated Z79.01 ; Glaucoma H40.9 ; Osteopenia M85.80 ; Former smoker Z87.891 and Venous insufficiency I87.2 Neal Dave III, MD [address] [place] [address] [place] [address] 03/10/2024 Neal Dave Deep vein thrombosis I82.409 ; Thrombopenia D69.6 ; Venous insufficiency I87.2 ; Anticoagulated Z79.01 and Former smoker Z87.891 Neal Dave III, MD [address] [place] [address] [place] [address] 05/03/2024 Neal Dave Pulmonary embolism I26.99 ; Venous insufficiency I87.2 ; Thrombopenia D69.6 and Osteopenia M85.80 Neal Dave III, MD [address] [place] [address] [place] [address] 11/01/2024 Neal Dave Thrombopenia D69.6 ; Pulmonary embolism I26.99 ; Deep vein thrombosis I82.409 ; Osteopenia M85.80 ; Anticoagulated Z79.01 ; Former smoker Z87.891 and Elevated factor VIII level R79.1 Neal Dave III, MD [address] [place] [address] [place] [address] 11/24/2023 Neal Dave III, MD [address] [place] [address] [place] [address] 01/13/2024 Neal Dave III, MD [address] [place] [address] [place] [address] 01/16/2024 Neal Dave Preop testing Z01.81 8 Neal Dave III, MD [address] [place] [address] [place] [address] 04/02/2024 Neal Dave III, MD [address] [place] [address] [place] [address] 07/13/2024 Neal Dave III, MD [address] [place] [address] [place] [address] 07/13/2024 Neal Dave III, MD [address] [place] [address] [place] [address] 07/15/2024 Neal Dave Assessments Encounter Date Diagnosis [...] and did not require any attention today. 11/01/2024 Pulmonary embolism (ICD-10 - I26.99) He is currently chronically anticoagulated with Eliquis. She has had no sign since her last visit. She has had no bleeding. 11/01/2024 Thrombopenia (ICD-10 - D69.6) Her platelet count was slightly low in 2021 but has been normal since. This problem has resolved and will be removed from her problem list. 11/20/2023 Left bundle branch block (ICD-10 - [...] be so. She has had no bleeding. 11/01/2024 Deep vein thrombosis (ICD-10 - I82.409) She has a history of DVT and pulmonary embolism in the past was treated with a course of anticoagulation. She is now on long-term anticoagulation.. 01/16/2024 Preop testing (ICD-10 - Z01.818) 11/20/2023 [...] carbonate and vitamin D and exercise. 11/01/2024 Osteopenia (ICD-10 - M85.80) She was [...] increased risk of thromboembolism in smokers. 11/01/2024 Anticoagulated (ICD-10 - Z79.01) She has had no bleeding on the Eliquis. She is now over 82 years old and her weight is less than 60 kg. She is a candidate reduce her Eliquis .5 mg twice a day which I have done after a long discussion. 11/20/2023 Glaucoma (ICD-10 - H40.9) She was [...] increased risk of thromboembolism in smokers. 11/01/2024 Former smoker (ICD-10 - Z87.891) She [...] risk of recurrent DVT can be reduced. 11/01/2024 Elevated factor VIII level (ICD-10 - R79.1) This was recently found at [facility] by pulmonary. It is a risk factor for clotting. He remains anticoagulated. 11/20/2023 Overweight (ICD-10 - E66.3) Her body [...] Date PROFILE, FASTING (COMPREHENSIVE METABOLI C) 11/01/2024 PROFILE, RANDOM (COMPREHENSIVE METABOLIC ) 05/03/2024 TSH (THYROID STIMULATING HORMONE) 2024 CBC w DIFF 11/20/2023 CBC w DIFF 11/01/2024 CBC w DIFF 05/03/2024 PROTHROMBIN TIME (PT, INR) 08/19/2022 PARTIAL THROMBOPLASTIN TIME (PTT) 2022 FIBRINOGEN 08/19/2022 ANTITHROMBIN III & AG (REFLEX) HOMOCYSTEINE 08/19/2022 PROTEIN ELECTROPHORESIS, SERUM 4 PROTEIN C ACTIVITY REFLEX AG 08/19/2022 PROTEIN S ACTIVITY REFLEX AG 08/19/2022 PT [id number] 08/19/2022 LUPUS ANTICOAGULANT PANEL 08/19/2022 FACTOR V LEIDEN 08/19/2022 US LEG BILATERAL VENOUS DOPPLER 01/01/20 CBC WITH AUTO DIFF 01/16/2024 CBC WITH AUTO DIFF 03/10/2024 Lipid Panel 11/01/2024 Free T4 (Free Thyroxine) 11/01/2024 Next Appt Details Provider Name:Neal Donohuene, 01/31/2025 10:15:00 AM, [address] [place] [address] , [place] [address], [place], [address], Insurance Providers Payer Name Payer Address Payer Phone Subscriber Number Group Number Insured Name Patient Relationship to Insured Coverage Start Date Coverage End Date MEDICARE NGS [address] [place] [phone] [id number] ENRIQUETA NOEL Self - patient is the insured [facility] [address] [place] [address] [id number] ENRIQUETA NOEL Self - patient is the insured Medical (General) History Medical History History ICD Code DVT left femoral and popliteal veins Feb Multiple pulmonary emboli February 2022 Chronic anticoagulation Glaucoma H40.9 Osteopenia M85.80 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
--- OUTSIDE RECORDS SUMMARY | 2024-11-11 13:28 | XMS_ITS | Patient Health Record ---
Author Organization [facility] Address [address] [place] [address] Care Team Providers Care Health Records Technology Teacher Name Role Phone Lamar(inactive) Santiago HADDAD Primary Care Provider U Neal Bernabe Unavailable [phone] Reason For Referral No Information Medications Medication SIG (Take, Route, Fr equency, Duration) Notes Start Date End Date Status Multi Vitamin/Minerals Active Aspir-81 81 mg 1 po qd Activ e Immunizations Vaccine Route Administration Date Status Comme nts Influenza Unknown 01/10/2017 Administered Social History Tobacco Use: Social History Observation Description Date Details (start date - stop date) Former Smoker NA - NA Tobacco Use/Smoking Question Answer Notes Patient is a former smoker When did you stop smoking? 45 years ago Alcohol Screen Question Answer Notes Did you have a drink contain ing alcohol in the past year? Yes How often did you have a dri nk containing alcohol in the past year? 4 or more times a week (4 points) How many drinks did you have on a typical day when you were drinking in the past year? 1 or 2 drinks (0 point) How often did you have 6 or more drinks on one occasion in the past year? Never (0 point) Points 4 Interpretation Positive Section Notes: Nonsmoker x 40 yrs; 1 drink per day Nonsmoker x 45 yrs; 1 drink per day Nonsmoker x 45 yrs; 1 drink per day Problems Problem Type SNOMED Code ICD Code Onset Dates Problem Status W/U Status Risk Notes Problem 710893998 Abdominal bloating (R14.0) Active confirmed Problem 225887030 Change in bowel function (R19.4) Active confirmed Problem 47501237 Irritable bowel syndrome, unspecified type (K58.9) Active confirmed Plan Of Treatment Future Test Test Name Order Date COLONOSCOPY 07/23/2012 Insurance Providers Payer Name Payer Address Payer Phone Subscriber Number Group Number Insured Name Patient Relationship to Insured Coverage Start Date Coverage End Date MEDICARE OF [place] [address] [place] [address] [id number] ENRIQUETA SHELDON Self - patient is the insured [facility] [employer] [address] [place] [address] [id number] ENRIQUETA SHELDON Self - patient is the insured Medical (General) History Medical History History ICD Code Colonoscopy in 02/2013, in 1 , and in 2001--neg except for diverticulosis; tubular adenoma removed in 1996; negative colonoscopy in 05/2017--no polyp, no IBD, no microscopic colitis Denies [place],DM,CVA,Lung disease,renal dise ase Surgical History Surgery Date(Month/Year) 2 sections right and left knee surgery in 2011
--- OUTSIDE RECORDS SUMMARY | 2024-11-11 13:28 | XMS_ITS | Data Portability ---
Author Organization DAVID Kraig Alvarado [facility], [facility] Address [address] [place] [address] Care Team Providers Care Greaser Helper Name Role Phone OMKAR MORRIS Primary Care Provider [phone] Assessment Encounter Date Assessment Date Assessment LastModified by Organization Details LastModified Time 05/25/2024 05/25/2024 I am seeing the patient today under the supervision of Dr. Baron who was available but who did not see the patient. HPI: Patient comes in for recheck of bilateral knee pain. Has known osteoarthritis in the medial compartment of the knee(s). Been treated conservatively with cortisone injection to this point with 8 months relief of symptoms. No new injury or modalities. The patient has also been having difficulty about her right hip. has done well with a trochanteric bursal injection. She has been utilizing some stretches provided by her daughter who is a physical therapist. She states that they have been focused around her piriformis and this has been helping. Past family, medical, social history and review of systems has been reviewed, updated and is located in the patient s chart. Examination:The patient is well appearing and in no apparent distress. Alert and oriented x3. Vital signs per intake sheet. Examination of the bilateral knee reveals no effusion erythema or warmth. Decreased range of motion. Slight varus deformity. Point tender over the medial joint line. Calf soft and nontender. 4+/5 strength of knee flexion extension. right hip : Visual inspection reveals no erythema, ecchymoses, swelling or visible deformity. Moderate greater trochanter tenderness to palpation. Hip range of motion full without irritability. Strength 5/5. Negative BRITT. Negative FADDIR. Negative scouring test. Negative Stinchfield. Neurovascular intact. X-rays were reviewed today including 4 views of the bilateral knees which reveal moderate to severe medial compartment joint space narrowing. Narrowing is noted of the patellofemoral joint as well. Slight osteophyte formation noted. No evidence of fracture or dislocation. AP and lateral of the right hip reveal severe xdvb-jv-jybl articulation of the right hip with significant osteophyte formation and subchondral sclerosis. No evidence of AVN, fracture or dislocation. Impression: Osteoarthritis, bilateral knee, symptomatic trochanteric bursitis with underlying osteoarthritis of the right hip Plan: I explained the nature of the diagnosis with the patient and its treatment options both conservative and surgical. Conservative measures were discussed at length including but not limited to physical therapy, bracing, anti-inflammatori es and injection therapies. Patient would like to try another round of injection. Please see procedure documentation for further information about the injection performed today. The patient understands and agrees with the plan. They know to call if they have any further questions or concerns regarding their symptoms, or to follow up sooner if needed. [email or web address] Not available 05/25/2024 15:07:38 Plan of Treatment Reminders Order Date Submit Date Provider Last Modified By Organization Details Last Modified Time Details Appointments RECHECK 15 2024 09:15A Mandie Weathers PA-C Not available Not available Not available Lab None recorded . Referral None recorded . Procedures None recorded . Surgeries None recorded . Imaging XR, hip + pelvis, unilater al, 2 or 3 view - 113-- 2V HIP 2023 024 [facility], [address], [address], [place], [address], 10/22/2023 09:57:15 XR, knee, 4 or more view - 113- 4V KNEE 2023 [address] [facility], [address], [address], [place], [address], 10/22/2023 09:57:15 Medication Orders None recorded . Patient TargetsNo targets recorded. Patient InstructionsNo instructions recorded. Reason for Referral None Reported. Procedures Surgical History Date Name Laterality Status Provider Name and Address Organization Details Recorded Time Knee Kenalog 40 1cc Injection, Bilateral completed Jefry Benites PA-C [address], [place], [address], [facility] 10/08/2024 15:29:21 5 JZHip Inj completed Jefry Benites PA-C [address], [place], [address], [facility] 10/08/2024 15:29:17 5 JZHip Inj completed Danny Weathers PA-C [address], [place], [address], [facility] 05/25/2024 15:05:41 5 JZKNEE INJ Js completed Danny Weathers PA-C [address], [place], [address], [facility] 05/25/2024 12:52:11 4 Sports Knee 4&1 completed Danny Weathers PA-C [address], [place], [address], [facility] 09/23/2023 08:21:24 4 Hip Kenalog 1cc Injection, L/R completed Danny Weathers PA-C [address], [place], [address], [facility] 10/01/2023 16:59:12 Imaging Results None recorded. Procedure Notes None recorded. Medical Equipment None Reported. Allergies Allergen ID Allergen Name Allergen Category Reaction Reaction Severity Criticality Documentation Date Start Date Code Code System Note Provider Name and Address Organization Details Recorded Time 66540 Substance with sulfonami de structure and antibacte rial mechanism of action (substanc e) medicatio n Not available Not available Not available 07/14/20232022 02162 8003 SNOMED Not Available [facility] 11:09:37 Medications Name Sig Start Date Stop Date Status Note LastModified by Organization Details LastModified Time latanoprost 0.005 % eye drops 10/08 completed Not Available Not Available Not Available ciclopirox 8 % topical solution 10/08 completed Not Available Not Available Not Available amoxicillin 875 mg tablet 10/08 completed Not Available Not Available Not Available prednisolon e acetate 1 % eye drops,suspe nsion 10/08 completed Not Available Not Available Not Available benzonatate 100 mg capsule 10/08 completed Not Available Not Available Not Available cephalexin 500 mg capsule 10/08 completed Not Available Not Available Not Available erythromyci n 5 mg/gram (0.5 %) eye ointment 10/08 completed Not Available Not Available Not Available pseudoephed rine-guaife nesin ER 80-700 mg tablet,exte nded release Percocet 5-325MG Tablet 1-2 Q 4-6 Hours Prn 04/04 completed Statu s: 'Disc ontin ued'; Not Available Not Available Not Available olopatadine 0.1 % eye drops 10/08 completed Not Available Not Available Not Available metronidazo le 0.75 % topical cream 10/08 completed Not Available Not Available Not Available metoprolol succinate ER 25 mg tablet,exte nded release 24 hr active Not Available Not Available Not Available methylpredn isolone 4 mg tablets in a dose pack 10/08 completed Not Available Not Available Not Available amoxicillin 875 mg-potassiu m clavulanate 125 mg tablet 10/08 completed Not Available Not Available Not Available enoxaparin 100 mg/mL subcutaneou s syringe DIRECTED INJECTION DAILY FOR 3 DAYS PRIOR TO SURGERY 10/08 completed Not Available Not Available Not Available azelaic acid 15 % topical gel 10/08 completed Not Available Not Available Not Available Vitamin D active Not Available Not Veda ilable Not Available Eliquis 5 mg tablet active Not Available Not Available No t Available Vitals Date Recorded Body height Body mass index (BMI) Body weight Provider Name and Address Organization Details Last Updated DateTime 05/25/2024 160.02 cm 25 kg/m2 14855.52 g MARYCARMEN BEDOYA [place] [facility] 05/25/2024 14:50:07 Date Recorded Body height Body mass index (BMI) Body weight Provider Name and Address Organization Details Last Updated DateTime 10/01/2023 160.02 cm 25 kg/m2 90568.52 g RANJITH De La Garza [facility] 10/01/2023 17:08:22 Date Recorded Body height Body mass index (BMI) Body weight Provider Name and Address Organization Details Last Updated DateTime 10/08/2024 160.02 cm 25 kg/m2 86339.52 g MARYCARMEN L'HEUREUX [facility] 10/08/2024 14:56:08 Social History Question Answer Notes LastModified by [employer] Details LastModified Time Tobacco Smoking Status Never Smoker MARYCARMEN L'HEUREUX [facility], [facility] 10/08/2024 15:05:53 What Is Your Relationship Status? Information not available 10/08/2024 Sex: Unknown Functional Status Question Answer Note LastModified by Organizat [employer] Details LastModified Time Do you use any illicit or recreational drugs? No Information not available 10/08/2024 Do you or have you ever used any other forms of tobacco or nicotine? No Information not available 10/08/2024 What is your level of alcohol consumption? None Information not available 10/08/2024 Mental Status None recorded. Family History Nothing Reported. Medical History Condition Response Allergies/Hayfever N Coronary Artery Disease N Anxiety/Depression N Breathing or lung disorders N Emphysema N Nerve Disorders N Thyroid Problems N COPD N Pacemaker N Anemia N Kidney/Bladder Problems N Vascular Disease N Heart Trouble N Heart Attack (LA) N Gastrointestinal Disease N Cholesterol N Diabetes N Autoimmune disease N Bleeding Disorder N Inflammatory Joint disease N Orthotics N Arthritis Y Seizures/Epilepsy N Blood Clot Y AIDS/HIV N Congestive Heart Failure (CHF) N Acid Reflux (GERD) N Cancer N Stroke N Asthma N Circulation Problems Y Peripheral Vascular Disease N Sleep Apnea N Hepatitis N Heart Disease N Rheumatoid Arthritis N Arrhythmia N Pulmonary Embolism Y Headaches N Fibromyalgia N Hypertension N Osteoporosis N Gynecological HistoryNo gynecological history recorded. Obstetrics History GPAL:G 0 P 0 0 0 0 Past Encounters Encounter ID Performer Location Encounter Start Date Encounter Closed Date Diagnosis/Indication Diagnosis SNOMED-CT Code Diagnosis ICD10 Code Diagnosis Note [id number] KEND[facility] Whipple [address] [place] [address] 10/01/2023 16:17:03 10/22/2023 09:57:15 Bilateral osteoarthritis of knees 7602626193 03878 M17.0 Pain of bi lateral knee joints 8651054508 20135 M25.561 M25.562 Pain of ri ght hip joint 8133884106 47428 M25.551 Trochanter ic bursitis of right hip 7847994694 03071 M70.61 [id number] KENDALL Whipple [address] [place] [address] 05/25/2024 14:42:35 06/04/2024 12:26:57 Primary gonarthrosis, bilateral 566161655 M17.0 Trochanter ic bursitis of right hip 3289445209 85082 M70.61 [id number] KENDALL Chaudhary [address] [place] [address] 10/08/2024 14:42:50 10/22/2024 12:28:57 Primary gonarthrosis, bilateral 803186380 M17.0 Trochanter ic bursitis of right hip 0113815931 67332 M70.61 Health Concerns Section Related Observation LastModified by Organization Detai ls LastModified Time None Recorded Concern Status LastModified by Organization Details LastModified Time None Recorded Advance Directives Directive None Recorded Payers Insurance Date Sequence Insurance Name Policy Number Policy Daniel Covered Member ID Daniel Member ID Guarantor Name 10/22/2024 2 [facility] [id number] Jordan Noel [id number] Cheryl Noel 10/08/2024 1 MEDICARE [place]: [facility] Cheryl Noel [id number] Cheryl Noel Notes Date Note Type Note Provider Name and Address Organization Details Recorded Time 10/01/2023 text/html I am seeing the patient today under the supervision of Dr. Baron who was available but who did not see the patient. HPI: Patient comes in for recheck of bilateral knee pain. Has known osteoarthritis in the [...] reviewed, updated and is located in the patient s chart. Examination:The patient is well appearing and in no apparent distress. Alert and oriented x3. Vital signs per intake sheet. Examination of the bilateral knee reveals no effusion erythema or warmth. Decreased range of motion. Slight varus deformity. Point tender over the medial joint [...] lateral of the right hip reveal severe chok-ar-azni articulation of the right hip with significant osteophyte formation and subchondral sclerosis. No evidence of AVN, fracture or dislocation. Impression: Osteoarthritis, bilateral knee, symptomatic trochanteric bursitis with underlying osteoarthritis of the right hip Plan: Nature of the diagnosis discussed with the patient today. Both surgical and nonsurgical options were reviewed. This point recommend a repeat cortisone injection. Patient agreed.After aseptic technique and consent the bilateral knee(s) was injected with 1 cc of [...] the patient's with regard follow-up with us as needed for discussion of continued conservative management versus surgical management. Danny Weathers PA-C [address], [place], [address], [facility] 10/01/2023 17:12:07 10/08/2024 text/html I am seeing the patient today under the supervision of Dr. Baron who was available but who did not see the patient. HPI:Patient presents today follow-up regarding their Bi-lateral knee as well as right hip. They have had difficulty up and down stairs sitting standing as well as sleeping on her right side. Previous injection gave good relief until recent which she received approximately 4-1/2 months ago. Problems ambulating. Zcnl-bmb-dccgynd medications are helping somewhat but not significantly. Pain is constant aching sometimes sharp pain with giving out sensations. Past family, medical, social history and review of systems has been reviewed, updated and is located in the patient s chart. Examination:The patient is well appearing and in no apparent distress. Alert and oriented x3. Gait is symmetric. Examination of the Bi-lateral knee reveals no evidence of any edema, erythema, or warmth. No Deformity. Range of motion of the knee limited with mild discomfort at the end ranges. Mild effusion. Does have some tenderness to palpation about the medial hemijoint line. No tenderness to palpation about the lateral hemijoint line. Patellofemoral crepitus is noted. mild medial ligamentous laxity. Negative Gus s. Calf is supple and nontender. Neurovascularly intact distally. Right hip with tenderness over the trochanteric region. Mildly limited range of motion towards the endpoints but no significant pain. Hip strength 5/5 against resistance in all directions. Negative BRITT test. Negative Stinchfield test. Impression:Bi-lateral Knee osteoarthritis, right hip trochanteric bursitis Plan:We discussed the role of conservative management including medications, physical therapy, injection and bracing. At this point the patient was to proceed with injection. Please see procedure note. They will follow up with us as scheduled. Jefry Benites PA-C [address], [place], [address], [facility] 10/08/2024 15:29:50 OBGyn Episode No OBEpisode recorded.
== END 2024-11-11 13:52 | disposition home or self-care (01) ==
LOC: HO.HCS 13:19
PROVIDERS: PCP Internal Medicine Medical Oncology
DX: R00.2 Palpitations (principal); I49.3 Ventricular premature depolarization; I44.7 Left bundle-branch block, unspecified; I26.94 Multiple subsegmental thrombotic pulmonary emboli without acute cor pulmonale
CPT/HCPCS: 93010; 99214; G2211

== ENCOUNTER → 2024-11-11 13:18 | Outpatient (BNVA) | payer MEDICARE, OTHER, SELFPAY | PROVIDERS: PCP Internal Medicine Medical Oncology | DX: R00.2 Palpitations (principal); I49.3 Ventricular premature depolarization; I44.7 Left bundle-branch block, unspecified; I26.94 Multiple subsegmental thrombotic pulmonary emboli without acute cor pulmonale; R94.31 Abnormal electrocardiogram [ECG] [EKG]; Z79.01 Long term (current) use of anticoagulants; Z79.899 Other long term (current) drug therapy | CPT/HCPCS: 93005; 99212 ==

== ENCOUNTER 2025-01-25 06:05 | Outpatient (REF) | payer MEDICARE, OTHER, SELFPAY ==
--- OUTSIDE RECORDS SUMMARY | 2024-07-13 05:01 | XMS_ITS ---
Author Organization Neal Dave III, MD Address [address] [facility] [place] [address] Care Team Providers Care Gas Desulfurizer Name Role Phone Will Bower MD Primary Care Provider Neal Morales [phone] REASON FOR VISIT Message Encounters Encounter Location Date Provider Diagnosis Neal Dave III, MD [address] [place] [address] [place] [address] 07/13/2024 Neal Dave Plan Of Treatment Next Appt Details Provider Name:Neal Dave, 01/31/2025 10:15:00 AM, [address] [place] [address] [place], [address], Progress Notes * ENRIQUETA NOELDOB:1939 (84 yo F)Acc No.[id number]:07/13/2024 Patient: Reg ENRIQUETA RIVER :1940 A ge:84 Y S ex:Female Address:[address], [place], [address] * true * Date: Generated for Mansoori ger/Edel/eTransmitting on: 0 01/25/2025 06:10 AM EDT
--- OUTSIDE RECORDS SUMMARY | 2024-07-13 05:24 | XMS_ITS ---
Author Organization Neal Dave III, MD Address [address] [place] [address] Care Team Providers Care Marine Animal Trainer Name Role Phone Will Bower MD Primary Care Provider Neal Morales [phone] Encounters Encounter Location Date Provider Diagnosis Neal Dave III, MD [address] [place] [address] [place] [address] 07/13/2024 Neal Dave Plan Of Treatment Next Appt Details Provider Name:Neal Dave, 01/31/2025 10:15:00 AM, [address] [place] [address] [place], [address], Progress Notes * ENRIQUETA NOELDOB:1939 (84 yo F)Acc No.[id number]:07/13/2024 Patient: Reg ENRIQUETA RIVER :1940 A ge:84 Y S ex:Female Address:[address], [place], [address] * true * Date: Generated for Printi ng/Fariccog/eTransmitting on: 0 01/25/2025 06:09 AM EDT
--- OUTSIDE RECORDS SUMMARY | 2024-07-15 13:03 | XMS_ITS ---
Author Organization Neal Dave III, MD Address [address] [facility] [place] [address] Care Team Providers Care Filler Room Attendant Name Role Phone Will Bower MD Primary Care Provider Neal Morales [phone] REASON FOR VISIT Thank you, Encounters Encounter Location Date Provider Diagnosis Neal Dave III, MD [address] [place] [address] [place] [address] 07/15/2024 Neal Dave Plan Of Treatment Next Appt Details Provider Name:Neal Dave, 01/31/2025 10:15:00 AM, [address] [place] [address] [place], [address], Progress Notes * ENRIQUETA NOELDOB:1939 (84 yo F)Acc No.[id number]:07/15/2024 Patient: Reg ENRIQUETA RIVER :1940 A ge:84 Y S ex:Female Address:[address], [place], [address] * true * Date: Generated for Mansoori ger/Edel/eTransmitting on: 0 01/25/2025 06:09 AM EDT
--- OUTSIDE RECORDS SUMMARY | 2024-11-01 11:00 | XMS_ITS ---
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 It is a risk factor for clotting. He remains anticoagulat ed. Vital Signs Temperature 98.1 degrees Fahrenheit 11/02/19 25 Blood pressure systolic 140 mm Hg 11/02/19 25 Blood pressure diastolic 71 mm Hg 025 Heart Rate 90 /min 11/01/2024 Height 63 in 11/01/2024 Weight 125 lbs 11/01/2024 BMI 22.14 kg/m2 11/01/2024 Encounters Encounter Location Date Provider Diagnosis Neal Dave III, MD [address] [place] [address] [place] [address] 11/01/2024 Neal Dave Thrombopenia D69.6 ; Pulmonary [...] - R79.1) This was recently found at [facility] by pulmonary. It is a risk factor [...] Up: 3 Months, Reason: OV Provider Name:Neal Dave, 01/31/2025 10:15:00 AM, [address] [place] [address] , [place] [address], [place], [address], Progress Notes * LALA NOELAlinaDOB:1939 (84 yo F)Acc No.[id number]:11/01/2024 Progress Notes Patient: ENRIQUETA MONTES Provider: Darshana Dave MD :1940 A ge:84 Y S ex:Female Date:11/01/2024 Address: [address], [id number] Pcp:Will Bower MD Subjective: * Chief Complaints: [...] carefully. She went to a lecture at [facility] by Dr. Maloney who is a document imaging specialist. She then saw [facility] in consultation. He obtained a factor VIII [...] and 9 grandchildren. She was born in [place], [place]. Her maiden name was Perry. She has no synagogue objection to blood transfusion. * Medications: T [...] Date & Time - 10/29/2024 03:02 PM)?ValueReference Range?Qvanrp006897-340 - mmol/L?Bilirubin Total0.30.0-1.0 - mg/dL?Aspartate Amino Erwdhlyvsbf017-30 - U/L?Alanine Rgejnkjuhjeyqxeh293-65 - U/L?Total Protein6.4L6.5-8.0 - g/dL?Albumin Level3.93.5-5.0 - g/dL?Alkaline Percgkrouyb2448-101 - U/L?Potassium4.13.3-5.1 - mmol/L?Gyjrytip953 H96-108 - mmol/L?Carbon Vuprbpa5733-02 - mmol/L?Anion Sgo43C66-79 -?Blood Urea Hspgxxad60L5-88 - mg/dL?Creatinine0.880.5-1.4 - mg/dL ?Estimated Glomerular Filt Rate> 60-?Glucose Jcvekt5494-609 - mg/dL?Calcium9.28.4-10.2 - mg/dL * Examination: G [...] N otes :This was recently found at [facility] by pulmonary. It is a risk factor [...] MD Date: 0 11/01/2024 Generated for Printi ng/Faxing/eTransmitting on: 0 01/25/2025 06:09 AM EDT History and Physical Notes * HPI (History [...]
--- OUTSIDE RECORDS SUMMARY | 2024-12-15 09:44 | XMS_ITS ---
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 Assessments Encounter Date Diagnosis (ICD Code) Assessment Notes Treatment Notes Treatment Clinical Notes 12/15/2024 Elevated factor VIII level (ICD-10 - 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.1) Plan Of Treatment Pending Test Test Name Order Date FACTOR VIII ACTIVITY 12/15/2024 Next Appt Details Provider Name:Neal Dave, 01/31/2025 10:15:00 AM, [address] [place] [address] [place], [address], Progress Notes * ENRIQUETA NOEL LDOB:01/1940 (84 yo F)Acc No.[id number]:12/15/2024 Patient: ENRIQUETA MONTES :1940 A ge:84 Y S ex:Female Address:[address], [place], [address] Subjective: * Chief Complaints: * N eeds repeat labs done * Medical History: * Surgical History: * Hospitalization/Major Diagno stic Procedure: * Medications: Objective: * Vitals: * Physical Examination: Assessment: * Assessment: 1. 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
--- OUTSIDE RECORDS SUMMARY | 2025-01-25 06:09 | XMS_ITS | Patient Health Record ---
Author Organization Neal Dave III, MD Address [address] [place] [address] Care Team Providers Care Cage Clerk Name Role Phone Will Bower MD Primary Care Provider Neal Morales Unavailable [phone] Allergies Allergen (clinical drug ingredient) Drug/Non Drug Allergy documented on EMR Reaction Allergy Type Onset Date Status No Known Drug Allergy Unknown Drug Allergy Active Results Component Value Reference Range Notes Complete Blood Count Auto Di ff Reviewed date:02/23/2024 07:22:15 AM Interpretation: Performing Lab:[facility], [address] [place] [phone] Notes/Report: White Blood Count 7.6 4.8-10.8 X10*3/uL [...] ff Reviewed date:04/27/2024 08:40:32 PM Interpretation: Performing Lab:[facility], [address] [place] [phone] Notes/Report: White Blood Count 6.8 4.8-10.8 X10*3/uL [...] ff Reviewed date:10/31/2024 01:46:33 PM Interpretation: Performing Lab:[facility], [address] [place] [phone] Notes/Report: White Blood Count 5.2 4.8-10.8 X10*3/uL [...] Panel Reviewed date:10/31/2024 01:46:33 PM Interpretation: Performing Lab:[facility], [address] [place] [phone] Notes/Report: Sodium 140 135-145 mmol/L Potassium 4.1 [...] 83 39-117 U/L Reason For Referral Reason Evaluate and Treat Diagnosis 1 Pulmonary embolism ( I26.99) Referral Organization Neal Dave III, MD Referring Provider First Name Neal Referring Provider Last Name Jolie Referring Provider Speciality Internal M edicine Referred Provider [facility], Pulmonary Referred Provider Specialty Pulmonary Di [facility] General Notes D, Gissel 04/02/2024 09:12:23 AM [...] Problem Status W/U Status Risk Notes Problem 5004628 Former smoker (Z87.891) Active confirmed She has a plan to prevent relapse in times of stress and illness. She was educated about the increased risk of thromboembolism in smokers. Problem 089721074 Anticoagulated (Z79.01) Active confirmed She has had no bleeding on the Eliquis. She is now over 82 years old and her weight is less than 60 kg. She is a candidate reduce her Eliquis 22.5 mg twice a day which I have done after a long discussion. Problem Osteopenia (295847736) Osteopenia (M85.80) Active confirmed She was continued on current therapy. We discussed the use of calcium carbonate and vitamin D and exercise. Problem Glaucoma (73142891) Glaucoma (H40.9) Active confirmed She was continued on latanoprost. Problem 55102077 Left bundle branch block (I44.7) Active confirmed No change in he r therapy is indicated. Problem Pulmonary embolism (20192044) Pulmonary embolism (I26.99) Active confirmed He is currently chronically anticoagulated with Eliquis. She has had no sign since her last visit. She has had no bleeding. Problem 16918897 Venous insufficiency (I87.2) Active confirmed This is mild an d did not require any attention today. Problem Deep vein thrombosis (871860801) Deep vein thrombosis (I82.409) Active confirmed She has a history of DVT and pulmonary embolism in the past was treated with a course of anticoagulation. She is now on long-term anticoagulation. . 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 Problem 485041076 Coronavirus infection (B34.2) Active confirmed She tested positive for cold. In February 2022 when hospitalized for pulmonary embolism. She has now recovered without long all symptoms. Problem 596545626 QT prolongation (R94.31) Active confirmed This was a new finding of February 2011. She will avoid drugs that prolong this interval. 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 It is a risk factor for clotting. He remains anticoagulated. Vital Signs Heart Rate 90 /min 11/01/2024 Temperature 98.1 degrees Fahrenheit 11/01/2024 Blood pressure diastolic 71 mm Hg 11/01/2024 Height 63 in 11/01/2024 Blood pressure systolic 140 mm Hg 11/01/2024 Weight 125 lbs 11/01/2024 BMI 22.14 kg/m2 11/01/2024 Encounters Encounter Location Date Provider Diagnosis Neal Dave III, MD [address] [place] [address] [place] [address] 02/24/2024 Neal Dave Pulmonary embolism I26.99 ; Deep vein thrombosis I82.409 ; Anticoagulated Z79.01 ; Glaucoma H40.9 ; Osteopenia M85.80 ; Former smoker Z87.891 and Venous insufficiency I87.2 Neal Dave III, MD [address] [place] [address] [place] [address] 03/10/2024 Neal Dave Deep vein thrombosis I82.409 ; Thrombopenia D69.6 ; Venous insufficiency I87.2 ; Anticoagulated Z79.01 and Former smoker Z87.891 Neal Dave III, MD [address] [place] [address] [place] [address] 05/03/2024 Neal Dave Pulmonary embolism I26.99 ; Venous insufficiency I87.2 ; Thrombopenia D69.6 and Osteopenia M85.80 Neal Dave III, MD [address] [place] [address] [place] [address] 11/01/2024 Neal Dave Thrombopenia D69.6 ; Pulmonary embolism I26.99 ; Deep vein thrombosis I82.409 ; Osteopenia M85.80 ; Anticoagulated Z79.01 ; Former smoker Z87.891 and Elevated factor VIII level R79.1 Neal Dave III, MD [address] [place] [address] [place] [address] 04/02/2024 Neal Dave III, MD [address] [place] [address] [place] [address] 07/13/2024 Neal Dave III, MD [address] [place] [address] [place] [address] 07/13/2024 Neal Dave III, MD [address] [place] [address] [place] [address] 12/15/2024 Neal Dave Elevated factor VIII level R79.1 Neal Dave III, MD [address] [place] [address] [place] [address] 07/15/2024 Neal Dave Assessments Encounter Date Diagnosis (ICD Code) Assessment Notes T reatment Notes Treatment Clinical Notes 02/24/2024 Pulmonary embolism [...] will be removed from her problem list. 12/15/2024 Elevated factor VIII level (ICD-10 - R79.1) 02/24/2024 Anticoagulated (ICD-10 - Z79.01) She has [...] anticoagulation. She is now on long-term anticoagulation.. 02/24/2024 Glaucoma (ICD-10 - H40.9) She was [...] carbonate and vitamin D and exercise. 02/24/2024 Osteopenia (ICD-10 - M85.80) She was [...] I have done after a long discussion. 02/24/2024 Former smoker (ICD-10 - Z87.891) She [...] - R79.1) This was recently found at [facility] by pulmonary. It is a risk factor for clotting. He remains anticoagulated. Plan Of Treatment Pending Test Test Name Order Date PROFILE, FASTING (COMPREHENSIVE METABOLI C) 11/01/2024 PROFILE, RANDOM (COMPREHENSIVE METABOLIC ) 05/03/2024 TSH (THYROID STIMULATING HORMONE) 2024 CBC w DIFF 05/03/2024 CBC w DIFF 11/20/2023 CBC w DIFF 11/01/2024 PROTHROMBIN TIME (PT, INR) 08/19/2022 PARTIAL THROMBOPLASTIN TIME (PTT) 2022 FIBRINOGEN 08/19/2022 ANTITHROMBIN III & AG (REFLEX) 3 HOMOCYSTEINE 08/19/2022 PROTEIN ELECTROPHORESIS, SERUM 4 PROTEIN C ACTIVITY REFLEX AG 08/19/2022 PROTEIN S ACTIVITY REFLEX AG 08/19/2022 PT 22757I 08/19/2022 FACTOR VIII ACTIVITY 12/15/2024 LUPUS ANTICOAGULANT PANEL 08/19/2022 FACTOR V LEIDEN 08/19/2022 US LEG BILATERAL VENOUS DOPPLER 01/01/20 CBC WITH AUTO DIFF 01/16/2024 CBC WITH AUTO DIFF 03/10/2024 Lipid Panel 11/01/2024 Free T4 (Free Thyroxine) 11/01/2024 Next Appt Details Provider Name:Neal Dave, 01/31/2025 10:15:00 AM, [address] [place] [address] [address], [address], [place], [address], Insurance Providers Payer Name Payer Address Payer Phone Subscriber Number Group Number Insured Name Patient Relationship to Insured Coverage Start Date Coverage End Date MEDICARE NGS [address] [place] [phone] [id number] ENRIQUETA NOEL Self - patient is the insured [employer] ([employer]) [address] [place] [phone] [id number] ENRIQUETA NOEL Self - patient is the insured Medical (General) History Medical History History ICD Code DVT left femoral and popliteal veins Feb Multiple pulmonary emboli February 2022 Chronic anticoagulation Glaucoma H40.9 Osteopenia M85.80 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
--- OUTSIDE RECORDS SUMMARY | 2025-01-25 06:09 | XMS_ITS | Patient Health Record ---
Author Organization [facility] Address [address] [place] [address] Care Team Providers Care Collections Manager Name Role Phone Lamar(inactive) Santiago HADDAD Primary Care Provider U Neal Bernabe Unavailable [phone] Reason For Referral No Information Medications Medication [...] Problem Status W/U Status Risk Notes Problem 266249251 Abdominal bloating (R14.0) Active confirmed Problem 954595272 Change in bowel function (R19.4) Active confirmed Problem 00229434 Irritable bowel syndrome, unspecified type (K58.9) Active confirmed Plan Of Treatment Future Test Test Name Order Date COLONOSCOPY 07/23/2012 Insurance Providers Payer Name Payer Address Payer Phone Subscriber Number Group Number Insured Name Patient Relationship to Insured Coverage Start Date Coverage End Date MEDICARE OF [place] [address] [place] [address] [id number] ENRIQUETA SHELDON Self - patient is the insured [facility] [employer] [address] [place] [address] [id number] ENRIQUETA SHELDON Self - patient is the insured Medical (General) History Medical History History ICD Code Colonoscopy in 02/2013, in 1 , and in 2001--neg except for diverticulosis; tubular adenoma removed in 1996; negative colonoscopy in 05/2017--no polyp, no IBD, no microscopic colitis Denies OR,DM,CVA,Lung disease,renal dise ase Surgical History Surgery Date(Month/Year) 2 sections right and left knee surgery in 2011
[2025-01-25 10:48] LABS: MANUAL DIFF FLAG NO
[2025-01-25 11:14] LABS: Hematocrit 38.0 % (37.0-47.0); Hemoglobin 12.4 g/dl (12.0-16.0); Imm Gran Abs Auto 0.02 X10*3/uL (0.00-0.03); Imm Gran Pct Auto 0.3 % (0.0-0.4); Lymphocytes Absolute Auto 2.0 X10*3/uL (1.2-4.9); Mean Corpuscular HGB Conc 32.6 g/dl (31.0-35.0); Mean Corpuscular Hemoglobin 32.5 pg (27.0-33.0); Mean Corpuscular Volume 99.5 fL (80.0-98.0); NRBC Abs Auto 0.000 X10*3/uL (0.0-0.012); NRBC Pct Auto 0.0 /100WBC (0.0-0.2); Platelet Count 261 X10*3/uL (160-400); Red Blood Count 3.82 X10*6/uL (4.20-5.50); White Blood Count 5.8 X10*3/uL (4.8-10.8)
[2025-01-25 12:14] LABS: Alanine Aminotransferase 13 U/L (0-31); Albumin Level 4.2 g/dL (3.5-5.0); Alkaline Phosphatase 103 U/L (39-117); Anion Gap 14 (12-20); Aspartate Amino Transferase 30 U/L (5-31); Blood Urea Nitrogen 19 mg/dL (9-16); Calcium 9.8 mg/dL (8.4-10.2); Carbon Dioxide 26 mmol/L (22-29); Chloride 107 mmol/L (96-108); Cholesterol 222 mg/dL (<200); Estimated Glomerular Filt Rate > 60; HDL Cholesterol 62 mg/dL (>40); Potassium 3.9 mmol/L (3.3-5.1); Sodium 143 mmol/L (135-145); Total Protein 7.2 g/dL (6.5-8.0); Triglycerides 91 mg/dL (<150)
[2025-01-25 12:48] LABS: Free T4 (Free Thyroxine) 1.04 ng/dL (0.71-1.85); Thyroid Stimulating Hormone 1.45 uIU/mL (0.32-4.0)
== END 2025-01-25 06:06 | disposition home or self-care (01) ==
LOC: HO.HMGCLDS 06:05
PROVIDERS: PCP Internal Medicine; Visit Provider Internal Medicine Medical Oncology
DX: R79.1 Abnormal coagulation profile (principal); Z13.6 Encounter for screening for cardiovascular disorders; Z13.29 Encounter for screening for other suspected endocrine disorder
CPT/HCPCS: 36415; 80053; 80061; 84439; 84443; 85025; 85240

== ENCOUNTER 2025-03-21 08:43 | Outpatient (AMB) | payer MEDICARE, OTHER, SELFPAY ==
--- OUTSIDE RECORDS SUMMARY | 2024-03-10 04:30 | XMS_ITS ---
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 Neal Morales III Unavailable Allergies Allergen (clinical drug ingredient) Drug/Non Drug Allergy documented on EMR Reaction Allergy Type Onset Date Status No Known Drug Allergy Unknown Drug Allergy Active REASON FOR VISIT Recent anticoagulation bridging, Recent dental extraction, Chronic anticoagulation, History of DVT and pulmonary embolism, History off thrombocytopenia. Medications Medication SIG (Take, Route, Fr equency, Duration) Notes Start Date End Date Status Latanoprost 0.005 % Ophthalmic Active Multivitamin Active Vitamin D Active Eliquis 5 MG Oral Active Olopatadine HCl 0.1 % Ophthalmic Active metroNIDAZOLE 0.75 % External Active Lovenox 100 MG/ML as directed Injectio n daily for 3 days prior to surgery 02/24/2024 Acti ve Social History Tobacco Use: Social History Observation Description Date Details (start date - stop date) Former Smoker NA - NA Tobacco Use/Smoking Question Answer Notes Patient is a former smoker How long has it been since you last smoked? > 10 years Additional Findings: Tobacco Non-User Ex-cigaret te smoker Vital Signs Height 63 in 03/10/2024 Encounters Encounter Location Date Provider Diagnosis Neal Dave III, MD [address] [place] [address] [place] [address] 03/10/2024 Neal Dave Deep vein thrombosis I82.409 ; Thrombopenia D69.6 ; Venous insufficiency I87.2 ; Anticoagulated Z79.01 and Former smoker Z87.891 Assessments Encounter Date Diagnosis (ICD Code) Assessment Notes T reatment Notes Treatment Clinical Notes 03/10/2024 Deep vein thrombosis (ICD-10 - I82.409) She has a history of DVT and pulmonary embolism in the past was treated with a course of anticoagulation. She is now on long-term anticoagulation.. 03/10/2024 Thrombopenia (ICD-10 - D69.6) Thrombocytopenia resolved long before this surgery. She has had no bleeding. Her CBC will be followed carefully. 03/10/2024 Venous insufficiency (ICD-10 - I87.2) She has mild venous insufficiency but no pain. She reports no edema in the legs at this time. 03/10/2024 Anticoagulated (ICD-10 - Z79.01) She has had no bleeding on the Eliquis. It will be stopped 4 days prior to the dental extractions and she will be bridged with enoxaparin. 03/10/2024 Former smoker (ICD-10 - Z87.891) She has a plan to prevent relapse in times of stress and illness. She was educated about the increased risk of thromboembolism in smokers. Plan Of Treatment Medication Medication Name Sig Start Date Stop Date Notes Latanoprost 0.005 % Ophthalmic Multivitamin Vitamin D Eliquis 5 MG Oral Olopatadine HCl 0.1 % Ophthalmic metroNIDAZOLE 0.75 % External Lovenox 100 MG/ML as directed Injectio n daily for 3 days prior to surgery 02/24/2024 Pending Test Test Name Order Date CBC WITH AUTO DIFF 03/10/2024 Next Appt Details Follow Up: As Scheduled, Apr, Reason: OV, Routine follow-up Provider Name:Neal Dave , 03/24/2025 11:00:00 AM, [address] [place] [address] DR [facility] [address], [place], [address], Progress Notes * ENRIQUETA SHELDONDOB:1939 (83 yo F)Acc No.[id number]:03/10/2024 Patient: ENRIQUETA MONTES Provider: Darshana Dave MD :1940 A ge:83 Y S ex:Female Date:03/10/2024 Address:[address] [place] [address] [place], [place], [id number] Pcp:Will Bower MD Subjective: * Chief Complaints: * R ecent anticoagulation bridgingRecent dental extractionChronic anticoagulationHistory of DVT and pulmonary embolismHistory off thrombocytopenia. * HPI: * : Telehealth L ocation of provider rendering services: { ...} [address] [facility] [address] L ocation of patient: evangelista lau listed in demographics for today's visit P atient identification confirmed using: N luis, T elehealth method: T elephone only. Patient not visible to care provider. C onsent: P atient verbally consented to treatment, Patient verbally consented to billing insurance company, Patient informed of any privacy concerns related to method of visit T otal time spent with patient (mins) 1 5 The patient, an 83-year-old female, had a dental procedure on Friday. The procedure involved breaking the tooth into pieces, which was unexpected for the patient. The dentist then filed it down and put stitches in. A coloidal dressing was also applied, which resulted in almost no bleeding. The patient was awake during the procedure and described it as 'barbaric'. She was on Lovenox for three mornings prior to the procedure and resumed taking Eliquis the day after the procedure. The patient reported no issues with the Lovenox. He has resumed Eliquis in her normal diet. In the officepreviously scheduled. She will call me if she has a new complaints. * ROS: G eneral/Constitutional: pain o nly normal aches and pains. C hills d enies.?Fatigue a dmits. F ever d enies. E NT: Decreased hearing d enies. R espiratory: Cough d enies. C ardiovascular: Chest pain with exertion d enies. D yspnea on exertion?denies. S hortness of breath d enies. G astrointestinal: Constipation o ccasional. D ecreased appetite d enies. D iarrhea d enies. H eartburn d enies. N ausea d enies. R ectal bleeding d enies. V omiting d enies. H ematology: bruising d enies. p etechiae d enies. S wollen glands n one have been noted. G enitourinary: Frequent urination d enies. M usculoskeletal: Muscle aches d enies. P ainful joints d enies. S ciatica d enies. W eakness d enies. S kin: Itching d enies. R carmen d enies. S kin lesion(s)?denies. N eurologic: Difficulty speaking d enies. D izziness d enies.?Headache d enies. L ow back pain d enies. P sychiatric: Depressed mood d enies. * Medical History: * Surgical History: C olonoscopy Right Cataract section Arthroscopy of knee No history * Hospitalization/Major Diagno stic Procedure: N o history * Family History: F ather: 88 yrs, Diabetes mellitus, colon cancer, bladder cancer, hypertension, diagnosed with CVD, Cancer, DM. M other: 84 yrs, Pulmonary fibrosis. S iblings: , diagnosed with DM, Cancer. 1 brother(s) , 2 sister(s) . . Her mother has a history of pulmonary fibrosis. 1. 4 sisters as well has a history of pulmonary fibrosis and atrial fibrillation. One of her sisters has a history of blood clots and an upper extremity and takes apixaban. One sister developed breast cancer at the age of 55 and the family had genetic testing for inherited susceptibility, which was negative in this patient. Her father had a history of colon cancer and coronary artery disease. She is not aware of any family history of mental illness or substance use disorder or addiction. One of her 4 children, has Sanford's disease. * Social History: T obacco Use: T obacco Use/Smoking P atient is a f ormer smoker H ow long has it been since you last smoked??> 10 years A dditional Findings: Tobacco Non-User E x-cigarette smoker S he has been to her , Jordan for 54 years. They have 4 children and 9 grandchildren. She was born in [place], [place]. Her maiden name was [place]. She has no quaker objection to blood transfusion. * Medications: T akingmetroNIDAZOLE 0.75 % Cream External Latanoprost 0.005 % Solution Ophthalmic Olopatadine HCl 0.1 % Solution Ophthalmic Eliquis 5 MG Tablet Oral Vitamin D Multivitamin Lovenox 100 MG/ML Solution Prefilled Syringe as directed Injection daily for 3 days prior to surgery Medication List reviewed and reconciled with the patientTaking metroNIDAZOLE 0.75 % Cream External Taking Latanoprost 0.005 % Solution Ophthalmic Taking Olopatadine HCl 0.1 % Solution Ophthalmic Taking Eliquis 5 MG Tablet Oral Taking Vitamin D Taking Multivitamin Taking Lovenox 100 MG/ML Solution Prefilled Syringe as directed Injection daily for 3 days prior to surgery Medication List reviewed and reconciled with the patient * Allergies: N o Known Drug Allergyno[Allergies Verified] Objective: * Vitals: H t: 63, Ht-cm: 160.02. Assessment: * Assessment: 1. T hrombopenia - D69.6 (Primary) N otes :Thrombocytopenia resolved long before this surgery. She has had no bleeding. Her CBC will be followed carefully. 2 . D eep vein thrombosis - I82.409 N otes :She has a history of DVT and pulmonary embolism in the past was treated with a course of anticoagulation. She is now on long-term anticoagulation.. 3 . V enous insufficiency - I87.2 N otes :She has mild venous insufficiency but no pain. She reports no edema in the legs at this time. 4 . A nticoagulated - Z79.01 N otes :She has had no bleeding on the Eliquis. It will be stopped 4 days prior to the dental extractions and she will be bridged with enoxaparin. 5 . F ormer smoker - Z87.891 N otes :She has a plan to prevent relapse in times of stress and illness. She was educated about the increased risk of thromboembolism in smokers. Plan: * Treatment: 2. V enous insufficiency L AB: CBC WITH AUTO DIFF 3. O thers Continue metroNIDAZOLE Cream, 0.75 %, External; C ontinue Latanoprost Solution, 0.005 %, Ophthalmic; C ontinue Olopatadine HCl Solution, 0.1 %, Ophthalmic; C ontinue Eliquis Tablet, 5 MG, Oral; C ontinue Vitamin D; C ontinue Multivitamin; C ontinue Lovenox Solution Prefilled Syringe, 100 MG/ML, as directed, Injection, daily for 3 days prior to surgery. * Procedure Codes: [id number] PHONE E/M BY PHYS 11-20 MIN * Preventive Medicine: Counseling: S moking/Tobacco Use Patient counseled on the dangers of tobacco use and urged to quit. 1 * Follow Up: A s Scheduled, May 03 (Reason: OV, Routine follow-up) * Images: * Sign off status: Completed true * Provider: Darshana Dave MD Date: Generated for Monisha cyr/Edel/eTransmitting on: 05/21/2024 09:05 AM EST History and Physical Notes * HPI (History of Present Illness) Category Sub-Category Detail Notes Telehealth Location of [facility] rendering services:: {...} [address] [place] [address] [address] [place] [address] Location of patient:: address listed in demographics for today's visit Patient identification confirmed using:: Name, Telehealth method:: Telephone only. Mirtha ent not visible to care provider. Consent:: Patient verbally c onsented to treatment, Patient verbally consented to billing insurance company, Patient informed of any privacy concerns related to method of visit Total time spent with patient (mins): 15
--- OUTSIDE RECORDS SUMMARY | 2024-04-02 08:15 | XMS_ITS ---
Author Organization Neal Dave III, MD Address [address] 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 Neal Morales III [phone] Reason For Referral Reason Evaluate and Treat Diagnosis 1 Pulmonary embolism ( I26.99) Referral Organization Neal Dave III, MD Referring Provider First Name Neal Referring Provider Last Name Jolie Referring Provider Speciality Internal M edicine Referred Provider [facility], Pulmonary Referred Provider Specialty Pulmonary Di [facility] General Notes D, Gissel 04/02/2024 09:12:23 AM > Referral and progress note faxed. Referral Priority Routine Referral Appointment Date 07/15/2024 REASON FOR VISIT Referral Encounters Encounter Location Date Provider Diagnosis Neal Dave III, MD [address] [place] [address] [place] [address] 04/02/2024 Neal Dave Plan Of Treatment Referrals Referral Date Details 04/02/2024 04/02/2024, Evaluate and Treat, Pulmonary [facility] Next Appt Details Provider Name:Neal Dave , 03/24/2025 11:00:00 AM, [address] [place] [address] [place], [address], Progress Notes * ENRIQUETA NOELDOB:1939 (83 yo F)Acc No.[id number]:04/02/2024 Patient: Reg ENRIQUETA RIVER :1940 A ge:83 Y S ex:Female Address: [address], [place], [address] Subjective: * Chief Complaints: * R eferral * Medical History: * Surgical History: * Hospitalization/Major Diagno stic Procedure: * Medications: Objective: * Vitals: * Physical Examination: Assessment: Plan: * Treatment: * Procedure Codes: * true * Date: Generated for Monisha cyr/Edel/eTransmitting on: 05/21/2024 09:04 AM EST Consultation Request Notes Referral Date Referring Provider Referred Provider Not es 04/02/2024 Neal Dave [facility], Pulmonary Evaluat e and Treat
--- OUTSIDE RECORDS SUMMARY | 2024-05-03 05:15 | XMS_ITS ---
Author Organization Neal Dave III, MD Address [address] [address] Care Team Providers Care Orthotist Name Role Phone Will Bower MD Primary Care Provider UnavailDr. Neal Powell III Unavailable [phone] Allergies Allergen (clinical drug ingredient) Drug/Non Drug Allergy documented on EMR Reaction Allergy Type Onset Date Status No Known Drug Allergy Unknown Drug Allergy Active REASON FOR VISIT Thrombophilia, History of DVT, History of pulmonary emboli, History of thrombocytopenia now resolved Medications Medication SIG (Take, Route, Fr equency, Duration) Notes Start Date End Date Status metroNIDAZOLE 0.75 % External Active Latanoprost 0.005 % Ophthalmic Active Vitamin D Active Multivitamin Active Lovenox 100 MG/ML as directed Injectio n daily for 3 days prior to surgery 02/24/2024 Acti ve Olopatadine HCl 0.1 % Ophthalmic Active Eliquis 5 MG Oral Active Social History Tobacco Use: Social History Observation Description Date Details (start date - stop date) Former Smoker NA - NA Tobacco Use/Smoking Question Answer Notes Patient is a former smoker How long has it been since you last smoked? > 10 years Additional Findings: Tobacco Non-User Ex-cigaret te smoker Vital Signs Temperature 98.2 degrees Fahrenheit 05/03/20 24 Blood pressure systolic 138 mm Hg 05/03/20 24 Blood pressure diastolic 66 mm Hg 024 Heart Rate 83 /min 05/03/2024 Height 63 in 05/03/2024 Weight 133 lbs 05/03/2024 BMI 23.56 kg/m2 05/03/2024 Encounters Encounter Location Date Provider Diagnosis Neal Dave III, MD [address] [place] [address] [address] [place] [address] 05/03/2024 Neal Dave Pulmonary embolism I26.99 ; Venous insufficiency I87.2 ; Thrombopenia D69.6 and Osteopenia M85.80 Assessments Encounter Date Diagnosis (ICD Code) Assessment Notes Treat ment Notes Treatment Clinical Notes 05/03/2024 Pulmonary embolism (ICD-10 - I26.99) He is currently chronically anticoagulated with Eliquis. She has had no sign since her last visit. She has had no bleeding. 05/03/2024 Venous insufficiency (ICD-10 - I87.2) This is mild and did not require any attention today. 05/03/2024 Thrombopenia (ICD-10 - D69.6) Her platelet count has returned to normal and continues to be so. She has had no bleeding. 05/03/2024 Osteopenia (ICD-10 - M85.80) She was continued on current therapy. We discussed the use of calcium carbonate and vitamin D and exercise. Plan Of Treatment Medication Medication Name Sig Start Date Stop Date Notes metroNIDAZOLE 0.75 % External Latanoprost 0.005 % Ophthalmic Vitamin D Multivitamin Lovenox 100 MG/ML as directed Injectio n daily for 3 days prior to surgery 02/24/2024 Olopatadine HCl 0.1 % Ophthalmic Eliquis 5 MG Oral Pending Test Test Name Order Date PROFILE, RANDOM (COMPREHENSIVE METABOLIC ) 05/03/2024 CBC w DIFF 05/03/2024 Next Appt Details Follow Up: 6 Months, In abou t 6 months, Reason: ov review labs, Routine check-up Provider Name:Neal Dave , 03/24/2025 11:00:00 AM, [address] [place] [address] [address], [place], [address], Progress Notes * ENRIQUETA NOELDOB:1939 (84 yo F)Acc No.[id number]:05/03/2024 Progress Notes Patient: Reg WEIZACKENRIQUETA Provider: Darshana Dave MD :1940 A ge:84 Y S ex:Female Date:05/03/2024 Address: [address], [place], [id number] Pcp:Will Bower MD Subjective: * Chief Complaints: * T hrombophiliaHistory of DVTHistory of pulmonary emboliHistory of thrombocytopenia now resolved * HPI: C OVID-19 Screening: Questions H ave you had any new onset fever, chills, cough, congestion, sore throat, shortness of breath, muscle aches? N o * : The patient, an 84-year-old female, reported having blood clots in October and February of 2022. She has been taking Eliquis, a blood thinner, twice a day at a dosage of 5 milligrams. She also mentioned that she had been wearing compression socks and trying to walk a couple of miles daily. The patient has not been smoking for 51 years. She has been referred to a pulmonary doctor and is scheduled for a mammography and bone density test in a few weeks. The patient expressed her desire to regain confidence in her health so she can fly again. * ROS: G eneral/Constitutional: pain o nly normal aches and pains. C hills d enies.?Fatigue a dmits. F ever d enies. E NT: Decreased hearing m ild. R espiratory: Cough d enies. C ardiovascular: Chest pain with exertion d enies. D yspnea on exertion?denies. S hortness of breath d enies. G astrointestinal: Constipation o ccasional. D ecreased appetite d enies. D iarrhea d enies. H eartburn d enies. N ausea d enies. R ectal bleeding d enies. V omiting d enies. H ematology: bruising , recent easy bruising. p etechiae d enies. S wollen glands n one have been noted. G enitourinary: Frequent urination a t night. M usculoskeletal: Muscle aches d enies. P [...] diagnosed with CVD, Cancer, DM. M other: alive 84 yrs. S iblings: alive, diagnosed with Cancer, DM. 1 brother(s) , 2 sister(s) . . [...] addiction. One of her 4 children, has Arvonia's disease. * Social History: T obacco Use: T obacco Use/Smoking P atient is a f ormer smoker H ow long has it been since you last smoked??> 10 years A dditional Findings: Tobacco Non-User E x-cigarette smoker S he has been to her , Jordan for 54 years. They have 4 children and 9 grandchildren. She was born in [place], [place]. Her maiden name was Daron. She has no voodoo objection to blood transfusion. * Medications: T [...] Verified] Objective: * Vitals: H t: 63, Wt:133, BMI:23.56, BP:138/66, HR:83, Temp:98.2, Ht-cm: 160.02, Wt-k.33. * P ast Orders: Lab:Complete Blood Count Aut o Diff * Collection Date 04/27/2024 02/16/2024 12/10/2023 Collection Time 10:54 AM 11:00 AM 11:31 AM Order Date 04/27/2024 02/16/2024 12/10/2023 White Blood Count 6.8 (Ref Range: 4.8-10.8 X10*3/uL) 7.6 (Ref Range: 4.8-10.8 X10*3/uL) 7.1 (Ref Range: 4.8-10.8 X10*3/uL) Red Blood Count 3.84 L (Ref Range: 4.20-5.50 X10*6/uL) 3.83 L (Ref Range: 4.20-5.50 X10*6/uL) 4.03 L (Ref Range: 4.20-5.50 X10*6/uL) Hemoglobin 12.3 (Ref Range: 12.0-16.0 g/dl) 12.2 (Ref Range: 12.0-16.0 g/dl) 13.0 (Ref Range: 12.0-16.0 g/dl) Hematocrit 37.2 (Ref Range: 37.0-47.0 %) 37.8 (Ref Range: 37.0-47.0 %) 39.4 (Ref Range: 37.0-47.0 %) Mean Corpuscular Volume 96.9 (Ref Range: 80.0-98.0 fL) 98.7 H (Ref Range: 80.0-98.0 fL) 97.8 (Ref Range: 80.0-98.0 fL) Mean Corpuscular Hemoglobin 32.0 (Ref Range: 27.0-33.0 pg) 31.9 (Ref Range: 27.0-33.0 pg) 32.3 (Ref Range: 27.0-33.0 pg) Mean Corpuscular HGB Conc 33.1 (Ref Range: 31.0-35.0 g/dl) 32.3 (Ref Range: 31.0-35.0 g/dl) 33.0 (Ref Range: 31.0-35.0 g/dl) Red Cell Distribution Width 12.6 (Ref Range: 11.0-16.0 %) 12.3 (Ref Range: 11.0-16.0 %) 13.2 (Ref Range: 11.0-16.0 %) Platelet Count 194 (Ref Range: 160-400 X10*3/uL) 193 (Ref Range: 160-400 X10*3/uL) 192 (Ref Range: 160-400 X10*3/uL) Mean Platelet Volume 10.0 (Ref Range: 9.4-12.3 fL) 10.3 (Ref Range: 9.4-12.3 fL) 9.3 L (Ref Range: 9.4-12.3 fL) Neutrophils Percent Auto 60.8 (Ref Range: 45-73 %) 72.8 (Ref Range: 45-73 %) 64.9 (Ref Range: 45-73 %) Imm Gran Pct Auto 0.3 (Ref Range: 0.0-0.4 %) 0.4 (Ref Range: 0.0-0.4 %) 0.3 (Ref Range: 0.0-0.4 %) Lymphocytes Percent Auto 30.5 (Ref Range: 20-40 %) 20.0 (Ref Range: 20-40 %) 26.9 (Ref Range: 20-40 %) Monocytes Percent Auto 6.4 (Ref Range: 2-11 %) 5.0 (Ref Range: 2-11 %) 5.7 (Ref Range: 2-11 %) Eosinophils Percent Auto 1.0 (Ref Range: 0-4 %) 0.9 (Ref Range: 0-4 %) 1.1 (Ref Range: 0-4 %) Basophils Percent Auto 1.0 (Ref Range: 0-2 %) 0.9 (Ref Range: 0-2 %) 1.1 (Ref Range: 0-2 %) NRBC Pct Auto 0.0 (Ref Range: 0.0-0.2 /100WBC) 0.0 (Ref Range: 0.0-0.2 /100WBC) 0.0 (Ref Range: 0.0-0.2 /100WBC) Neutrophils Absolute Auto 4.1 (Ref Range: 2.0-8.3 x10*3/uL) 5.5 (Ref Range: 2.0-8.3 x10*3/uL) 4.6 (Ref Range: 2.0-8.3 x10*3/uL) Imm Gran Abs Auto 0.02 (Ref Range: 0.00-0.03 X10*3/uL) 0.03 (Ref Range: 0.00-0.03 X10*3/uL) 0.02 (Ref Range: 0.00-0.03 X10*3/uL) Lymphocytes Absolute Auto 2.1 (Ref Range: 1.2-4.9 X10*3/uL) 1.5 (Ref Range: 1.2-4.9 X10*3/uL) 1.9 (Ref [...] 0.000 (Ref Range: 0.0-0.012 X10*3/uL) * Examination: G eneral Examination: GENERAL APPEARANCE: p leasant, well nourished, well developed, in no acute distress, calm and relaxed. HEAD: a traumatic, normocephalic. EYES: e jaclyn, perrla, anicteric, conjugate. EARS: n ormal. NOSE: s eptum intact. ORAL CAVITY: n ormal, unremarkable. NECK/THYROID: n o jugular venous distention, no carotid bruit, thyroid normal. LYMPH NODES: n o enlarged lymph nodes,spleen normal. SKIN: n o suspicious lesions, anicteric. HEART: n o clicks, gallops, murmurs, or rubs, regular rhythm, S1, S2 normal, no s3, or vascular bruits. LUNGS: c lear to auscultation . BREASTS: no masses palpable bilaterally. ABDOMEN: b owel sounds normal, no ascites, no organomegaly, no mass. RECTAL EXAM: n ot examined. MUSCULOSKELETAL: e xtremities unremarkable, no clubbing, cyanosis or edema. PERIPHERAL PULSES: n ormal. NEUROLOGIC: a lert and oriented, cranial nerves 2-12 grossly intact, deep tendon reflexes 2+ symmetrical, motor strength normal upper and lower extremities, sensory exam intact. PSYCH: a lert, oriented. Assessment: * Assessment: 1. P ulmonary embolism - I26.99 (Primary) N otes :He is currently chronically anticoagulated with Eliquis. She has had no sign since her last visit. She has had no bleeding. 2 . V enous insufficiency - I87.2 N otes :This is mild and did not require any attention today. 3 . T hrombopenia - D69.6 N otes :Her platelet count has returned to normal and continues to be so. She has had no bleeding. 4 . O steopenia - M85.80 N otes :She was continued on current therapy. We discussed the use of calcium carbonate and vitamin D and exercise. Plan: * Treatment: 2. V enous insufficiency L AB: PROFILE, RANDOM (COMPREHENSIVE METABOLIC) L AB: CBC w DIFF 3. T hrombopenia L AB: PROFILE, RANDOM (COMPREHENSIVE METABOLIC) L AB: CBC w DIFF 4. O thers Continue metroNIDAZOLE Cream, 0.75 %, External; C ontinue Latanoprost Solution, 0.005 %, Ophthalmic; C ontinue Olopatadine HCl Solution, 0.1 %, Ophthalmic; C ontinue Eliquis Tablet, 5 MG, Oral; C ontinue Vitamin D; C ontinue Multivitamin; C ontinue Lovenox Solution Prefilled Syringe, 100 MG/ML, as directed, Injection, daily for 3 days prior to surgery. * Procedure Codes: * Preventive Medicine: Counseling: S moking/Tobacco Use Patient counseled on the dangers of tobacco use and urged to quit. 1 07/04/2023 * Follow Up: 6 Months, In about 6 months (Reason: ov review labs, Routine check-up) * Images: * Sign off status: Completed true * Provider: Darshana Dave MD Date: 07/04/2023 Generated for Monisha cyr/Edel/Aditi on: 05/21/2024 09:04 AM EST History and Physical Notes * HPI (History of Present Illness) Category Sub-Category Detail Notes COVID-19 Screening Questions Have you had any new onset fever, chills, cough, congestion, sore throat, shortness of breath, muscle aches?: No Examination Category Sub-Category Detail Notes General Examination GENERAL APPEARANCE: pleasant , well nourished, well developed, in no acute distress, calm and relaxed HEAD: atraumatic, normocep halic EYES: eomi, perrla, [...] lesion s, anicteric PERIPHERAL PULSES: normal BREASTS: no masses palpable b ilaterally MUSCULOSKELETAL: extremities unremark able, no clubbing, cyanosis or edema LYMPH NODES: no enlarged lymph no adalgisa,spleen normal RECTAL EXAM: not examined PSYCH: alert, oriented ORAL CAVITY: normal, unremarkable
--- OUTSIDE RECORDS SUMMARY | 2024-07-13 04:01 | XMS_ITS ---
Author Organization Neal Dave III, MD Address [address] [place] [address] Care Team Providers Care Furnace Operator Name Role Phone Will Bower MD Primary Care Provider Dr. Neal Morales III Unavailable REASON FOR VISIT Message Encounters Encounter Location Date Provider Diagnosis Neal Dave III, MD [address] [place] [address] [place] [address] 07/13/2024 Neal Dave Plan Of Treatment Next Appt Details Provider Name:Neal Dave , 03/24/2025 11:00:00 AM, [address] [place] [address] [address], [place], [address], Progress Notes * ENRIQUETA NOELDOB:1939 (84 yo F)Acc No.[id number]:07/13/2024 Patient: Reg ENRIQUETA RIVER :1940 A ge:84 Y S ex:Female Address:[address], [place], [address] * true * Date: Generated for Mansoori ger/Edel/eTransmitting on: 05/21/2024 09:05 AM EST
--- OUTSIDE RECORDS SUMMARY | 2024-07-13 04:24 | XMS_ITS ---
Author Organization Neal Dave III, MD Address [address] [facility] [place] [address] Care Team Providers Care Livestock Broker Name Role Phone Will Bower MD Primary Care Provider Dr. Neal Morales III Encounters Encounter Location Date Provider Diagnosis Neal Dave III, MD [address] [place] [address] [place] [address] 07/13/2024 Neal Dave Plan Of Treatment Next Appt Details Provider Name:Neal Dave , 03/24/2025 11:00:00 AM, [address] [place] [address] [place], [address], Progress Notes * ENRIQUETA SHELDONDOB:1939 (84 yo F)Acc No.[id number]:07/13/2024 Patient: Reg ALETA ENRIQUETA :1940 A ge:84 Y S ex:Female Address:[address], [place], [address] * true * Date: Generated for Mansoori ger/Edel/eTransmitting on: 05/21/2024 09:05 AM EST
--- OUTSIDE RECORDS SUMMARY | 2024-07-15 12:03 | XMS_ITS ---
Author Organization Neal Dave III, MD Address [address] [facility] [address] Care Team Providers Care Verse Writer Name Role Phone Will Bower MD Primary Care Provider Dr. Neal Morales III Unavailable REASON FOR VISIT Thank you, Encounters Encounter Location Date Provider Diagnosis Neal Dave III, MD [address] [place] [address] [place] [address] 07/15/2024 Neal Dave Plan Of Treatment Next Appt Details Provider Name:Neal Dave , 03/24/2025 11:00:00 AM, [address] [place] [address] [address], [place], [address], Progress Notes * ENRIQUETA NOELDOB:1939 (84 yo F)Acc No.[id number]:07/15/2024 Patient: Reg ENRIQUETA RIVER :1940 A ge:84 Y S ex:Female Address:[address], [place], [address] * true * Date: Generated for Monisha cyr/Edel/eTransmitting on: 05/21/2024 09:04 AM EST
--- OUTSIDE RECORDS SUMMARY | 2024-11-01 10:00 | XMS_ITS ---
Author Organization Neal Dave III, MD Address [address] [place] [address] Care Team Providers Care Nutritionist Name Role Phone Will Bower MD Primary Care Provider Dr. Neal Morales III Unavailable Allergies Allergen (clinical drug ingredient) Drug/Non Drug Allergy documented on EMR Reaction Allergy Type Onset Date Status No Known Drug Allergy Unknown Drug Allergy Active REASON FOR VISIT history of pulmonary embolism, history of DVT, Anticoagulated Medications Medication SIG (Take, Route, Fr equency, Duration) Notes Start Date End Date Status metroNIDAZOLE 0.75 % External Active Latanoprost 0.005 % Ophthalmic Active Apixaban 2.5 MG as directed Orally t wice a day for 30 days 11/01/2024 Active Eliquis 5 MG TAKE 1 TABLET BY SANAZ TH TWICE DAILY Active Lovenox 100 MG/ML as directed Injectio n daily for 3 days prior to surgery 02/24/2024 Acti ve Olopatadine HCl 0.1 % Ophthalmic Active Vitamin D Active Multivitamin Active Social History Tobacco Use: Social History [...] Problem Status W/U Status Risk Notes Problem [id number] 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 It is a risk factor for clotting. She remains anticoagulated . The reasonably repeated value was 222. Vital Signs Temperature 98.1 degrees Fahrenheit 11/02/19 25 Blood pressure systolic 140 mm Hg 11/02/19 25 Blood pressure diastolic 71 mm Hg 025 Heart Rate 90 /min 11/01/2024 Height 63 in 11/01/2024 Weight 125 lbs 11/01/2024 BMI 22.14 kg/m2 11/01/2024 Encounters Encounter Location Date Provider Diagnosis Neal Dave III, MD [address] [place] [address] [place] [address] 11/01/2024 Neal Dave Thrombopenia D69.6 ; Pulmonary embolism I26.99 ; Deep vein thrombosis I82.409 ; Osteopenia M85.80 ; Anticoagulated Z79.01 ; Former smoker Z87.891 and Elevated factor VIII level R79.1 Assessments Encounter Date Diagnosis (ICD Code) Assessment Notes Treat ment Notes Treatment Clinical Notes 11/01/2024 Thrombopenia (ICD-10 - D69.6) Her platelet count was slightly low in 2021 but has been normal since. This problem has resolved and will be removed from her problem list. 11/01/2024 Pulmonary embolism (ICD-10 - I26.99) He is currently chronically anticoagulated with Eliquis. She has had no sign since her last visit. She has had no bleeding. 11/01/2024 Deep vein thrombosis (ICD-10 - I82.409) She has a history of DVT and pulmonary embolism in the past was treated with a course of anticoagulation. She is now on long-term anticoagulation.. 11/01/2024 Osteopenia (ICD-10 - M85.80) She was continued on current therapy. We discussed the use of calcium carbonate and vitamin D and exercise. 11/01/2024 Anticoagulated (ICD-10 - Z79.01) She has had no bleeding on the Eliquis. She is now over 82 years old and her weight is less than 60 kg. She is a candidate reduce her Eliquis 22.5 mg twice a day which I have done after a long discussion. 11/01/2024 Former smoker (ICD-10 - Z87.891) She has a plan to prevent relapse in times of stress and illness. She was educated about the increased risk of thromboembolism in smokers. 11/01/2024 Elevated factor VIII level (ICD-10 - R79.1) This was recently found at [facility] by pulmonary. It is a risk factor for clotting. He remains anticoagulated. Plan Of Treatment Medication Medication Name Sig Start Date Stop Date Notes metroNIDAZOLE 0.75 % External Latanoprost 0.005 % Ophthalmic Apixaban 2.5 MG as directed Orally t wice a day for 30 days 11/01/2024 Eliquis 5 MG TAKE 1 TABLET BY MOUTH TWICE DAILY Lovenox 100 MG/ML as directed Injectio n daily for 3 days prior to surgery 02/24/2024 Olopatadine HCl 0.1 % Ophthalmic Vitamin D Multivitamin Pending Test Test Name Order Date PROFILE, FASTING (COMPREHENSIVE METABOLI C) 11/01/2024 TSH (THYROID STIMULATING HORMONE) 2024 CBC w DIFF 11/01/2024 Lipid Panel 11/01/2024 Free T4 (Free Thyroxine) 11/01/2024 Next Appt Details Follow Up: 3 Months, Reason: OV Provider Name:Neal Dave , 03/24/2025 11:00:00 AM, [address] [place] [address] , [place] [address], [place], [address], Progress Notes * ENRIQUETA NOELDOB:1939 (84 yo F)Acc No.[id number]:11/01/2024 Progress Notes Patient: ENRIQUETA MONTES Provider: Darshana Dave MD :1940 A ge:84 Y S ex:Female Date:11/01/2024 [address] [facility] [id number] Pcp:Will Bower MD Subjective: * Chief Complaints: * H istory of pulmonary embolismhistory of DVTAnticoagulated * HPI: C OVID-19 Screening: She returns for a routine scheduled visit. She is followed for a history of deep vein thrombosis and pulmonary embolism. She has had no bleeding or symptoms of clotting. She has taken all of her medications faithfully including the Eliquis. She has voluntarily lost a significant amount of weight now weighing 125 pounds which is 56.8 kg. She is 84 years old and therefore a candidate to reduce the dose of Eliquis to 2.5 mg twice a day. I have prescribed this dose today. I have explained this to her carefully. She went to a lecture at [facility] by Dr. Maloney who is a eviction specialist. She then saw [facility] in consultation. He obtained a factor VIII level that was 196% of normal. She had an echocardiogram that was normal and also a lung scan that showed no sign of residual emboli. Questions H ave you had any new onset fever, chills, cough, congestion, sore throat, shortness of breath, muscle aches? N o * ROS: G eneral/Constitutional: pain o nly [...] addiction. One of her 4 children, has Robert's disease. * Social History: T obacco Use: T obacco Use/Smoking P atient is a f ormer smoker H ow long has it been since you last smoked??> 10 years A dditional Findings: Tobacco Non-User E x-cigarette smoker S he has been to her , Jordan for 54 years. They have 4 children and 9 grandchildren. She was born in [place], [place]. Her maiden name was Sealevel. She has no jewish objection to blood transfusion. * Medications: T akingmetroNIDAZOLE 0.75 % Cream External Latanoprost 0.005 % Solution Ophthalmic Olopatadine HCl 0.1 % Solution Ophthalmic Vitamin D Multivitamin Lovenox 100 MG/ML Solution Prefilled Syringe as directed Injection daily for 3 days prior to surgery Eliquis 5 MG Tablet TAKE 1 TABLET BY MOUTH TWICE DAILY Medication List reviewed and reconciled with the patientTaking metroNIDAZOLE 0.75 % Cream External Taking Latanoprost 0.005 % Solution Ophthalmic Taking Olopatadine HCl 0.1 % Solution Ophthalmic Taking Vitamin D Taking Multivitamin Taking Lovenox 100 MG/ML Solution Prefilled Syringe as directed Injection daily for 3 days prior to surgery Taking Eliquis 5 MG Tablet TAKE 1 TABLET BY MOUTH TWICE DAILY Medication List reviewed and reconciled with the patient * Allergies: N o Known Drug Allergyno[Allergies Verified] Objective: * Vitals: H t: 63, Wt:125, BMI:22.14, BP:140/71, HR:90, Temp:98.1, Ht-cm: 160.02, Wt-k.7. * P ast Orders: Lab:Complete Blood Count Aut o Diff * Collection Date 10/29/2024 04/27/2024 02/16/2024 Collection Time 03:02 PM 10:54 AM 11:00 AM Order Date 10/29/2024 04/27/2024 02/16/2024 White Blood Count 5.2 (Ref Range: 4.8-10.8 X10*3/uL) 6.8 (Ref Range: 4.8-10.8 X10*3/uL) 7.6 (Ref Range: 4.8-10.8 X10*3/uL) Red Blood Count 3.78 L (Ref Range: 4.20-5.50 X10*6/uL) 3.84 L (Ref Range: 4.20-5.50 X10*6/uL) 3.83 L (Ref Range: 4.20-5.50 X10*6/uL) Hemoglobin 12.3 (Ref Range: 12.0-16.0 g/dl) 12.3 (Ref Range: 12.0-16.0 g/dl) 12.2 (Ref Range: 12.0-16.0 g/dl) Hematocrit 36.1 L (Ref Range: 37.0-47.0 %) 37.2 (Ref Range: 37.0-47.0 %) 37.8 (Ref Range: 37.0-47.0 %) Mean Corpuscular Volume 95.5 (Ref Range: 80.0-98.0 fL) 96.9 (Ref Range: 80.0-98.0 fL) 98.7 H (Ref Range: 80.0-98.0 fL) Mean Corpuscular Hemoglobin 32.5 (Ref Range: 27.0-33.0 pg) 32.0 (Ref Range: 27.0-33.0 pg) 31.9 (Ref Range: 27.0-33.0 pg) Mean Corpuscular HGB Conc 34.1 (Ref Range: 31.0-35.0 g/dl) 33.1 (Ref Range: 31.0-35.0 g/dl) 32.3 (Ref Range: 31.0-35.0 g/dl) Red Cell Distribution Width 12.7 (Ref Range: 11.0-16.0 %) 12.6 (Ref Range: 11.0-16.0 %) 12.3 (Ref Range: 11.0-16.0 %) Platelet Count 167 (Ref Range: 160-400 X10*3/uL) 194 (Ref Range: 160-400 X10*3/uL) 193 (Ref Range: 160-400 X10*3/uL) Mean Platelet Volume 9.0 L (Ref Range: 9.4-12.3 fL) 10.0 (Ref Range: 9.4-12.3 fL) 10.3 (Ref Range: 9.4-12.3 fL) Neutrophils Percent Auto 61.5 (Ref Range: 45-73 %) 60.8 (Ref Range: 45-73 %) 72.8 (Ref Range: 45-73 %) Imm Gran Pct Auto 0.4 (Ref Range: 0.0-0.4 %) 0.3 (Ref Range: 0.0-0.4 %) 0.4 (Ref Range: 0.0-0.4 %) Lymphocytes Percent Auto 28.9 (Ref Range: 20-40 %) 30.5 (Ref Range: 20-40 %) 20.0 (Ref Range: 20-40 %) Monocytes Percent Auto 6.5 (Ref Range: 2-11 %) 6.4 (Ref Range: 2-11 %) 5.0 (Ref Range: 2-11 %) Eosinophils Percent Auto 1.7 (Ref Range: 0-4 %) 1.0 (Ref Range: 0-4 %) 0.9 (Ref Range: 0-4 %) Basophils Percent Auto 1.0 (Ref Range: 0-2 %) 1.0 (Ref Range: 0-2 %) 0.9 (Ref Range: 0-2 %) NRBC Pct Auto 0.0 (Ref Range: 0.0-0.2 /100WBC) 0.0 (Ref Range: 0.0-0.2 /100WBC) 0.0 (Ref Range: 0.0-0.2 /100WBC) Neutrophils Absolute Auto 3.2 (Ref Range: 2.0-8.3 x10*3/uL) 4.1 (Ref Range: 2.0-8.3 x10*3/uL) 5.5 (Ref Range: 2.0-8.3 x10*3/uL) Imm Gran Abs Auto 0.02 (Ref Range: 0.00-0.03 X10*3/uL) 0.02 (Ref Range: 0.00-0.03 X10*3/uL) 0.03 (Ref Range: 0.00-0.03 X10*3/uL) Lymphocytes Absolute Auto 1.5 (Ref Range: 1.2-4.9 X10*3/uL) 2.1 (Ref Range: 1.2-4.9 X10*3/uL) 1.5 (Ref Range: 1.2-4.9 X10*3/uL) Monocytes Absolute Auto 0.3 (Ref Range: 0.1-1.2 X10*3/uL) 0.4 (Ref Range: [...] 0.0-0.012 X10*3/uL) 0.000 (Ref Range: 0.0-0.012 X10*3/uL) ???Lab:Comprehensive Met. Panel (Order Date - 10/29/2024) (Collection Date & Time - 10/29/2024 03:02 PM)?ValueReference Range?[id number] - mmol/L?Bilirubin Total0.30.0-1.0 - mg/dL?Aspartate Amino Rrkofpyqsxg774-40 - U/L?Alanine Vusjptgdomtcjuay718-62 - U/L?Total Protein6.4L6.5-8.0 - g/dL?Albumin Level3.93.5-5.0 - g/dL?Alkaline Sjxmahpywqx4096-381 - U/L?Potassium4.13.3-5.1 - mmol/L?Sdypxxgf615 H96-108 - mmol/L?Carbon Zjsnuxh9656-83 - mmol/L?Anion Gyj50E12-81 -?Blood Urea Bdlouarj23D5-25 - mg/dL?Creatinine0.880.5-1.4 - mg/dL ?Estimated Glomerular Filt Rate> 60-?Glucose Lljhvk7199-124 - mg/dL?Calcium9.28.4-10.2 - mg/dL * Examination: G eneral Examination: GENERAL APPEARANCE: p neftaly, well nourished, well developed, in no acute distress, calm and relaxed, elderly woman. HEAD: a traumatic, normocephalic. EYES: e jaclyn, [...] LUNGS: c lear to auscultation . BREASTS: N ot examined. ABDOMEN: b owel sounds normal, no ascites, [...] She has had no bleeding. 2 . T hrombopenia - D69.6 N otes :Her platelet count was slightly low in 2021 but has been normal since. This problem has resolved and will be removed from her problem list. 3 . D eep vein thrombosis - I82.409 N otes :She has a history of DVT and pulmonary embolism in the past was treated with a course of anticoagulation. She is now on long-term anticoagulation.. 4 . O steopenia - M85.80 N otes :She was continued on current therapy. We discussed the use of calcium carbonate and vitamin D and exercise. 5 . A nticoagulated - Z79.01 N otes :She has had no bleeding on the Eliquis. She is now over 82 years old and her weight is less than 60 kg. She is a candidate reduce her Eliquis 22.5 mg twice a day which I have done after a long discussion. 6 . F ormer smoker - Z87.891 N otes :She has a plan to prevent relapse in times of stress and illness. She was educated about the increased risk of thromboembolism in smokers. 7 . E levated factor VIII level - R79.1 N otes :This was recently found at [facility] by pulmonary. It is a risk factor for clotting. He remains anticoagulated. Plan: * Treatment: 2. T hrombopenia L AB: PROFILE, FASTING (COMPREHENSIVE METABOLIC) L AB: TSH (THYROID STIMULATING HORMONE) L AB: CBC w DIFF L AB: Lipid Panel L AB: Free T4 (Free Thyroxine) 3. O thers Continue metroNIDAZOLE Cream, 0.75 %, External; C ontinue Latanoprost Solution, 0.005 %, Ophthalmic; C ontinue Olopatadine HCl Solution, 0.1 %, Ophthalmic; C ontinue Vitamin D; C ontinue Multivitamin; S tart Apixaban Tablet, 2.5 MG, as directed, Orally, twice a day, 30 days, 60, Refills 11. * Procedure Codes: * Preventive Medicine: Counseling: S moking/Tobacco Use Patient counseled on the dangers of tobacco use and urged to quit. 0 11/01/2024 * Follow Up: 3 Months (Reason: OV) * Images: * Sign off status: Completed true * Provider: Darshana Dave MD Date: 0 11/01/2024 Generated for Printi ng/Geovannig/eTransmitting on: 1 05/21/2024 09:05 AM EST History and Physical [...]
--- OUTSIDE RECORDS SUMMARY | 2024-12-15 08:44 | XMS_ITS ---
Author Organization Neal Dave III, MD Address [address] [place] [address] Care Team Providers Care School Occupational Therapist Name Role Phone Will Bower MD Primary Care Provider Dr. 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 Assessments Encounter Date Diagnosis (ICD Code) Assessment Notes Treatment Notes Treatment Clinical Notes 12/15/2024 Elevated factor VIII level (ICD-10 - R79.1) Plan Of Treatment Pending Test Test Name Order Date FACTOR VIII ACTIVITY 12/15/2024 Next Appt Details Provider Name:Neal Dave , 03/24/2025 11:00:00 AM, [address] [place] [address] [place], [address], Progress Notes * ENRIQUETA NOEL LDOB:01/1940 (84 yo F)Acc No.[id number]:12/15/2024 Patient: ENRIQUETA MONTES :1940 A ge:84 Y S ex:Female Address:[address], [place], [address] Subjective: * Chief Complaints: * N eeds repeat labs done * Medical History: * Surgical History: * Hospitalization/Major Diagno stic Procedure: * Medications: Objective: * Vitals: * Physical Examination: Assessment: * Assessment: 1. E levated factor VIII level - R79.1 Plan: * Treatment: * Procedure Codes: * true * Date: Generated for Monisha Keating/Aditi on: 05/21/2024 09:06 AM EST
--- OUTSIDE RECORDS SUMMARY | 2025-01-31 05:15 | XMS_ITS ---
Author Organization Neal Dave III, MD Address [address] [place] [address] Care Team Providers Care Television And Radio Repairer Name Role Phone Will Bower MD Primary Care Provider Dr. Neal Morales III Unavailable Allergies Allergen (clinical drug ingredient) Drug/Non Drug Allergy documented on EMR Reaction Allergy Type Onset Date Status No Known Drug Allergy Unknown Drug Allergy Active REASON FOR VISIT History of pulmonary emboli, Elevated factor VIII level, Thrombophilia, Chronic anticoagulation Medications Medication SIG (Take, Route, Frequency, Duration) Notes Start Date End Date Status Metoprolol Succinate ER 25 MG Oral Active Olopatadine HCl 0.1 % Ophthalmic Active metroNIDAZOLE 0.75 % External Active Latanoprost 0.005 % Ophthalmic Active Lovenox 100 MG/ML as directed Injectio n daily for 3 days prior to surgery 02/24/2024 Active Multivitamin Active Vitamin D Active Apixaban 2.5 MG as directed Orally 11/01/2024 Active Eliquis 5 MG TAKE 1 TABLET BY SANAZ TH TWICE DAILY Active Social History Tobacco Use: Social History Observation Description Date Details (start date - stop date) Former Smoker NA - NA Tobacco Use/Smoking Question Answer Notes Patient is a former smoker How long has it been since you last smoked? > 10 years Additional Findings: Tobacco Non-User Ex-cigaret te smoker Vital Signs Temperature 98.7 degrees Fahrenheit 02/01/20 25 Blood pressure systolic 128 mm Hg 02/01/20 25 Blood pressure diastolic 63 mm Hg 025 Heart Rate 65 /min 01/31/2025 Height 63 in 01/31/2025 Weight 132 lbs 01/31/2025 BMI 23.38 kg/m2 01/31/2025 Encounters Encounter Location Date Provider Diagnosis Neal Dave III, MD [address] [place] [address] [address] [place], [place] [id number] 01/31/2025 Neal Dave Pulmonary embolism I26.99 ; Elevated factor VIII level R79.1 ; Deep vein thrombosis I82.409 ; Anticoagulated Z79.01 ; Osteopenia M85.80 ; Glaucoma H40.9 ; Age-related incipient cataract of both eyes H25.093 ; QT prolongation R94.31 ; Left bundle branch block I44.7 ; Venous insufficiency I87.2 and Former smoker Z87.891 Assessments Encounter Date Diagnosis (ICD Code) Assessment Notes Treat ment Notes Treatment Clinical Notes 01/31/2025 Pulmonary embolism (ICD-10 - I26.99) She is currently chronically anticoagulated with Eliquis. She has had no sign since her last visit. She has had no bleeding. 01/31/2025 Elevated factor VIII level (ICD-10 - R79.1) She has had no bleeding and is on Eliquis.. It is a risk factor for clotting. She remains anticoagulated. The reasonably repeated value was 222. 01/31/2025 Deep vein thrombosis (ICD-10 - I82.409) She has a history of DVT and pulmonary embolism in the past was treated with a course of anticoagulation. She is now on long-term anticoagulation.. 01/31/2025 Anticoagulated (ICD-10 - Z79.01) She has had no bleeding on the Eliquis. She is now over 82 years old and her weight is less than 60 kg. She is a candidate reduce her Eliquis 22.5 mg twice a day which I have done after a long discussion. 01/31/2025 Osteopenia (ICD-10 - M85.80) She was continued on current therapy. We discussed the use of calcium carbonate and vitamin D and exercise. 01/31/2025 Glaucoma (ICD-10 - H40.9) She was continued on latanoprost. 01/31/2025 Age-related incipient cataract of both eyes (ICD-10 - H25.093) She has had surgery and is under the care of an marketing liaison. 01/31/2025 QT prolongation (ICD-10 - R94.31) This was a new finding of February 2011. She will avoid drugs that prolong this interval. 01/31/2025 Left bundle branch block (ICD-10 - I44.7) No change in her therapy is indicated. 01/31/2025 Venous insufficiency (ICD-10 - I87.2) This is mild and did not require any attention today. 01/31/2025 Former smoker (ICD-10 - Z87.891) She has a plan to prevent relapse in times of stress and illness. She was educated about the increased risk of thromboembolism in smokers. Plan Of Treatment Medication Medication Name Sig Start Date Stop Date Notes Metoprolol Succinate ER 25 MG Oral Olopatadine HCl 0.1 % Ophthalmic metroNIDAZOLE 0.75 % External Latanoprost 0.005 % Ophthalmic Lovenox 100 MG/ML as directed Injectio n daily for 3 days prior to surgery 02/24/2024 Multivitamin Vitamin D Apixaban 2.5 MG as directed Orally t a 11/01/2024 Eliquis 5 MG TAKE 1 TABLET BY SANAZ TWICE DAILY Next Appt Details Follow Up: 2 Months, Reason: OV Provider Name:Neal Dave , 03/24/2025 11:00:00 AM, [address] [place] [address] DR, [place] [address], [place], [address], Progress Notes * ENRIQUETA NOEL LDOB:01/1940 (84 yo F)Acc No.[id number]:01/31/2025 Progress Notes Patient: ENRIQUETA MONTES Provider: Darshana Dave MD :1940 A ge:84 Y S ex:Female Date:01/31/2025 Address: [address], [id number] Pcp:Will Bower MD Subjective: * Chief Complaints: * H istory of pulmonary emboliElevated factor VIII levelThrombophiliaChronic anticoagulation * HPI: C OVID-19 Screening: S he returns for a scheduled visit to manage her thrombophilia and anticoagulation. Since her last visit she has had no bleeding and no signs of venous or arterial thrombosis or thromboembolism. She feels healthy and well at 84. She has been having premature ventricular contractions and was put on metoprolol which has abolish them. She takes 25 mg a day. A repeat factor VIII level is 222. Questions H ave you had any new [...] addiction. One of her 4 children, has Moosup's disease. * Social History: T obacco Use: T obacco Use/Smoking P atient is a f ormer smoker H ow long has it been since you last smoked??> 10 years A dditional Findings: Tobacco Non-User E x-cigarette smoker S he has been to her , Jordan for 54 years. They have 4 children and 9 grandchildren. She was born in [place], [place]. Her maiden name was Daron. She has no restorationist objection to blood transfusion. * Medications: T akingmetroNIDAZOLE 0.75 % Cream External Latanoprost 0.005 % Solution Ophthalmic Olopatadine HCl 0.1 % Solution Ophthalmic Vitamin D Multivitamin Lovenox 100 MG/ML Solution Prefilled Syringe as directed Injection daily for 3 days prior to surgery Eliquis 2.5 MG Tablet as directed Orally Twice a day Metoprolol Succinate ER 25 MG Tablet Extended Release 24 Hour Oral Taking metroNIDAZOLE 0.75 % Cream External Taking Latanoprost 0.005 % Solution Ophthalmic Taking Olopatadine HCl 0.1 % Solution Ophthalmic Taking Vitamin D Taking Multivitamin Taking Lovenox 100 MG/ML Solution Prefilled Syringe as directed Injection daily for 3 days prior to surgery Taking Eliquis 2.5 MG Tablet as directed Orally Twice a day Taking Metoprolol Succinate ER 25 MG Tablet Extended Release 24 Hour Oral DiscontinuedApixaban 2.5 MG Tablet as directed Orally twice a day Medication List reviewed and reconciled with the patientDiscontinued Apixaban 2.5 MG Tablet as directed Orally twice a day Medication List reviewed and reconciled with the patient * Allergies: N o Known Drug Allergyno[Allergies Verified] Objective: * Vitals: H t: 63, Wt:132, BMI:23.38, BP:128/63, HR:65, Temp:98.7, Ht-cm: 160.02, Wt-k.87. * P ast Orders: L ab:Thyroid Stimulating Hormone (Order Date - 01/25/2025) (Collection Date & Time - 01/25/2025 06:15 AM) Value Reference Range Thyroid Stimulating Hormone 1.45 0.32-4.0 - u IU/mL Lab:Complete Blood Count Aut o Diff * Collection Date 01/25/2025 10/29/2024 04/27/2024 Collection Time 06:15 AM 03:02 PM 10:54 AM Order Date 01/25/2025 10/29/2024 04/27/2024 White Blood Count 5.8 (Ref Range: 4.8-10.8 X10*3/uL) 5.2 (Ref Range: 4.8-10.8 X10*3/uL) 6.8 (Ref Range: 4.8-10.8 X10*3/uL) Red Blood Count 3.82 L (Ref Range: 4.20-5.50 X10*6/uL) 3.78 L (Ref Range: 4.20-5.50 X10*6/uL) 3.84 L (Ref Range: 4.20-5.50 X10*6/uL) Hemoglobin 12.4 (Ref Range: 12.0-16.0 g/dl) 12.3 (Ref Range: 12.0-16.0 g/dl) 12.3 (Ref Range: 12.0-16.0 g/dl) Hematocrit 38.0 (Ref Range: 37.0-47.0 %) 36.1 L (Ref Range: 37.0-47.0 %) 37.2 (Ref Range: 37.0-47.0 %) Mean Corpuscular Volume 99.5 H (Ref Range: 80.0-98.0 fL) 95.5 (Ref Range: 80.0-98.0 fL) 96.9 (Ref Range: 80.0-98.0 fL) Mean Corpuscular Hemoglobin 32.5 (Ref Range: 27.0-33.0 pg) 32.5 (Ref Range: 27.0-33.0 pg) 32.0 (Ref Range: 27.0-33.0 pg) Mean Corpuscular HGB Conc 32.6 (Ref Range: 31.0-35.0 g/dl) 34.1 (Ref Range: 31.0-35.0 g/dl) 33.1 (Ref Range: 31.0-35.0 g/dl) Red Cell Distribution Width 12.2 (Ref Range: 11.0-16.0 %) 12.7 (Ref Range: 11.0-16.0 %) 12.6 (Ref Range: 11.0-16.0 %) Platelet Count 261 (Ref Range: 160-400 X10*3/uL) 167 (Ref Range: 160-400 X10*3/uL) 194 (Ref Range: 160-400 X10*3/uL) Mean Platelet Volume 9.6 (Ref Range: 9.4-12.3 fL) 9.0 L (Ref Range: 9.4-12.3 fL) 10.0 (Ref Range: 9.4-12.3 fL) Neutrophils Percent Auto 53.9 (Ref Range: 45-73 %) 61.5 (Ref Range: 45-73 %) 60.8 (Ref Range: 45-73 %) Imm Gran Pct Auto 0.3 (Ref Range: 0.0-0.4 %) 0.4 (Ref Range: 0.0-0.4 %) 0.3 (Ref Range: 0.0-0.4 %) Lymphocytes Percent Auto 34.7 (Ref Range: 20-40 %) 28.9 (Ref Range: 20-40 %) 30.5 (Ref Range: 20-40 %) Monocytes Percent Auto 7.1 (Ref Range: 2-11 %) 6.5 (Ref Range: 2-11 %) 6.4 (Ref Range: 2-11 %) Eosinophils Percent Auto 2.8 (Ref Range: 0-4 %) 1.7 (Ref Range: 0-4 %) 1.0 (Ref Range: 0-4 %) Basophils Percent Auto 1.2 (Ref Range: 0-2 %) 1.0 (Ref Range: 0-2 %) 1.0 (Ref Range: 0-2 %) NRBC Pct Auto 0.0 (Ref Range: 0.0-0.2 /100WBC) 0.0 (Ref Range: 0.0-0.2 /100WBC) 0.0 (Ref Range: 0.0-0.2 /100WBC) Neutrophils Absolute Auto 3.1 (Ref Range: 2.0-8.3 x10*3/uL) 3.2 (Ref Range: 2.0-8.3 x10*3/uL) 4.1 (Ref Range: 2.0-8.3 x10*3/uL) Imm Gran Abs Auto 0.02 (Ref Range: 0.00-0.03 X10*3/uL) 0.02 (Ref Range: 0.00-0.03 X10*3/uL) 0.02 (Ref Range: 0.00-0.03 X10*3/uL) Lymphocytes Absolute Auto 2.0 (Ref Range: 1.2-4.9 X10*3/uL) 1.5 (Ref Range: 1.2-4.9 X10*3/uL) 2.1 (Ref Range: 1.2-4.9 X10*3/uL) Monocytes Absolute Auto 0.4 (Ref Range: 0.1-1.2 X10*3/uL) 0.3 (Ref Range: 0.1-1.2 X10*3/uL) 0.4 (Ref Range: 0.1-1.2 X10*3/uL) Eosinophils Absolute Auto 0.2 (Ref Range: 0.0-0.4 X10*3/uL) 0.1 (Ref Range: 0.0-0.4 X10*3/uL) 0.1 (Ref Range: 0.0-0.4 X10*3/uL) Basophils Absolute Auto 0.1 (Ref Range: 0.0-0.2 X10*3/uL) 0.1 (Ref Range: 0.0-0.2 X10*3/uL) 0.1 (Ref Range: 0.0-0.2 X10*3/uL) NRBC Abs Auto 0.000 (Ref Range: 0.0-0.012 X10*3/uL) 0.000 (Ref Range: 0.0-0.012 X10*3/uL) 0.000 (Ref Range: 0.0-0.012 X10*3/uL) ???Lab:Comprehensive [place]. Panel Fast (Order Date - 01/25/2025) (Collection Date & Time - 01/25/2025 06:15 AM)?ValueReference Range?Ojpopk860615- 145 - mmol/L?Bilirubin Total0.50.0-1.0 - mg/dL?Aspartate Amino Pmznjtjaggx768-91 - U/L?Alanine Lhhkvfbgreihmivm576-97 - U/L?Total Protein7.26.5-8.0 - g/dL?Albumin Level4.23.5-5.0 - g/dL?Alkaline Gxemwgncabw83968-964 - U/L?Potassium3.93.3-5.1 - mmol/L?Chloride 19332-771 - mmol/L?Carbon Ufgklcn8064-30 - mmol/L?Anion Adz3601-15 -?Blood Urea Fqpnkteu22R3-64 - mg/dL?Creatinine0.840.5-1.4 - mg/dL ?Estimated Glomerular Filt Rate> 60-?Glucose Pzakrnm8186-04 - mg/dL?Calcium9.88.4-10.2 - mg/dL ???Lab:Free T4 (Free Thyroxine) (Order Date - 01/25/2025) (Collection Date & Time - 01/25/2025 06:15 AM)?ValueReference Range?Free T4 (Free Thyroxine)1.040.71-1.85 - ng/dL ???Lab:Lipid Panel (Order Date - 01/25/2025) (Collection Date & Time - 01/25/2025 06:15 AM)?ValueReference Range?Nymoikpmcbvbj46<150 - mg/dL?Qrezqpodgzt248H<200 - mg/dL?LDL Cholesterol Btsivmpwtv362R <100 - mg/dL?HDL Bfufbjyahbr24>40 - mg/dL * Examination: G eneral Examination: GENERAL APPEARANCE: p neftaly, well nourished, well developed, in no acute distress, calm and relaxed: elderly woman. HEAD: a traumatic, normocephalic. EYES: [...] S1, S2 normal, no s3, or vascular bruits, No ectopy. LUNGS: c lear to auscultation . BREASTS: [...] a lert, oriented. Assessment: * Assessment: 1. E levated factor VIII level - R79.1 (Primary) N otes :She has had no bleeding and is on Eliquis.. It is a risk factor for clotting. She remains anticoagulated. The reasonably repeated value was 222. 2 . P ulmonary embolism - I26.99 N otes :She is currently chronically anticoagulated with Eliquis. She has had no sign since her last visit. She has had no bleeding. 3 . D eep vein thrombosis - I82.409 N otes :She has a history of DVT and pulmonary embolism in the past was treated with a course of anticoagulation. She is now on long-term anticoagulation.. 4 . A nticoagulated - Z79.01 N otes :She has had no bleeding on the Eliquis. She is now over 82 years old and her weight is less than 60 kg. She is a candidate reduce her Eliquis 22.5 mg twice a day which I have done after a long discussion. 5 . O steopenia - M85.80 N otes :She was continued on current therapy. We discussed the use of calcium carbonate and vitamin D and exercise. 6 . G laucoma - H40.9 N otes :She was continued on latanoprost. 7 . A ge-related incipient cataract of both eyes - H25.093 N otes :She has had surgery and is under the care of an marketing liaison. 8 . Q T prolongation - R94.31 N otes :This was a new finding of February 2011. She will avoid drugs that prolong this interval. 9 . L eft bundle branch block - I44.7 N otes :No change in her therapy is indicated. 1 0. V enous insufficiency - I87.2 N otes :This is mild and did not require any attention today. 1 1. F ormer smoker - Z87.891 N otes :She has a plan to prevent relapse in times of stress and illness. She was educated about the increased risk of thromboembolism in smokers. Plan: * Treatment: 2. O thers Continue metroNIDAZOLE Cream, 0.75 %, External; C ontinue Latanoprost Solution, 0.005 %, Ophthalmic; C ontinue Olopatadine HCl Solution, 0.1 %, Ophthalmic; C ontinue Vitamin D; C ontinue Multivitamin; C ontinue Apixaban Tablet, 2.5 MG, as directed, Orally, twice a day. ? * Procedure Codes: * Follow Up: 2 Months (Reason: OV) * Images: * Sign off status: Completed true * Provider: Darshana Dave MD Date: 0 01/31/2025 Generated for Monisha cyr/Edel/Kalitting on: 1 05/21/2024 09:04 AM EST History and Physical Notes * HPI (History of Present Illness) Category Sub-Category Detail Notes COVID-19 Screening Questions Have you had any new onset fever, chills, cough, congestion, sore throat, shortness of breath, muscle aches?: No Examination Category Sub-Category Detail Notes General Examination GENERAL APPEARANCE: pleasant , well nourished, well developed, in no acute distress, calm and relaxed: elderly woman HEAD: atraumatic, normocep halic EYES: eomi, perrla, anicte salma, conjugate EARS: normal NOSE: septum intact NECK/THYROID: no jugular venous di stention, no carotid bruit, thyroid normal HEART: no clicks, gallops, murmurs, or rubs, regular rhythm, S1, S2 normal, no s3, or vascular bruits, No ectopy LUNGS: clear to auscultatio n ABDOMEN: bowel [...]
--- OUTSIDE RECORDS SUMMARY | 2025-02-03 08:22 | XMS_ITS ---
Author Organization Neal Dave III, MD Address [address] [place] [address] Care Team Providers Care Claims Adjuster Name Role Phone Will Bower MD Primary Care Provider Dr. Neal Morales III Unavailable [phone] REASON FOR VISIT Needs call back from MD Encounters Encounter Location Date Provider Diagnosis Neal Dave III, MD [address] [place] [address] [place] [address] 02/03/2025 Neal Dave Plan Of Treatment Next Appt Details Provider Name:Neal Dave , 03/24/2025 11:00:00 AM, [address] [place] [address] [place], [address], Progress Notes * ENRIQUETA NOEL LDOB:01/1940 (84 yo F)Acc No.[id number]:02/03/2025 Patient: Reg ENRIQUETA RIVER :1940 A ge:84 Y S ex:Female Address:[address], [place], [address] * true * Date: Generated for Monisha cyr/Edel/eTransmitting on: 05/21/2024 09:06 AM EST
--- NOTE | 2025-03-21 08:57 | A.OFFVIS_ITS ---
Vital Signs 03/21/25 09:00 Height 5 ft 2 in Weight 125 lb 10.616 oz BMI 23.0 BP 100/60 Blood Pressure Location Lt brachial Position Sitting Pulse 84 Pulse Source Pulse Oximeter Intake Visit Reasons: 6 mth f/up Intake Note: 6 mth f/up Rn Emergency Room Required: No Accompanied by: Self / Same As Patient Allergies No Known Allergies (No Known Allergies*) Allergy (Verified 07/13/24 11:33) Medication List - Last Reconciled 03/21/25 by Jack Acosta MD apixaban 2.5 mg PO BID cholecalciferol (vitamin D3) 50 mcg PO DAILY latanoprost 0.005% 1 drp ophthalmic-Left DAILY metoprolol succinate ER (Toprol XL) 50 mg (2 x 25 mg) PO .qhs multivitamin 1 tab PO DAILY HPI Comments Details: Here for f/u 07/30/22: She had bilateral PE last year in the setting of COVID-19 infection. She also had air travel to [place]. Echocardiography at that time performed at [facility] showed mild RV dysfunction with EF of 50 55%. She has chronic left bundle-branch block. She has few questions including concern for fatigue and shortness of breath. She was able to walk 2 1/2 miles before but now able to walk 1-1-1/2 miles. She has no chest discomfort. She has been taking Eliquis without any issues. She had D-dimer performed recently which was normal. Her pulmonary embolism appears to be provoked due to COVID-19 and air travel. No dizziness or syncope. She was referred for echocardiography which showed normal biventricular function. She also saw Hematology and was subsequently taken off the Eliquis. 11/18/22: She returns for follow-up. EKG in the office is showing sinus rhythm 72 beats per minute, left bundle-branch block, QTC 462 milliseconds. 05/19/23: She is here for follow-up. She is getting some shortness of breath when she goes upstairs. No chest discomfort. She has been experiencing some dull ache in the legs when she walks and has been diagnosed with venous reflux involving the left leg. She also get burning sensation on her feet. She is seeing vascular surgery for venous ablation. 07/14/2024: She recently went to emergency department because she was getting tachycardia when she is stood up. Her heart rate was going up to 120s. This has happened to her twice in the last week. In the ER she had extensive workup including D-dimer levels which were negative. She was eventually discharged home. She is saying she is feeling somewhat better but concerned that why her heart rate went up couple of times. Previously she had pulmonary embolism and was tachycardic and she is correlating tachycardia with pulmonary embolism. I have reassured her that her D-dimer level is negative and she is on apixaban. She was previously on metoprolol but she has stopped taking that a year ago. 09/15/2024: She is here for follow-up. She was seen recently for palpitations underwent 2 week Holter monitor. She had some runs of supraventricular tachycardia. couple of strips can not be differentiated from atrial fibrillation but overall not heavy burden of arrhythmia. She was started on metoprolol 25 but she has been using it at half dose 12.5 mg daily. She is denying any palpitations. She has known thromboembolism in the past and is on apixaban 5 mg twice a day and has been told that she will be taking it lifelong. 03/21/2025: She is here for follow-up. She is complaining of palpitations due to PVCs. She is saying that she was doing okay for 3 months but more recently she has started having more PVCs. She was using metoprolol 50 mg at bedtime and 25 mg in the morning. More recently she has cut the morning dose because of overall low blood pressures. Blood pressure in the office is low. [facility] Medical History FISCHER (dyspnea on exertion) LBBB (left bundle branch block) Pulmonary embolism Palpitations PVC (premature ventricular contraction) Surgical History History of meniscectomy of left knee Hx of meniscectomy of right knee H/O section Family History Mother Pulmonary fibrosis Father Diabetes HTN (hypertension) Colon cancer Bladder cancer Sister Breast cancer Pulmonary fibrosis Brother COPD (chronic obstructive pulmonary disease) Son Addisons disease Social History (Reviewed 03/21/25 @ 09:00 by Gloria Prieto [facility] Household Members: Spouse Housing: House Do you presently have visiting nurse or other home services: No Alcohol intake: current Alcohol intake frequency: holidays/special occasions only Patient Tobacco Use Status: Former Tobacco user Years Smoked: 15 +/- e-Cigarette/Vaping Use: Never Used Second Hand Smoke Exposure: No Advance Directives Date on File: 10/27/23 service: No Review of Systems Const Denies chills, Denies fatigue, Denies fever(s), Denies frequent falls, Denies weakness, Denies weight gain and Denies weight loss ENT Denies dizziness Card Denies chest pain, Denies leg edema, Denies lightheadedness, Denies palpitations, Denies dyspnea and Denies dyspnea on exertion Resp Denies cough, Denies dyspnea and Denies dyspnea on exertion GI Denies hematochezia Musc Denies abnormal gait, Denies muscle weakness, Denies numbness, Denies radiating pain into limb and Denies tingling Neuro Denies abnormal gait, Denies dizziness, Denies frequent falls, Denies numbness, Denies tingling and Denies weakness Endo Denies fatigue and Denies palpitations Physical Exam Vital Signs: Last Vital Signs Pulse 84 03/21/25 09:00 BP 100/60 03/21/25 09:00 BMI result Body Mass Index 23.0 GENERAL APPEARANCE: in no acute distress, pleasant. NECK: no carotid bruit, no jugular venous distention. SKIN: no suspicious lesions, warm and dry. HEART: no murmurs, a regular rhythm due to premature ventricular complexes. LUNGS: clear to auscultation bilaterally. ABDOMEN: soft, nontender. EXTREMITIES: no edema. PERIPHERAL PULSES: equal. NEUROLOGIC: No gross deficits, AAO X 3 Assessment & Plan Assessment & Plan (1) PVC (premature ventricular contraction): Code(s): I49.3 - Ventricular premature depolarization Category: Medical Plan Pleasant 84 year lady who is here for follow-up. She has background history of left bundle-branch block, premature ventricular complexes causing palpitations and previous thromboembolism on chronic Eliquis. She is taking Toprol-XL at nighttime. She is complaining of daytime palpitations due to PVCs. Blood pressure is low. I have advised her to take the metoprolol in the morning rather nighttime and she will start taking it from tomorrow. She will report to us in couple of weeks if this changes her symptoms. If symptoms do not improve then would consider stress testing and start her on flecainide if it is normal. Alternatively we can try amiodarone. I have explained to her that antiarrhythmic medications do carry the risk of symptomatic bradycardia and progression of conduction system disease which she does have left bundle-branch block. She understands this. She will report to us in 2 weeks. Thank you for allowing me to participate in the care of your patient. Please feel free to contact me if you have any questions. Medications: Changed From metoprolol succinate ER (Toprol XL) Will take 2 tabs in the am and 1 tab in the pm. 50 mg (2 x 25 mg) PO .qhs 145 tabs 3RF I47.1 - Supraventricular tachycardia To metoprolol succinate ER (Toprol XL) 50 mg (2 x 25 mg) PO QAM 180 tabs 3RF I47.1 - Supraventricular tachycardia Coding Level of Care Code Est Pt Level 4 (76486) Diagnoses PVC (premature ventricular contraction) I49.3
[2025-03-21 09:00] VITALS: BP 100/60; PULSE 84; BMI 23.0
--- OUTSIDE RECORDS SUMMARY | 2025-03-21 09:05 | XMS_ITS | Patient Health Record ---
Author Organization [facility] Address [address] [place] [address] Care Team Providers Care Welder Fitter Name Role Phone Lamar(inactive) Santiago HADDAD Primary Care Provider U Neal Bernabe Unavailable [phone] Reason For Referral No Information Medications Medication [...] Problem Status W/U Status Risk Notes Problem Abdominal bloating (206422193) Abdominal bloating (R14.0) Active confirmed Problem Altered bowel function (32361892) Change in bowel function (R19.4) Active confirmed Problem Irritable bowel syndrome (59983301) Irritable bowel syndrome, unspecified type (K58.9) Active confirmed Plan Of Treatment Future Test Test Name Order Date COLONOSCOPY 07/23/2012 Insurance Providers Payer Name Payer Address Payer Phone Subscriber Number Group Number Insured Name Patient Relationship to Insured Coverage Start Date Coverage End Date MEDICARE OF [place] [address] [place] [address] [id number] ENRIQUETA SHELDON Self - patient is the insured REPLACED BY [facility] [employer] [address] [place] [address] [id number] ENRIQUETA SHELDON Self - patient is the insured Medical (General) History Medical History History ICD Code Colonoscopy in 02/2013, in 1 , and in 2001--neg except for diverticulosis; tubular adenoma removed in 1996; negative colonoscopy in 05/2017--no polyp, no IBD, no microscopic colitis Denies MS,DM,CVA,Lung disease,renal dise ase Surgical History Surgery Date(Month/Year) 2 sections right and left knee surgery in 2011
--- OUTSIDE RECORDS SUMMARY | 2025-03-21 09:05 | XMS_ITS | Patient Health Record ---
Author Organization Neal Dave III, MD Address [address] [place] [address] Care Team Providers Care Accounting Systems Manager Name Role Phone Will Bower MD Primary Care Provider Dr. Neal Morales III Unavailable Allergies Allergen (clinical drug ingredient) Drug/Non Drug Allergy documented on EMR Reaction Allergy Type Onset Date Status No Known Drug Allergy Unknown Drug Allergy Active Results Component Value Reference Range Notes Complete Blood Count Auto Di ff Reviewed date:04/27/2024 08:40:32 PM Interpretation: Performing Lab:[facility], [address] [place] [phone] Notes/Report: White Blood Count 6.8 4.8-10.8 X10*3/uL [...] ff Reviewed date:10/31/2024 01:46:33 PM Interpretation: Performing Lab:[facility], [address] [place] [phone] Notes/Report: White Blood Count 5.2 4.8-10.8 X10*3/uL [...] Panel Reviewed date:10/31/2024 01:46:33 PM Interpretation: Performing Lab:[facility], [address] [place] [phone] Notes/Report: Sodium 140 135-145 mmol/L Potassium 4.1 [...] 3.5-5.0 g/dL Alkaline Phosphatase 83 39-117 U/L Complete Blood Count Auto Di ff Reviewed date:01/31/2025 08:06:33 AM Interpretation: Performing Lab:[facility], [address] [place] [phone] Notes/Report: White Blood Count 5.8 4.8-10.8 X10*3/uL Red Blood Count 3.82 4.20-5.50 X10*6/uL Hemoglobin 12.4 12.0-16.0 g/dl Hematocrit 38.0 37.0-47.0 % Mean Corpuscular Volume 99.5 80.0-98.0 fL Mean Corpuscular Hemoglobin 32.5 27.0-33.0 pg Mean Corpuscular HGB Conc 32.6 31.0-35.0 g/dl Red Cell Distribution Width 12.2 11.0-16.0 % Platelet Count 261 160-400 X10*3/uL Mean Platelet Volume 9.6 9.4-12.3 fL Neutrophils Percent Auto 53.9 45-73 % Imm Gran Pct Auto 0.3 0.0-0.4 % Lymphocytes Percent Auto 34.7 20-40 % Monocytes Percent Auto 7.1 2-11 % Eosinophils Percent Auto 2.8 0-4 % Basophils Percent Auto 1.2 0-2 % NRBC Pct Auto 0.0 0.0-0.2 /100WBC Neutrophils Absolute Auto 3.1 2.0-8.3 x10*3/u L Imm Gran Abs Auto 0.02 0.00-0.03 X10*3/uL Lymphocytes Absolute Auto 2.0 1.2-4.9 X10*3/u L Monocytes Absolute Auto 0.4 0.1-1.2 X10*3/uL Eosinophils Absolute Auto 0.2 0.0-0.4 X10*3/u L Basophils Absolute Auto 0.1 0.0-0.2 X10*3/uL NRBC Abs Auto 0.000 0.0-0.012 X10*3/uL Factor VIII Activity Reviewed date:02/05/2025 08:57:32 PM Interpretation: Performing Lab:[facility], [address] [place] [phone] Notes/Report: Factor VIII Activity 222 50-180 % normal For additional information please refer to: http://education.[employer].com/faq/IUS074 (This link is being provided for informational/ educational purposes only.) THIS TEST WAS PERFORMED AT: [employer] [id number] [place] [phone] SHAMAR CURRY MD,PHD Comprehensive Onward. Panel Fa st Reviewed date:01/31/2025 08:06:33 AM Interpretation: Performing Lab:[facility], [address] [place] [phone] Notes/Report: Sodium 143 135-145 mmol/L Potassium 3.9 3.3-5.1 mmol/L Chloride 107 96-108 mmol/L Carbon Dioxide 26 22-29 mmol/L Anion Gap 14 12-20 Blood Urea Nitrogen 19 9-16 mg/dL Creatinine 0.84 0.5-1.4 mg/dL Estimated Glomerular Filt Rate > 60 Chronic Kidney Disease: Estimated GFR < 60 mL/min/1.73m2 Severe Kidney Disease: Estimated GFR < 15 mL/min/1.73m2 Glucose Fasting 86 60-99 mg/dL Calcium 9.8 8.4-10.2 mg/dL Bilirubin Total 0.5 0.0-1.0 mg/dL Aspartate Amino Transferase 30 5-31 U/L Alanine Aminotransferase 13 0-31 U/L Total Protein 7.2 6.5-8.0 g/dL Albumin Level 4.2 3.5-5.0 g/dL Alkaline Phosphatase 103 39-117 U/L Lipid Panel Reviewed date:01/31/2025 08:06:33 AM Interpretation: Performing Lab:[address] [address] Notes/Report: Triglycerides 91 <150 mg/dL Desirable Triglyceride: less than 150 mg/dL Borderline High Triglyceride 150-199 mg/dL High Triglyceride: 200-499 mg/dL Very High Triglyceride: greater than or equal to 5OO mg/dL Cholesterol 222 <200 mg/dL Desirable Cholesterol: less than 200 mg/dL Borderline High Cholesterol: 200-239 mg/dL High Cholesterol: greater than 239 mg/dL LDL Cholesterol Calculated 142 <100 mg/dL Desirable LDL: less than 100 mg/dL Near Optimal/Above Optimal LDL: 110-129 mg/dL Borderline High LDL: 130-159 mg/dL High LDL: 160-189 mg/dL Very High LDL: greater than or equal to 190 mg/dL HDL Cholesterol 62 >40 mg/dL Desirable HDL: greater than 40 mg/dL Note: This HDL assay may give artificially low results in patients with liver disease. Free T4 (Free Thyroxine) Reviewed date:01/31/2025 08:06:33 AM Interpretation: Performing Lab:[address] [address] Notes/Report: Free T4 (Free Thyroxine) 1.04 0.71-1.85 ng/dL Thyroid Stimulating Hormone Reviewed date:01/31/2025 08:06:33 AM Interpretation: Performing Lab:[facility], [address], [place] [address] Notes/Report: Thyroid Stimulating Hormone 1.45 0.32-4.0 uIU/ mL TSH 3rd Generation ([facility]) Reason For Referral Reason Evaluate and Treat Diagnosis 1 Pulmonary embolism ( I26.99) Referral Organization Neal Dave III, MD Referring Provider First Name Neal Referring Provider Last Name Jolie Referring Provider Speciality Internal M edicine Referred Provider [facility], Pulmonary Referred Provider Specialty Pulmonary [facility] General Notes D, Gissel 04/02/2024 09:12:23 AM > Referral and progress note faxed. Referral Priority Routine Referral Appointment Date 07/15/2024 Medications Medication SIG (Take, Route, Frequency, Duration) Notes Start Date End Date Status Lovenox 100 MG/ML as directed Injectio n daily for 3 days prior to surgery 02/24/2024 Active Metoprolol Succinate ER 25 MG Oral Active Multivitamin Active Vitamin D Active Olopatadine HCl 0.1 % Ophthalmic Active Apixaban 2.5 MG as directed Orally t wice a day 11/01/2024 Active Eliquis 5 MG TAKE 1 TABLET BY SANAZ TH TWICE DAILY Active metroNIDAZOLE 0.75 % External Active Latanoprost 0.005 % Ophthalmic Active Immunizations Vaccine Route Administration Date Status [...] Problem Status W/U Status Risk Notes Problem 9594207 Former smoker (Z87.891) Active confirmed She has a plan to prevent relapse in times of stress and illness. She was educated about the increased risk of thromboembolism in smokers. Problem 792383128 Anticoagulated (Z79.01) Active confirmed She has had no bleeding on the Eliquis. She is now over 82 years old and her weight is less than 60 kg. She is a candidate reduce her Eliquis 22.5 mg twice a day which I have done after a long discussion. Problem Osteopenia (005223882) Osteopenia (M85.80) Active confirmed She was continued on current therapy. We discussed the use of calcium carbonate and vitamin D and exercise. Problem Glaucoma (59594622) Glaucoma (H40.9) Active confirmed She was continued on latanoprost. Problem 16122977 Left bundle branch block (I44.7) Active confirmed No change in he r therapy is indicated. Problem Pulmonary embolism (77914673) Pulmonary embolism (I26.99) Active confirmed She is currentl y chronically anticoagulated with Eliquis. She has had no sign since her last visit. She has had no bleeding. Problem 77550870 Venous insufficiency (I87.2) Active confirmed This is mild an d did not require any attention today. Problem Deep vein thrombosis (699450162) Deep vein thrombosis (I82.409) Active confirmed She has a history of DVT and pulmonary embolism in the past was treated with a course of anticoagulation. She is now on long-term anticoagulation. . 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 Problem 313107423 Coronavirus infection (B34.2) Active confirmed She tested positive for cold. In February 2022 when hospitalized for pulmonary embolism. She has now recovered without long all symptoms. 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 She will avoid drugs that prolong this interval. 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 It is a risk factor for clotting. She remains anticoagulated. The reasonably repeated value was 222. Vital Signs Heart Rate 65 /min 01/31/2025 Temperature 98.7 degrees Fahrenheit 01/31/2025 Blood pressure diastolic 63 mm Hg 01/31/2025 Height 63 in 01/31/2025 Blood pressure systolic 128 mm Hg 01/31/2025 Weight 132 lbs 01/31/2025 BMI 23.38 kg/m2 01/31/2025 Encounters Encounter Location Date Provider Diagnosis Neal Dave III, MD [address] [place] [address] [place] [address] 05/03/2024 Neal Dave Pulmonary embolism I26.99 ; Venous insufficiency I87.2 ; Thrombopenia D69.6 and Osteopenia M85.80 Neal Dave III, MD [address] [place] [address] [place] [address] 11/01/2024 Neal Dave Thrombopenia D69.6 ; Pulmonary embolism I26.99 ; Deep vein thrombosis I82.409 ; Osteopenia M85.80 ; Anticoagulated Z79.01 ; Former smoker Z87.891 and Elevated factor VIII level R79.1 Neal Dave III, MD [address] [place] [address] [place] [address] 01/31/2025 Neal Dave Pulmonary embolism I26.99 ; Elevated factor VIII level R79.1 ; Deep vein thrombosis I82.409 ; Anticoagulated Z79.01 ; Osteopenia M85.80 ; Glaucoma H40.9 ; Age-related incipient cataract of both eyes H25.093 ; QT prolongation R94.31 ; Left bundle branch block I44.7 ; Venous insufficiency I87.2 and Former smoker Z87.891 Neal Dave III, MD [address] [place] [address] [place] [address] 04/02/2024 Neal Dave III, MD [address] [place] [address] [place] [address] 07/13/2024 Neal Dave III, MD [address] [place] [address] [place] [address] 07/13/2024 Neal Dave III, MD [address] [place] [address] [place] [address] 12/15/2024 Neal Dave Elevated factor VIII level R79.1 Neal Dave III, MD [address] [place] [address] [address] [place] [address] 02/03/2025 Neal Dave III, MD [address] [place] [address] [address] [place] [address] 07/15/2024 Neal Dave Assessments Encounter Date Diagnosis [...] will be removed from her problem list. 01/31/2025 Pulmonary embolism (ICD-10 - I26.99) She is currently chronically anticoagulated with Eliquis. She has had no sign since her last visit. She has had no bleeding. 01/31/2025 Elevated factor VIII level (ICD-10 - R79.1) She has had no bleeding and is on Eliquis.. It is a risk factor for clotting. She remains anticoagulated. The reasonably repeated value was 222. 12/15/2024 Elevated factor VIII level (ICD-10 - R79.1) 05/03/2024 Thrombopenia (ICD-10 - D69.6) Her platelet count has returned to normal and continues to be so. She has had no bleeding. 11/01/2024 Deep vein thrombosis (ICD-10 - I82.409) She has a history of DVT and pulmonary embolism in the past was treated with a course of anticoagulation. She is now on long-term anticoagulation.. 01/31/2025 Deep vein thrombosis (ICD-10 - I82.409) She has a history of DVT and pulmonary embolism in the past was treated with a course of anticoagulation. She is now on long-term anticoagulation.. 05/03/2024 Osteopenia (ICD-10 - M85.80) She was continued on current therapy. We discussed the use of calcium carbonate and vitamin D and exercise. 11/01/2024 Osteopenia (ICD-10 - M85.80) She was continued on current therapy. We discussed the use of calcium carbonate and vitamin D and exercise. 01/31/2025 Anticoagulated (ICD-10 - Z79.01) She has had no bleeding on the Eliquis. She is now over 82 years old and her weight is less than 60 kg. She is a candidate reduce her Eliquis 22.5 mg twice a day which I have done after a long discussion. 11/01/2024 Anticoagulated (ICD-10 - Z79.01) She has [...] carbonate and vitamin D and exercise. 11/01/2024 Former smoker (ICD-10 - Z87.891) She has a plan to prevent relapse in times of stress and illness. She was educated about the increased risk of thromboembolism in smokers. 01/31/2025 Glaucoma (ICD-10 - H40.9) She was continued on latanoprost. 11/01/2024 Elevated factor VIII level (ICD-10 - R79.1) This was recently found at [facility] by pulmonary. It is a risk factor for clotting. He remains anticoagulated. 01/31/2025 Age-related incipient cataract of both eyes (ICD-10 - H25.093) She has had surgery and is under the care of an multimedia developer. 01/31/2025 QT prolongation (ICD-10 - R94.31) This [...] PROTEIN S ACTIVITY REFLEX AG 08/19/2022 PT [id number] 08/19/2022 FACTOR VIII ACTIVITY 12/15/2024 LUPUS ANTICOAGULANT PANEL 08/19/2022 FACTOR V LEIDEN 08/19/2022 US LEG BILATERAL VENOUS DOPPLER 01/01/20 CBC WITH AUTO DIFF 01/16/2024 CBC WITH AUTO DIFF 03/10/2024 Lipid Panel 11/01/2024 Free T4 (Free Thyroxine) 11/01/2024 Next Appt Details Provider Name:Neal Dave , 03/24/2025 11:00:00 AM, [address] [place] [address] , [address], [place], [address], Insurance Providers Payer Name Payer Address Payer Phone Subscriber Number Group Number Insured Name Patient Relationship to Insured Coverage Start Date Coverage End Date MEDICARE [place] [address] [facility] [phone] [id number] ENRIQUETA NOEL Self - patient is the insured [employer] ([facility]) [address] [place] [id number] ENRIQUETA NOEL Self - patient is the insured Medical (General) History Medical History History ICD Code DVT left femoral and popliteal veins Feb Multiple pulmonary emboli February 2022 Chronic anticoagulation Glaucoma H40.9 Osteopenia M85.80 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
== END 2025-03-21 09:29 | disposition home or self-care (01) ==
LOC: HO.HCS 08:43
PROVIDERS: PCP Internal Medicine; Visit Provider Internal Medicine Cardiovascular Disease
DX: I49.3 Ventricular premature depolarization (principal)
CPT/HCPCS: 99214

== ENCOUNTER → 2025-03-21 08:43 | Outpatient (BNVA) | payer MEDICARE, OTHER, SELFPAY | PROVIDERS: PCP Internal Medicine; Visit Provider Internal Medicine Cardiovascular Disease | DX: I49.3 Ventricular premature depolarization (principal); I44.7 Left bundle-branch block, unspecified | CPT/HCPCS: 99212 ==